=== PATIENT | female | born 1965 | race Caucasian/White ===

== ENCOUNTER 2016-07-07 07:52 | Inpatient (IN) | payer MEDICAID ==
[2016-07-07] MEDS ORDERED: Sodium Chloride 0.9% 1000 ML 1,000 ML IV SCH (08:00)
[2016-07-07 08:16] LABS: VBG BASE EXCESS 7.5 (-2.0-2.0); VBG HCO3- 35.6 meq/L (22-28); VBG HEMOGLOBIN 15.5; VBG O2 SATURATION 69.6 (95-100); VBG POTASSIUM 4.3 (3.5-5.1); VBG pH 7.36 (7.32-7.42)
[2016-07-07 08:22] LABS: BASOPHIL % 0.5 % (0.0-0.4); Eosinophil % 0.5 % (0.00-5.0); Granulocytes % 78.7 % (36.0-66.0); Lymphocytes % 13.8 % (24.0-44.0); Mean Cell Volume 105.5 fl (78-100); Mean Platelet Volume 9.9 fl (6-9.5); Monocytes % 6.5 % (0.0-12.0); Platelet Count 226 K/mm3 (150-450); Red Blood Count 4.51 M/mm3 (4.1-5.4); White Blood Count 10.2 K/mm3 (4.0-10.5)
[2016-07-07] MEDS ORDERED: PROVENTIL 2.5 MG/3 ML NEB IH ONE ×2 (08:22→08:23)
[2016-07-07] MEDS ORDERED: ROCEPHIN 1 Gm-D5w 50 ml Bag** 50 ML IV ONE ×2 (08:35→09:05)
[2016-07-07] MEDS ORDERED: Zithromax 500 MG/ 250 ML NaCl Premix 250 ML IV ONE ×2 (08:35→09:05)
[2016-07-07 08:42] LABS: ALBUMIN 3.2 g/dL (3.4-5.0); ALKALINE PHOSPHATASE 91 U/L (46-116); ANION GAP 10.9 MEQ/L (5-15); BILIRUBIN,TOTAL 0.4 mg/dL (0.2-1.0); BLOOD UREA NITROGEN 7 mg/dL (9-20); CHLORIDE 101 mEq/L (98-107); Carbon Dioxide 33.3 mEq/L (21-32); Glucose 141 MG/DL (70-110); MAGNESIUM 2.1 mg/dL (1.8-2.4); Potassium 4.3 mEq/L (3.5-5.1); SGOT/AST 20 U/L (15-37); SGPT/ALT 24 U/L (12-78); SODIUM 141 mEq/L (136-145); Total Protein 7.3 gm/dL (6.4-8.2)
--- NOTE | 2016-07-07 08:43 | XRAY ---
Exam: AP portable chest film from 0820 hours on 07/07/2016. Comparison: AP portable chest film from 07/24/2010. Indication: Cough/dyspnea. Findings: The film was obtained in a lordotic projection. The heart size appears mildly enlarged. There are new mild increased bilateral perihilar and lower lung field lung markings as compared to 07/24/2010 suggestive of early CHF. A diffuse interstitial inflammatory process is also possible, but probably less likely. No superimposed dense lung consolidation is seen. There is no evidence of pneumothorax. There is some mild haziness at the right costophrenic angle and adjacent to the left hemidiaphragmatic surface. Posterior pleural fluid is not excluded. No acute osseous abnormality is seen. Impression: 1. Radiographic findings most suggestive of early/mild CHF. A diffuse bilateral interstitial inflammatory process would be a secondary consideration. The radiographic findings are new from 07/24/2010.
--- NOTE | 2016-07-07 08:43 | ERPHSYRPT ---
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 Was better then worse. Maybe fever. No chest pain. Cough with phlegm. She is a smoker but has not been able to smoke for few days. This AM was weak and short of breath so had to call ambulance to bring her to the hospital. Denies hx of COPD or lung or heart disease. Symptoms moderately severe. EMS noted low O2 sat in 70% range which improved with O2. 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 Timing/Duration: day(s) (5) Allergies/Adverse Reactions: No Known Drug Allergies Allergy (Verified 07/07/16 08:07) Home Medications: Albuterol Sulfate [Albuterol Sulfate Hfa] 7 gm IH UD 07/07/16 [History] Alprazolam [Xanax 0.5 mg] 0.5 mg PO UD 07/07/16 [History] Cyclobenzaprine HCl [Flexeril] 5 mg PO UD 07/07/16 [History] Hydrocodone Bit/Acetaminophen [[place] 5/325Mg] 1 each PO UD 07/07/16 [History] Hx Tetanus, Diphtheria Vaccination/Date Given: Yes Hx Influenza Vaccination/Date Given: No Hx Pneumococcal Vaccination/Date Given: No Immunizations Up to Date: Yes - Review of Systems Constitutional: Fatigue, Malaise, Weakness Eyes: No Symptoms Ears, Nose, & Throat: No Symptoms Respiratory: Cough, Dyspnea, Wheezing Cardiac: No Chest Pain, No Edema, No Syncope Abdominal/Gastrointestinal: No Abdominal Pain, No Nausea, No Vomiting Musculoskeletal: No Back Pain Skin: No Rash Neurological: No Headache All Other Systems: Reviewed and Negative - Past Medical History Pertinent Past Medical History: Yes Neurological History: No Pertinent History ENT History: No Pertinent History Cardiac History: No Pertinent History Respiratory History: No Pertinent History Endocrine Medical History: No Pertinent History Musculoskeletal History: Other GI Medical History: No Pertinent History History: No Pertinent History Psycho-Social History: Depression Female Reproductive Disorders: No Pertinent History Other Medical History: chronic back pain - Past Surgical History Past Surgical History: Yes Musculoskeletal: Orthopedic Surgery Other Surgical History: tonsils, back - Social History Smoking Status: Current every day smoker How long have you smoked: 30 Exposure to second hand smoke: No Drug Use: none Patient Lives Alone: Yes (cares for elderly parents) - Female History Hx Now: No - Nursing Vital Signs Nursing Vital Signs: Initial Vital Signs Temperature 100.4 F Temperature Source Rectal Pulse Rate 93 Respiratory Rate 26 Blood Pressure [Right Arm] 153/59 Pain Intensity 1 - Physical Exam General Appearance: alert, obese, other (pleasant lady) Eye Exam: PERRL/EOMI Ears, Nose, Throat Exam: normal ENT inspection, moist mucous membranes Neck Exam: normal inspection, supple Respiratory Exam: respiratory distress (mild), wheezing Cardiovascular Exam: regular rate/rhythm, No murmur Gastrointestinal/Abdomen Exam: soft, No tenderness, No distention Extremity Exam: pedal edema (trace), No calf tenderness Neurologic Exam: alert, oriented x 3, cooperative, sensation nml, No motor deficits Skin Exam: warm, diaphoresis (and flushed) SpO2 Interpretation: hypoxic, O2 applied SpO2: 90 Oxygen Delivery: Nasal Cannula - Course Nursing assessment & vital signs reviewed: Yes EKG Interpreted by Me: RATE (94), Sinus Rhythm, Left [place] Deviation, LAFB, NORMAL INTERVALS (QTc 443), Non-specific ST Changes (lateral T wave changes, no current of injury) - Radiology Exams cxr X-ray Interpretation: Reviewed by me, Teleradiologist Report (CM, fluid overload. possible pneumonitis.) Ordered Tests: Active Orders 24 hr Category Date Time Status CO2 Monitoring STAT Care 07/07/16 07:59 Active Second Hand STAT Care 07/07/16 07:59 Active EKG-ER Only STAT Care 07/07/16 07:59 Active IV Insertion STAT Care 07/07/16 07:59 Active IV Insertion-2nd Peripheral STAT Care 07/07/16 08:38 Active Oxygen-ED Only NASAL CANNULA 4 lpm Care 07/07/16 07:59 Active Pulse Oximetry (ED) STAT Care 07/07/16 07:59 Active CHEST 1 VIEW (PORTABLE) Stat Exams 07/07/16 07:59 Completed BLOOD CULTURE Stat Lab 07/07/16 08:10 Received CBC W DIFF Stat Lab 07/07/16 08:05 Completed CMP Stat Lab 07/07/16 08:05 Completed CULTURE,SPUTUM Stat Lab 07/07/16 08:10 Received CULTURE,URINE Stat Lab 07/07/16 09:00 Received Lactic Acid Urgent Lab 07/07/16 08:15 Completed MAGNESIUM Stat Lab 07/07/16 08:05 Completed NT PRO BNP Routine Lab 07/07/16 08:45 Completed TROPONIN Q3H Lab 07/07/16 08:45 Completed TROPONIN Q3H Lab 07/07/16 11:45 Ordered TROPONIN Q3H Lab 07/07/16 14:45 Ordered TROPONIN Q3H Lab 07/07/16 17:45 Ordered TROPONIN Q3H Lab 07/07/16 20:45 Ordered UA W/ MICROSCOPIC Stat Lab 07/07/16 09:00 Completed VENOUS BLOOD GAS Urgent Lab 07/07/16 08:15 Completed Respiratory Nebulizer STAT RT 07/07/16 08:22 Completed Medication Summary Generic Name Dose Route Start Last Admin Trade Name Freq PRN Reason Stop Dose Admin Sodium Chloride 1,000 mls @ 100 mls/hr 07/07/16 08:00 07/07/16 08:26 Sodium Chloride 0.9% 1000 Ml IV 08/06/16 07:59 100 mls/hr .Q10H ALESSANDRA Administration Azithromycin 250 mls @ 125 mls/hr 07/07/16 08:35 07/07/16 09:14 Zithromax 500 Mg/ 250 Ml Nacl Premix IV 07/07/16 10:34 125 mls/hr STAT ONE Administration Discontinued Medications Generic Name Dose Route Start Last Admin Trade Name Freq PRN Reason Stop Dose Admin Albuterol Sulfate 2.5 mg 07/07/16 08:22 07/07/16 08:25 Proventil 2.5 Mg/3 Ml Neb IH 07/07/16 08:23 2.5 mg STAT ONE Administration Albuterol Sulfate Confirm 07/07/16 08:23 Proventil 2.5 Mg/3 Ml Neb Administered 07/07/16 08:24 Dose 2.5 mg IH .STK-MED ONE Ceftriaxone Sodium/Dextrose 50 mls @ 100 mls/hr 07/07/16 08:35 07/07/16 09:14 Rocephin 1 Gm-D5w 50 Ml Bag IV 07/07/16 09:04 100 mls/hr STAT ONE Administration Azithromycin Confirm 07/07/16 09:05 Zithromax 500 Mg/ 250 Ml Nacl Premix Administered 07/07/16 09:06 Dose 250 mls @ ud IV .STK-MED ONE Ceftriaxone Sodium/Dextrose Confirm 07/07/16 09:05 Rocephin 1 Gm-D5w 50 Ml Bag Administered 07/07/16 09:06 Dose 50 mls @ ud IV .STK-MED ONE Lab/Rad Data: Laboratory Result Diagrams 07/07/16 08:05 07/07/16 08:05 Laboratory Results 07/07/16 07/07/16 07/07/16 Range/Units 09:00 08:45 08:15 WBC (4.0-10.5) K/mm3 RBC (4.1-5.4) M/mm3 Hgb (12.0-16.0) gm/dl Hct (35-47) % MCV (78-100) fl MCH (26-32) pg MCHC (32-36) g/dl RDW (11.5-14.0) % Plt Count (150-450) K/mm3 MPV (6-9.5) fl Gran % (36.0-66.0) % Lymphocytes % (24.0-44.0) % Monocytes % (0.0-12.0) % Eosinophils % (0.00-5.0) % Basophils % (0.0-0.4) % Basophils # (0-0.4) VBG pH 7.36 (7.32-7.42) VBG pCO2 at Pat Temp 63 H* (42-55) mm/Hg VBG pO2 at Pat Temp 33 (25-40) mm/Hg VBG HCO3 35.6 H* (22-28) meq/L VBG O2 Sat (Eris) 69.6 L (95-100) VBG Base Excess 7.5 H (-2.0-2.0) VBG Hemoglobin 15.5 VBG Carboxyhemoglobin 6.0 (0.0-6.9) % T HGB POC Potassium 4.3 (3.5-5.1) Sodium (136-145) mEq/L Potassium (3.5-5.1) mEq/L Chloride (98-107) mEq/L Carbon Dioxide (21-32) mEq/L Anion Gap (5-15) MEQ/L BUN (9-20) mg/dL Creatinine (0.55-1.30) mg/dl Estimated GFR ML/MIN Glucose (70-110) MG/DL Lactic Acid 1.0 (0.4-2.0) Calcium (8.5-10.1) mg/dL Magnesium (1.8-2.4) mg/dL Total Bilirubin (0.2-1.0) mg/dL AST (15-37) U/L ALT (12-78) U/L Alkaline Phosphatase (46-116) U/L Troponin I < 0.017 (0.000-0.056) ng/ml NT-Pro-B Natriuret Pep 899 H (0-125) pg/ml Serum Total Protein (6.4-8.2) gm/dL Albumin (3.4-5.0) g/dL Ur Collection Type CATH Urine Color YELLOW (YELLOW) Urine Appearance CLEAR (CLEAR) Urine pH 6.5 (5-6) Ur Specific [place] 1.025 (1.005-1.025) Urine Protein 30 (Negative) Urine Glucose (UA) NEGATIVE (NEGATIVE) mg/dL Urine Ketones NEGATIVE (NEGATIVE) Urine Nitrite NEGATIVE (NEGATIVE) Urine Bilirubin SMALL (NEGATIVE) Urine Urobilinogen 1 (0-1) mg/dL Urine WBC (Auto) NEGATIVE (NEGATIVE) Urine RBC (Auto) TRACE-INTACT (0-5) Ross/ul Urine Microscopic RBC 0-2 (0-2) /HPF Urine Microscopic WBC 0-2 (0-5) /HPF Ur Epithelial Cells FEW (FEW) /HPF Urine Bacteria FEW (NEGATIVE) /HPF Urine Mucus SLIGHT (NEGATIVE) /HPF Specimen Received 07/07/16 0900 07/07/16 07/07/16 Range/Units 08:05 08:05 WBC 10.2 (4.0-10.5) K/mm3 RBC 4.51 (4.1-5.4) M/mm3 Hgb 14.9 (12.0-16.0) gm/dl Hct 47.6 H (35-47) % MCV 105.5 H (78-100) fl MCH 33.0 H (26-32) pg MCHC 31.3 L (32-36) g/dl RDW 14.0 (11.5-14.0) % Plt Count 226 (150-450) K/mm3 MPV 9.9 H (6-9.5) fl Gran % 78.7 H (36.0-66.0) % Lymphocytes % 13.8 L (24.0-44.0) % Monocytes % 6.5 (0.0-12.0) % Eosinophils % 0.5 (0.00-5.0) % Basophils % 0.5 (0.0-0.4) % Basophils # 0.05 (0-0.4) VBG pH (7.32-7.42) VBG pCO2 at Pat Temp (42-55) mm/Hg VBG pO2 at Pat Temp (25-40) mm/Hg VBG HCO3 (22-28) meq/L VBG O2 Sat (Eris) (95-100) VBG Base Excess (-2.0-2.0) VBG Hemoglobin VBG Carboxyhemoglobin (0.0-6.9) % T HGB POC Potassium (3.5-5.1) Sodium 141 (136-145) mEq/L Potassium 4.3 (3.5-5.1) mEq/L Chloride 101 (98-107) mEq/L Carbon Dioxide 33.3 H (21-32) mEq/L Anion Gap 10.9 (5-15) MEQ/L BUN 7 L (9-20) mg/dL Creatinine 0.76 (0.55-1.30) mg/dl Estimated GFR > 60 ML/MIN Glucose 141 H (70-110) MG/DL Lactic Acid (0.4-2.0) Calcium 8.6 (8.5-10.1) mg/dL Magnesium 2.1 (1.8-2.4) mg/dL Total Bilirubin 0.4 (0.2-1.0) mg/dL AST 20 (15-37) U/L ALT 24 (12-78) U/L Alkaline Phosphatase 91 (46-116) U/L Troponin I (0.000-0.056) ng/ml NT-Pro-B Natriuret Pep (0-125) pg/ml Serum Total Protein 7.3 (6.4-8.2) gm/dL Albumin 3.2 L (3.4-5.0) g/dL Ur Collection Type Urine Color (YELLOW) Urine Appearance (CLEAR) Urine pH (5-6) Ur Specific [place] (1.005-1.025) Urine Protein (Negative) Urine Glucose (UA) (NEGATIVE) mg/dL Urine Ketones (NEGATIVE) Urine Nitrite (NEGATIVE) Urine Bilirubin (NEGATIVE) Urine Urobilinogen (0-1) mg/dL Urine WBC (Auto) (NEGATIVE) Urine RBC (Auto) (0-5) Ross/ul Urine Microscopic RBC (0-2) /HPF Urine Microscopic WBC (0-5) /HPF Ur Epithelial Cells (FEW) /HPF Urine Bacteria (NEGATIVE) /HPF Urine Mucus (NEGATIVE) /HPF Specimen Received - Progress Progress Note: 07/07/16 09:46 Pt stable. Talkative. Saturations low 90s on oxygen. No chest pain. No hx of thromboembolic disease. Called Dr Dc. Will admit to ICU IP, get echo to assess LV function, and treat pneumonitis/COPD. Will see patient in: hospital (full admit) Counseled pt/family regarding: lab results, diagnosis, need for follow-up, rad results - Departure Time of Disposition: 09:47 Departure Disposition: In-patient Admission Clinical Impression: Pneumonitis, Compensated respiratory acidosis, Hypoxemia, COPD exacerbation, Smoker Condition: Fair Critical Care Time: No
[2016-07-07 09:16] LABS: Collection Type CATH
[2016-07-07 09:19] LABS: COMPLETE URINE MICROSCOPIC? YES; Ph 6.5 (5-6)
[2016-07-07 09:27] LABS: Bacteria FEW /HPF (NEGATIVE); Epithelial Cells FEW /HPF (FEW); Mucus SLIGHT /HPF (NEGATIVE); WBC 0-2 /HPF (0-5)
[2016-07-07 09:29] LABS: TROPONIN < 0.017 ng/ml (0.000-0.056)
[2016-07-07] MEDS ORDERED: TYLENOL 325 MG PO PRN (10:41)
[2016-07-07] MEDS: DUONEB 0.5-3 MG/3 ml Neb IH SCH ×4 (11:23→21:56)
[2016-07-07] MEDS: Pepcid 20 MG VIAL IV SCH ×2 (12:34→22:04)
[2016-07-07] MEDS: ENOXAPARIN SODIUM SQ SCH (12:34)
[2016-07-07] MEDS: solu-MEDROL 125 MG IV SCH ×2 (12:34→18:48)
--- NOTE | 2016-07-07 12:36 | PCM.HP ---
History of Present Illness - Chief Complaint Chief Complaint: Shortness of Breath History of Present Illness: is a 50 year old female who is an obese, group home heavy smoker. She reports cough, fever and feeling poorly for the last 5 days. She has been short of breath, felt much worse this morning so called ambulance. Has no prior cardiac or pulmonary history in the past. - Review of Systems Constitutional: Fever, Chills Ears, Nose, & Throat: No Symptoms Respiratory: Cough, Short Of Breath Cardiac: No Chest Pain, No Edema, No Syncope Abdominal/Gastrointestinal: No Abdominal Pain, No Nausea, No Vomiting, No Diarrhea Skin: No Rash All Other Systems: Reviewed and Negative Medications & Allergies Home Medications: Home Medication List Albuterol Sulfate [Albuterol Sulfate Hfa] 7 gm IH Q4H PRN PRN 07/07/16 [History Confirmed 07/07/16] Alprazolam [Xanax 0.5 mg] 0.5 mg PO DAILY PRN PRN 07/07/16 [History Confirmed ] Cyclobenzaprine HCl [Flexeril] 10 mg PO TID PRN PRN 07/07/16 [History Confirmed 07/07/16] Hydrocodone Bit/Acetaminophen [[place] 5/325Mg] 1 each PO Q6H PRN PRN 07/07/16 [ History Confirmed 07/07/16] Allergies/Adverse Reactions: Allergies Allergy/AdvReac Type Severity Reaction Status Date / Time No Known Drug Allergies Allergy Verified 07/07/16 08:07 - Past Medical History Past Medical History: Yes Neurological History: No Pertinent History ENT History: No Pertinent History Cardiac History: No Pertinent History Respiratory History: No Pertinent History Endocrine Medical History: No Pertinent History Musculoskelatal History: Arthritis, Other GI Medical History: No Pertinent History History: No Pertinent History Pyscho-Social History: Anxiety, Depression Reproductive Disorders: No Pertinent History Comment: chronic back pain - Past Surgical History Past Surgical History: Yes Neuro Surgical History: No Pertinent History Cardiac History: No Pertinent History Respiratory Surgery: No Pertinent History GI Surgical History: No Pertinent History Genitourinary Surgical Hx: No Pertinent History Musculskeletal Surgical Hx: Orthopedic Surgery Female Surgical History: No Pertinent History Other Surgical History: tonsils, back - Social History Smoking Status: Current every day smoker How long have you smoked: 30 Exposure to second hand smoke: No Alcohol: Daily Drug Use: marijuana - Physical Exam Vital Signs: Vital Signs - 24 hr Temp Pulse Resp BP Pulse Ox 07/07/16 11:00 83 22 93 L 07/07/16 09:48 90 L 07/07/16 09:03 93 H 26 H 153/59 91 L 07/07/16 08:53 100.4 F 07/07/16 08:38 95 H 20 91 L 07/07/16 08:12 90 L 07/07/16 08:02 26 H 90 L 07/07/16 07:52 98.1 F 101 H 26 H 155/83 90 L Oxygen-Last 24 hours O2 Percentage 4 Liters = 36% O2 Percentage 4 Liters = 36% O2 Percentage 4 Liters = 36% O2 Percentage 4 Liters = 36% General Appearance: no apparent distress, alert Eye Exam: PERRL/EOMI Respiratory Exam: prolonged expirations, wheezing Cardiovascular Exam: regular rate/rhythm, normal heart sounds, normal peripheral pulses Gastrointestinal/Abdomen Exam: soft, normal bowel sounds, No tenderness, No mass Extremity Exam: normal inspection, normal range of motion, pelvis stable Skin Exam: normal color, warm, dry, No rash Results - Other Procedures and Tests Respiratory Therapy 07/07/16 11:00 Respiratory Nebulizer Q4H Assessment/Plan (1) COPD exacerbation Current Visit: Yes Status: Acute Assessment & Plan: continue rocephin/zithromax, nebs and IV solu medrol. concern for chf on chest xray. no obvious lower extremity edema. exam c/w bronchospasm. echo is pending. Code(s): J44.1 - CHRONIC OBSTRUCTIVE PULMONARY DISEASE W (ACUTE) EXACERBATION (2) Compensated respiratory acidosis Current Visit: Yes Status: Acute Code(s): E87.2 - ACIDOSIS (3) Hypoxemia Current Visit: Yes Status: Acute Assessment & Plan: as above, supplemental oxygen Code(s): R09.02 - HYPOXEMIA (4) Smoker Current Visit: Yes Status: Acute Code(s): F17.200 - NICOTINE DEPENDENCE, UNSPECIFIED, UNCOMPLICATED
[2016-07-07] MEDS ORDERED: xanAX 0.5 MG PO PRN (13:20)
[2016-07-07] MEDS: NORCO 5/325 MG PO PRN ×2 (14:11→20:34)
[2016-07-07] MEDS: Zestril 5 MG PO SCH (22:03)
[2016-07-08] MEDS: solu-MEDROL 125 MG IV SCH ×4 (00:48→18:48)
[2016-07-08] MEDS: DUONEB 0.5-3 MG/3 ml Neb IH SCH ×6 (03:07→23:21)
[2016-07-08 05:40] LABS: Mean Cell Volume 107.4 fl (78-100); Mean Corpuscular Hemoglobin 32.9 pg (26-32); Mean Platelet Volume 9.8 fl (6-9.5); Platelet Count 245 K/mm3 (150-450); Red Blood Count 4.59 M/mm3 (4.1-5.4); Red Cell Distribution Width 14.1 % (11.5-14.0); White Blood Count 11.7 K/mm3 (4.0-10.5)
[2016-07-08 06:01] LABS: ALBUMIN 3.2 g/dL (3.4-5.0); ALKALINE PHOSPHATASE 89 U/L (46-116); ANION GAP 8.5 MEQ/L (5-15); BILIRUBIN,TOTAL 0.2 mg/dL (0.2-1.0); BLOOD UREA NITROGEN 10 mg/dL (9-20); CHLORIDE 104 mEq/L (98-107); Carbon Dioxide 36.1 mEq/L (21-32); Glucose 185 MG/DL (70-110); SGOT/AST 14 U/L (15-37); SGPT/ALT 20 U/L (12-78); SODIUM 144 mEq/L (136-145); Total Protein 7.8 gm/dL (6.4-8.2)
[2016-07-08 06:18] LABS: Poikilocytosis 1+; TROPONIN < 0.017 ng/ml (0.000-0.056); Total Cells Counted 100
[2016-07-08 06:19] LABS: ANISOCYTOSIS 1+; Platelet Estimate NORMAL (NORMAL); Polychromasia 1+
[2016-07-08] MEDS ORDERED: Lasix 20 MG/2 ML IV ONE (08:42)
--- NOTE | 2016-07-08 08:45 | PCM.NOTE ---
Date and Time: 07/08/16842 Subjective Assessment: patient reports mild improvement in how she feels, still requiring 5 L oxygen and has productive cough Objective Exam General Appearance: no apparent distress, alert Skin Exam: normal color, warm, dry Respiratory Exam: crackles/rales, wheezing Cardiovascular Exam: regular rate/rhythm, normal heart sounds Gastrointestinal/Abdomen Exam: soft, No tenderness, No mass Extremity Exam: pedal edema OBJECTIVE DATA Vital Signs: Vital Signs - 24 hr Temp Pulse Resp BP BP Pulse Ox 07/08/16 08:00 90 26 H 121/87 94 L 07/08/16 04:00 97.7 F 98 H 24 174/74 99 07/08/16 02:00 106 H 20 93 L 07/08/16 00:37 20 07/08/16 00:01 79 07/08/16 00:00 98.4 F 79 22 151/90 94 L 07/07/16 22:00 88 18 89 L 07/07/16 20:37 18 07/07/16 20:00 98.1 F 89 18 162/79 92 L 07/07/16 18:46 95 H 18 92 L 07/07/16 16:26 98.0 F 84 17 144/96 84 L 07/07/16 16:00 91 H 07/07/16 15:25 83 24 95 07/07/16 12:20 98.3 F 90 31 H 156/76 88 L 07/07/16 12:00 82 07/07/16 11:00 83 22 93 L 07/07/16 09:48 90 L 07/07/16 09:03 93 H 26 H 153/59 91 L 07/07/16 08:53 100.4 F Oxygen-Last 24 hours O2 Percentage 5 Liters = 40% O2 Percentage 6 Liters = 44% O2 Percentage 5 Liters = 40% O2 Percentage 4 Liters = 36% O2 Percentage 4 Liters = 36% O2 Percentage 4 Liters = 36% Pain Assessment - Last Documented Pain Intensity 4 Pain Scale Used 0-10 Pain Scale Intake and Output: Intake & Output 07/05/16 07/06/16 07/07/16 07/08/16 11:59 11:59 11:59 11:59 Intake Total 750 Output Total 1700 Balance -950 Weight 138.572 kg Lab Results: Lab Results-Last 24 Hours 07/07/16 07/07/16 07/07/16 Range/Units 11:50 14:50 17:55 WBC (4.0-10.5) K/mm3 RBC (4.1-5.4) M/mm3 Hgb (12.0-16.0) gm/dl Hct (35-47) % MCV (78-100) fl MCH (26-32) pg MCHC (32-36) g/dl RDW (11.5-14.0) % Plt Count (150-450) K/mm3 MPV (6-9.5) fl Segmented Neutrophils (36.0-66.0) % Lymphocytes (Manual) (24-44) % Monocytes (Manual) (0.0-12.0) % Platelet Estimate (NORMAL) Polychromasia Poikilocytosis Anisocytosis Sodium (136-145) mEq/L Potassium (3.5-5.1) mEq/L Chloride (98-107) mEq/L Carbon Dioxide (21-32) mEq/L Anion Gap (5-15) MEQ/L BUN (9-20) mg/dL Creatinine (0.55-1.30) mg/dl Estimated GFR ML/MIN Glucose (70-110) MG/DL Calcium (8.5-10.1) mg/dL Total Bilirubin (0.2-1.0) mg/dL AST (15-37) U/L ALT (12-78) U/L Alkaline Phosphatase (46-116) U/L Troponin I < 0.017 < 0.017 < 0.017 (0.000-0.056) ng/ml NT-Pro-B Natriuret Pep (0-125) pg/ml Serum Total Protein (6.4-8.2) gm/dL Albumin (3.4-5.0) g/dL 07/07/16 07/08/16 07/08/16 Range/Units 21:00 05:23 05:23 WBC 11.7 H (4.0-10.5) K/mm3 RBC 4.59 (4.1-5.4) M/mm3 Hgb 15.1 (12.0-16.0) gm/dl Hct 49.3 H (35-47) % MCV 107.4 H (78-100) fl MCH 32.9 H (26-32) pg MCHC 30.6 L (32-36) g/dl RDW 14.1 H (11.5-14.0) % Plt Count 245 (150-450) K/mm3 MPV 9.8 H (6-9.5) fl Segmented Neutrophils 89 H (36.0-66.0) % Lymphocytes (Manual) 9 L (24-44) % Monocytes (Manual) 2 (0.0-12.0) % Platelet Estimate NORMAL (NORMAL) Polychromasia 1+ Poikilocytosis 1+ Anisocytosis 1+ Sodium 144 (136-145) mEq/L Potassium 5.0 (3.5-5.1) mEq/L Chloride 104 (98-107) mEq/L Carbon Dioxide 36.1 H (21-32) mEq/L Anion Gap 8.5 (5-15) MEQ/L BUN 10 (9-20) mg/dL Creatinine 0.78 (0.55-1.30) mg/dl Estimated GFR > 60 ML/MIN Glucose 185 H (70-110) MG/DL Calcium 8.9 (8.5-10.1) mg/dL Total Bilirubin 0.2 (0.2-1.0) mg/dL AST 14 L (15-37) U/L ALT 20 (12-78) U/L Alkaline Phosphatase 89 (46-116) U/L Troponin I < 0.017 (0.000-0.056) ng/ml NT-Pro-B Natriuret Pep (0-125) pg/ml Serum Total Protein 7.8 (6.4-8.2) gm/dL Albumin 3.2 L (3.4-5.0) g/dL 07/08/ Range/Units 05:23 WBC (4.0-10.5) K/mm3 RBC (4.1-5.4) M/mm3 Hgb (12.0-16.0) gm/dl Hct (35-47) % MCV (78-100) fl MCH (26-32) pg MCHC (32-36) g/dl RDW (11.5-14.0) % Plt Count (150-450) K/mm3 MPV (6-9.5) fl Segmented Neutrophils (36.0-66.0) % Lymphocytes (Manual) (24-44) % Monocytes (Manual) (0.0-12.0) % Platelet Estimate (NORMAL) Polychromasia Poikilocytosis Anisocytosis Sodium (136-145) mEq/L Potassium (3.5-5.1) mEq/L Chloride (98-107) mEq/L Carbon Dioxide (21-32) mEq/L Anion Gap (5-15) MEQ/L BUN (9-20) mg/dL Creatinine (0.55-1.30) mg/dl Estimated GFR ML/MIN Glucose (70-110) MG/DL Calcium (8.5-10.1) mg/dL Total Bilirubin (0.2-1.0) mg/dL AST (15-37) U/L ALT (12-78) U/L Alkaline Phosphatase (46-116) U/L Troponin I < 0.017 (0.000-0.056) ng/ml NT-Pro-B Natriuret Pep 793 H (0-125) pg/ml Serum Total Protein (6.4-8.2) gm/dL Albumin (3.4-5.0) g/dL Assessment/Plan (1) COPD exacerbation Current Visit: Yes Status: Acute Assessment & Plan: continue rocephin/zithromax, solu medrol and aggressive nebulizer therapy. echo pending, concern for chf with xray. will give 20mg IV lasix x 1 dose and await further results Code(s): J44.1 - CHRONIC OBSTRUCTIVE PULMONARY DISEASE W (ACUTE) EXACERBATION (2) Compensated respiratory acidosis Current Visit: Yes Status: Acute Code(s): E87.2 - ACIDOSIS (3) Hypoxemia Current Visit: Yes Status: Acute Code(s): R09.02 - HYPOXEMIA (4) Smoker Current Visit: Yes Status: Acute Code(s): F17.200 - NICOTINE DEPENDENCE, UNSPECIFIED, UNCOMPLICATED
--- NOTE | 2016-07-08 09:19 | CONS ---
CONSULT DATE: 07/07/2016 BRIEF HISTORY: This is a 50 year-old female who was seen because of shortness of breath. The patient stated that she had been doing well until last Thursday when she had some flu-like symptoms associated with nonproductive cough and generalized weakness. Since then she has been short of breath on very limited exertion. She was admitted because of worsening shortness of breath. She denies any chest pains. She has never had cardiac related problems in the past. HOME MEDICATIONS: Albuterol inhaler, Xanax, Flexeril, hydrocodone, famotidine, Solu-Medrol. REVIEW OF SYSTEMS: CORE SHAPER SIDES: No history of stroke or seizures. RESPIRATORY: Intermittent coughing spells. She states she has never been diagnosed to have chronic obstructive pulmonary disease. GI: No heartburn. No nausea. No vomiting. : Negative for dysuria or hematuria. PERIPHERAL VASCULAR: No history of DVT or claudication. MUSCULOSKELETAL: She has some degenerative joint disorder. SKIN: No active dermatological problems. HEMATOLOGY: No blood dyscrasia or transfusion. ENDOCRINE: No thyroid disorder. PAST SURGICAL HISTORY: Back surgery, tonsillectomy. SOCIAL HISTORY: She still smokes about a pack of cigarettes a day. She also has some ETOH usage every two weeks when she is with her friends. PHYSICAL EXAMINATION: Her blood pressure is 141/89, heart rate 87, respirations about 18. GENERAL: The patient is a middle aged female who is alert who has shortness of breath with just plain conversation. She is obese. HEENT: Unremarkable. NECK: No obvious JVD. CHEST: The breath sounds are diminished bilaterally with some rhonchi. CARDIAC: Heart tones are normal. The rhythm is regular. There is no audible gallop. ABDOMEN: Soft with normal bowel sounds. EXTREMITIES: There is trace edema with decreased distal pulses. LAB DATA AND DIAGNOSTIC TESTS: EKG shows normal sinus rhythm with left anterior viridiana-block. Chest x-ray shows possible congestive heart failure. Troponin 0.017. CBC showed hemoglobin 14.9, PLT 226,000. BUN 7, creatinine 0.76. The glomerular filtration rate greater than 60. Serum electrolytes are normal. Liver enzymes are normal. The ProBNP 899. IMPRESSION: In essence the patient presented with shortness of breath with background of viral infection. The possibilities includes the patient may have some kind of viral-type of pneumonia with underlying chronic obstructive pulmonary disease from chronic tobacco usage. I am going to go ahead and get echocardiogram to assess left ventricular systolic function. The patient will be given some IV diuretics. Will carefully monitor serum electrolytes. Echocardiogram to assess left ventricular systolic function. Further recommendations will be made after the tests are completed. I will follow up with you.
[2016-07-08] MEDS: Zithromax 500 MG/ 250 ML NaCl Premix 250 ML IV SCH (09:58)
[2016-07-08] MEDS: NORCO 5/325 MG PO PRN (09:59)
[2016-07-08] MEDS: ROCEPHIN 1 Gm-D5w 50 ml Bag** 50 ML IV SCH (09:59)
[2016-07-08] MEDS: Zestril 5 MG PO SCH ×2 (10:00→21:34)
[2016-07-08] MEDS: Pepcid 20 MG VIAL IV SCH ×2 (10:03→21:34)
[2016-07-08] MEDS: ENOXAPARIN SODIUM SQ SCH (10:03)
[2016-07-08] MEDS ORDERED: Artificial Tears 15 ML OP PRN (20:11)
[2016-07-08] MEDS: xanAX 0.5 MG PO PRN (20:27)
[2016-07-09] MEDS: solu-MEDROL 125 MG IV SCH ×4 (02:11→17:35)
[2016-07-09] MEDS: DUONEB 0.5-3 MG/3 ml Neb IH SCH ×6 (03:27→23:02)
[2016-07-09 05:43] LABS: Mean Corpuscular Hemoglobin 33.3 pg (26-32); Mean Platelet Volume 10.2 fl (6-9.5); Platelet Count 273 K/mm3 (150-450); Red Blood Count 4.51 M/mm3 (4.1-5.4); Red Cell Distribution Width 14.2 % (11.5-14.0); White Blood Count 14.8 K/mm3 (4.0-10.5)
[2016-07-09 06:31] LABS: ANION GAP 5.8 MEQ/L (5-15); BLOOD UREA NITROGEN 17 mg/dL (9-20); CHLORIDE 102 mEq/L (98-107); Carbon Dioxide 37.8 mEq/L (21-32); Glucose 219 MG/DL (70-110); Potassium 4.9 mEq/L (3.5-5.1); SODIUM 141 mEq/L (136-145)
[2016-07-09] MEDS: NORCO 5/325 MG PO PRN ×3 (06:56→21:00)
[2016-07-09 06:57] LABS: ANISOCYTOSIS 1+; Platelet Estimate NORMAL (NORMAL); Poikilocytosis 1+; Polychromasia 1+; Total Cells Counted 100
--- NOTE | 2016-07-09 08:35 | PCM.NOTE ---
Date and Time: 07/09/16833 Subjective Assessment: patient has some improvement, she is speaking in full sentences and tolerating po well. still has significant cough Objective Exam General Appearance: no apparent distress, alert Respiratory Exam: crackles/rales, wheezing Cardiovascular Exam: regular rate/rhythm Gastrointestinal/Abdomen Exam: soft, No tenderness, No mass Extremity Exam: normal inspection, normal range of motion OBJECTIVE DATA Vital Signs: Vital Signs - 24 hr Temp Pulse Resp BP BP Pulse Ox 07/09/16 06:38 86 20 97 07/09/16 04:00 97.5 F 83 21 130/70 95 07/09/16 03:28 95 H 16 96 07/09/16 00:01 81 07/09/16 00:00 81 18 95 07/08/16 23:21 85 18 97 07/08/16 20:00 98.1 F 105 H 29 H 152/77 92 L 07/08/16 19:59 86 20 97 07/08/16 15:56 97.6 F 82 22 133/77 90 L 07/08/16 14:00 92 H 20 95 07/08/16 12:00 97.3 F 90 22 107/73 93 L 07/08/16 10:00 80 17 96 07/08/16 08:46 96.4 F Oxygen-Last 24 hours O2 Percentage 5 Liters = 40% O2 Percentage 5 Liters = 40% O2 Percentage 5 Liters = 40% O2 Percentage 5 Liters = 40% O2 Percentage 5 Liters = 40% Pain Assessment - Last Documented Pain Intensity 0 Pain Scale Used 0-10 Pain Scale Intake and Output: Intake & Output 07/06/16 07/07/16 07/08/16 07/09/16 11:59 11:59 11:59 11:59 Intake Total 750 2690 Output Total 2440 1450 Balance -1690 1240 Weight 138.572 kg 140.614 kg Lab Results: Lab Results-Last 24 Hours 07/09/16 07/09/16 Range/Units 05:08 05:08 WBC 14.8 H (4.0-10.5) K/mm3 RBC 4.51 (4.1-5.4) M/mm3 Hgb 15.0 (12.0-16.0) gm/dl Hct 49.6 H (35-47) % MCV 110.0 H (78-100) fl MCH 33.3 H (26-32) pg MCHC 30.2 L (32-36) g/dl RDW 14.2 H (11.5-14.0) % Plt Count 273 (150-450) K/mm3 MPV 10.2 H (6-9.5) fl Segmented Neutrophils 93 H (36.0-66.0) % Lymphocytes (Manual) 4 L (24-44) % Monocytes (Manual) 3 (0.0-12.0) % Platelet Estimate NORMAL (NORMAL) Polychromasia 1+ Poikilocytosis 1+ Anisocytosis 1+ Sodium 141 (136-145) mEq/L Potassium 4.9 (3.5-5.1) mEq/L Chloride 102 (98-107) mEq/L Carbon Dioxide 37.8 H (21-32) mEq/L Anion Gap 5.8 (5-15) MEQ/L BUN 17 (9-20) mg/dL Creatinine 0.76 (0.55-1.30) mg/dl Estimated GFR > 60 ML/MIN Glucose 219 H (70-110) MG/DL Calcium 9.0 (8.5-10.1) mg/dL NT-Pro-B Natriuret Pep 632 H (0-125) pg/ml Assessment/Plan (1) COPD exacerbation Current Visit: Yes Status: Acute Assessment & Plan: continue rocephin/zithromax, nebs and steroids. improvement with IV lasix noted , will likely give another dose today. echo report pending. patient is stable to transfer out to med/surg today Code(s): J44.1 - CHRONIC OBSTRUCTIVE PULMONARY DISEASE W (ACUTE) EXACERBATION (2) Compensated respiratory acidosis Current Visit: Yes Status: Acute Code(s): E87.2 - ACIDOSIS (3) Hypoxemia Current Visit: Yes Status: Acute Code(s): R09.02 - HYPOXEMIA (4) Smoker Current Visit: Yes Status: Acute Code(s): F17.200 - NICOTINE DEPENDENCE, UNSPECIFIED, UNCOMPLICATED
[2016-07-09] MEDS: Zestril 5 MG PO SCH ×2 (09:30→21:02)
[2016-07-09] MEDS: ROCEPHIN 1 Gm-D5w 50 ml Bag** 50 ML IV SCH (09:30)
[2016-07-09] MEDS: ENOXAPARIN SODIUM SQ SCH (09:30)
[2016-07-09] MEDS: Pepcid 20 MG VIAL IV SCH ×2 (09:34→20:59)
[2016-07-09] MEDS: Lasix 20 MG/2 ML IV SCH (09:34)
[2016-07-09] MEDS: Zithromax 500 MG/ 250 ML NaCl Premix 250 ML IV SCH (10:29)
[2016-07-09] MEDS: xanAX 0.5 MG PO PRN (11:09)
[2016-07-09] MEDS ORDERED: Sodium Chloride 0.9% 10 ML FLUSH Syringe IV PRN (13:07)
[2016-07-09] MEDS: Sodium Chloride 0.9% 10 ML FLUSH Syringe IV SCH ×2 (13:08→21:00)
[2016-07-09] MEDS: Artificial Tears 15 ML OP PRN (21:01)
[2016-07-10] MEDS: solu-MEDROL 125 MG IV SCH ×5 (00:47→23:48)
[2016-07-10] MEDS: DUONEB 0.5-3 MG/3 ml Neb IH SCH ×6 (03:06→23:14)
[2016-07-10] MEDS: NORCO 5/325 MG PO PRN ×3 (06:02→20:05)
[2016-07-10] MEDS: Sodium Chloride 0.9% 10 ML FLUSH Syringe IV SCH ×3 (06:07→21:44)
--- NOTE | 2016-07-10 07:47 | ECHO ---
Transthoracic echocardiographic examination and color Doppler was done on 07/07/2016. INDICATION: Shortness of breath. The study was somewhat limited with a limited acoustic window. The left ventricle was only partially visualized. Estimated global left ventricular ejection fraction is probably in the range of 50 to 60%. There is prominence of the basal septum. There is a gradient of about 22 mm of Mercury across the left ventricular outflow tract. The aortic valve opens to open adequately. The mitral valve opens adequately. There is trace mitral regurgitation. Left atrium is normal. The right side chambers are normal. There is trace tricuspid regurgitation. Right ventricular systolic pressure of 32 mm of Mercury.
--- NOTE | 2016-07-10 08:06 | PCM.NOTE ---
Date and Time: 07/10/16804 Subjective Assessment: patient still with cough, congestion and significant oxygen requirement. states she is slowly feeling better Objective Exam General Appearance: no apparent distress, alert Respiratory Exam: prolonged expirations, wheezing Cardiovascular Exam: regular rate/rhythm Gastrointestinal/Abdomen Exam: soft, No tenderness, No mass Extremity Exam: normal inspection, normal range of motion OBJECTIVE DATA Vital Signs: Vital Signs - 24 hr Temp Pulse Resp BP Pulse Ox 07/10/16 07:23 97.0 F 85 20 133/65 91 L 07/10/16 06:31 80 18 93 L 07/10/16 04:00 97.8 F 78 22 164/81 96 07/10/16 03:06 93 H 18 95 07/10/16 00:00 21 07/09/16 23:33 98.1 F 96 H 22 162/76 91 L 07/09/16 23:02 96 H 18 94 L 07/09/16 20:00 98.2 F 84 20 143/69 95 07/09/16 19:07 81 24 94 L 07/09/16 16:00 98.2 F 89 20 135/77 94 L 07/09/16 15:11 80 22 92 L 07/09/16 12:00 20 07/09/16 11:38 97.8 F 76 20 116/68 92 L 07/09/16 11:00 81 20 94 L Oxygen-Last 24 hours O2 Percentage 4 Liters = 36% O2 Percentage 4 Liters = 36% O2 Percentage 4 Liters = 36% O2 Percentage 4 Liters = 36% O2 Percentage 4 Liters = 36% O2 Percentage 4 Liters = 36% Pain Assessment - Last Documented Pain Intensity 6 Pain Scale Used 0-10 Pain Scale Intake and Output: Intake & Output 07/07/16 07/08/16 07/09/16 07/10/16 11:59 11:59 11:59 11:59 Intake Total 750 3870 609 Output Total 2440 2050 2300 Balance -1690 1820 -1691 Weight 138.572 kg 140.614 kg 144.469 kg Assessment/Plan (1) COPD exacerbation Current Visit: Yes Status: Acute Assessment & Plan: continue current management, slowly improving. may need home oxygen on discharge Code(s): J44.1 - CHRONIC OBSTRUCTIVE PULMONARY DISEASE W (ACUTE) EXACERBATION (2) Compensated respiratory acidosis Current Visit: Yes Status: Acute Code(s): E87.2 - ACIDOSIS (3) Hypoxemia Current Visit: Yes Status: Acute Code(s): R09.02 - HYPOXEMIA (4) Smoker Current Visit: Yes Status: Acute Code(s): F17.200 - NICOTINE DEPENDENCE, UNSPECIFIED, UNCOMPLICATED
[2016-07-10] MEDS: Zithromax 500 MG/ 250 ML NaCl Premix 250 ML IV SCH (09:16)
[2016-07-10] MEDS: Pepcid 20 MG VIAL IV SCH ×2 (09:20→21:44)
[2016-07-10] MEDS: Zestril 5 MG PO SCH ×2 (09:21→21:44)
[2016-07-10] MEDS: ENOXAPARIN SODIUM SQ SCH (09:21)
[2016-07-10] MEDS: Lasix 20 MG/2 ML IV SCH (09:21)
[2016-07-10] MEDS: xanAX 0.5 MG PO PRN ×2 (09:27→20:05)
[2016-07-10] MEDS: ROCEPHIN 1 Gm-D5w 50 ml Bag** 50 ML IV SCH (10:51)
[2016-07-10] MEDS: Artificial Tears 15 ML OP PRN (17:24)
[2016-07-11] MEDS: NORCO 5/325 MG PO PRN ×4 (02:40→23:11)
[2016-07-11] MEDS: DUONEB 0.5-3 MG/3 ml Neb IH SCH ×6 (03:10→23:05)
[2016-07-11] MEDS: solu-MEDROL 125 MG IV SCH ×4 (05:21→23:11)
[2016-07-11] MEDS: Sodium Chloride 0.9% 10 ML FLUSH Syringe IV SCH ×3 (05:23→21:09)
[2016-07-11 05:49] LABS: Mean Cell Volume 106.1 fl (78-100); Mean Corpuscular Hemoglobin 32.3 pg (26-32); Mean Platelet Volume 9.8 fl (6-9.5); Platelet Count 270 K/mm3 (150-450); Red Blood Count 4.58 M/mm3 (4.1-5.4); Red Cell Distribution Width 13.7 % (11.5-14.0); White Blood Count 11.5 K/mm3 (4.0-10.5)
[2016-07-11 06:25] LABS: ANION GAP 3.3 MEQ/L (5-15); BLOOD UREA NITROGEN 20 mg/dL (9-20); CHLORIDE 101 mEq/L (98-107); Carbon Dioxide 40.8 mEq/L (21-32); Glucose 100 MG/DL (70-110); Potassium 4.1 mEq/L (3.5-5.1); SODIUM 141 mEq/L (136-145)
--- NOTE | 2016-07-11 07:08 | PCM.NOTE ---
Date and Time: 07/11/16705 Subjective Assessment: patient continues to require 4L oxygen, cough is more productive today. Objective Exam General Appearance: no apparent distress, alert Skin Exam: normal color, warm, dry Respiratory Exam: prolonged expirations, wheezing Cardiovascular Exam: regular rate/rhythm, normal heart sounds Gastrointestinal/Abdomen Exam: soft, No tenderness, No mass Extremity Exam: normal inspection, normal range of motion OBJECTIVE DATA Vital Signs: Vital Signs - 24 hr Temp Pulse Resp BP Pulse Ox 07/11/16 06:50 79 20 93 L 07/11/16 04:00 98.4 F 75 20 137/85 93 L 07/11/16 03:00 82 18 94 L 07/10/16 23:51 20 07/10/16 23:44 98.6 F 80 20 140/83 97 07/10/16 23:00 80 18 97 07/10/16 20:00 98.5 F 84 20 143/85 92 L 07/10/16 19:00 93 H 18 91 L 07/10/16 16:00 97.9 F 86 20 155/75 91 L 07/10/16 15:16 92 L 07/10/16 14:57 88 18 95 07/10/16 12:00 97.3 F 90 20 132/73 93 L 07/10/16 11:07 90 22 93 L 07/10/16 07:23 97.0 F 85 20 133/65 91 L Oxygen-Last 24 hours O2 Percentage 3 Liters = 32% O2 Percentage 3 Liters = 32% O2 Percentage 3 Liters = 32% O2 Percentage 3 Liters = 32% O2 Percentage 4 Liters = 36% O2 Percentage 4 Liters = 36% Pain Assessment - Last Documented Pain Intensity 4 Pain Scale Used [facility] Intake and Output: Intake & Output 07/08/16 07/09/16 07/10/16 07/11/16 11:59 11:59 11:59 11:59 Intake Total 750 3870 1029 1240 Output Total 2440 2050 3300 1550 Balance -1690 1820 -2271 -310 Weight 138.572 kg 140.614 kg 144.469 kg Lab Results: Lab Results-Last 24 Hours 07/11/16 07/11/16 Range/Units 05:26 05:26 WBC 11.5 H (4.0-10.5) K/mm3 RBC 4.58 (4.1-5.4) M/mm3 Hgb 14.8 (12.0-16.0) gm/dl Hct 48.6 H (35-47) % MCV 106.1 H (78-100) fl MCH 32.3 H (26-32) pg MCHC 30.5 L (32-36) g/dl RDW 13.7 (11.5-14.0) % Plt Count 270 (150-450) K/mm3 MPV 9.8 H (6-9.5) fl Sodium 141 (136-145) mEq/L Potassium 4.1 (3.5-5.1) mEq/L Chloride 101 (98-107) mEq/L Carbon Dioxide 40.8 H (21-32) mEq/L Anion Gap 3.3 L (5-15) MEQ/L BUN 20 (9-20) mg/dL Creatinine 0.71 (0.55-1.30) mg/dl Estimated GFR > 60 ML/MIN Glucose 100 (70-110) MG/DL Calcium 8.6 (8.5-10.1) mg/dL NT-Pro-B Natriuret Pep 670 H (0-125) pg/ml Multi-Disciplinary Progress Notes: Multi-Disciplinary Progress Notes 07/10/16 09:50 (created 07/10/16 13:46) Case Management Note by Madison Simon REVIEWED DISCHARGE PLAN. CONTINUES TO PLAN TO RETURN HOME TO PRE EPISODIC LEVEL OF [facility]. INDEPENDENT WITH ALL ADL'S. DECLINED ADDNL NEEDS AT PRESENT. DID DISCUSS POSSIBILITY OF REQUIRING OXYGEN ON DISCHARGE. WILL CONTINUE TO FOLLOW AND ASSESS FOR ALL DC NEEDS. Initialized on 07/10/16 13:46 - END OF NOTE Assessment/Plan (1) COPD exacerbation Current Visit: Yes Status: Acute Assessment & Plan: continue solu medrol, rocephin and zithromax. nebs, will likely require oxygen therapy at the time of discharge Code(s): J44.1 - CHRONIC OBSTRUCTIVE PULMONARY DISEASE W (ACUTE) EXACERBATION (2) Compensated respiratory acidosis Current Visit: Yes Status: Acute Code(s): E87.2 - ACIDOSIS (3) Hypoxemia Current Visit: Yes Status: Acute Code(s): R09.02 - HYPOXEMIA (4) Smoker Current Visit: Yes Status: Acute Code(s): F17.200 - NICOTINE DEPENDENCE, UNSPECIFIED, UNCOMPLICATED
[2016-07-11 07:10] LABS: BAND 1 % (0.0-2.0); Metamyelocyte 1 %; Total Cells Counted 100
[2016-07-11 07:11] LABS: Platelet Estimate NORMAL (NORMAL)
[2016-07-11] MEDS: xanAX 0.5 MG PO PRN ×2 (07:26→19:37)
[2016-07-11] MEDS: ENOXAPARIN SODIUM SQ SCH (09:06)
[2016-07-11] MEDS: Zestril 5 MG PO SCH ×2 (09:07→21:07)
[2016-07-11] MEDS: Pepcid 20 MG VIAL IV SCH ×2 (09:07→21:07)
[2016-07-11] MEDS: Lasix 20 MG/2 ML IV SCH (09:07)
[2016-07-11] MEDS: ROCEPHIN 1 Gm-D5w 50 ml Bag** 50 ML IV SCH (09:07)
[2016-07-11] MEDS: Zithromax 500 MG/ 250 ML NaCl Premix 250 ML IV SCH (09:49)
[2016-07-11] MEDS: Artificial Tears 15 ML OP PRN (11:20)
[2016-07-12] MEDS: DUONEB 0.5-3 MG/3 ml Neb IH SCH ×3 (03:03→11:12)
[2016-07-12] MEDS: NORCO 5/325 MG PO PRN ×2 (06:01→12:36)
[2016-07-12] MEDS: solu-MEDROL 125 MG IV SCH (06:03)
[2016-07-12 06:18] LABS: Mean Cell Volume 102.4 fl (78-100); Mean Corpuscular Hemoglobin 32.4 pg (26-32); Mean Platelet Volume 9.5 fl (6-9.5); Platelet Count 294 K/mm3 (150-450); Red Blood Count 5.09 M/mm3 (4.1-5.4); Red Cell Distribution Width 13.5 % (11.5-14.0); White Blood Count 12.8 K/mm3 (4.0-10.5)
[2016-07-12 06:37] LABS: ANION GAP 12.8 MEQ/L (5-15); BLOOD UREA NITROGEN 20 mg/dL (9-20); CHLORIDE 96 mEq/L (98-107); Carbon Dioxide 36.1 mEq/L (21-32); Glucose 225 MG/DL (70-110); Potassium 5.1 mEq/L (3.5-5.1); SODIUM 140 mEq/L (136-145)
[2016-07-12] MEDS: ENOXAPARIN SODIUM SQ SCH (08:23)
[2016-07-12] MEDS: ROCEPHIN 1 Gm-D5w 50 ml Bag** 50 ML IV SCH (08:24)
[2016-07-12] MEDS: Pepcid 20 MG VIAL IV SCH (08:26)
[2016-07-12] MEDS: Lasix 20 MG/2 ML IV SCH (08:26)
[2016-07-12] MEDS: Zestril 5 MG PO SCH (08:38)
[2016-07-12] MEDS: xanAX 0.5 MG PO PRN (08:41)
[2016-07-12] MEDS: Zithromax 500 MG/ 250 ML NaCl Premix 250 ML IV SCH (09:25)
[2016-07-12] MEDS: Artificial Tears 15 ML OP PRN (09:27)
--- NOTE | 2016-07-12 10:06 | PCM.DCORD ---
- Discharge Discharge Date: 07/12/16 Disposition: Home, Self-Care Condition: Good Prescriptions: New Cefdinir 300 mg PO BID #8 capsule Albuterol/Ipratropium 3ml Neb* [DUONEB 0.5-3 MG/3 ml Neb] 3 ml IH QID #120 ampul.neb Prednisone 20 mg [Deltasone 20 mg] 40 mg PO DAILY #8 tablet Furosemide 20 mg [Lasix 20 mg] 20 mg PO DAILY #7 tablet Lisinopril 5 mg [Zestril 5 MG] 2.5 mg PO Q12HT #60 tablet Continue Alprazolam [Xanax 0.5 mg] 0.5 mg PO DAILY PRN PRN PRN Reason: Anxiety Hydrocodone Bit/Acetaminophen [[place] 5/325Mg] 1 each PO Q6H PRN PRN PRN Reason: Pain Cyclobenzaprine HCl [Flexeril] 10 mg PO TID PRN PRN PRN Reason: Muscle Spasms Albuterol Sulfate [Albuterol Sulfate Hfa] 7 gm IH Q4H PRN PRN #0 [email or web address] PRN Reason: SOB/Wheezing Instructions: Chronic Obstructive Pulmonary Disease, Pneumonia -- Adult, Quit Smoking Additional Instructions: Home oxygen 3 L nasal cannula. Stop smoking. Follow up with: EDGAR TRAN MD [ACTIVE STAFF] - 1 Week
[2016-07-12 11:37] VITALS: BP 130/71; PULSE 89; O2SAT 94
[2016-07-12 11:41] LABS: BAND 1 % (0.0-2.0); Platelet Estimate NORMAL (NORMAL); Total Cells Counted 100; Toxic Granulation 1+
--- NOTE | 2016-07-14 14:10 | DS ---
DISCHARGE DIAGNOSIS: 1. CHRONIC OBSTRUCTIVE PULMONARY DISEASE EXACERBATION. 2. HYPOXEMIA. 3. TOBACCO ABUSE. DISCHARGE PHYSICAL EXAM: VITALS: Temperature current 98.4, temperature maximum 98.4, heart rate 80-85, respiratory rate 20-21, O2 saturation 93-94% on 3 liters nasal cannula, BP 128-159/69-80, weight 143 Kg. GENERAL: The patient is lying in bed in no acute distress. She is talkative. She reports she has been able to go up and down the hallway walking with her O2. CVS: She has a regular rate and rhythm. No murmurs, gallops, or rubs. CHEST: She has a few scattered wheezes. Equal breath sounds. No crackles. ABDOMEN: Soft, nontender, nondistended with normal bowel sounds. EXTREMITIES: No clubbing, cyanosis, or edema. SKIN: Warm, dry, and intact. HOSPITAL COURSE: 1. Chronic obstructive pulmonary disease exacerbation. I saw the patient on the day of her discharge. She stated that she very much wanted to go home and that Dr. Dc thought she would be able to go home today. She has been on methylprednisolone during her hospitalization as well as azithromycin which she has completed at least 5 days of and ceftriaxone. I am planning on discharging her with cefdinir 300 mg PO bid for 4 more days. Prednisone 20 mg tablets 2 tables PO daily for 4 days. She will have a nebulizer machine at home. I have written for DuoNebs 3 ml qid. She also has a script for an albuterol inhaler to take 2 puffs q 4 h PRN. She is needing O2. Has been qualified for home O2, so will have her use 3 liters at home from [facility]. I signed this order on the front of her chart for Dr. Dc as I was covering for him today. She will need to follow-up with Dr. Dc this coming week and this was explained to the patient and she feels like she can get around her home and take care of herself. 2. Hypoxia as above. 3. Tobacco abuse. The patient was counseled that she needs to quit smoking. If she doesn't, she will have a repeat hospitalization. The patient voiced understanding. DISCHARGE MEDICATIONS: Please see the discharge order. DISPOSITION: The patient was discharged to home in fair condition. FOLLOW-UP: She is to follow-up with Dr. Harvey Dc.
== END 2016-07-12 12:40 | disposition home or self-care (01) | DRG 191 ==
LOC: ED 07:52 → ICU 10:30 → MED SURG 07-09 11:34
PROVIDERS: ADMIT Family Medicine; ATTEND Family Medicine
DX: J44.1 Chronic obstructive pulmonary disease with (acute) exacerbation (principal); E87.2 Acidosis; R09.02 Hypoxemia; F41.8 Other specified anxiety disorders; M19.90 Unspecified osteoarthritis, unspecified site; M54.9 Dorsalgia, unspecified; G89.29 Other chronic pain; F45.42 Pain disorder with related psychological factors; F17.200 Nicotine dependence, unspecified, uncomplicated
CPT/HCPCS: 36000; 36415; 71010; 80048; 80053; 81000; 82805; 83605; 83735; 83880; 84484; 85025; 87040; 87070; 87086; 87631; 93005; 93041; 93306; 94640; 94760; 94770; 96365; 96366; 96367; 99285; J0456; J0696; J1650; J1940; J2930; P9612; A9270-GY

== ENCOUNTER 2019-12-27 16:03 | Inpatient (IN) | payer OTHER ==
--- NOTE | 2019-12-27 16:22 | ERPHSYRPT ---
- History of Present Illness Time Seen by Provider: 12/27/19 16:20 Source: patient Exam Limitations: no limitations Physician History: Patient is a 54-year-old female who presents to our ED for evaluation of shortness of breath. Patient has checked her oxygen saturation at home. Patient states it has been below normal for the past 2 weeks. She is becoming progressively short of breath. Patient hypoxic in our ED. Patient is a smoker. She has a history of sleep apnea. Patient noncompliant with her CPAP. Patient observed to be diaphoretic on exam. Patient denies cold exposure. She also voices pain to her left calf. Patient symptoms are progressive. Symptoms are mild to moderate in intensity. Exertion worsens symptomology. Symptoms improved with rest. Patient denies chest pain. No nausea or vomiting. No diarrhea. No rash. Patient voices no other complaints concerns at this time. Timing/Duration: today Activities at Onset: none Severity of Dyspnea-Max: moderate Severity of Dyspnea-Current: moderate Possible Cause: unknown cause Modifying Factors: Improves With: activity Allergies/Adverse Reactions: No Known Drug Allergies Allergy (Verified 07/07/16 08:07) Home Medications: ALPRAZolam [Xanax 0.5 mg] 0.5 mg PO DAILY PRN PRN 07/07/16 [History] Cyclobenzaprine HCl [Flexeril] 10 mg PO TID PRN PRN 07/07/16 [History] Hydrocodone Bit/Acetaminophen [[place] 5/325Mg] 1 each PO Q6H PRN PRN 07/07/16 [History] Hx Tetanus, Diphtheria Vaccination/Date Given: Yes Hx Influenza Vaccination/Date Given: No Hx Pneumococcal Vaccination/Date Given: No - Review of Systems Constitutional: No Symptoms, No Fever, No Chills Eyes: No Symptoms Ears, Nose, & Throat: No Symptoms Respiratory: No Symptoms, No Cough, No Dyspnea Cardiac: No Symptoms, No Chest Pain, No Edema, No Syncope Abdominal/Gastrointestinal: No Symptoms, No Abdominal Pain, No Nausea, No Vomiting, No Diarrhea Genitourinary Symptoms: No Symptoms, No Dysuria Musculoskeletal: No Symptoms, No Back Pain, No Neck Pain Skin: No Symptoms, No Rash Neurological: No Symptoms, No Dizziness, No Focal Weakness, No Sensory Changes Psychological: No Symptoms Endocrine: No Symptoms Hematologic/Lymphatic: No Symptoms Immunological/Allergic: No Symptoms All Other Systems: Reviewed and Negative - Past Medical History Pertinent Past Medical History: Yes Neurological History: No Pertinent History ENT History: No Pertinent History Cardiac History: No Pertinent History Respiratory History: No Pertinent History Endocrine Medical History: No Pertinent History Musculoskeletal History: Arthritis, Other GI Medical History: No Pertinent History History: No Pertinent History Psycho-Social History: Anxiety, Depression Female Reproductive Disorders: No Pertinent History Other Medical History: chronic back pain - Past Surgical History Past Surgical History: Yes Neuro Surgical History: No Pertinent History Cardiac: No Pertinent History Respiratory: No Pertinent History Gastrointestinal: No Pertinent History Genitourinary: No Pertinent History Musculoskeletal: Orthopedic Surgery Female Surgical History: No Pertinent History Other Surgical History: tonsils, back - Social History Smoking Status: Current every day smoker How long have you smoked: 30 Exposure to second hand smoke: No Drug Use: marijuana Patient Lives Alone: Yes (cares for elderly parents) - Nursing Vital Signs Nursing Vital Signs: Initial Vital Signs Temperature 98.2 F 12/27/19 16:13 Pulse Rate 98 H 12/27/19 16:13 Respiratory Rate 28 H 12/27/19 16:13 Blood Pressure 177/60 12/27/19 16:13 O2 Sat by Pulse Oximetry 96 12/27/19 16:13 Pain Scale Pain Intensity 0 - Physical Exam General Appearance: no apparent distress, alert Eye Exam: PERRL/EOMI Neck Exam: normal inspection, supple Respiratory Exam: normal breath sounds, lungs clear, diminished breath sounds, other (hypoxia) Cardiovascular/Chest Exam: normal heart sounds, regular rate/rhythm Abdominal/Gastrointestinal Exam: soft, No tenderness, No distention, No mass Extremity Exam: non-tender, normal range of motion, normal inspection, No no calf tenderness (Homans sign left lower extremity.), No no pedal edema (1+ pitting edema bilaterally.) Neurologic Exam: alert, oriented x 3, cooperative, case finishing machine adjuster II-XII nml as tested, sensation nml, No motor deficits Skin Exam: normal color, warm, No dry SpO2 Interpretation: normal SpO2: 96 O2 Delivery: Nasal Cannula - Course Nursing assessment & vital signs reviewed: Yes EKG Interpreted by Me: RATE (90), Sinus Rhythm, NORMAL AXIS, NORMAL INTERVALS - Radiology Exams Chest X-ray Interpretation: Teleradiologist Report (No cardiomegaly, pulmonary edema, pleural effusion.) - CT Exams Chest CT Interpretation: Tele-radiologist Report (No comps however no pulmonary embolism identified. There is cardiomegaly, moderate bilateral effusions and bilateral compressive atelectasis favoring congestive heart failure.) Ordered Tests: Active Orders 24 hr Category Date Time Status Transport Pilot STAT Care 12/27/19 16:18 Active EKG-ER Only STAT Care 12/27/19 16:16 Active IV Insertion STAT Care 12/27/19 16:16 Active Oxygen-ED Only Nasal Cannula 2 lpm Care 12/27/19 16:24 Active Pulse Oximetry (ED) STAT Care 12/27/19 16:16 Active CHEST 1 VIEW (PORTABLE) Stat Exams 12/27/19 16:54 Completed CHEST WITH CONTRAST [CT] Stat Exams 12/27/19 17:10 Taken VENOUS UNILAT/LIMITED EXTREMIT [US] Stat Exams 12/27/19 16:45 Completed ARTERIAL BLOOD GASES Urgent Lab 12/27/19 17:09 Completed BLOOD CULTURE Stat Lab 12/27/19 16:20 Ordered CBC W DIFF Stat Lab 12/27/19 16:35 Completed CMP Stat Lab 12/27/19 16:35 Completed D-DIMER QUANTITATIVE Stat Lab 12/27/19 16:35 Completed MAGNESIUM Stat Lab 12/27/19 16:35 Completed NT PRO BNP Stat Lab 12/27/19 16:35 Completed TROPONIN Q3H Lab 12/27/19 16:35 Completed TROPONIN Q3H Lab 12/27/19 19:30 Ordered TROPONIN Q3H Lab 12/27/19 22:30 Ordered TROPONIN Q3H Lab 12/28/19 01:30 Ordered TROPONIN Q3H Lab 12/28/19 04:30 Ordered UA W/RFX UR CULTURE Stat Lab 12/27/19 17:45 Completed Transfer Order Routine Transfer 12/27/19 Ordered Medication Summary Discontinued Medications Generic Name Dose Route Start Last Admin Trade Name Freq PRN Reason Stop Dose Admin Furosemide 40 mg 12/27/19 17:56 12/27/19 18:05 Lasix 40 Mg/4 Ml IV 12/27/19 17:57 40 mg STAT ONE Administration Furosemide Confirm 12/27/19 18:03 Lasix 40 Mg/4 Ml Administered 12/27/19 18:04 Dose 40 mg .ROUTE .STK-MED ONE Nitroglycerin 1 gm 12/27/19 17:56 12/27/19 18:05 Nitro-Bid 2% Ud Packets TOP 12/27/19 17:57 1 gm STAT ONE Administration Nitroglycerin Confirm 12/27/19 18:03 Nitro-Bid 2% Ud Packets Administered 12/27/19 18:04 Dose 1 gm .ROUTE .STK-MED ONE Lab/Rad Data: Laboratory Result Diagrams 12/27/19 16:35 12/27/19 16:35 Laboratory Results 12/27/19 12/27/19 12/27/19 Range/Units 17:45 17:09 16:38 WBC (4.0-10.5) K/mm3 RBC (4.1-5.4) M/mm3 Hgb (12.0-16.0) gm/dl Hct (35-47) % MCV (78-100) fl MCH (26-32) pg MCHC (32-36) g/dl RDW (11.5-14.0) % Plt Count (150-450) K/mm3 MPV (7.5-11.0) fl Gran % (36.0-66.0) % Eos # (Auto) (0-0.5) Absolute Lymphs (auto) (1.0-4.6) Absolute Monos (auto) (0.0-1.3) Lymphocytes % (24.0-44.0) % Monocytes % (0.0-12.0) % Eosinophils % (0.00-5.0) % Basophils % (0.0-0.4) % Absolute Granulocytes (1.4-6.9) Basophils # (0-0.4) D-Dimer (215-500) ng/mL Puncture Site RIGHT RADIAL pCO2 54 H (35-45) mmHg pO2 74 L (75-100) mmHg Base Excess 10.5 H (-2.0-2.0) O2 Saturation 87.9 L (94-100) g/dF ABG pH 7.44 (7.35-7.45) ABG HCO3 36.7 H* (22-28) ABG O2 Sat (Measured) 96.1 (95-100) % Regino Test YES A-a Gradient 58 a/A Ratio 0.56 Hemoglobin 15.2 Carboxyhemoglobin 7.4 H* (0.0-6.9) % THgb Methemoglobin 1.1 L (1.4-1.5) % Temperature 37.0 C POC O2 Flow Rate 28 % Sodium (137-145) mmol/L Potassium 3.8 (3.5-5.1) mmol/L Chloride (98-107) mmol/L Carbon Dioxide (22-30) mmol/L Anion Gap (5-15) MEQ/L BUN (7-17) mg/dL Creatinine (0.52-1.04) mg/dL Estimated GFR ML/MIN Glucose (74-106) mg/dL Calcium (8.4-10.2) mg/dL Magnesium (1.6-2.3) mg/dL Total Bilirubin (0.2-1.3) mg/dL AST (14-36) U/L ALT (0-35) U/L Alkaline Phosphatase (38-126) U/L Troponin I (0.000-0.034) ng/mL NT-Pro-B Natriuret Pep (0-900) pg/mL Serum Total Protein (6.3-8.2) g/dL Albumin (3.5-5.0) g/dL Urine Color YELLOW (YELLOW) Urine Appearance SLIGHTLY CLOUDY (CLEAR) Urine pH 5.0 (5-6) Ur Specific [place] 1.016 (1.005-1.025) Urine Protein NEGATIVE (Negative) Urine Ketones NEGATIVE (NEGATIVE) Urine Blood NEGATIVE (0-5) Ross/ul Urine Nitrite NEGATIVE (NEGATIVE) Urine Bilirubin NEGATIVE (NEGATIVE) Urine Urobilinogen NEGATIVE (0-1) mg/dL Ur Leukocyte Esterase NEGATIVE (NEGATIVE) Urine WBC (Auto) 0-2 (0-5) /HPF Urine RBC (Auto) 0-2 (0-2) /HPF U Epithel Cells (Auto) RARE (FEW) /HPF Urine Bacteria (Auto) RARE (NEGATIVE) /HPF Urine Mucus (Auto) SLIGHT (NEGATIVE) /HPF Urine Culture Reflexed NO (NO) Urine Glucose NEGATIVE (NEGATIVE) mg/dL SARS-CoV-2 (PCR) NEGATIVE (NEGATIVE) 12/27/19 12/27/19 12/27/19 Range/Units 16:35 16:35 16:35 WBC (4.0-10.5) K/mm3 RBC (4.1-5.4) M/mm3 Hgb (12.0-16.0) gm/dl Hct (35-47) % MCV (78-100) fl MCH (26-32) pg MCHC (32-36) g/dl RDW (11.5-14.0) % Plt Count (150-450) K/mm3 MPV (7.5-11.0) fl Gran % (36.0-66.0) % Eos # (Auto) (0-0.5) Absolute Lymphs (auto) (1.0-4.6) Absolute Monos (auto) (0.0-1.3) Lymphocytes % (24.0-44.0) % Monocytes % (0.0-12.0) % Eosinophils % (0.00-5.0) % Basophils % (0.0-0.4) % Absolute Granulocytes (1.4-6.9) Basophils # (0-0.4) D-Dimer 677 H* (215-500) ng/mL Puncture Site pCO2 (35-45) mmHg pO2 (75-100) mmHg Base Excess (-2.0-2.0) O2 Saturation (94-100) g/dF ABG pH (7.35-7.45) ABG HCO3 (22-28) ABG O2 Sat (Measured) (95-100) % Regino Test A-a Gradient a/A Ratio Hemoglobin Carboxyhemoglobin (0.0-6.9) % THgb Methemoglobin (1.4-1.5) % Temperature C POC O2 Flow Rate % Sodium 140 (137-145) mmol/L Potassium 3.7 (3.5-5.1) mmol/L Chloride 102 (98-107) mmol/L Carbon Dioxide 33 H (22-30) mmol/L Anion Gap 8.6 (5-15) MEQ/L BUN 9 (7-17) mg/dL Creatinine 0.60 (0.52-1.04) mg/dL Estimated GFR > 60.0 ML/MIN Glucose 181 H (74-106) mg/dL Calcium 9.3 (8.4-10.2) mg/dL Magnesium 1.9 (1.6-2.3) mg/dL Total Bilirubin 0.40 (0.2-1.3) mg/dL AST 20 (14-36) U/L ALT 13 (0-35) U/L Alkaline Phosphatase 78 (38-126) U/L Troponin I 0.012 (0.000-0.034) ng/mL NT-Pro-B Natriuret Pep 908 H (0-900) pg/mL Serum Total Protein 7.1 (6.3-8.2) g/dL Albumin 4.1 (3.5-5.0) g/dL Urine Color (YELLOW) Urine Appearance (CLEAR) Urine pH (5-6) Ur Specific [place] (1.005-1.025) Urine Protein (Negative) Urine Ketones (NEGATIVE) Urine Blood (0-5) Ross/ul Urine Nitrite (NEGATIVE) Urine Bilirubin (NEGATIVE) Urine Urobilinogen (0-1) mg/dL Ur Leukocyte Esterase (NEGATIVE) Urine WBC (Auto) (0-5) /HPF Urine RBC (Auto) (0-2) /HPF U Epithel Cells (Auto) (FEW) /HPF Urine Bacteria (Auto) (NEGATIVE) /HPF Urine Mucus (Auto) (NEGATIVE) /HPF Urine Culture Reflexed (NO) Urine Glucose (NEGATIVE) mg/dL SARS-CoV-2 (PCR) (NEGATIVE) 12/27/19 Range/Units 16:35 WBC 8.1 (4.0-10.5) K/mm3 RBC 4.66 (4.1-5.4) M/mm3 Hgb 15.1 (12.0-16.0) gm/dl Hct 48.3 H (35-47) % MCV 103.6 H (78-100) fl MCH 32.4 H (26-32) pg MCHC 31.3 L (32-36) g/dl RDW 13.5 (11.5-14.0) % Plt Count 251 (150-450) K/mm3 MPV 10.1 (7.5-11.0) fl Gran % 68.5 H (36.0-66.0) % Eos # (Auto) 0.10 (0-0.5) Absolute Lymphs (auto) 1.93 (1.0-4.6) Absolute Monos (auto) 0.50 (0.0-1.3) Lymphocytes % 23.7 L (24.0-44.0) % Monocytes % 6.1 (0.0-12.0) % Eosinophils % 1.2 (0.00-5.0) % Basophils % 0.5 (0.0-0.4) % Absolute Granulocytes 5.57 (1.4-6.9) Basophils # 0.04 (0-0.4) D-Dimer (215-500) ng/mL Puncture Site pCO2 (35-45) mmHg pO2 (75-100) mmHg Base Excess (-2.0-2.0) O2 Saturation (94-100) g/dF ABG pH (7.35-7.45) ABG HCO3 (22-28) ABG O2 Sat (Measured) (95-100) % Regino Test A-a Gradient a/A Ratio Hemoglobin Carboxyhemoglobin (0.0-6.9) % THgb Methemoglobin (1.4-1.5) % Temperature C POC O2 Flow Rate % Sodium (137-145) mmol/L Potassium (3.5-5.1) mmol/L Chloride (98-107) mmol/L Carbon Dioxide (22-30) mmol/L Anion Gap (5-15) MEQ/L BUN (7-17) mg/dL Creatinine (0.52-1.04) mg/dL Estimated GFR ML/MIN Glucose (74-106) mg/dL Calcium (8.4-10.2) mg/dL Magnesium (1.6-2.3) mg/dL Total Bilirubin (0.2-1.3) mg/dL AST (14-36) U/L ALT (0-35) U/L Alkaline Phosphatase (38-126) U/L Troponin I (0.000-0.034) ng/mL NT-Pro-B Natriuret Pep (0-900) pg/mL Serum Total Protein (6.3-8.2) g/dL Albumin (3.5-5.0) g/dL Urine Color (YELLOW) Urine Appearance (CLEAR) Urine pH (5-6) Ur Specific [place] (1.005-1.025) Urine Protein (Negative) Urine Ketones (NEGATIVE) Urine Blood (0-5) Ross/ul Urine Nitrite (NEGATIVE) Urine Bilirubin (NEGATIVE) Urine Urobilinogen (0-1) mg/dL Ur Leukocyte Esterase (NEGATIVE) Urine WBC (Auto) (0-5) /HPF Urine RBC (Auto) (0-2) /HPF U Epithel Cells (Auto) (FEW) /HPF Urine Bacteria (Auto) (NEGATIVE) /HPF Urine Mucus (Auto) (NEGATIVE) /HPF Urine Culture Reflexed (NO) Urine Glucose (NEGATIVE) mg/dL SARS-CoV-2 (PCR) (NEGATIVE) - Progress Progress: improved Air Movement: fair Progress Note: 12/27/19 19:03 Patient reassessed. Shortness of breath improved her oxygen application. patient is a smoker. Smoking cessation discussed. Patient has a history of sleep apnea. She is noncompliant with her CPAP. Left calf pain on physical exam reveals negative DVT. D-dimer positive PE negative. BNP 908. Chest x-ray shows pulmonary congestion and cardiomegaly. Troponin negative. patient's admitting diagnosis is congestive heart failure new diagnosis. Lasix and nitroglycerin administered. Dr. Tay accepted patient in Dr. Pastor's behalf. Plan of care discussed with patient. She agrees to admission to [facility] for further evaluation and treatment. 12/27/19 19:08 12/27/19 19:08 Blood Culture(s) Obtained: No Antibiotics given: No Discussed with Dr.: Sharp (Case discussed with Dr. Tay who accepts patient on Dr. Pastor's behalf. He covering Dr. Dc. We were unable to contact Dr. Pastor.) Will see patient in: hospital (observation) Counseled pt/family regarding: lab results, diagnosis, need for follow-up, rad results - Departure Departure Disposition: Observation Clinical Impression: Hypoxemia, Congestive heart failure Condition: Stable Critical Care Time: No Referrals: EDGAR DC MD [Primary Care Provider] - Instructions: Heart Failure
[2019-12-27 16:38] LABS: Absolute Neutrophil Ct (ANC) 5.57 (1.4-6.9); BASOPHIL % 0.5 % (0.0-0.4); Basophil (Absolute #) 0.04 (0-0.4); Eosinophil % 1.2 % (0.00-5.0); Hematocrit 48.3 % (35-47); Hemoglobin 15.1 gm/dl (12.0-16.0); Lymphocyte (Absolute #) 1.93 (1.0-4.6); Lymphocytes % 23.7 % (24.0-44.0); Mean Cell Volume 103.6 fl (78-100); Mean Corpuscular Hemoglobin 32.4 pg (26-32); Mean Corpuscular Hgb Concent. 31.3 g/dl (32-36); Mean Platelet Volume 10.1 fl (7.5-11.0); Monocytes % 6.1 % (0.0-12.0); Neutrophil % 68.5 % (36.0-66.0); Platelet Count 251 K/mm3 (150-450); Red Blood Count 4.66 M/mm3 (4.1-5.4); Red Cell Distribution Width 13.5 % (11.5-14.0); White Blood Count 8.1 K/mm3 (4.0-10.5)
--- NOTE | 2019-12-27 16:53 | XRAY ---
Indication: Left leg pain. Two-dimensional sonogram and color Doppler imaging of the major venous vessels of the left leg was performed. Comparison: None No thrombus seen in the examined deep venous vessels of the left leg including greater saphenous vein. Veins demonstrate normal compressibility. Venous waveforms are normal with and without augmentation. Impression: Left leg negative for DVT.
[2019-12-27 17:05] LABS: ALBUMIN 4.1 g/dL (3.5-5.0); ALKALINE PHOSPHATASE 78 U/L (38-126); ANION GAP 8.6 MEQ/L (5-15); BLOOD UREA NITROGEN 9 mg/dL (7-17); CHLORIDE 102 mmol/L (98-107); Calcium 9.3 mg/dL (8.4-10.2); Carbon Dioxide 33 mmol/L (22-30); EST GLOMERULAR FILTRATION RATE > 60.0 ML/MIN; Glucose 181 mg/dL (74-106); MAGNESIUM 1.9 mg/dL (1.6-2.3); NT PRO BNP 908 pg/mL (0-900); Potassium 3.7 mmol/L (3.5-5.1); SGOT/AST 20 U/L (14-36); SGPT/ALT 13 U/L (0-35); SODIUM 140 mmol/L (137-145); Total Protein 7.1 g/dL (6.3-8.2)
--- NOTE | 2019-12-27 17:14 | XRAY ---
Indication: Short of breath. Low oxygenation. Comparison: January 06, 2019. Portable chest now demonstrates cardiomegaly, central vascular prominence, pulmonary edema, and small bibasilar effusions favoring cardiac decompensation. Superimposed pneumonia not completely excluded.
[2019-12-27 17:17] LABS: A-aADO2 58; ABG HEMOGLOBIN 15.2; ABG POTASSIUM 3.8 (3.5-5.1); ARTERIAL BLD GAS O2 SATURATION 96.1 % (95-100); ARTERIAL BLOOD GAS BASE EXCESS 10.5 (-2.0-2.0); ARTERIAL BLOOD GAS FIO2 28 %; ARTERIAL BLOOD GAS PCO2 54 mmHg (35-45); ARTERIAL BLOOD GAS PO2 74 mmHg (75-100); ARTERIAL BLOOD GAS pH 7.44 (7.35-7.45); CARBOXYHEMOGLOBIN 7.4 % THgb (0.0-6.9); HCO3- 36.7 (22-28); HGB O2 SAT 87.9 g/dF (94-100); Methhemoglobin 1.1 % (1.4-1.5); paO2 pAO1 0.56
[2019-12-27 17:18] LABS: ABG SITE RIGHT RADIAL; ALLEN TEST OK? YES
[2019-12-27 17:54] LABS: Appearance SLIGHTLY CLOUDY (CLEAR); Bacteria RARE /HPF (NEGATIVE); Bilirubin NEGATIVE (NEGATIVE); Blood NEGATIVE Ery/ul (0-5); Epithelial Cells RARE /HPF (FEW); Glucose NEGATIVE (NEGATIVE); Ketones NEGATIVE (NEGATIVE); Leukocyte Esterase NEGATIVE (NEGATIVE); Mucus SLIGHT /HPF (NEGATIVE); Nitrite NEGATIVE (NEGATIVE); Protein,Urine Dip NEGATIVE (Negative); RBC 0-2 /HPF (0-2); Specific Gravity 1.016 (1.005-1.025); Urobilinogen NEGATIVE mg/dL (0-1); WBC 0-2 /HPF (0-5)
[2019-12-27] MEDS ORDERED: Lasix 40 MG/4 ML IV ONE (17:56)
[2019-12-27] MEDS ORDERED: NITRO-BID 2% UD PACKETS TOP ONE (17:56)
[2019-12-27] MEDS ORDERED: NITRO-BID 2% UD PACKETS ONE (18:03)
[2019-12-27] MEDS ORDERED: Lasix 40 MG/4 ML ONE (18:03)
[2019-12-27] MEDS ORDERED: PROVENTIL 2.5 MG/3 ML NEB IH SCH (19:00)
[2019-12-27] MEDS ORDERED: VENTOLIN COMMON CANISTER IH PRN (20:56)
[2019-12-27] MEDS: DUONEB 0.5-3 MG/3 ml Neb IH SCH (21:02)
[2019-12-27] MEDS ORDERED: Cyclobenzaprine 10 MG PO PRN (22:15)
[2019-12-27] MEDS: ZOLOFT 50 MG TABLET PO SCH (22:35)
[2019-12-27] MEDS: ZOCOR 20MG PO SCH (22:35)
[2019-12-27] MEDS: Zestril 5 MG PO SCH (22:35)
[2019-12-27] MEDS: NORCO 5/325 MG PO PRN (22:36)
[2019-12-28 05:21] LABS: Hematocrit 44.8 % (35-47); Hemoglobin 14.7 gm/dl (12.0-16.0); Mean Cell Volume 102.3 fl (78-100); Mean Corpuscular Hemoglobin 33.6 pg (26-32); Mean Corpuscular Hgb Concent. 32.8 g/dl (32-36); Mean Platelet Volume 10.1 fl (7.5-11.0); Platelet Count 222 K/mm3 (150-450); Red Blood Count 4.38 M/mm3 (4.1-5.4); Red Cell Distribution Width 13.9 % (11.5-14.0); White Blood Count 7.1 K/mm3 (4.0-10.5)
[2019-12-28 05:49] LABS: ANION GAP 7.8 MEQ/L (5-15); BLOOD UREA NITROGEN 12 mg/dL (7-17); CHLORIDE 98 mmol/L (98-107); Calcium 9.2 mg/dL (8.4-10.2); Carbon Dioxide 36 mmol/L (22-30); Creatinine 1 0.62 mg/dL (0.52-1.04); EST GLOMERULAR FILTRATION RATE > 60.0 ML/MIN; Glucose 118 mg/dL (74-106); NT PRO BNP 535 pg/mL (0-900); Potassium 4.1 mmol/L (3.5-5.1); SODIUM 137 mmol/L (137-145)
[2019-12-28] MEDS: DUONEB 0.5-3 MG/3 ml Neb IH SCH ×4 (06:52→19:01)
[2019-12-28] MEDS: NORCO 5/325 MG PO PRN ×3 (07:47→20:13)
--- NOTE | 2019-12-28 08:46 | XRAY ---
Indication: Low oxygenation. Elevated d-dimer. Multiple contiguous axial images obtained through the chest using 100 cc Isovue 370 contrast and PE protocol. Comparison: None There is adequate opacification of the pulmonary arteries to include the lobar and segmental branches. No pulmonary embolus. Heart is enlarged. Aorta is normal in course and caliber. A few prominent mediastinal nodes, largest precarinal measuring 2.0 x 3.2 cm. Small subcarinal calcified node. Lungs demonstrates interstitial edema and mild/moderate effusions right greater than the left with mild bilateral lower lobe compressive atelectasis. Bony thorax intact with mild degenerative changes throughout the spine. Limited upper abdomen demonstrates fatty liver and 14 cm splenomegaly. Impression: 1. Negative pulmonary embolus. 2. Cardiomegaly, interstitial edema, and bilateral effusions favoring cardiac decompensation/CHF. 3. Incidental prominent mediastinal lymph nodes probably reactive, fatty liver, and splenomegaly.
--- NOTE | 2019-12-28 08:51 | PCM.HP ---
History of Present Illness - Chief Complaint Chief Complaint: CHF History of Present Illness: is a 54 year old female who reports increasing shortness of breath over the past several days, she has a history of copd and hypoxemic respiratory failure. She uses oxygen at home intermittently but has had low to borderline saturations even on her 2L of oxygen, she describes episodes of waking in the night in a panic and very short of breath, does have some trouble breathing lying flat. No chest pain, no syncope, no cough, fever or wheezing is present. - Review of Systems Constitutional: No Symptoms, No Fever, No Chills Respiratory: Orthopnea, Short Of Breath, No Cough, No Wheezing Cardiac: Edema, Orthopnea, PND, No Chest Pain, No Palpitations, No Syncope Abdominal/Gastrointestinal: No Abdominal Pain, No Nausea, No Vomiting, No Diarrhea Genitourinary Symptoms: No Dysuria Skin: No Rash All Other Systems: Reviewed and Negative Medications & Allergies Home Medications: Home Medication List Cyclobenzaprine HCl [Flexeril] 10 mg PO TID PRN PRN 07/07/16 [History Confirmed 12/27/19] Hydrocodone Bit/Acetaminophen [[place] 5/325Mg] 1 each PO Q6H PRN PRN 07/07/16 [History Confirmed 12/27/19] Albuterol Sulfate [Albuterol Sulfate Hfa] 7 gm IH Q4H PRN PRN #0 [email or web address] 07/12/16 [Rx Confirmed 12/27/19] Albuterol/Ipratropium 3ml Neb* [DUONEB 0.5-3 MG/3 ml Neb] 3 ml IH QID #120 ampul.neb 07/12/16 [Rx Confirmed 12/27/19] Lisinopril 5 mg [Zestril 5 MG] 2.5 mg PO Q12HT #60 tablet 07/12/16 [Rx Confirmed 12/27/19] Atorvastatin Calcium [Lipitor 20MG Tablet] 20 mg PO HS 12/27/19 [History Confirmed 12/27/19] Sertraline HCl 50 mg [Zoloft 50 mg Tablet] 50 mg PO DAILY 12/27/19 [History Confirmed 12/27/19] Allergies/Adverse Reactions: Allergies Allergy/AdvReac Type Severity Reaction Status Date / Time No Known Drug Allergies Allergy Verified 07/07/16 08:07 - Past Medical History Past Medical History: Yes Neurological History: No Pertinent History ENT History: No Pertinent History Cardiac History: No Pertinent History Respiratory History: No Pertinent History Endocrine Medical History: No Pertinent History Musculoskelatal History: Arthritis, Other GI Medical History: No Pertinent History History: No Pertinent History Pyscho-Social History: Anxiety, Depression Reproductive Disorders: No Pertinent History Comment: chronic back pain - Female History Are you now?: No - Past Surgical History Past Surgical History: Yes Neuro Surgical History: No Pertinent History Cardiac History: No Pertinent History Respiratory Surgery: No Pertinent History GI Surgical History: No Pertinent History Genitourinary Surgical Hx: No Pertinent History Musculskeletal Surgical Hx: Orthopedic Surgery Female Surgical History: No Pertinent History Other Surgical History: tonsils, back - Social History Smoking Status: Current every day smoker How long have you smoked: 30 Exposure to second hand smoke: No Alcohol: Weekly Drug Use: marijuana - Physical Exam Vital Signs: Vital Signs - 24 hr Temp Pulse Resp BP Pulse Ox 12/28/19 07:17 98.1 F 64 18 123/80 92 L 12/28/19 06:56 72 18 92 L 12/28/19 04:00 97.9 F 65 19 125/63 90 L 12/27/19 23:53 98.1 F 78 17 119/56 98 12/27/19 21:15 92 L 12/27/19 21:02 84 22 93 L 12/27/19 20:47 98.3 F 86 21 136/89 90 L 12/27/19 19:54 91 L 12/27/19 19:20 82 24 127/78 92 L 12/27/19 19:09 96 12/27/19 18:32 74 24 140/88 94 L 12/27/19 18:00 82 22 140/80 94 L 12/27/19 17:10 96 H 24 105/80 95 12/27/19 16:26 96 12/27/19 16:25 85 L 12/27/19 16:13 98.2 F 98 H 24 177/60 94 L Oxygen-Last 24 hours Oxygen Flowrate (L/min)-RT 3 General Appearance: no apparent distress, obese Neurologic Exam: alert, oriented x 3, cooperative Respiratory Exam: crackles/rales Cardiovascular Exam: regular rate/rhythm, normal heart sounds, normal peripheral pulses Gastrointestinal/Abdomen Exam: soft, normal bowel sounds, No tenderness, No mass Extremity Exam: pedal edema (L>R) Skin Exam: normal color, warm, dry, No rash Results - Labs Lab/Micro Results: Lab Results-Last 24 Hours 12/27/19 12/27/19 12/27/19 Range/Units 16:35 16:35 16:35 WBC 8.1 (4.0-10.5) K/mm3 RBC 4.66 (4.1-5.4) M/mm3 Hgb 15.1 (12.0-16.0) gm/dl Hct 48.3 H (35-47) % MCV 103.6 H (78-100) fl MCH 32.4 H (26-32) pg MCHC 31.3 L (32-36) g/dl RDW 13.5 (11.5-14.0) % Plt Count 251 (150-450) K/mm3 MPV 10.1 (7.5-11.0) fl Gran % 68.5 H (36.0-66.0) % Eos # (Auto) 0.10 (0-0.5) Absolute Lymphs (auto) 1.93 (1.0-4.6) Absolute Monos (auto) 0.50 (0.0-1.3) Lymphocytes % 23.7 L (24.0-44.0) % Monocytes % 6.1 (0.0-12.0) % Eosinophils % 1.2 (0.00-5.0) % Basophils % 0.5 (0.0-0.4) % Absolute Granulocytes 5.57 (1.4-6.9) Basophils # 0.04 (0-0.4) D-Dimer 677 H* (215-500) ng/mL Puncture Site pCO2 (35-45) mmHg pO2 (75-100) mmHg Base Excess (-2.0-2.0) O2 Saturation (94-100) g/dF ABG pH (7.35-7.45) ABG HCO3 (22-28) ABG O2 Sat (Measured) (95-100) % Regino Test A-a Gradient a/A Ratio Hemoglobin Carboxyhemoglobin (0.0-6.9) % THgb Methemoglobin (1.4-1.5) % Temperature C POC O2 Flow Rate % Sodium 140 (137-145) mmol/L Potassium 3.7 (3.5-5.1) mmol/L Chloride 102 (98-107) mmol/L Carbon Dioxide 33 H (22-30) mmol/L Anion Gap 8.6 (5-15) MEQ/L BUN 9 (7-17) mg/dL Creatinine 0.60 (0.52-1.04) mg/dL Estimated GFR > 60.0 ML/MIN Glucose 181 H (74-106) mg/dL Calcium 9.3 (8.4-10.2) mg/dL Magnesium 1.9 (1.6-2.3) mg/dL Total Bilirubin 0.40 (0.2-1.3) mg/dL AST 20 (14-36) U/L ALT 13 (0-35) U/L Alkaline Phosphatase 78 (38-126) U/L Troponin I (0.000-0.034) ng/mL NT-Pro-B Natriuret Pep 908 H (0-900) pg/mL Serum Total Protein 7.1 (6.3-8.2) g/dL Albumin 4.1 (3.5-5.0) g/dL Urine Color (YELLOW) Urine Appearance (CLEAR) Urine pH (5-6) Ur Specific Ideal (1.005-1.025) Urine Protein (Negative) Urine Ketones (NEGATIVE) Urine Blood (0-5) Ross/ul Urine Nitrite (NEGATIVE) Urine Bilirubin (NEGATIVE) Urine Urobilinogen (0-1) mg/dL Ur Leukocyte Esterase (NEGATIVE) Urine WBC (Auto) (0-5) /HPF Urine RBC (Auto) (0-2) /HPF U Epithel Cells (Auto) (FEW) /HPF Urine Bacteria (Auto) (NEGATIVE) /HPF Urine Mucus (Auto) (NEGATIVE) /HPF Urine Culture Reflexed (NO) Urine Glucose (NEGATIVE) mg/dL SARS-CoV-2 (PCR) (NEGATIVE) 12/27/19 12/27/19 12/27/19 Range/Units 16:35 16:38 17:09 WBC (4.0-10.5) K/mm3 RBC (4.1-5.4) M/mm3 Hgb (12.0-16.0) gm/dl Hct (35-47) % MCV (78-100) fl MCH (26-32) pg MCHC (32-36) g/dl RDW (11.5-14.0) % Plt Count (150-450) K/mm3 MPV (7.5-11.0) fl Gran % (36.0-66.0) % Eos # (Auto) (0-0.5) Absolute Lymphs (auto) (1.0-4.6) Absolute Monos (auto) (0.0-1.3) Lymphocytes % (24.0-44.0) % Monocytes % (0.0-12.0) % Eosinophils % (0.00-5.0) % Basophils % (0.0-0.4) % Absolute Granulocytes (1.4-6.9) Basophils # (0-0.4) D-Dimer (215-500) ng/mL Puncture Site RIGHT RADIAL pCO2 54 H (35-45) mmHg pO2 74 L (75-100) mmHg Base Excess 10.5 H (-2.0-2.0) O2 Saturation 87.9 L (94-100) g/dF ABG pH 7.44 (7.35-7.45) ABG HCO3 36.7 H* (22-28) ABG O2 Sat (Measured) 96.1 (95-100) % Regino Test YES A-a Gradient 58 a/A Ratio 0.56 Hemoglobin 15.2 Carboxyhemoglobin 7.4 H* (0.0-6.9) % THgb Methemoglobin 1.1 L (1.4-1.5) % Temperature 37.0 C POC O2 Flow Rate 28 % Sodium (137-145) mmol/L Potassium 3.8 (3.5-5.1) mmol/L Chloride (98-107) mmol/L Carbon Dioxide (22-30) mmol/L Anion Gap (5-15) MEQ/L BUN (7-17) mg/dL Creatinine (0.52-1.04) mg/dL Estimated GFR ML/MIN Glucose (74-106) mg/dL Calcium (8.4-10.2) mg/dL Magnesium (1.6-2.3) mg/dL Total Bilirubin (0.2-1.3) mg/dL AST (14-36) U/L ALT (0-35) U/L Alkaline Phosphatase (38-126) U/L Troponin I 0.012 (0.000-0.034) ng/mL NT-Pro-B Natriuret Pep (0-900) pg/mL Serum Total Protein (6.3-8.2) g/dL Albumin (3.5-5.0) g/dL Urine Color (YELLOW) Urine Appearance (CLEAR) Urine pH (5-6) Ur Specific Ideal (1.005-1.025) Urine Protein (Negative) Urine Ketones (NEGATIVE) Urine Blood (0-5) Ross/ul Urine Nitrite (NEGATIVE) Urine Bilirubin (NEGATIVE) Urine Urobilinogen (0-1) mg/dL Ur Leukocyte Esterase (NEGATIVE) Urine WBC (Auto) (0-5) /HPF Urine RBC (Auto) (0-2) /HPF U Epithel Cells (Auto) (FEW) /HPF Urine Bacteria (Auto) (NEGATIVE) /HPF Urine Mucus (Auto) (NEGATIVE) /HPF Urine Culture Reflexed (NO) Urine Glucose (NEGATIVE) mg/dL SARS-CoV-2 (PCR) NEGATIVE (NEGATIVE) 12/27/19 12/27/19 12/27/19 Range/Units 17:45 20:00 22:46 WBC (4.0-10.5) K/mm3 RBC (4.1-5.4) M/mm3 Hgb (12.0-16.0) gm/dl Hct (35-47) % MCV (78-100) fl MCH (26-32) pg MCHC (32-36) g/dl RDW (11.5-14.0) % Plt Count (150-450) K/mm3 MPV (7.5-11.0) fl Gran % (36.0-66.0) % Eos # (Auto) (0-0.5) Absolute Lymphs (auto) (1.0-4.6) Absolute Monos (auto) (0.0-1.3) Lymphocytes % (24.0-44.0) % Monocytes % (0.0-12.0) % Eosinophils % (0.00-5.0) % Basophils % (0.0-0.4) % Absolute Granulocytes (1.4-6.9) Basophils # (0-0.4) D-Dimer (215-500) ng/mL Puncture Site pCO2 (35-45) mmHg pO2 (75-100) mmHg Base Excess (-2.0-2.0) O2 Saturation (94-100) g/dF ABG pH (7.35-7.45) ABG HCO3 (22-28) ABG O2 Sat (Measured) (95-100) % Regino Test A-a Gradient a/A Ratio Hemoglobin Carboxyhemoglobin (0.0-6.9) % THgb Methemoglobin (1.4-1.5) % Temperature C POC O2 Flow Rate % Sodium (137-145) mmol/L Potassium (3.5-5.1) mmol/L Chloride (98-107) mmol/L Carbon Dioxide (22-30) mmol/L Anion Gap (5-15) MEQ/L BUN (7-17) mg/dL Creatinine (0.52-1.04) mg/dL Estimated GFR ML/MIN Glucose (74-106) mg/dL Calcium (8.4-10.2) mg/dL Magnesium (1.6-2.3) mg/dL Total Bilirubin (0.2-1.3) mg/dL AST (14-36) U/L ALT (0-35) U/L Alkaline Phosphatase (38-126) U/L Troponin I 0.014 < 0.012 (0.000-0.034) ng/mL NT-Pro-B Natriuret Pep (0-900) pg/mL Serum Total Protein (6.3-8.2) g/dL Albumin (3.5-5.0) g/dL Urine Color YELLOW (YELLOW) Urine Appearance SLIGHTLY CLOUDY (CLEAR) Urine pH 5.0 (5-6) Ur Specific Ideal 1.016 (1.005-1.025) Urine Protein NEGATIVE (Negative) Urine Ketones NEGATIVE (NEGATIVE) Urine Blood NEGATIVE (0-5) Ross/ul Urine Nitrite NEGATIVE (NEGATIVE) Urine Bilirubin NEGATIVE (NEGATIVE) Urine Urobilinogen NEGATIVE (0-1) mg/dL Ur Leukocyte Esterase NEGATIVE (NEGATIVE) Urine WBC (Auto) 0-2 (0-5) /HPF Urine RBC (Auto) 0-2 (0-2) /HPF U Epithel Cells (Auto) RARE (FEW) /HPF Urine Bacteria (Auto) RARE (NEGATIVE) /HPF Urine Mucus (Auto) SLIGHT (NEGATIVE) /HPF Urine Culture Reflexed NO (NO) Urine Glucose NEGATIVE (NEGATIVE) mg/dL SARS-CoV-2 (PCR) (NEGATIVE) 12/28/19 12/28/19 12/28/19 Range/Units 01:44 04:30 04:30 WBC 7.1 (4.0-10.5) K/mm3 RBC 4.38 (4.1-5.4) M/mm3 Hgb 14.7 (12.0-16.0) gm/dl Hct 44.8 (35-47) % MCV 102.3 H (78-100) fl MCH 33.6 H (26-32) pg MCHC 32.8 (32-36) g/dl RDW 13.9 (11.5-14.0) % Plt Count 222 (150-450) K/mm3 MPV 10.1 (7.5-11.0) fl Gran % (36.0-66.0) % Eos # (Auto) (0-0.5) Absolute Lymphs (auto) (1.0-4.6) Absolute Monos (auto) (0.0-1.3) Lymphocytes % (24.0-44.0) % Monocytes % (0.0-12.0) % Eosinophils % (0.00-5.0) % Basophils % (0.0-0.4) % Absolute Granulocytes (1.4-6.9) Basophils # (0-0.4) D-Dimer (215-500) ng/mL Puncture Site pCO2 (35-45) mmHg pO2 (75-100) mmHg Base Excess (-2.0-2.0) O2 Saturation (94-100) g/dF ABG pH (7.35-7.45) ABG HCO3 (22-28) ABG O2 Sat (Measured) (95-100) % Regino Test A-a Gradient a/A Ratio Hemoglobin Carboxyhemoglobin (0.0-6.9) % THgb Methemoglobin (1.4-1.5) % Temperature C POC O2 Flow Rate % Sodium (137-145) mmol/L Potassium (3.5-5.1) mmol/L Chloride (98-107) mmol/L Carbon Dioxide (22-30) mmol/L Anion Gap (5-15) MEQ/L BUN (7-17) mg/dL Creatinine (0.52-1.04) mg/dL Estimated GFR ML/MIN Glucose (74-106) mg/dL Calcium (8.4-10.2) mg/dL Magnesium (1.6-2.3) mg/dL Total Bilirubin (0.2-1.3) mg/dL AST (14-36) U/L ALT (0-35) U/L Alkaline Phosphatase (38-126) U/L Troponin I < 0.012 < 0.012 (0.000-0.034) ng/mL NT-Pro-B Natriuret Pep (0-900) pg/mL Serum Total Protein (6.3-8.2) g/dL Albumin (3.5-5.0) g/dL Urine Color (YELLOW) Urine Appearance (CLEAR) Urine pH (5-6) Ur Specific Ideal (1.005-1.025) Urine Protein (Negative) Urine Ketones (NEGATIVE) Urine Blood (0-5) Ross/ul Urine Nitrite (NEGATIVE) Urine Bilirubin (NEGATIVE) Urine Urobilinogen (0-1) mg/dL Ur Leukocyte Esterase (NEGATIVE) Urine WBC (Auto) (0-5) /HPF Urine RBC (Auto) (0-2) /HPF U Epithel Cells (Auto) (FEW) /HPF Urine Bacteria (Auto) (NEGATIVE) /HPF Urine Mucus (Auto) (NEGATIVE) /HPF Urine Culture Reflexed (NO) Urine Glucose (NEGATIVE) mg/dL SARS-CoV-2 (PCR) (NEGATIVE) 12/28/19 Range/Units 04:30 WBC (4.0-10.5) K/mm3 RBC (4.1-5.4) M/mm3 Hgb (12.0-16.0) gm/dl Hct (35-47) % MCV (78-100) fl MCH (26-32) pg MCHC (32-36) g/dl RDW (11.5-14.0) % Plt Count (150-450) K/mm3 MPV (7.5-11.0) fl Gran % (36.0-66.0) % Eos # (Auto) (0-0.5) Absolute Lymphs (auto) (1.0-4.6) Absolute Monos (auto) (0.0-1.3) Lymphocytes % (24.0-44.0) % Monocytes % (0.0-12.0) % Eosinophils % (0.00-5.0) % Basophils % (0.0-0.4) % Absolute Granulocytes (1.4-6.9) Basophils # (0-0.4) D-Dimer (215-500) ng/mL Puncture Site pCO2 (35-45) mmHg pO2 (75-100) mmHg Base Excess (-2.0-2.0) O2 Saturation (94-100) g/dF ABG pH (7.35-7.45) ABG HCO3 (22-28) ABG O2 Sat (Measured) (95-100) % Regino Test A-a Gradient a/A Ratio Hemoglobin Carboxyhemoglobin (0.0-6.9) % THgb Methemoglobin (1.4-1.5) % Temperature C POC O2 Flow Rate % Sodium 137 (137-145) mmol/L Potassium 4.1 (3.5-5.1) mmol/L Chloride 98 (98-107) mmol/L Carbon Dioxide 36 H (22-30) mmol/L Anion Gap 7.8 (5-15) MEQ/L BUN 12 (7-17) mg/dL Creatinine 0.62 (0.52-1.04) mg/dL Estimated GFR > 60.0 ML/MIN Glucose 118 H (74-106) mg/dL Calcium 9.2 (8.4-10.2) mg/dL Magnesium (1.6-2.3) mg/dL Total Bilirubin (0.2-1.3) mg/dL AST (14-36) U/L ALT (0-35) U/L Alkaline Phosphatase (38-126) U/L Troponin I (0.000-0.034) ng/mL NT-Pro-B Natriuret Pep 535 (0-900) pg/mL Serum Total Protein (6.3-8.2) g/dL Albumin (3.5-5.0) g/dL Urine Color (YELLOW) Urine Appearance (CLEAR) Urine pH (5-6) Ur Specific Ideal (1.005-1.025) Urine Protein (Negative) Urine Ketones (NEGATIVE) Urine Blood (0-5) Ross/ul Urine Nitrite (NEGATIVE) Urine Bilirubin (NEGATIVE) Urine Urobilinogen (0-1) mg/dL Ur Leukocyte Esterase (NEGATIVE) Urine WBC (Auto) (0-5) /HPF Urine RBC (Auto) (0-2) /HPF U Epithel Cells (Auto) (FEW) /HPF Urine Bacteria (Auto) (NEGATIVE) /HPF Urine Mucus (Auto) (NEGATIVE) /HPF Urine Culture Reflexed (NO) Urine Glucose (NEGATIVE) mg/dL SARS-CoV-2 (PCR) (NEGATIVE) - Radiology Impressions Radiology Exams & Impressions: Radiology Procedures Category Date Time Status CHEST 1 VIEW (PORTABLE) Stat Exams 12/27/19 16:54 Completed CHEST WITH CONTRAST [CT] Stat Exams 12/27/19 17:10 Taken ECHO W/2D AND DOPPLER [US] Routine Exams 12/28/19 Ordered VENOUS UNILAT/LIMITED EXTREMIT [US] Stat Exams 12/27/19 16:45 Completed - Other Procedures and Tests Respiratory Therapy 12/27/19 19:54 Oxygen NASAL CANNULA 2 lpm 12/27/19 20:21 Peak Expiratory Flow Rate ONCE Respiratory Therapy Assessment DAILY Assessment/Plan (1) Congestive heart failure Current Visit: Yes Status: Acute Assessment & Plan: lasix 40mg IV q12 hours ordered at this time, chest ct confirms pulmonary edema and appears to be in chf on exam and history of PND. no prior history of cad/[place], has seen Dr Jeffry Suarez in the past. will get echo and consult cardiology, patient is on senia inhibitor, will add low dose metoprolol at this time. add lovenox for dvt prophylaxis as well. Code(s): I50.9 - HEART FAILURE, UNSPECIFIED (2) COPD (chronic obstructive pulmonary disease) Current Visit: Yes Status: Acute Assessment & Plan: no wheezing present, does not appear to have current exacerbation, nebs ordered at this time. (3) Hypoxemia Current Visit: Yes Status: Acute Assessment & Plan: likely multifactorial with chf, copd and obesity hypoventilation etc. Code(s): R09.02 - HYPOXEMIA
[2019-12-28] MEDS: Lasix 40 MG/4 ML IV SCH ×2 (09:46→17:13)
[2019-12-28] MEDS: Toprol-Xl 25MG Tablets PO SCH (09:46)
[2019-12-28] MEDS: Zestril 5 MG PO SCH ×2 (09:46→21:18)
[2019-12-28] MEDS: Klor Con 10 MEQ PO SCH ×2 (09:46→21:18)
[2019-12-28] MEDS: ENOXAPARIN SODIUM SQ SCH (09:47)
[2019-12-28] MEDS: ZOCOR 20MG PO SCH (21:18)
[2019-12-28] MEDS: ZOLOFT 50 MG TABLET PO SCH (21:18)
[2019-12-29] MEDS: NORCO 5/325 MG PO PRN ×3 (04:08→18:42)
[2019-12-29] MEDS: DUONEB 0.5-3 MG/3 ml Neb IH SCH ×4 (04:31→19:27)
[2019-12-29 05:17] LABS: Absolute Neutrophil Ct (ANC) 5.36 (1.4-6.9); BASOPHIL % 0.5 % (0.0-0.4); Basophil (Absolute #) 0.04 (0-0.4); Eosinophil % 2.1 % (0.00-5.0); Eosinophil (Absolute #) 0.17 (0-0.5); Hematocrit 47.3 % (35-47); Hemoglobin 14.9 gm/dl (12.0-16.0); Lymphocyte (Absolute #) 2.06 (1.0-4.6); Lymphocytes % 24.9 % (24.0-44.0); Mean Cell Volume 104.2 fl (78-100); Mean Corpuscular Hemoglobin 32.8 pg (26-32); Mean Corpuscular Hgb Concent. 31.5 g/dl (32-36); Monocyte (Absolute #) 0.64 (0.0-1.3); Monocytes % 7.7 % (0.0-12.0); Neutrophil % 64.8 % (36.0-66.0); Platelet Count 247 K/mm3 (150-450); Red Blood Count 4.54 M/mm3 (4.1-5.4); Red Cell Distribution Width 13.9 % (11.5-14.0); White Blood Count 8.3 K/mm3 (4.0-10.5)
[2019-12-29 05:55] LABS: ANION GAP 6.5 MEQ/L (5-15); BLOOD UREA NITROGEN 18 mg/dL (7-17); CHLORIDE 95 mmol/L (98-107); Calcium 8.8 mg/dL (8.4-10.2); Carbon Dioxide 38 mmol/L (22-30); Creatinine 1 0.63 mg/dL (0.52-1.04); EST GLOMERULAR FILTRATION RATE > 60.0 ML/MIN; Glucose 116 mg/dL (74-106); NT PRO BNP 137 pg/mL (0-900); Potassium 4.3 mmol/L (3.5-5.1); SODIUM 135 mmol/L (137-145)
--- NOTE | 2019-12-29 07:29 | PCM.NOTE ---
Date and Time: 12/29/19727 Subjective Assessment: patient states she doesn't feel short of breath but oxygen requirements have increased, she has had good urine output with the IV lasix Objective Exam General Appearance: no apparent distress, obese Neurologic Exam: alert, oriented x 3 Respiratory Exam: crackles/rales Cardiovascular Exam: regular rate/rhythm, normal heart sounds Gastrointestinal/Abdomen Exam: soft, No tenderness, No mass Extremity Exam: pedal edema OBJECTIVE DATA Vital Signs: Vital Signs - 24 hr Temp Pulse Resp BP Pulse Ox 12/29/19 06:51 97.6 F 67 18 121/62 93 L 12/29/19 04:31 64 21 90 L 12/29/19 03:54 98.0 F 73 14 120/57 90 L 12/28/19 23:50 97.7 F 65 20 108/59 93 L 12/28/19 20:00 97.7 F 66 18 119/62 95 12/28/19 19:05 72 22 93 L 12/28/19 15:16 98.0 F 65 16 127/58 93 L 12/28/19 14:37 74 20 92 L 12/28/19 11:52 98.0 F 62 18 108/57 91 L 12/28/19 10:56 73 20 92 L Pain Assessment - Last Documented Pain Intensity 7 Pain Scale Used 0-10 Pain Scale Intake and Output: Intake & Output 12/26/19 12/27/19 12/28/19 12/29/19 11:59 11:59 11:59 11:59 Intake Total 480 2360 Output Total 1600 2550 Balance -1120 -190 Weight 128.6 kg 130 kg Lab Results: Lab Results-Last 24 Hours 12/29/19 12/29/19 12/29/19 Range/Units 04:45 04:45 04:45 WBC 8.3 (4.0-10.5) K/mm3 RBC 4.54 (4.1-5.4) M/mm3 Hgb 14.9 (12.0-16.0) gm/dl Hct 47.3 H (35-47) % MCV 104.2 H (78-100) fl MCH 32.8 H (26-32) pg MCHC 31.5 L (32-36) g/dl RDW 13.9 (11.5-14.0) % Plt Count 247 (150-450) K/mm3 MPV 10.0 (7.5-11.0) fl Gran % 64.8 (36.0-66.0) % Eos # (Auto) 0.17 (0-0.5) Absolute Lymphs (auto) 2.06 (1.0-4.6) Absolute Monos (auto) 0.64 (0.0-1.3) Lymphocytes % 24.9 (24.0-44.0) % Monocytes % 7.7 (0.0-12.0) % Eosinophils % 2.1 (0.00-5.0) % Basophils % 0.5 (0.0-0.4) % Absolute Granulocytes 5.36 (1.4-6.9) Basophils # 0.04 (0-0.4) Sodium 135 L (137-145) mmol/L Potassium 4.3 (3.5-5.1) mmol/L Chloride 95 L (98-107) mmol/L Carbon Dioxide 38 H (22-30) mmol/L Anion Gap 6.5 (5-15) MEQ/L BUN 18 H (7-17) mg/dL Creatinine 0.63 (0.52-1.04) mg/dL Estimated GFR > 60.0 ML/MIN Glucose 116 H (74-106) mg/dL Calcium 8.8 (8.4-10.2) mg/dL Troponin I < 0.012 (0.000-0.034) ng/mL NT-Pro-B Natriuret Pep 137 (0-900) pg/mL Radiology Exams: Radiology Procedures Category Date Time Status CHEST 1 VIEW (PORTABLE) Stat Exams 12/27/19 16:54 Completed CHEST WITH CONTRAST [CT] Stat Exams 12/27/19 17:10 Completed ECHO W/2D AND DOPPLER [US] Routine Exams 12/28/19 11:01 Taken VENOUS UNILAT/LIMITED EXTREMIT [US] Stat Exams 12/27/19 16:45 Completed Assessment/Plan (1) Congestive heart failure Current Visit: Yes Status: Acute Assessment & Plan: negative fluid balance, still has crackles and clinically appears volume overloaded, continue IV lasix and currently on senia and beta joyce, cardiology consult pending and echo was done yesterday. Code(s): I50.9 - HEART FAILURE, UNSPECIFIED (2) COPD (chronic obstructive pulmonary disease) Current Visit: Yes Status: Acute (3) Hypoxemia Current Visit: Yes Status: Acute Code(s): R09.02 - HYPOXEMIA
[2019-12-29] MEDS: Lasix 40 MG/4 ML IV SCH ×2 (09:09→17:09)
[2019-12-29] MEDS: Zestril 5 MG PO SCH ×2 (09:09→21:39)
[2019-12-29] MEDS: ENOXAPARIN SODIUM SQ SCH (09:09)
[2019-12-29] MEDS: Klor Con 10 MEQ PO SCH ×2 (09:09→21:39)
[2019-12-29] MEDS: Toprol-Xl 25MG Tablets PO SCH (09:09)
[2019-12-29] MEDS: ZOCOR 20MG PO SCH (21:39)
[2019-12-29] MEDS: ZOLOFT 50 MG TABLET PO SCH (21:39)
[2019-12-30] MEDS: NORCO 5/325 MG PO PRN ×4 (01:58→22:46)
[2019-12-30 04:58] LABS: Hematocrit 48.2 % (35-47); Hemoglobin 15.2 gm/dl (12.0-16.0); Mean Cell Volume 103.7 fl (78-100); Mean Corpuscular Hemoglobin 32.7 pg (26-32); Mean Corpuscular Hgb Concent. 31.5 g/dl (32-36); Platelet Count 255 K/mm3 (150-450); Red Blood Count 4.65 M/mm3 (4.1-5.4); Red Cell Distribution Width 13.8 % (11.5-14.0); White Blood Count 8.8 K/mm3 (4.0-10.5)
[2019-12-30 05:19] LABS: ALBUMIN 4.4 g/dL (3.5-5.0); ALKALINE PHOSPHATASE 79 U/L (38-126); ANION GAP 9.2 MEQ/L (5-15); BLOOD UREA NITROGEN 22 mg/dL (7-17); CHLORIDE 96 mmol/L (98-107); Calcium 9.5 mg/dL (8.4-10.2); Carbon Dioxide 35 mmol/L (22-30); EST GLOMERULAR FILTRATION RATE > 60.0 ML/MIN; Glucose 119 mg/dL (74-106); Potassium 4.5 mmol/L (3.5-5.1); SGOT/AST 19 U/L (14-36); SGPT/ALT 12 U/L (0-35); SODIUM 135 mmol/L (137-145); Total Protein 7.7 g/dL (6.3-8.2)
[2019-12-30] MEDS: DUONEB 0.5-3 MG/3 ml Neb IH SCH ×4 (06:54→18:57)
--- NOTE | 2019-12-30 08:06 | PCM.NOTE ---
Date and Time: 12/30/19 0804 Subjective Assessment: patient continues to diurese, was seen by cardiology yesterday with no new orders, advised to change to po lasix today. she is down to 2L oxygen and her breathing continues to improve Objective Exam General Appearance: obese Neurologic Exam: alert, oriented x 3 Respiratory Exam: crackles/rales (improving) Cardiovascular Exam: regular rate/rhythm, normal heart sounds Gastrointestinal/Abdomen Exam: soft, No tenderness, No mass Extremity Exam: pedal edema (improved) OBJECTIVE DATA Vital Signs: Vital Signs - 24 hr Temp Pulse Resp BP Pulse Ox 12/30/19 07:26 97.6 F 67 18 101/52 94 L 12/30/19 06:57 67 18 94 L 12/30/19 03:53 97.9 F 66 19 133/61 91 L 12/30/19 00:00 97.9 F 66 19 124/55 90 L 12/29/19 22:17 88 L 12/29/19 19:47 98.2 F 64 18 108/63 93 L 12/29/19 19:31 78 18 90 L 12/29/19 16:27 90 L 12/29/19 16:00 98.6 F 69 18 119/55 90 L 12/29/19 14:24 66 20 94 L 12/29/19 11:17 98.1 F 65 16 117/54 92 L 12/29/19 10:25 72 20 93 L Pain Assessment - Last Documented Pain Intensity 7 Pain Scale Used 0-10 Pain Scale Intake and Output: Intake & Output 12/27/19 12/28/19 12/29/19 12/30/19 11:59 11:59 11:59 11:59 Intake Total 480 2600 1040 Output Total 1600 4950 3100 Balance -7796 -2008 -1987 Weight 128.6 kg 130 kg Lab Results: Lab Results-Last 24 Hours 12/30/19 12/30/19 12/30/19 Range/Units 04:41 04:41 04:41 WBC 8.8 (4.0-10.5) K/mm3 RBC 4.65 (4.1-5.4) M/mm3 Hgb 15.2 (12.0-16.0) gm/dl Hct 48.2 H (35-47) % MCV 103.7 H (78-100) fl MCH 32.7 H (26-32) pg MCHC 31.5 L (32-36) g/dl RDW 13.8 (11.5-14.0) % Plt Count 255 (150-450) K/mm3 MPV 10.0 (7.5-11.0) fl Sodium 135 L (137-145) mmol/L Potassium 4.5 (3.5-5.1) mmol/L Chloride 96 L (98-107) mmol/L Carbon Dioxide 35 H (22-30) mmol/L Anion Gap 9.2 (5-15) MEQ/L BUN 22 H (7-17) mg/dL Creatinine 0.70 (0.52-1.04) mg/dL Estimated GFR > 60.0 ML/MIN Glucose 119 H (74-106) mg/dL Calcium 9.5 (8.4-10.2) mg/dL Total Bilirubin 0.60 (0.2-1.3) mg/dL AST 19 (14-36) U/L ALT 12 (0-35) U/L Alkaline Phosphatase 79 (38-126) U/L Troponin I < 0.012 (0.000-0.034) ng/mL Serum Total Protein 7.7 (6.3-8.2) g/dL Albumin 4.4 (3.5-5.0) g/dL Radiology Exams: Radiology Procedures Category Date Time Status ECHO W/2D AND DOPPLER [US] Routine Exams 12/28/19 11:01 Taken Multi-Disciplinary Progress Notes: Multi-Disciplinary Progress Notes 12/29/19 08:53 Case Management Note by Elizabeth Conway AWAITING CARDIOLOGY CONSULT THIS AM. PATIENT MAY NEED NEW ORDER FOR INCREASED OXYGEN SETTINGS AT HOME CURRENT HOME ORDER IS FOR 2L/NC AND PATIENT CURRENTLY ON 5L/NC. WILL CONTINUE TO MONITOR Initialized on 12/29/19 08:53 - END OF NOTE Assessment/Plan (1) Congestive heart failure Current Visit: Yes Status: Acute Assessment & Plan: change to po lasix, echo read is pending. Dr Jeffry Suarez hoping to have it read today, likely home tomorrow on po lasix, has oxygen at home. Code(s): I50.9 - HEART FAILURE, UNSPECIFIED (2) COPD (chronic obstructive pulmonary disease) Current Visit: Yes Status: Acute (3) Hypoxemia Current Visit: Yes Status: Acute Code(s): R09.02 - HYPOXEMIA
--- NOTE | 2019-12-30 08:08 | CONS ---
TELE-CARDIOLOGY CONSULT DATE: 12/29/2019 REASON FOR CONSULT: Congestive heart failure. HISTORY: Miss Dalton Molina is a 54 year-old woman with a history of hypertension, dyslipidemia, obstructive sleep apnea on CPAP and active smoking who was admitted to [facility] with progressive shortness of breath. She was found to have an elevated BNP and appeared to be volume overloaded. Cardiac enzymes were negative and her D-dimer was mildly elevated. CT-A of her chest was negative for pulmonary embolism. She also had a negative COVID test. She was started on IV diuretics and her symptoms have significantly improved. She reports that prior to admission she ate a large amount of salt. She would add salt to food before even trying and this has been going on for many years. She also drinks 6 to 8 Mountain Dews a day but she was trying to cut back recently. She does occasionally smoke marijuana approximately once a month but denies any other illicit drug use. She drinks moderately usually one time a week and based on her description it is approximately three to four beers. She denies any chest pain but has reported some increased abdominal distention as well as shortness of breath and mild orthopnea this has improved since she has been in the hospital. She has diuresed at least 2 liters since admission. REVIEW OF SYSTEMS: Fourteen system review performed. Pertinent positives noted in H&P otherwise negative. PAST MEDICAL HISTORY: As noted in the history of present illness. SOCIAL HISTORY: She is an active smoker. She smokes marijuana once a month. She drinks three to four beers one time a week. No other illicit drug use. FAMILY HISTORY: No premature coronary disease or sudden cardiac . CURRENT MEDICATIONS: Review in MAR. See MAR for full details. PHYSICAL EXAMINATION: Vital signs reviewed. She is stable. Based on tele-cardiology observation she is in no acute distress. She is conversing, able to speak in full sentences. HEENT: Nonicteric sclera. RESPIRATORY: She appears to be breathing comfortably. NEUROLOGICAL: She does not appear to have any neurologic deficits. SKIN: Her skin is not jaundiced. LAB DATA AND TESTS: Laboratory data reviewed. Notable for BNP on admission of approximately just above 900 which is mildly elevated per hospital lab reference. Repeat BNP yesterday was 535 which is within the normal range. Cardiac enzymes are negative. Renal function is also normal. Hemoglobin and white blood cell counts are unremarkable. Chest CT was negative for pulmonary embolism. There is appearance of cardiomegaly with some interstitial edema and bilateral effusion consistent with congestive heart failure. EKG personally reviewed demonstrates sinus rhythm with poor R-wave progress, left atrial enlargement, no acute ST-T wave changes. Stress Myoview from December 2016 was negative for ischemia and ejection fraction at that time was 60%. IMPRESSION: 1) Acute congestive heart failure: This is likely diastolic in nature as she did have previous stress test a few years ago which demonstrated preserved ejection fraction, likely exacerbated by high salt intake as well as high volume intake of soda. In addition, obstructive sleep apnea and history of hypertension may be contributing. She is improved with IV Lasix. 2) History of hypertension: Appears to be reasonably well controlled currently. 3) History of obstructive sleep apnea on CPAP. 4) Active smoker. RECOMMENDATIONS: At this time would continue with IV diuretics today, transition to Lasix 40 mg p.o. b.i.d. tomorrow to maintain negative volume status. I have advised her extensively regarding reducing salt intake to 2 gm sodium diet as well as limiting fluid intake to 2 liters a day. I have advised her to cut back drastically on soda intake and also minimize alcohol intake. I will follow up on echo to establish if she does have any reduction in ejection fraction. I was unable to access the echo images at this time as it has not been uploaded to the cloud service. I will await image uploading. For now continue to monitor electrolytes and renal function daily while on IV diuretics. Thank you, Dr. Dc, for allowing me to participate in the care of this patient.
[2019-12-30] MEDS: ENOXAPARIN SODIUM SQ SCH (09:35)
[2019-12-30] MEDS: Toprol-Xl 25MG Tablets PO SCH (09:36)
[2019-12-30] MEDS: Lasix 40 MG PO SCH ×2 (09:36→16:45)
[2019-12-30] MEDS: Zestril 5 MG PO SCH ×2 (09:36→22:04)
[2019-12-30] MEDS: Klor Con 10 MEQ PO SCH ×2 (09:36→22:04)
[2019-12-30] MEDS ORDERED: FLUZONE QUAD 2020-2021 SYRINGE IM ONE (10:00)
[2019-12-30] MEDS: ZOLOFT 50 MG TABLET PO SCH (22:05)
[2019-12-30] MEDS: ZOCOR 20MG PO SCH (22:05)
[2019-12-31] MEDS: NORCO 5/325 MG PO PRN ×2 (05:28→11:48)
[2019-12-31 06:45] LABS: Absolute Neutrophil Ct (ANC) 5.54 (1.4-6.9); BASOPHIL % 0.3 % (0.0-0.4); Basophil (Absolute #) 0.02 (0-0.4); Eosinophil % 2.1 % (0.00-5.0); Eosinophil (Absolute #) 0.16 (0-0.5); Hemoglobin 14.9 gm/dl (12.0-16.0); Lymphocyte (Absolute #) 1.23 (1.0-4.6); Mean Cell Volume 103.3 fl (78-100); Mean Corpuscular Hemoglobin 32.7 pg (26-32); Mean Corpuscular Hgb Concent. 31.7 g/dl (32-36); Mean Platelet Volume 10.1 fl (7.5-11.0); Monocyte (Absolute #) 0.72 (0.0-1.3); Monocytes % 9.4 % (0.0-12.0); Neutrophil % 72.2 % (36.0-66.0); Platelet Count 239 K/mm3 (150-450); Red Blood Count 4.55 M/mm3 (4.1-5.4); Red Cell Distribution Width 13.7 % (11.5-14.0); White Blood Count 7.7 K/mm3 (4.0-10.5)
[2019-12-31 06:55] LABS: ANION GAP 10.4 MEQ/L (5-15); BLOOD UREA NITROGEN 25 mg/dL (7-17); CHLORIDE 95 mmol/L (98-107); Calcium 9.1 mg/dL (8.4-10.2); Carbon Dioxide 33 mmol/L (22-30); Creatinine 1 0.52 mg/dL (0.52-1.04); EST GLOMERULAR FILTRATION RATE > 60.0 ML/MIN; Glucose 124 mg/dL (74-106); NT PRO BNP 141 pg/mL (0-900); Potassium 4.9 mmol/L (3.5-5.1); SODIUM 134 mmol/L (137-145)
[2019-12-31] MEDS: DUONEB 0.5-3 MG/3 ml Neb IH SCH (07:00)
[2019-12-31] MEDS: Toprol-Xl 25MG Tablets PO SCH (10:58)
[2019-12-31] MEDS: ENOXAPARIN SODIUM SQ SCH (10:59)
[2019-12-31] MEDS: Klor Con 10 MEQ PO SCH (10:59)
[2019-12-31] MEDS: Lasix 40 MG PO SCH (10:59)
[2019-12-31] MEDS: Zestril 5 MG PO SCH (10:59)
[2019-12-31 12:19] VITALS: BP 124/60; PULSE 73; O2SAT 92
--- NOTE | 2019-12-31 13:15 | PCM.DS ---
Discharge Summary Date of Admission: 12/28/19 08:51 Date of Discharge: 12/31/19 Admitting Physician: EDGAR TRAN Consults: Consults on Case 12/28/19 08:43 Consult Cardiology ROUTINE Primary Care Provider: EDGAR TRAN Allergies Allergies No Known Drug Allergies Allergy (Verified 07/07/16 08:07) Hospital Summary - Hospital Course Hospital Course: 54-year-old female who presents to our ED for evaluation of shortness of breath. Patient has checked her oxygen saturation at home. Patient states it has been below normal for the past 2 weeks even down to 77%. She has become progre ssively short of breath. Patient was hypoxic in our ED. Patient is a smoker. She has a history of sleep apnea. Patient noncompliant with her CPAP. Patient observed to be diaphoretic on exam. Patient denies cold exposure. She also voices pain to her left calf. Patient symptoms are progressive. Symptoms are mild to moderate in intensity. Exertion worsens symptomology. Symptoms improved with rest. Patient denied chest pain. No nausea or vomiting. No diarrhea. No rash. Patient voiced no other complaints concerns at this time. She has a history of copd and hypoxemic respiratory failure. She uses oxygen at home intermittently but has had low to borderline saturations even on her 2L of oxygen, she describes episodes of waking in the night in a panic and very short of breath, does have some trouble breathing lying flat. Patient was admitted to medical floor. Patient did have a component of CHF exacerbation and cardiology was consulted. She had an echo done and will follow up with Emily Toure as an outpatient. She was on medications for diuresis and had improvement of symptoms. Patient also had US to rule out lower extremity DVT which was neg. Patient continues to smoke and she is on home oxygen. She is now requiring 3 L at all times. Patient refuses to wear cpap at home because she can not tolerate it. Patient is feeling better and would like to go home. We discussed her new oxygen requirements and she is aware. She will continue to give herself duonebs at home. - Vitals & Intake/Output Vital Signs: Vital Signs Temperature 96.2 F 12/31/19 12:00 Pulse Rate 73 12/31/19 12:00 Respiratory Rate 21 12/31/19 12:00 Blood Pressure 124/60 12/31/19 12:00 O2 Sat by Pulse Oximetry 92 L 12/31/19 12:00 Intake & Output: Intake & Output 12/29/19 12/30/19 12/31/19 01/01/20 11:59 11:59 11:59 11:59 Intake Total 2600 2000 2100 Output Total 4950 3750 3800 Balance -2350 -1750 -1700 Weight 130 kg 131.3 kg 131.3 kg - Lab Result Diagrams: 12/31/19 06:05 12/31/19 06:05 Lab Results-Last 24 Hrs: Lab Results-Last 24 Hours 12/31/19 12/31/19 Range/Units 06:05 06:05 WBC 7.7 (4.0-10.5) K/mm3 RBC 4.55 (4.1-5.4) M/mm3 Hgb 14.9 (12.0-16.0) gm/dl Hct 47.0 (35-47) % MCV 103.3 H (78-100) fl MCH 32.7 H (26-32) pg MCHC 31.7 L (32-36) g/dl RDW 13.7 (11.5-14.0) % Plt Count 239 (150-450) K/mm3 MPV 10.1 (7.5-11.0) fl Gran % 72.2 H (36.0-66.0) % Eos # (Auto) 0.16 (0-0.5) Absolute Lymphs (auto) 1.23 (1.0-4.6) Absolute Monos (auto) 0.72 (0.0-1.3) Lymphocytes % 16.0 L (24.0-44.0) % Monocytes % 9.4 (0.0-12.0) % Eosinophils % 2.1 (0.00-5.0) % Basophils % 0.3 (0.0-0.4) % Absolute Granulocytes 5.54 (1.4-6.9) Basophils # 0.02 (0-0.4) Sodium 134 L (137-145) mmol/L Potassium 4.9 (3.5-5.1) mmol/L Chloride 95 L (98-107) mmol/L Carbon Dioxide 33 H (22-30) mmol/L Anion Gap 10.4 (5-15) MEQ/L BUN 25 H (7-17) mg/dL Creatinine 0.52 (0.52-1.04) mg/dL Estimated GFR > 60.0 ML/MIN Glucose 124 H (74-106) mg/dL Calcium 9.1 (8.4-10.2) mg/dL NT-Pro-B Natriuret Pep 141 (0-900) pg/mL Micro Results-Entire Visit: Microbiology 12/27/19 16:20 Blood Culture - Preliminary Blood NO GROWTH TO DATE 12/27/19 16:35 Blood Culture - Preliminary Blood NO GROWTH TO DATE - Procedures and Test Procedures and Tests throughout Hospitalization: Therapy Orders & Screens 12/27/19 19:54 Oxygen NASAL CANNULA 2 lpm Comment: Diagnosis: CHF 12/27/19 20:21 Peak Expiratory Flow Rate ONCE Comment: Reason For Exam: Diagnosis: CHF Respiratory Therapy Assessment DAILY Comment: Diagnosis: CHF 12/27/19 21:15 RT Screen per Nursing Assess ONCE Comment: Protocol Order Physician Instructions: Greater than 3 points order RT Admission Screen Reason For Exam: Triggered on Admission Diagnosis: CHF Diagnosis: CHF Pneumonia: No Home O2: Yes: Ll at HS Asthma: Yes CHF: Yes Home CPAP/BIPAP: No Home Nebs/MDI: Yes Total Points: 17 Smoking Cessation Education ONCE Comment: Diagnosis: CHF Smoking Status: Current every day smoker How long have you smoked: 30 Have you smoked in the past 12 months: Yes Approximately how many cigarettes per day: 2 pks Do you dip or chew tobacco: No 12/30/19 10:21 Oxygen Nasal Cannula 3 lpm Comment: PATIENT TO WEAR 3L/NC AT HS Diagnosis: CHF Discharge Exam General Appearance: no apparent distress, obese (Morbidly obese BMI of 45) Neurologic Exam: alert, oriented x 3, cooperative, normal mood/affect, No depressed mood/affect Eye Exam: No scleral icterus Ears, Nose, Throat Exam: moist mucous membranes Neck Exam: other (Patient has wide full neck) Respiratory Exam: diminished breath sounds, other (Patient is requiring 3L at all times.), No crackles/rales, No wheezing Cardiovascular Exam: regular rate/rhythm, murmur (systolic), No friction rub, No gallop, No edema Gastrointestinal/Abdomen Exam: soft, normal bowel sounds, No tenderness, No distention Extremity Exam: No pedal edema, No swelling, No tenderness Skin Exam: normal color, warm, dry Final Diagnosis/Problem List - Final Discharge Diagnosis/Problem (1) Congestive heart failure Current Visit: Yes Status: Acute Assessment & Plan: Elevated bnp on admission. Patient has had diuresis and tolerated well. Kidney function is stable. No pedal edema this am. She had an echo which has not been interpreted yet but has a follow up appt with Cardiology. I appreciate a systolic murmur on exam today which she denies having before. Will have patient continue on lasix following discharge and depending if patient tolerates this and symptoms continue to improve she may need to routinely be on lasix. Code(s): I50.9 - HEART FAILURE, UNSPECIFIED (2) SALVATORE (obstructive sleep apnea) Current Visit: Yes Status: Acute Assessment & Plan: This is untreated due to patient being unable to tolerate wearing the mask. Code(s): G47.33 - OBSTRUCTIVE SLEEP APNEA (ADULT) (PEDIATRIC) (3) Hypoxemia Current Visit: Yes Status: Acute Assessment & Plan: Multifactorial. Patient will go home on 3L of oxygen to be worn at all times. Concern for this as patient continues to smoke. Code(s): R09.02 - HYPOXEMIA (4) Smoker Current Visit: No Status: Acute Code(s): F17.200 - NICOTINE DEPENDENCE, UNSPECIFIED, UNCOMPLICATED (5) COPD (chronic obstructive pulmonary disease) Current Visit: Yes Status: Acute Assessment & Plan: Does not appear to be in acute exacerbation. She has required her routine breathing txs while in hospital. She reports she sees Dr Tam outpatient as her pulm. She is on a daily inhaler as well as rescue. - Discharge Disposition: Home, Self-Care Condition: Stable Prescriptions: New Potassium Chloride 10 Meq Tab* [Klor Con 10 MEQ] 5 meq PO DAILY 30 Days #30 tab Furosemide 40 mg [Lasix 40 MG] 20 mg PO DAILY 30 Days #30 tablet Metoprolol Succinate 25 mg Xl* [Toprol-Xl 25MG Tablets] 25 mg PO DAILY 30 Days #30 tab Continue Hydrocodone Bit/Acetaminophen [[place] 5/325Mg] 1 each PO Q6H PRN PRN PRN Reason: Pain Cyclobenzaprine HCl [Flexeril] 10 mg PO TID PRN PRN PRN Reason: Muscle Spasms Albuterol/Ipratropium 3ml Neb* [DUONEB 0.5-3 MG/3 ml Neb] 3 ml IH QID #120 ampul.neb Lisinopril 5 mg [Zestril 5 MG] 2.5 mg PO Q12HT #60 tablet Albuterol Sulfate [Albuterol Sulfate Hfa] 7 gm IH Q4H PRN PRN #0 [id number] PRN Reason: SOB/Wheezing Sertraline HCl 50 mg [Zoloft 50 mg Tablet] 50 mg PO DAILY Atorvastatin Calcium [Lipitor 20MG Tablet] 20 mg PO HS Hydrochlorothiazide 25 mg [hydroDIURIL 25 MG] 12.5 mg PO DAILY Additional Instructions: YOU NOW NEED TO WEAR 3L/NC WHEN SLEEPING Follow up with: EDGAR TRAN MD [Primary Care Provider] - 01/09/20 11:15 am ROMAN TOURE MD [CONSULTING PHYSICIAN] - 01/03/20 12:30 pm (follow up in [place] office)
== END 2019-12-31 15:00 | disposition home or self-care (01) | DRG 292 ==
LOC: ED 16:03 → MED SURG 19:51 → OBSVTOIN 12-28 08:51
PROVIDERS: ADMIT Family Medicine; ATTEND Family Medicine
DX: I50.9 Heart failure, unspecified (principal); J96.11 Chronic respiratory failure with hypoxia; Z99.81 Dependence on supplemental oxygen; G47.33 Obstructive sleep apnea (adult) (pediatric); F17.200 Nicotine dependence, unspecified, uncomplicated; J44.9 Chronic obstructive pulmonary disease, unspecified; Z79.899 Other long term (current) drug therapy
CPT/HCPCS: 36000; 36415; 36600; 71045; 71260; 80048; 80053; 81001; 82375; 82803; 83735; 83880; 84484; 85025; 85027; 85379; 87040; 90686; 93005; 93041; 93268; 93306; 93971; 94150; 94640; 94760; 94762; 99285; G0008; J1650; J1940; Q3014; U0003; A9270-GY; G0378

== ENCOUNTER 2020-08-06 12:38 | Observation (INO) | payer OTHER ==
--- NOTE | 2020-08-06 13:07 | ERPHSYRPT ---
- History of Present Illness Source: patient, EMS Patient Subjective Stated Complaint: Pt states "I have been having a hard time breathing since yesterday evening." Triage Nursing Assessment: Pt presented alert and orietned X 3, skin pwd Pt able to speak in clear full sentences pt slightly tachypneic. Pt has iv in left wrist. Physician History: 54 yo obese WF 3L O2 dep pt w COPD presents w dysnea upon exertion starting last night. Sats low when EMS arrived, but she was not on her O2. She responded to O2 and Duoneb in route. Pt denies cough/fever/chest pain/N/V/D/me dorothy/hematochezia/edema. Dyspnea worse upon exertion. Timing/Duration: other (Last night) Activities at Onset: rest Severity of Dyspnea-Max: moderate Severity of Dyspnea-Current: none Possible Cause: frequent episodes Modifying Factors: Improves With: exertion Associated Symptoms: wheezing, sweating, No chest pain/discomfort, No edema, No fever, No insomnia, No loss of appetite, No lightheadedness, No weakness, No ankle swelling, No chills, No hemoptysis, No calf pain, No dizziness, No heaviness, No heart racing, No lightheadedness, No leg swelling, No muscle spasms feet, No muscle spasms hands, No painful breathing, No productive cough, No tightness, No tingling face, No tingling hands Allergies/Adverse Reactions: No Known Drug Allergies Allergy (Verified 07/07/16 08:07) Home Medications: Cyclobenzaprine HCl [Flexeril] 10 mg PO TID PRN PRN 07/07/16 [History] Hydrocodone Bit/Acetaminophen [[place] 5/325Mg] 1 each PO Q6H PRN PRN 07/07/16 [History] Atorvastatin Calcium [Lipitor 20MG Tablet] 20 mg PO HS 12/27/19 [History] Sertraline HCl 50 mg [Zoloft 50 mg Tablet] 50 mg PO DAILY 12/27/19 [History] Hydrochlorothiazide 25 mg [hydroDIURIL 25 MG] 12.5 mg PO DAILY 12/28/19 [History] Furosemide 40 mg [Lasix 40 MG] 40 mg PO DAILY 08/06/20 [History] Hydroxyzine HCl 25 mg [Atarax 25 mg] 25 mg PO DAILY PRN 08/06/20 [History] Omeprazole 40 mg PO DAILY 08/06/20 [History] Potassium Chloride 10 Meq Tab* [Klor Con 10 MEQ] 10 meq PO DAILY 08/06/20 [History] lisinopriL [Zestril] 2.5 mg PO BID 08/06/20 [History] Hx Tetanus, Diphtheria Vaccination/Date Given: Yes Hx Influenza Vaccination/Date Given: No Hx Pneumococcal Vaccination/Date Given: No Immunizations Up to Date: Yes Travel Risk - International Travel Have you traveled outside of the country in past 3 weeks: No - Coronavirus Screening Are you exhibiting any of the following symptoms?: No Close contact with a COVID-19 positive Pt in past 14-21 Days: No - Vaccine Status Have you recieved a Covid-19 vaccination: Yes 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 - Vaccination Dates Dates if Unknown: 07/26/2020 - Review of Systems Constitutional: No Symptoms Eyes: No Symptoms Ears, Nose, & Throat: No Symptoms Respiratory: No Symptoms, Dyspnea, Dyspnea on Exertion (LUIS) Cardiac: No Symptoms Abdominal/Gastrointestinal: No Symptoms Genitourinary Symptoms: No Symptoms Musculoskeletal: No Symptoms Skin: No Symptoms Neurological: No Symptoms Psychological: No Symptoms Endocrine: No Symptoms Hematologic/Lymphatic: No Symptoms Immunological/Allergic: No Symptoms - Past Medical History Pertinent Past Medical History: Yes Neurological History: No Pertinent History ENT History: No Pertinent History Cardiac History: No Pertinent History Respiratory History: No Pertinent History Endocrine Medical History: No Pertinent History Musculoskeletal History: Arthritis, Other GI Medical History: No Pertinent History History: No Pertinent History Psycho-Social History: Anxiety, Depression Female Reproductive Disorders: No Pertinent History Other Medical History: chronic back pain - Past Surgical History Past Surgical History: Yes Neuro Surgical History: No Pertinent History Cardiac: No Pertinent History Respiratory: No Pertinent History Gastrointestinal: No Pertinent History Genitourinary: No Pertinent History Musculoskeletal: Orthopedic Surgery Female Surgical History: No Pertinent History Other Surgical History: tonsils, back - Social History Smoking Status: Current every day smoker How long have you smoked: 30 Exposure to second hand smoke: No Drug Use: marijuana Patient Lives Alone: Yes Significant Family History: no pertinent family hx - Nursing Vital Signs Nursing Vital Signs: Initial Vital Signs Temperature 99.2 F 08/06/20 12:39 Pulse Rate 98 H 08/06/20 12:39 Respiratory Rate 26 H 08/06/20 12:39 Blood Pressure 132/64 08/06/20 12:39 O2 Sat by Pulse Oximetry 90 L 08/06/20 12:39 Pain Scale Pain Intensity 4 - Physical Exam General Appearance: mild distress Eye Exam: PERRL/EOMI, eyes nml inspection Ears, Nose, Throat Exam: hearing grossly normal, normal ENT inspection, normal pharynx Neck Exam: normal inspection, non-tender, supple, full range of motion, No Brudzinski, No Kernig's, No meningismus Respiratory Exam: airway intact, crackles/rales (Rales at bases B w diffuse decreased BS) Cardiovascular/Chest Exam: regular rate/rhythm, murmur (2/6 MARIA L) Abdominal/Gastrointestinal Exam: soft, normal bowel sounds, No tenderness (Morbidly obese) Extremity Exam: non-tender, normal range of motion, normal inspection, normal capillary refill, no calf tenderness, no pedal edema Neurologic Exam: alert, oriented x 3, cooperative, 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, normal mood/affect, sensation nml, No motor deficits, No sensory deficit Skin Exam: normal color, warm, dry, No rash Lymphatic Exam: No adenopathy SpO2 Interpretation: normal SpO2: 90 O2 Delivery: Room Air - Course EKG Interpreted by Me: RATE (NSR/R92/Occ PVC/IVCD/Poor R wave progression) Ordered Tests: Active Orders 24 hr Category Date Time Status Code Status Order ROUTINE Care 08/06/20 17:19 Active Implement CHF Pathway ROUTINE Care 08/06/20 17:19 Active Intake and Output Q12H Care 08/06/20 17:[address] in Observation ROUTINE Care 08/06/20 17:19 Active Weight,Daily 0600 Care 08/06/20 17:19 Active Consistent Carbohydrate Diet 2000 Calorie Diet 08/06/20 Breakfast Completed CHEST 1 VIEW (PORTABLE) Stat Exams 08/06/20 12:41 Completed CHEST WITH CONTRAST [CT] Stat Exams 08/06/20 14:40 Completed CBC W DIFF Stat Lab 08/06/20 13:15 Completed CMP Stat Lab 08/06/20 13:15 Completed D-DIMER QUANTITATIVE Stat Lab 08/06/20 14:02 Completed Lactic Acid Stat Lab 08/06/20 13:18 Completed Manual Differential NC Stat Lab 08/06/20 13:15 Completed NT PRO BNP Stat Lab 08/06/20 13:15 Completed PROTIME WITH INR Stat Lab 08/06/20 13:15 Completed PTT Stat Lab 08/06/20 13:15 Completed TROPONIN Q3H Lab 08/06/20 13:15 Completed TROPONIN Q3H Lab 08/06/20 15:45 Completed TROPONIN Q3H Lab 08/06/20 19:00 Completed TROPONIN Q3H Lab 08/06/20 22:15 Completed EKG IN AM RT 08/06/20 17:37 Active Oxygen NASAL CANNULA 3 lpm RT 08/06/20 17:19 Completed Medication Summary Generic Name Dose Route Start Last Admin Trade Name Freq PRN Reason Stop Dose Admin Hydrocodone Bitart/Acetaminophen 1 tab 08/06/20 18:29 08/06/20 18:33 [place] 5/325 Mg PO 08/11/20 18:28 1 tab Q6H PRN Administration PAIN Albuterol Sulfate 2.5 mg 08/06/20 19:56 Proventil 2.5 Mg/3 Ml Neb IH 09/05/20 19:55 Q4H PRN PRN SHORTNESS OF BREATH/WHEEZING Albuterol/Ipratropium 3 ml 08/07/20 07:00 08/06/20 19:37 Duoneb 0.5-3 Mg/3 Ml Neb IH 09/06/20 06:59 3 ml QIDRT ALESSANDRA Administration Cyclobenzaprine HCl 10 mg 08/06/20 18:29 08/06/20 18:33 Cyclobenzaprine 10 Mg PO 09/05/20 18:28 10 mg TID PRN PRN Administration MUSCLE SPASMS Hydroxyzine HCl 25 mg 08/06/20 21:27 Atarax 25 Mg PO 09/06/20 09:59 DAILY PRN ANXIETY Discontinued Medications Generic Name Dose Route Start Last Admin Trade Name Freq PRN Reason Stop Dose Admin Furosemide 60 mg 08/06/20 13:40 08/06/20 13:47 Lasix 40 Mg/4 Ml IV 08/06/20 13:41 60 mg STAT ONE Administration Furosemide Confirm 08/06/20 13:47 Lasix 40 Mg/4 Ml Administered 08/06/20 13:48 Dose 80 mg .ROUTE .STK-MED ONE Furosemide 40 mg 08/07/20 10:00 Lasix 40 Mg/4 Ml IV 09/06/20 09:59 BID DIURETIC ALESSANDRA Insulin Human Lispro 0 unit 08/06/20 17:19 Humalog SQ 09/05/20 17:18 UD PRN HYPERGLYCEMIA Lab/Rad Data: Laboratory Result Diagrams 08/06/20 13:15 08/06/20 13:15 Laboratory Results 08/06/20 08/06/20 08/06/20 Range/Units 16:01 15:45 14:02 WBC (4.0-10.5) K/mm3 RBC (4.1-5.4) M/mm3 Hgb (12.0-16.0) gm/dl Hct (35-47) % MCV (78-100) fl MCH (26-32) pg MCHC (32-36) g/dl RDW (11.5-14.0) % Plt Count (150-450) K/mm3 MPV (7.5-11.0) fl Segmented Neutrophils (36.0-66.0) % Lymphocytes (Manual) (24-44) % Monocytes (Manual) (0.0-12.0) % Platelet Estimate (NORMAL) RBC Morphology Anisocytosis PT (9.95-12.35) SECONDS INR (0.8-3.0) APTT (25.3-37.0) SECONDS D-Dimer 1101 H* (215-500) ng/mL Sodium (137-145) mmol/L Potassium (3.5-5.1) mmol/L Chloride (98-107) mmol/L Carbon Dioxide (22-30) mmol/L Anion Gap (5-15) MEQ/L BUN (7-17) mg/dL Creatinine (0.52-1.04) mg/dL Estimated GFR ML/MIN Glucose (74-106) mg/dL Lactic Acid (0.4-2.0) Calcium (8.4-10.2) mg/dL Total Bilirubin (0.2-1.3) mg/dL AST (14-36) U/L ALT (0-35) U/L Alkaline Phosphatase (38-126) U/L Troponin I < 0.012 (0.000-0.034) ng/mL NT-Pro-B Natriuret Pep (0-900) pg/mL Serum Total Protein (6.3-8.2) g/dL Albumin (3.5-5.0) g/dL Influenza Type A Ag NEGATIVE (NEGATIVE) Influenza Type B Ag NEGATIVE (NEGATIVE) RSV (PCR) NEGATIVE (Negative) SARS-CoV-2 (PCR) NEGATIVE (NEGATIVE) 08/06/20 08/06/20 08/06/20 Range/Units 13:18 13:15 13:15 WBC (4.0-10.5) K/mm3 RBC (4.1-5.4) M/mm3 Hgb (12.0-16.0) gm/dl Hct (35-47) % MCV (78-100) fl MCH (26-32) pg MCHC (32-36) g/dl RDW (11.5-14.0) % Plt Count (150-450) K/mm3 MPV (7.5-11.0) fl Segmented Neutrophils (36.0-66.0) % Lymphocytes (Manual) (24-44) % Monocytes (Manual) (0.0-12.0) % Platelet Estimate (NORMAL) RBC Morphology Anisocytosis PT 15.3 H (9.95-12.35) SECONDS INR 1.35 (0.8-3.0) APTT 31.6 (25.3-37.0) SECONDS D-Dimer (215-500) ng/mL Sodium (137-145) mmol/L Potassium (3.5-5.1) mmol/L Chloride (98-107) mmol/L Carbon Dioxide (22-30) mmol/L Anion Gap (5-15) MEQ/L BUN (7-17) mg/dL Creatinine (0.52-1.04) mg/dL Estimated GFR ML/MIN Glucose (74-106) mg/dL Lactic Acid 1.6 (0.4-2.0) Calcium (8.4-10.2) mg/dL Total Bilirubin (0.2-1.3) mg/dL AST (14-36) U/L ALT (0-35) U/L Alkaline Phosphatase (38-126) U/L Troponin I < 0.012 (0.000-0.034) ng/mL NT-Pro-B Natriuret Pep (0-900) pg/mL Serum Total Protein (6.3-8.2) g/dL Albumin (3.5-5.0) g/dL Influenza Type A Ag (NEGATIVE) Influenza Type B Ag (NEGATIVE) RSV (PCR) (Negative) SARS-CoV-2 (PCR) (NEGATIVE) 08/06/20 08/06/20 Range/Units 13:15 13:15 WBC 8.5 (4.0-10.5) K/mm3 RBC 4.30 (4.1-5.4) M/mm3 Hgb 13.4 (12.0-16.0) gm/dl Hct 42.0 (35-47) % MCV 97.7 (78-100) fl MCH 31.2 (26-32) pg MCHC 31.9 L (32-36) g/dl RDW 13.4 (11.5-14.0) % Plt Count 222 (150-450) K/mm3 MPV 9.9 (7.5-11.0) fl Segmented Neutrophils 77 H (36.0-66.0) % Lymphocytes (Manual) 17 L (24-44) % Monocytes (Manual) 6 (0.0-12.0) % Platelet Estimate NORMAL (NORMAL) RBC Morphology ABNORMAL Anisocytosis 1+ PT (9.95-12.35) SECONDS INR (0.8-3.0) APTT (25.3-37.0) SECONDS D-Dimer (215-500) ng/mL Sodium 140 (137-145) mmol/L Potassium 3.2 L (3.5-5.1) mmol/L Chloride 98 (98-107) mmol/L Carbon Dioxide 34 H (22-30) mmol/L Anion Gap 10.8 (5-15) MEQ/L BUN 8 (7-17) mg/dL Creatinine 0.43 L (0.52-1.04) mg/dL Estimated GFR > 60.0 ML/MIN Glucose 160 H (74-106) mg/dL Lactic Acid (0.4-2.0) Calcium 9.0 (8.4-10.2) mg/dL Total Bilirubin 0.60 (0.2-1.3) mg/dL AST 18 (14-36) U/L ALT 14 (0-35) U/L Alkaline Phosphatase 67 (38-126) U/L Troponin I (0.000-0.034) ng/mL NT-Pro-B Natriuret Pep 3560 H (0-900) pg/mL Serum Total Protein 7.1 (6.3-8.2) g/dL Albumin 4.0 (3.5-5.0) g/dL Influenza Type A Ag (NEGATIVE) Influenza Type B Ag (NEGATIVE) RSV (PCR) (Negative) SARS-CoV-2 (PCR) (NEGATIVE) - Progress Progress: improved Progress Note: 08/06/20 15:43 60mg IV Lasix w improvement 08/06/20 16:[address] Henderson for Dr. Dc Discussed with : Guillaume Counseled pt/family regarding: lab results, diagnosis, rad results - Departure Departure Disposition: Observation Clinical Impression: Congestive heart failure Condition: Stable Critical Care Time: No
--- NOTE | 2020-08-06 13:22 | XRAY ---
Indication: Short of breath. Comparison: December 27, 2019. Portable chest again demonstrates cardiomegaly, central vascular prominence, interstitial edema, and small bibasilar effusions favoring cardiac decompensation. Superimposed pneumonia not completely excluded. Bony thorax intact again with mild degenerative changes.
[2020-08-06 13:23] LABS: Hemoglobin 13.4 gm/dl (12.0-16.0); Mean Cell Volume 97.7 fl (78-100); Mean Corpuscular Hemoglobin 31.2 pg (26-32); Mean Corpuscular Hgb Concent. 31.9 g/dl (32-36); Mean Platelet Volume 9.9 fl (7.5-11.0); Platelet Count 222 K/mm3 (150-450); Red Cell Distribution Width 13.4 % (11.5-14.0); White Blood Count 8.5 K/mm3 (4.0-10.5)
[2020-08-06] MEDS ORDERED: Lasix 40 MG/4 ML IV ONE (13:40)
[2020-08-06 13:47] LABS: ALKALINE PHOSPHATASE 67 U/L (38-126); ANION GAP 10.8 MEQ/L (5-15); BLOOD UREA NITROGEN 8 mg/dL (7-17); CHLORIDE 98 mmol/L (98-107); Carbon Dioxide 34 mmol/L (22-30); Creatinine 1 0.43 mg/dL (0.52-1.04); EST GLOMERULAR FILTRATION RATE > 60.0 ML/MIN; Glucose 160 mg/dL (74-106); NT PRO BNP 3560 pg/mL (0-900); Potassium 3.2 mmol/L (3.5-5.1); SGOT/AST 18 U/L (14-36); SGPT/ALT 14 U/L (0-35); SODIUM 140 mmol/L (137-145); Total Protein 7.1 g/dL (6.3-8.2)
[2020-08-06] MEDS ORDERED: Lasix 40 MG/4 ML ONE (13:47)
[2020-08-06 14:15] LABS: INR 1.35 (0.8-3.0); PROTIME 15.3 SECONDS (9.95-12.35)
[2020-08-06 14:18] LABS: PTT 31.6 SECONDS (25.3-37.0)
--- NOTE | 2020-08-06 15:35 | XRAY ---
Indication: Dyspnea. Elevated d-dimer. Multiple contiguous axial images obtained through the chest using 100 cc Isovue 370 contrast and PE protocol. Comparison: None There is adequate opacification of the pulmonary arteries. However mild respiration artifact limits evaluation of the more distal branches. No central pulmonary embolus. Heart is enlarged again with mitral valve calcifications. Aorta is normal in course and caliber without aneurysm/dissection. Small mediastinal calcified and noncalcified lymph nodes. No pathologic lymphadenopathy. Lungs demonstrates moderate effusions right greater left, interstitial edema, and mild bibasilar compressive atelectasis. Bony thorax intact again with mild degenerative changes throughout the spine. Limited upper abdomen again demonstrates fatty liver and 13.4 cm splenomegaly. Impression: 1. Pulmonary embolus evaluation limited by respiration artifact. No obvious central pulmonary embolus. 2. Again cardiomegaly, interstitial edema, and bilateral effusions. Rule out cardiac decompensation/CHF. 3. Again incidental fatty liver, splenomegaly, and old granulomatous disease.
[2020-08-06 17:03] LABS: INFLUENZA A NEGATIVE (NEGATIVE); INFLUENZA B NEGATIVE (NEGATIVE); RESPIRATORY SYNCTIAL VIRUS NEGATIVE (Negative)
[2020-08-06] MEDS ORDERED: HUMALOG SQ PRN (17:19)
[2020-08-06] MEDS: NORCO 5/325 MG PO PRN (18:33)
[2020-08-06] MEDS: Cyclobenzaprine 10 MG PO PRN (18:33)
[2020-08-06] MEDS: DUONEB 0.5-3 MG/3 ml Neb IH SCH (19:37)
[2020-08-06] MEDS ORDERED: PROVENTIL 2.5 MG/3 ML NEB IH PRN (19:56)
[2020-08-06 20:07] LABS: ANISOCYTOSIS 1+; Lymphocytes 17 % (24-44); Monocyte 6 % (0.0-12.0); Neutrophils 77 % (36.0-66.0); Platelet Estimate NORMAL (NORMAL); Total Cells Counted 100
[2020-08-07] MEDS: Cyclobenzaprine 10 MG PO PRN (04:05)
[2020-08-07] MEDS: NORCO 5/325 MG PO PRN ×3 (04:05→18:15)
[2020-08-07] MEDS: DUONEB 0.5-3 MG/3 ml Neb IH SCH ×4 (05:07→18:22)
--- NOTE | 2020-08-07 09:14 | PCM.HP ---
History of Present Illness - Chief Complaint Chief Complaint: CHF History of Present Illness: is a 54 year old female pt of Dr. Staples with CHF, and COPD who was admitted from home, through ER, with CHF exacerbation. She had complained of increasing LUIS for the past 1 d or so. Her O2 sat dropped to 73 in the night, even with O2 on (wears 3L at home). She was given lasix in the ER and is feeling better today - able to go to bathroom 10 feet away without dyspnea, which is an improvement. - Review of Systems Constitutional: No Fever Psychological: Depression (chronic; bipolar), No Suicidal Ideations, No Homici mike Ideations All Other Systems: Reviewed and Negative Medications & Allergies Home Medications: Home Medication List Cyclobenzaprine HCl [Flexeril] 10 mg PO TID PRN PRN 07/07/16 [History Confirmed 08/06/20] Hydrocodone Bit/Acetaminophen [[place] 5/325Mg] 1 each PO Q6H PRN PRN 07/07/16 [History Confirmed 08/06/20] Albuterol Sulfate [Albuterol Sulfate Hfa] 7 gm IH Q4H PRN PRN #0 [email or web address] 07/12/16 [Rx Confirmed 08/06/20] Albuterol/Ipratropium 3ml Neb* [DUONEB 0.5-3 MG/3 ml Neb] 3 ml IH QID #120 ampul.neb 07/12/16 [Rx Confirmed 08/06/20] Atorvastatin Calcium [Lipitor 20MG Tablet] 20 mg PO HS 12/27/19 [History Confirmed 08/06/20] Sertraline HCl 50 mg [Zoloft 50 mg Tablet] 50 mg PO DAILY 12/27/19 [History Confirmed 08/06/20] Hydrochlorothiazide 25 mg [hydroDIURIL 25 MG] 12.5 mg PO DAILY 12/28/19 [History Confirmed 08/06/20] Metoprolol Succinate 25 mg Xl* [Toprol-Xl 25MG Tablets] 25 mg PO DAILY 30 Days #30 tab 12/31/19 [Rx Confirmed 08/06/20] Furosemide 40 mg [Lasix 40 MG] 40 mg PO DAILY 08/06/20 [History Confirmed 08/06/20] Hydroxyzine HCl 25 mg [Atarax 25 mg] 25 mg PO DAILY PRN 08/06/20 [History Confirmed 08/06/20] Omeprazole 40 mg PO DAILY 08/06/20 [History Confirmed 08/06/20] Potassium Chloride 10 Meq Tab* [Klor Con 10 MEQ] 10 meq PO DAILY 08/06/20 [History Confirmed 08/06/20] lisinopriL [Zestril] 2.5 mg PO BID 08/06/20 [History Confirmed 08/06/20] Allergies/Adverse Reactions: Allergies Allergy/AdvReac Type Severity Reaction Status Date / Time No Known Drug Allergies Allergy Verified 07/07/16 08:07 - Past Medical History Past Medical History: Yes Neurological History: No Pertinent History ENT History: No Pertinent History Cardiac History: No Pertinent History Respiratory History: No Pertinent History Endocrine Medical History: No Pertinent History Musculoskelatal History: Arthritis, Other GI Medical History: No Pertinent History History: No Pertinent History Pyscho-Social History: Anxiety, Depression Reproductive Disorders: No Pertinent History Comment: chronic back pain - Past Surgical History Past Surgical History: Yes Neuro Surgical History: No Pertinent History Cardiac History: No Pertinent History Respiratory Surgery: No Pertinent History GI Surgical History: No Pertinent History Genitourinary Surgical Hx: No Pertinent History Musculskeletal Surgical Hx: Orthopedic Surgery Female Surgical History: No Pertinent History Other Surgical History: tonsils, back - Social History Smoking Status: Current every day smoker How long have you smoked: 30 Exposure to second hand smoke: No Alcohol: Weekly Drug Use: marijuana Significant Family History: no pertinent family hx - Physical Exam Vital Signs: Vital Signs - 24 hr Temp Pulse Resp BP Pulse Ox 08/07/20 07:34 98.4 F 76 16 130/60 94 L 08/07/20 05:09 78 20 92 L 08/07/20 04:00 97.3 F 81 18 126/63 92 L 08/07/20 01:07 90 L 08/07/20 00:00 97.9 F 77 20 114/59 93 L 08/06/20 20:00 97.1 F 93 H 28 H 122/56 93 L 08/06/20 19:39 93 H 22 94 L 08/06/20 17:37 97.9 F 82 23 138/72 94 L 08/06/20 17:07 98.2 F 88 23 110/62 98 08/06/20 16:00 88 20 105/60 90 L 08/06/20 15:30 86 20 97/66 91 L 08/06/20 14:30 84 22 109/79 91 L 08/06/20 13:52 89 23 94/61 92 L 08/06/20 12:40 26 H 90 L 08/06/20 12:39 99.2 F 98 H 26 H 132/64 90 L Oxygen-Last 24 hours Oxygen Flowrate (L/min)-RT 5 General Appearance: no apparent distress, obese Neurologic Exam: alert, oriented x 3, cooperative Eye Exam: eyes nml inspection Ears, Nose, Throat Exam: moist mucous membranes Neck Exam: normal inspection, non-tender Respiratory Exam: normal breath sounds, lungs clear, No crackles/rales, No rhonchi, No wheezing Cardiovascular Exam: regular rate/rhythm, normal heart sounds, No murmur Gastrointestinal/Abdomen Exam: soft, No normal bowel sounds (hypoactive but present), No tenderness, No mass, No guarding, No rebound Back Exam: normal inspection, No CVA tenderness, No rash Extremity Exam: normal inspection, swelling (trace pretibial edema bilat) Skin Exam: normal color, warm, dry, No rash Results - Labs Lab/Micro Results: Lab Results-Last 24 Hours 08/06/20 08/06/20 08/06/20 Range/Units 13:15 13:15 13:15 WBC 8.5 (4.0-10.5) K/mm3 RBC 4.30 (4.1-5.4) M/mm3 Hgb 13.4 (12.0-16.0) gm/dl Hct 42.0 (35-47) % MCV 97.7 (78-100) fl MCH 31.2 (26-32) pg MCHC 31.9 L (32-36) g/dl RDW 13.4 (11.5-14.0) % Plt Count 222 (150-450) K/mm3 MPV 9.9 (7.5-11.0) fl Segmented Neutrophils 77 H (36.0-66.0) % Lymphocytes (Manual) 17 L (24-44) % Monocytes (Manual) 6 (0.0-12.0) % Platelet Estimate NORMAL (NORMAL) RBC Morphology ABNORMAL Anisocytosis 1+ PT 15.3 H (9.95-12.35) SECONDS INR 1.35 (0.8-3.0) APTT 31.6 (25.3-37.0) SECONDS D-Dimer (215-500) ng/mL Sodium 140 (137-145) mmol/L Potassium 3.2 L (3.5-5.1) mmol/L Chloride 98 (98-107) mmol/L Carbon Dioxide 34 H (22-30) mmol/L Anion Gap 10.8 (5-15) MEQ/L BUN 8 (7-17) mg/dL Creatinine 0.43 L (0.52-1.04) mg/dL Estimated GFR > 60.0 ML/MIN Glucose 160 H (74-106) mg/dL Lactic Acid (0.4-2.0) Calcium 9.0 (8.4-10.2) mg/dL Total Bilirubin 0.60 (0.2-1.3) mg/dL AST 18 (14-36) U/L ALT 14 (0-35) U/L Alkaline Phosphatase 67 (38-126) U/L Troponin I (0.000-0.034) ng/mL NT-Pro-B Natriuret Pep 3560 H (0-900) pg/mL Serum Total Protein 7.1 (6.3-8.2) g/dL Albumin 4.0 (3.5-5.0) g/dL Influenza Type A Ag (NEGATIVE) Influenza Type B Ag (NEGATIVE) RSV (PCR) (Negative) SARS-CoV-2 (PCR) (NEGATIVE) 08/06/20 08/06/20 08/06/20 Range/Units 13:15 13:18 14:02 WBC (4.0-10.5) K/mm3 RBC (4.1-5.4) M/mm3 Hgb (12.0-16.0) gm/dl Hct (35-47) % MCV (78-100) fl MCH (26-32) pg MCHC (32-36) g/dl RDW (11.5-14.0) % Plt Count (150-450) K/mm3 MPV (7.5-11.0) fl Segmented Neutrophils (36.0-66.0) % Lymphocytes (Manual) (24-44) % Monocytes (Manual) (0.0-12.0) % Platelet Estimate (NORMAL) RBC Morphology Anisocytosis PT (9.95-12.35) SECONDS INR (0.8-3.0) APTT (25.3-37.0) SECONDS D-Dimer 1101 H* (215-500) ng/mL Sodium (137-145) mmol/L Potassium (3.5-5.1) mmol/L Chloride (98-107) mmol/L Carbon Dioxide (22-30) mmol/L Anion Gap (5-15) MEQ/L BUN (7-17) mg/dL Creatinine (0.52-1.04) mg/dL Estimated GFR ML/MIN Glucose (74-106) mg/dL Lactic Acid 1.6 (0.4-2.0) Calcium (8.4-10.2) mg/dL Total Bilirubin (0.2-1.3) mg/dL AST (14-36) U/L ALT (0-35) U/L Alkaline Phosphatase (38-126) U/L Troponin I < 0.012 (0.000-0.034) ng/mL NT-Pro-B Natriuret Pep (0-900) pg/mL Serum Total Protein (6.3-8.2) g/dL Albumin (3.5-5.0) g/dL Influenza Type A Ag (NEGATIVE) Influenza Type B Ag (NEGATIVE) RSV (PCR) (Negative) SARS-CoV-2 (PCR) (NEGATIVE) 08/06/20 08/06/20 08/06/20 Range/Units 15:45 16:01 19:00 WBC (4.0-10.5) K/mm3 RBC (4.1-5.4) M/mm3 Hgb (12.0-16.0) gm/dl Hct (35-47) % MCV (78-100) fl MCH (26-32) pg MCHC (32-36) g/dl RDW (11.5-14.0) % Plt Count (150-450) K/mm3 MPV (7.5-11.0) fl Segmented Neutrophils (36.0-66.0) % Lymphocytes (Manual) (24-44) % Monocytes (Manual) (0.0-12.0) % Platelet Estimate (NORMAL) RBC Morphology Anisocytosis PT (9.95-12.35) SECONDS INR (0.8-3.0) APTT (25.3-37.0) SECONDS D-Dimer (215-500) ng/mL Sodium (137-145) mmol/L Potassium (3.5-5.1) mmol/L Chloride (98-107) mmol/L Carbon Dioxide (22-30) mmol/L Anion Gap (5-15) MEQ/L BUN (7-17) mg/dL Creatinine (0.52-1.04) mg/dL Estimated GFR ML/MIN Glucose (74-106) mg/dL Lactic Acid (0.4-2.0) Calcium (8.4-10.2) mg/dL Total Bilirubin (0.2-1.3) mg/dL AST (14-36) U/L ALT (0-35) U/L Alkaline Phosphatase (38-126) U/L Troponin I < 0.012 < 0.012 (0.000-0.034) ng/mL NT-Pro-B Natriuret Pep (0-900) pg/mL Serum Total Protein (6.3-8.2) g/dL Albumin (3.5-5.0) g/dL Influenza Type A Ag NEGATIVE (NEGATIVE) Influenza Type B Ag NEGATIVE (NEGATIVE) RSV (PCR) NEGATIVE (Negative) SARS-CoV-2 (PCR) NEGATIVE (NEGATIVE) 08/06/20 Range/Units 22:15 WBC (4.0-10.5) K/mm3 RBC (4.1-5.4) M/mm3 Hgb (12.0-16.0) gm/dl Hct (35-47) % MCV (78-100) fl MCH (26-32) pg MCHC (32-36) g/dl RDW (11.5-14.0) % Plt Count (150-450) K/mm3 MPV (7.5-11.0) fl Segmented Neutrophils (36.0-66.0) % Lymphocytes (Manual) (24-44) % Monocytes (Manual) (0.0-12.0) % Platelet Estimate (NORMAL) RBC Morphology Anisocytosis PT (9.95-12.35) SECONDS INR (0.8-3.0) APTT (25.3-37.0) SECONDS D-Dimer (215-500) ng/mL Sodium (137-145) mmol/L Potassium (3.5-5.1) mmol/L Chloride (98-107) mmol/L Carbon Dioxide (22-30) mmol/L Anion Gap (5-15) MEQ/L BUN (7-17) mg/dL Creatinine (0.52-1.04) mg/dL Estimated GFR ML/MIN Glucose (74-106) mg/dL Lactic Acid (0.4-2.0) Calcium (8.4-10.2) mg/dL Total Bilirubin (0.2-1.3) mg/dL AST (14-36) U/L ALT (0-35) U/L Alkaline Phosphatase (38-126) U/L Troponin I < 0.012 (0.000-0.034) ng/mL NT-Pro-B Natriuret Pep (0-900) pg/mL Serum Total Protein (6.3-8.2) g/dL Albumin (3.5-5.0) g/dL Influenza Type A Ag (NEGATIVE) Influenza Type B Ag (NEGATIVE) RSV (PCR) (Negative) SARS-CoV-2 (PCR) (NEGATIVE) - Radiology Impressions Radiology Exams & Impressions: Radiology Procedures Category Date Time Status CHEST 1 VIEW (PORTABLE) Stat Exams 08/06/20 12:41 Completed CHEST WITH CONTRAST [CT] Stat Exams 08/06/20 14:40 Completed - Other Procedures and Tests Respiratory Therapy 08/06/20 19:28 Oxygen NASAL CANNULA 4 lpm 08/07/20 07:00 Respiratory Therapy Assessment DAILY Assessment/Plan (1) CHF exacerbation Current Visit: Yes Status: Acute Qualifiers: Heart failure type: unspecified Qualified Code(s): I50.9 - Heart failure, unspecified Assessment & Plan: Doing better on IV lasix. Code(s): I50.9 - HEART FAILURE, UNSPECIFIED (2) Hyperglycemia Current Visit: Yes Status: Acute Assessment & Plan: check a1c Code(s): R73.9 - HYPERGLYCEMIA, UNSPECIFIED (3) COPD (chronic obstructive pulmonary disease) Current Visit: No Status: Chronic Qualifiers: COPD type: unspecified COPD Qualified Code(s): J44.9 - Chronic obstructive pulmonary disease, unspecified
[2020-08-07] MEDS ORDERED: Klor Con 10 MEQ PO SCH (10:00)
[2020-08-07] MEDS: Furosemide 100mg/10 ml Vial IV SCH (10:00)
[2020-08-07] MEDS ORDERED: Lasix 40 MG/4 ML IV SCH ×2 (10:00)
[2020-08-07] MEDS: Klor Con 10 MEQ PO SCH ×2 (10:00→21:26)
[2020-08-07] MEDS: ENOXAPARIN SODIUM SQ SCH (10:12)
[2020-08-07] MEDS ORDERED: ATARAX 25 MG PO PRN (10:29)
[2020-08-07] MEDS: Toprol-Xl 25MG Tablets PO SCH (11:12)
[2020-08-07] MEDS: Zestril 5 MG PO SCH ×2 (11:12→21:26)
[2020-08-07] MEDS: ZOLOFT 50 MG TABLET PO SCH (11:12)
[2020-08-07] MEDS: Protonix 40MG Tablet PO SCH (11:12)
[2020-08-07] MEDS: hydroDIURIL 25 MG PO SCH (11:13)
[2020-08-07] MEDS: ZOCOR 20MG PO SCH (21:26)
[2020-08-07] MEDS ORDERED: NON-FORMULARY ITEM (Lisinopril [Zestril] 2.5 MG) PO SCH (22:00)
[2020-08-07] MEDS ORDERED: NON-FORMULARY ITEM (Atorvastatin Calcium 20 MG) PO SCH (22:00)
[2020-08-08] MEDS: DUONEB 0.5-3 MG/3 ml Neb IH SCH ×4 (05:40→18:54)
[2020-08-08] MEDS: NORCO 5/325 MG PO PRN ×3 (06:19→19:51)
--- NOTE | 2020-08-08 07:27 | PCM.NOTE ---
Date and Time: 08/08/20724 Subjective Assessment: good urine output, noted, nearly -2L fluid balance yesterday with a weight gain documented, in any event she feels like she is improved somewhat Objective Exam General Appearance: no apparent distress, alert, obese Neurologic Exam: alert, oriented x 3 Respiratory Exam: diminished breath sounds, prolonged expirations, crackles/rales Cardiovascular Exam: regular rate/rhythm, normal heart sounds Gastrointestinal/Abdomen Exam: soft, No tenderness, No mass Extremity Exam: normal inspection, normal range of motion OBJECTIVE DATA Vital Signs: Vital Signs - 24 hr Temp Pulse Resp BP Pulse Ox 08/08/20 06:34 97.9 F 67 18 107/54 93 L 08/08/20 05:45 80 22 97 08/08/20 04:00 97.9 F 70 18 123/74 95 08/08/20 00:00 97.8 F 66 19 98/55 96 08/07/20 20:00 97.9 F 67 17 113/68 94 L 08/07/20 18:37 71 18 94 L 08/07/20 16:00 98.3 F 69 18 120/57 93 L 08/07/20 14:45 68 16 92 L 08/07/20 12:00 97.9 F 80 16 129/64 94 L 08/07/20 10:28 89 20 92 L 08/07/20 07:34 98.4 F 76 16 130/60 94 L Pain Assessment - Last Documented Pain Intensity 6 Pain Scale Used 0-10 Pain Scale Intake and Output: Intake & Output 08/05/20 08/06/20 08/07/20 08/08/20 11:59 11:59 11:59 11:59 Intake Total 600 780 Output Total 2750 2400 Balance -2150 -1620 Weight 125.1 kg 126.7 kg Lab Results: Lab Results-Last 24 Hours 08/07/20 Range/Units 10:15 Hemoglobin A1c 5.71 (4.5-6.0) % Radiology Exams: Radiology Procedures Category Date Time Status CHEST 1 VIEW (PORTABLE) Stat Exams 08/06/20 12:41 Completed CHEST WITH CONTRAST [CT] Stat Exams 08/06/20 14:40 Completed Assessment/Plan (1) CHF exacerbation Current Visit: Yes Status: Acute Qualifiers: Heart failure type: unspecified Qualified Code(s): I50.9 - Heart failure, unspecified Assessment & Plan: diuresing well, repeat chest xray today Code(s): I50.9 - HEART FAILURE, UNSPECIFIED (2) COPD (chronic obstructive pulmonary disease) Current Visit: No Status: Chronic Qualifiers: COPD type: unspecified COPD Qualified Code(s): J44.9 - Chronic obstructive pulmonary disease, unspecified Assessment & Plan: no obvious wheezing on exam, will continue to monitor
[2020-08-08] MEDS: ATARAX 25 MG PO PRN (08:29)
--- NOTE | 2020-08-08 08:39 | XRAY ---
Indication: Follow-up CHF. Comparison: August 06, 2020. Portable chest demonstrates smaller heart, diminished vascular prominence, and interstitial edema. Bibasilar effusions also improved with small residual. No new cardiopulmonary abnormalities.
[2020-08-08 09:25] LABS: ANION GAP 9.7 MEQ/L (5-15); BLOOD UREA NITROGEN 17 mg/dL (7-17); CHLORIDE 93 mmol/L (98-107); Calcium 8.7 mg/dL (8.4-10.2); Carbon Dioxide 39 mmol/L (22-30); Creatinine 1 0.67 mg/dL (0.52-1.04); EST GLOMERULAR FILTRATION RATE > 60.0 ML/MIN; Glucose 176 mg/dL (74-106); Potassium 3.3 mmol/L (3.5-5.1); SODIUM 138 mmol/L (137-145)
[2020-08-08] MEDS: ENOXAPARIN SODIUM SQ SCH (09:35)
[2020-08-08] MEDS: Protonix 40MG Tablet PO SCH (09:35)
[2020-08-08] MEDS: ZOLOFT 50 MG TABLET PO SCH (09:35)
[2020-08-08] MEDS: Klor Con 10 MEQ PO SCH ×2 (09:35→21:16)
[2020-08-08] MEDS: Furosemide 100mg/10 ml Vial IV SCH (09:35)
[2020-08-08] MEDS: Toprol-Xl 25MG Tablets PO SCH (09:40)
[2020-08-08] MEDS: Zestril 5 MG PO SCH (09:40)
[2020-08-08] MEDS: hydroDIURIL 25 MG PO SCH (09:41)
[2020-08-08] MEDS ORDERED: NON-FORMULARY ITEM (Omeprazole [Omeprazole] 40 MG) PO SCH (10:00)
[2020-08-08] MEDS: Cyclobenzaprine 10 MG PO PRN (19:51)
[2020-08-08] MEDS: ZOCOR 20MG PO SCH (21:16)
[2020-08-09] MEDS: NORCO 5/325 MG PO PRN ×2 (04:00→11:48)
[2020-08-09 04:38] LABS: BASOPHIL % 0.9 % (0.0-0.4); Basophil (Absolute #) 0.07 (0-0.4); Eosinophil (Absolute #) 0.15 (0-0.5); Hemoglobin 14.3 gm/dl (12.0-16.0); Lymphocyte (Absolute #) 2.44 (1.0-4.6); Mean Cell Volume 99.1 fl (78-100); Mean Corpuscular Hemoglobin 30.8 pg (26-32); Mean Corpuscular Hgb Concent. 31.1 g/dl (32-36); Mean Platelet Volume 11.2 fl (7.5-11.0); Monocyte (Absolute #) 0.63 (0.0-1.3); Monocytes % 8.5 % (0.0-12.0); Neutrophil % 55.6 % (36.0-66.0); Platelet Count 208 K/mm3 (150-450); Red Blood Count 4.64 M/mm3 (4.1-5.4); Red Cell Distribution Width 13.4 % (11.5-14.0); White Blood Count 7.4 K/mm3 (4.0-10.5)
[2020-08-09 05:11] LABS: ANION GAP 9.3 MEQ/L (5-15); BLOOD UREA NITROGEN 22 mg/dL (7-17); CHLORIDE 93 mmol/L (98-107); Calcium 9.2 mg/dL (8.4-10.2); Carbon Dioxide 38 mmol/L (22-30); Creatinine 1 0.52 mg/dL (0.52-1.04); EST GLOMERULAR FILTRATION RATE > 60.0 ML/MIN; Glucose 123 mg/dL (74-106); NT PRO BNP 214 pg/mL (0-900); SODIUM 136 mmol/L (137-145)
[2020-08-09 05:22] LABS: Potassium 4.2 mmol/L (3.5-5.1)
[2020-08-09] MEDS: DUONEB 0.5-3 MG/3 ml Neb IH SCH ×4 (06:44→19:38)
[2020-08-09] MEDS ORDERED: Furosemide 100mg/10 ml Vial IV SCH (08:01)
--- NOTE | 2020-08-09 08:03 | PCM.NOTE ---
Date and Time: 08/09/20 08 Subjective Assessment: patient still feels like she needs to cough something up, tolerating po. breathing is some better, requiring 3L NC Objective Exam General Appearance: no apparent distress, alert Neurologic Exam: alert, oriented x 3 Respiratory Exam: diminished breath sounds, prolonged expirations, wheezing (minimal intermittently), No respiratory distress, No accessory muscle use, No crackles/rales, No rhonchi Cardiovascular Exam: regular rate/rhythm, normal heart sounds Gastrointestinal/Abdomen Exam: soft, No tenderness, No mass OBJECTIVE DATA Vital Signs: Vital Signs - 24 hr Temp Pulse Resp BP Pulse Ox 08/09/20 07:29 97.8 F 69 20 98/53 94 L 08/09/20 06:46 76 18 93 L 08/09/20 04:00 98.1 F 77 21 110/59 94 L 08/09/20 03:57 75 20 91 L 08/08/20 23:47 98.1 F 69 21 109/56 94 L 08/08/20 19:53 97.9 F 87 23 112/57 96 08/08/20 18:56 72 20 92 L 08/08/20 16:00 98.1 F 67 18 89/50 94 L 08/08/20 14:59 60 16 96 08/08/20 12:03 98.5 F 71 16 117/66 94 L 08/08/20 10:57 92 H 20 92 L 08/08/20 09:30 63 121/56 Pain Assessment - Last Documented Pain Intensity 3 Pain Scale Used 0-10 Pain Scale Intake and Output: Intake & Output 08/06/20 08/07/20 08/08/20 08/09/20 11:59 11:59 11:59 11:59 Intake Total 669 733 4431 Output Total 9828 2400 6780 Balance -2150 -1620 -5300 Weight 125.1 kg 126.7 kg 126.6 kg Lab Results: Lab Results-Last 24 Hours 08/08/20 08/09/20 08/09/20 Range/Units 07:58 04:27 04:27 WBC 7.4 (4.0-10.5) K/mm3 RBC 4.64 (4.1-5.4) M/mm3 Hgb 14.3 (12.0-16.0) gm/dl Hct 46.0 (35-47) % MCV 99.1 (78-100) fl MCH 30.8 (26-32) pg MCHC 31.1 L (32-36) g/dl RDW 13.4 (11.5-14.0) % Plt Count 208 (150-450) K/mm3 MPV 11.2 H (7.5-11.0) fl Gran % 55.6 (36.0-66.0) % Eos # (Auto) 0.15 (0-0.5) Absolute Lymphs (auto) 2.44 (1.0-4.6) Absolute Monos (auto) 0.63 (0.0-1.3) Lymphocytes % 33.0 (24.0-44.0) % Monocytes % 8.5 (0.0-12.0) % Eosinophils % 2.0 (0.00-5.0) % Basophils % 0.9 (0.0-0.4) % Absolute Granulocytes 4.10 (1.4-6.9) Basophils # 0.07 (0-0.4) Sodium 138 136 L (137-145) mmol/L Potassium 3.3 L 4.2 D (3.5-5.1) mmol/L Chloride 93 L 93 L (98-107) mmol/L Carbon Dioxide 39 H 38 H (22-30) mmol/L Anion Gap 9.7 9.3 (5-15) MEQ/L BUN 17 22 H (7-17) mg/dL Creatinine 0.67 0.52 (0.52-1.04) mg/dL Estimated GFR > 60.0 > 60.0 ML/MIN Glucose 176 H 123 H (74-106) mg/dL Calcium 8.7 9.2 (8.4-10.2) mg/dL NT-Pro-B Natriuret Pep 214 (0-900) pg/mL Radiology Exams: Radiology Procedures Category Date Time Status CHEST 1 VIEW (PORTABLE) Routine Exams 08/08/20 07:27 Completed Multi-Disciplinary Progress Notes: Multi-Disciplinary Progress Notes 08/08/20 11:12 Case Management Note by Elizabeth Conway CONTINUING TO MONITOR PATIENT AND CHART FOR ANY NEW NEEDS, NONE IDENTIFIED TODAY- WILL CONTINUE TO FOLLOW Initialized on 08/08/20 11:12 - END OF NOTE Assessment/Plan (1) CHF exacerbation Current Visit: Yes Status: Acute Qualifiers: Heart failure type: unspecified Qualified Code(s): I50.9 - Heart failure, unspecified Assessment & Plan: reduce lasix from 80mg to 40mg, improved Code(s): I50.9 - HEART FAILURE, UNSPECIFIED (2) COPD (chronic obstructive pulmonary disease) Current Visit: No Status: Chronic Qualifiers: COPD type: unspecified COPD Qualified Code(s): J44.9 - Chronic obstructive pulmonary disease, unspecified Assessment & Plan: add prednisone and doxy
[2020-08-09] MEDS: ATARAX 25 MG PO PRN (09:31)
[2020-08-09] MEDS: Cyclobenzaprine 10 MG PO PRN ×2 (09:31→16:16)
[2020-08-09] MEDS: Klor Con 10 MEQ PO SCH ×2 (09:31→21:26)
[2020-08-09] MEDS: Vibramycin 100 MG PO SCH ×2 (09:31→21:26)
[2020-08-09] MEDS: hydroDIURIL 25 MG PO SCH (09:31)
[2020-08-09] MEDS: Toprol-Xl 25MG Tablets PO SCH (09:31)
[2020-08-09] MEDS: Protonix 40MG Tablet PO SCH (09:31)
[2020-08-09] MEDS: ZOLOFT 50 MG TABLET PO SCH (09:32)
[2020-08-09] MEDS: ENOXAPARIN SODIUM SQ SCH (09:32)
[2020-08-09] MEDS ORDERED: DELTASONE 20 MG PO SCH (10:00)
[2020-08-09] MEDS: ZOCOR 20MG PO SCH (21:26)
[2020-08-10] MEDS: NORCO 5/325 MG PO PRN (04:13)
[2020-08-10 05:29] LABS: Absolute Neutrophil Ct (ANC) 6.76 (1.4-6.9); BASOPHIL % 0.2 % (0.0-0.4); Basophil (Absolute #) 0.02 (0-0.4); Eosinophil % 0.6 % (0.00-5.0); Eosinophil (Absolute #) 0.06 (0-0.5); Hematocrit 43.1 % (35-47); Hemoglobin 13.6 gm/dl (12.0-16.0); Lymphocyte (Absolute #) 1.65 (1.0-4.6); Lymphocytes % 17.8 % (24.0-44.0); Mean Cell Volume 98.4 fl (78-100); Mean Corpuscular Hemoglobin 31.1 pg (26-32); Mean Corpuscular Hgb Concent. 31.6 g/dl (32-36); Mean Platelet Volume 9.9 fl (7.5-11.0); Monocytes % 8.6 % (0.0-12.0); Neutrophil % 72.8 % (36.0-66.0); Platelet Count 345 K/mm3 (150-450); Red Blood Count 4.38 M/mm3 (4.1-5.4); White Blood Count 9.3 K/mm3 (4.0-10.5)
[2020-08-10 05:35] LABS: ANION GAP 9.4 MEQ/L (5-15); BLOOD UREA NITROGEN 19 mg/dL (7-17); CHLORIDE 93 mmol/L (98-107); Calcium 9.3 mg/dL (8.4-10.2); Carbon Dioxide 37 mmol/L (22-30); Creatinine 1 0.57 mg/dL (0.52-1.04); EST GLOMERULAR FILTRATION RATE > 60.0 ML/MIN; Glucose 163 mg/dL (74-106); Potassium 4.1 mmol/L (3.5-5.1); SODIUM 135 mmol/L (137-145)
[2020-08-10] MEDS: DUONEB 0.5-3 MG/3 ml Neb IH SCH (05:50)
[2020-08-10 08:05] VITALS: BP 115/63; PULSE 75; O2SAT 96
--- NOTE | 2020-08-10 08:30 | PCM.DS ---
Discharge Summary Date of Admission: 08/06/20 17:31 Admitting Physician: EDGAR TRAN Primary Care Provider: EDGAR TRAN Allergies Allergies No Known Drug Allergies Allergy (Verified 07/07/16 08:07) Hospital Summary - Hospital Course Hospital Course: patient was admitted with shortness of breath, treated for CHF exacerbation, diuresed very well and started on prednisone and doxy for copd exacerbation, she is tolerating activitiy, stable on 3L oxygen and has oxygen and supplies at home - Vitals & Intake/Output Vital Signs: Vital Signs Temperature 97.3 F 08/10/20 08:00 Pulse Rate 75 08/10/20 08:00 Respiratory Rate 17 08/10/20 08:00 Blood Pressure 115/63 08/10/20 08:00 O2 Sat by Pulse Oximetry 96 08/10/20 08:00 Intake & Output: Intake & Output 08/07/20 08/08/20 08/09/20 08/10/20 11:59 11:59 11:59 11:59 Intake Total 508 856 3355 2520 Output Total 2750 2400 7730 3000 Balance -2150 -1620 -5410 -480 Weight 125.1 kg 126.7 kg 126.6 kg - Lab Result Diagrams: 08/10/20 04:30 08/10/20 04:30 Lab Results-Last 24 Hrs: Lab Results-Last 24 Hours 08/10/20 08/10/20 Range/Units 04:30 04:30 WBC 9.3 (4.0-10.5) K/mm3 RBC 4.38 (4.1-5.4) M/mm3 Hgb 13.6 (12.0-16.0) gm/dl Hct 43.1 (35-47) % MCV 98.4 (78-100) fl MCH 31.1 (26-32) pg MCHC 31.6 L (32-36) g/dl RDW 13.0 (11.5-14.0) % Plt Count 345 D (150-450) K/mm3 MPV 9.9 (7.5-11.0) fl Gran % 72.8 H (36.0-66.0) % Eos # (Auto) 0.06 (0-0.5) Absolute Lymphs (auto) 1.65 (1.0-4.6) Absolute Monos (auto) 0.80 (0.0-1.3) Lymphocytes % 17.8 L (24.0-44.0) % Monocytes % 8.6 (0.0-12.0) % Eosinophils % 0.6 (0.00-5.0) % Basophils % 0.2 (0.0-0.4) % Absolute Granulocytes 6.76 (1.4-6.9) Basophils # 0.02 (0-0.4) Sodium 135 L (137-145) mmol/L Potassium 4.1 (3.5-5.1) mmol/L Chloride 93 L (98-107) mmol/L Carbon Dioxide 37 H (22-30) mmol/L Anion Gap 9.4 (5-15) MEQ/L BUN 19 H (7-17) mg/dL Creatinine 0.57 (0.52-1.04) mg/dL Estimated GFR > 60.0 ML/MIN Glucose 163 H (74-106) mg/dL Calcium 9.3 (8.4-10.2) mg/dL - Procedures and Test Procedures and Tests throughout Hospitalization: Therapy Orders & Screens 08/06/20 17:19 Oxygen NASAL CANNULA 3 lpm Comment: Diagnosis: CHF 08/06/20 17:37 EKG IN AM Comment: 08/06/20 19:28 Oxygen NASAL CANNULA 4 lpm Comment: Diagnosis: CHF 08/07/20 07:00 Respiratory Therapy Assessment DAILY Comment: Diagnosis: CHF Discharge Exam General Appearance: no apparent distress, obese Neurologic Exam: alert, oriented x 3, cooperative Respiratory Exam: diminished breath sounds, prolonged expirations, No respiratory distress, No accessory muscle use Cardiovascular Exam: regular rate/rhythm, normal heart sounds Gastrointestinal/Abdomen Exam: soft, No tenderness, No mass Extremity Exam: normal inspection, normal range of motion Skin Exam: normal color, warm, dry Final Diagnosis/Problem List - Final Discharge Diagnosis/Problem (1) CHF exacerbation Current Visit: Yes Status: Acute Code(s): I50.9 - HEART FAILURE, UNSPECIFIED (2) COPD (chronic obstructive pulmonary disease) Current Visit: No Status: Chronic - Discharge Disposition: Home, Self-Care Condition: Stable Prescriptions: New Prednisone 20 mg [Deltasone 20 mg] 60 mg PO UD #18 tablet Doxycycline Hyclate 100 mg [Vibramycin 100 MG] 100 mg PO BID #14 tab Continue Hydrocodone Bit/Acetaminophen [[place] 5/325Mg] 1 each PO Q6H PRN PRN PRN Reason: Pain Cyclobenzaprine HCl [Flexeril] 10 mg PO TID PRN PRN PRN Reason: Muscle Spasms Albuterol/Ipratropium 3ml Neb* [DUONEB 0.5-3 MG/3 ml Neb] 3 ml IH QID #120 ampul.neb Albuterol Sulfate [Albuterol Sulfate Hfa] 7 gm IH Q4H PRN PRN #0 [id number] PRN Reason: SOB/Wheezing Sertraline HCl 50 mg [Zoloft 50 mg Tablet] 50 mg PO DAILY Atorvastatin Calcium [Lipitor 20MG Tablet] 20 mg PO HS Hydrochlorothiazide 25 mg [hydroDIURIL 25 MG] 12.5 mg PO DAILY Metoprolol Succinate 25 mg Xl* [Toprol-Xl 25MG Tablets] 25 mg PO DAILY 30 Days #30 tab Hydroxyzine HCl 25 mg [Atarax 25 mg] 25 mg PO DAILY PRN PRN Reason: Anxiety lisinopriL [Zestril] 2.5 mg PO BID Potassium Chloride 10 Meq Tab* [Klor Con 10 MEQ] 10 meq PO DAILY Furosemide 40 mg [Lasix 40 MG] 40 mg PO DAILY Omeprazole 40 mg PO DAILY Instructions: Heart Failure, Adult (DC) Follow up with: EDGAR TRAN MD [Primary Care Provider] - 08/16/20 10:15 am
[2020-08-10] MEDS ORDERED: Lasix 40 MG/4 ML IV SCH (10:00)
== END 2020-08-10 09:20 | disposition home or self-care (01) ==
LOC: ED 12:38 → MED SURG 17:31
PROVIDERS: ADMIT Family Medicine; ATTEND Family Medicine
DX: I50.9 Heart failure, unspecified (principal); J44.9 Chronic obstructive pulmonary disease, unspecified; Z79.899 Other long term (current) drug therapy; R73.9 Hyperglycemia, unspecified; Z20.828 Contact with and (suspected) exposure to other viral communicable diseases
CPT/HCPCS: 0241U; 36415; 71045; 71260; 80048; 80053; 83036; 83605; 83880; 84484; 85025; 85379; 85610; 85730; 93005; 94640; 94760; 96374; 99285; 93268; J1650; J1940; J7609; A9270-GY; G0378

== ENCOUNTER 2020-08-24 01:18 | Emergency (ER) | payer OTHER ==
[2020-08-24 01:41] VITALS: O2SAT 95
[2020-08-24] MEDS ORDERED: NEOSYNEPHRINE 0.5% NASAL SPRAY/DROPS ONE (01:41)
[2020-08-24] MEDS ORDERED: NEOSYNEPHRINE 0.5% NASAL SPRAY/DROPS NS ONE (01:46)
--- NOTE | 2020-08-24 01:52 | ERPHSYRPT ---
- History of Present Illness Time Seen by Provider: 08/24/20 01:30 Source: patient Exam Limitations: no limitations Patient Subjective Stated Complaint: pt states "I have had a nosebleed for the past 2 hours and this is the third one today." Triage Nursing Assessment: pt ambulated into the er; pt is axo x4; c/o epistaxis; onset for the past 2 hours; active bleeding to left nare; pt has minimal bleeding to left nare; pt states that she has had 3 nosebleeds today; pt states "I have sinus issues."; pt states that she wears O2 at home; hypertensive Physician History: This is a 54-year-old obese white female smoker of cigarettes who has a history of COPD and is on home oxygen therapy and has hypertension. She presents with 3 nosebleeds out of her left nostril in the last 24 hours. The most recent was approximately 2 hours prior to arrival. However, upon arrival to the emergency room the nosebleed appears to slow down significantly. Patient took her antihypertensive medication approximately 630 yesterday morning. Patient has no history of bleeding or clotting disorders she has no history of liver disease. She is not on any anticoagulation therapy. She does not take aspirin or NSAIDs daily/chronically. She has not taken any in the last 24 hours. With the onset of each nosebleed, she stopped the left nostril with Kleenex. Timing/Duration: intermittent, hours (24) Severity: mild ENT Location: nose (Left nostril) Prearrival Treatment: nasal packing (With Kleenex) Modifying Factors: Improves With: other (Nothing per her report brought it on. However the Kleenex has helped slow it down) Associated Symptoms: epistaxis Allergies/Adverse Reactions: No Known Drug Allergies Allergy (Verified 08/24/20 01:27) Home Medications: Cyclobenzaprine HCl [Flexeril] 10 mg PO TID PRN PRN 07/07/16 [History] Hydrocodone Bit/Acetaminophen [[place] 5/325Mg] 1 each PO Q6H PRN PRN 07/07/16 [History] Atorvastatin Calcium [Lipitor 20MG Tablet] 20 mg PO HS 12/27/19 [History] Sertraline HCl 50 mg [Zoloft 50 mg Tablet] 50 mg PO DAILY 12/27/19 [History] Hydrochlorothiazide 25 mg [hydroDIURIL 25 MG] 12.5 mg PO DAILY 12/28/19 [History] Furosemide 40 mg [Lasix 40 MG] 40 mg PO DAILY 08/06/20 [History] Hydroxyzine HCl 25 mg [Atarax 25 mg] 25 mg PO DAILY PRN 08/06/20 [History] Omeprazole 40 mg PO DAILY 08/06/20 [History] Potassium Chloride 10 Meq Tab* [Klor Con 10 MEQ] 10 meq PO DAILY 08/06/20 [History] lisinopriL [Zestril] 2.5 mg PO BID 08/06/20 [History] Hx Tetanus, Diphtheria Vaccination/Date Given: Yes Hx Influenza Vaccination/Date Given: Yes Hx Pneumococcal Vaccination/Date Given: Yes Travel Risk - International Travel Have you traveled outside of the country in past 3 weeks: No - Coronavirus Screening Are you exhibiting any of the following symptoms?: No Close contact with a COVID-19 positive Pt in past 14-21 Days: No - Vaccine Status Have you recieved a Covid-19 vaccination: Yes 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 - Vaccination Dates Dates if Unknown: 07/26/2020 - Review of Systems Constitutional: No Symptoms Eyes: No Symptoms Ears, Nose, & Throat: Epistaxis Respiratory: No Symptoms Cardiac: No Symptoms Abdominal/Gastrointestinal: No Symptoms Genitourinary Symptoms: No Symptoms Musculoskeletal: No Symptoms Skin: No Symptoms Neurological: No Symptoms Psychological: No Symptoms Endocrine: No Symptoms Hematologic/Lymphatic: No Symptoms Immunological/Allergic: No Symptoms All Other Systems: Reviewed and Negative - Past Medical History Pertinent Past Medical History: Yes Neurological History: No Pertinent History ENT History: No Pertinent History Cardiac History: No Pertinent History Respiratory History: No Pertinent History Endocrine Medical History: No Pertinent History Musculoskeletal History: Arthritis, Other GI Medical History: No Pertinent History History: No Pertinent History Psycho-Social History: Anxiety, Depression Female Reproductive Disorders: No Pertinent History Other Medical History: chronic back pain - Past Surgical History Past Surgical History: Yes Neuro Surgical History: No Pertinent History Cardiac: No Pertinent History Respiratory: No Pertinent History Gastrointestinal: No Pertinent History Genitourinary: No Pertinent History Musculoskeletal: Orthopedic Surgery Female Surgical History: No Pertinent History Other Surgical History: tonsils, back - Social History Smoking Status: Current every day smoker How long have you smoked: 30 Exposure to second hand smoke: No Drug Use: none Patient Lives Alone: No Significant Family History: no pertinent family hx - Female History Hx Now: No - Nursing Vital Signs Nursing Vital Signs: Initial Vital Signs Temperature 98.5 F 08/24/20 01:27 Pulse Rate 104 H 08/24/20 01:27 Respiratory Rate 24 08/24/20 01:27 Blood Pressure 166/99 08/24/20 01:27 O2 Sat by Pulse Oximetry 95 08/24/20 01:27 Pain Scale Pain Intensity 0 - Physical Exam General Appearance: no apparent distress, alert, anxiety, obese Eye Exam: bilateral eye: normal inspection, PERRL, EOMI Ear Exam: bilateral ear: auricle normal Nasal Exam: dried blood (Left nostril) Throat Exam: normal Neck Exam: normal inspection, non-tender, supple, full range of motion, trachea midline Cardiovascular/Respiratory Exam: chest non-tender, no respiratory distress Abdominal Exam: non-tender Neurologic Exam: alert, oriented x 3, 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, 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, normal mood/affect, nml cerebellar function, nml station & gait, sensation nml Skin Exam: normal color, warm, dry SpO2 Interpretation: normal SpO2: 95 O2 Delivery: Room Air - Course Nursing assessment & vital signs reviewed: Yes Ordered Tests: Medication Summary Discontinued Medications Generic Name Dose Route Start Last Admin Trade Name Saúl PRN Reason Stop Dose Admin Phenylephrine HCl Confirm 08/24/20 01:41 Neosynephrine 0.5% Nasal [place]/Drops Administered 08/24/20 01:42 Dose 15 ml .ROUTE .STK-MED ONE Phenylephrine HCl 15 ml 08/24/20 01:46 08/24/20 01:47 Neosynephrine 0.5% Nasal [place]/Drops NS 08/24/20 01:47 15 ml STAT ONE Administration - Progress Progress: improved, re-examined Progress Note: 08/24/20 02:41 Medical decision making: After clamping her nostril for 10 to 15 minutes, we placed 3 to 4 sprays of Yogi-Synephrine into the left nostril and reclamped for approximately 25 minutes. We then removed the clamp for 25 minutes and the patient had no further bleeding. We are discharging her to home. Counseled pt/family regarding: diagnosis, need for follow-up - Departure Departure Disposition: Home Clinical Impression: Epistaxis Condition: Stable Critical Care Time: No Referrals: EDGAR TRAN MD [Primary Care Provider] - Instructions: Nosebleeds Additional Instructions: Use Yogi-Synephrine spray as instructed on product if needed. Place clamp on nose after using Yogi-Synephrine for approximately 20 to 30 minutes. Return to the emergency room if nosebleed recurs. Do not blow or pick your nose.
[2020-08-24 02:43] VITALS: BP 121/70; PULSE 96
== END 2020-08-24 02:53 | disposition home or self-care (01) ==
LOC: ED 01:18
DX: R04.0 Epistaxis (principal); I10 Essential (primary) hypertension; Z79.899 Other long term (current) drug therapy
CPT/HCPCS: 99283; A9270-GY

== ENCOUNTER 2020-12-24 17:41 | Observation (INO) | payer OTHER ==
[2020-12-24 17:51] LABS: A-aADO2 154; ABG HEMOGLOBIN 14.7; ABG POTASSIUM 4.6 (3.5-5.1); ARTERIAL BLOOD GAS BASE EXCESS 3.6 (-2.0-2.0); ARTERIAL BLOOD GAS FIO2 40 %; ARTERIAL BLOOD GAS PCO2 67 mmHg (35-45); ARTERIAL BLOOD GAS pH 7.29 (7.35-7.45); HCO3- 32.2 (22-28); HGB O2 SAT 72.8 g/dF (94-100); Methhemoglobin 0.6 % (1.4-1.5)
[2020-12-24 17:52] LABS: ABG SITE RIGHT RADIAL; ALLEN TEST OK? YES; ARTERIAL BLOOD GAS PO2 47 mmHg (75-100); CARBOXYHEMOGLOBIN 7.4 % THgb (0.0-6.9)
[2020-12-24] MEDS ORDERED: Lasix 40 MG/4 ML IV ONE (18:00)
[2020-12-24] MEDS ORDERED: Lasix 40 MG/4 ML ONE (18:01)
[2020-12-24 18:03] LABS: Absolute Neutrophil Ct (ANC) 7.43 (1.4-6.9); BASOPHIL % 0.6 % (0.0-0.4); Basophil (Absolute #) 0.06 (0-0.4); Eosinophil % 1.6 % (0.00-5.0); Eosinophil (Absolute #) 0.17 (0-0.5); Hemoglobin 14.4 gm/dl (12.0-16.0); Lymphocyte (Absolute #) 1.99 (1.0-4.6); Lymphocytes % 19.3 % (24.0-44.0); Mean Cell Volume 100.7 fl (78-100); Mean Corpuscular Hemoglobin 31.5 pg (26-32); Mean Corpuscular Hgb Concent. 31.3 g/dl (32-36); Monocyte (Absolute #) 0.67 (0.0-1.3); Monocytes % 6.5 % (0.0-12.0); Platelet Count 251 K/mm3 (150-450); Red Blood Count 4.57 M/mm3 (4.1-5.4); White Blood Count 10.3 K/mm3 (4.0-10.5)
[2020-12-24 18:09] LABS: INR 0.97 (0.8-3.0); PROTIME 11.5 SECONDS (9.4-12.5)
[2020-12-24 18:12] LABS: PTT 30.7 SECONDS (25.1-36.5)
[2020-12-24 18:22] LABS: ALBUMIN 4.3 g/dL (3.5-5.0); ALKALINE PHOSPHATASE 91 U/L (38-126); ANION GAP 10.7 MEQ/L (5-15); BLOOD UREA NITROGEN 18 mg/dL (7-17); CHLORIDE 105 mmol/L (98-107); Calcium 9.2 mg/dL (8.4-10.2); Carbon Dioxide 32 mmol/L (22-30); Creatinine 1 0.69 mg/dL (0.52-1.04); EST GLOMERULAR FILTRATION RATE > 60.0 ML/MIN; Glucose 135 mg/dL (74-106); MAGNESIUM 2.1 mg/dL (1.6-2.3); NT PRO BNP 1080 pg/mL (0-900); Potassium 4.4 mmol/L (3.5-5.1); SGOT/AST 24 U/L (14-36); SGPT/ALT 16 U/L (0-35); SODIUM 143 mmol/L (137-145); Total Protein 7.4 g/dL (6.3-8.2)
--- NOTE | 2020-12-24 18:32 | ERPHSYRPT ---
- History of Present Illness Source: patient, EMS Exam Limitations: clinical condition Patient Subjective Stated Complaint: pt here for increase sob today after a nap, pt has COPD and wears home o2, ems states sats were 78% at her home. Triage Nursing Assessment: pt alert, resp labored sats 75 on 6 lnc placed on cpap and sats now 95%. pt sweaty, cool to touch, tolerates c pap well, no edema noted Physician History: 55 yo wf w h/o CHF/COPD/tobacco abuse/HTN who is 3L O2 dep at night present per [facility] in severe distress on CPAP. Pt took a nap at 16:00 and woke at 17:00 in severe distress. Pt had Duoneb and albuterol neb in route, along w 125mg IV Solumedrol. Pt placed on Bipap upon arrival w rise in Sats from 75% on 4L which was placed on her from ambulance to bed to 99-100%. She denies cough/fever/chest pain. Timing/Duration: other (17:00) Activities at Onset: sleep Severity of Dyspnea-Max: severe Severity of Dyspnea-Current: severe Possible Cause: frequent episodes Modifying Factors: Improves With: albuterol nebulizer (Better after neb tx) Associated Symptoms: edema, ankle swelling, sweating, No anxiety, No cough, No chest pain/discomfort, No fever, No insomnia, No loss of appetite, No lightheadedness, No wheezing, No weakness, No chills, No hemoptysis, No calf pain, No dizziness, No heaviness, No lightheadedness, No leg swelling, No muscle spasms feet, No muscle spasms hands, No painful breathing, No productive cough, No tightness, No tingling face, No tingling hands Allergies/Adverse Reactions: bee pollen Allergy (Verified 12/24/20 22:28) Home Medications: Cyclobenzaprine HCl [Flexeril] 10 mg PO TID PRN PRN 07/07/16 [History] Hydrocodone Bit/Acetaminophen [Burke 5/325Mg] 1 each PO Q6H PRN PRN 07/07/16 [History] Atorvastatin Calcium [Lipitor 20MG Tablet] 20 mg PO DAILY 12/27/19 [History] Sertraline HCl 50 mg [Zoloft 50 mg Tablet] 100 mg PO DAILY 12/27/19 [Histo ry] Hydrochlorothiazide 25 mg [hydroDIURIL 25 MG] 12.5 mg PO DAILY 12/28/19 [History] Furosemide 40 mg [Lasix 40 MG] 40 mg PO DAILY 08/06/20 [History] Hydroxyzine HCl 25 mg [Atarax 25 mg] 25 mg PO DAILY PRN 08/06/20 [History] Omeprazole 40 mg PO DAILY 08/06/20 [History] Potassium Chloride 10 Meq Tab* [Klor Con 10 MEQ] 10 meq PO DAILY 08/06/20 [History] lisinopriL [Zestril] 2.5 mg PO BID 08/06/20 [History] Albuterol Sulfate [Albuterol Sulfate Hfa] 1 puff IH Q4H PRN PRN 12/24/20 [History] Hx Tetanus, Diphtheria Vaccination/Date Given: Yes Hx Influenza Vaccination/Date Given: Yes Hx Pneumococcal Vaccination/Date Given: Yes Immunizations Up to Date: Yes Travel Risk - International Travel Have you traveled outside of the country in past 3 weeks: No - Coronavirus Screening Are you exhibiting any of the following symptoms?: Yes Symptoms: Cough: New Onset, Shortness of Breath Close contact with a COVID-19 positive Pt in past 14-21 Days: No - Vaccine Status Have you recieved a Covid-19 vaccination: Yes Counter Hop: Unknown - Vaccination Dates Date of 2cond Vaccination (if applicable): ? Dates if Unknown: ? - Review of Systems Constitutional: No Symptoms, Fatigue, Lethargy Eyes: No Symptoms Ears, Nose, & Throat: No Symptoms Respiratory: No Symptoms, Dyspnea Cardiac: No Symptoms, PND, No Chest Pain Abdominal/Gastrointestinal: No Symptoms Genitourinary Symptoms: No Symptoms Musculoskeletal: No Symptoms Skin: No Symptoms Neurological: No Symptoms Psychological: No Symptoms Endocrine: No Symptoms Hematologic/Lymphatic: No Symptoms Immunological/Allergic: No Symptoms - Past Medical History Pertinent Past Medical History: Yes Neurological History: No Pertinent History ENT History: No Pertinent History Cardiac History: No Pertinent History Respiratory History: No Pertinent History Endocrine Medical History: No Pertinent History Musculoskeletal History: Arthritis, Other GI Medical History: No Pertinent History History: No Pertinent History Psycho-Social History: Anxiety, Depression Female Reproductive Disorders: No Pertinent History Other Medical History: chronic back pain - Past Surgical History Past Surgical History: Yes Neuro Surgical History: No Pertinent History Cardiac: No Pertinent History Respiratory: No Pertinent History Gastrointestinal: No Pertinent History Genitourinary: No Pertinent History Musculoskeletal: Orthopedic Surgery Female Surgical History: No Pertinent History Other Surgical History: tonsils, back - Social History Smoking Status: Current every day smoker How long have you smoked: 30 Exposure to second hand smoke: No Drug Use: none Patient Lives Alone: No Significant Family History: no pertinent family hx - Female History Hx Last Menstrual Period: post - Nursing Vital Signs Nursing Vital Signs: Initial Vital Signs Temperature 96.8 F 12/24/20 17:42 Pulse Rate 122 H 12/24/20 17:42 Respiratory Rate 38 H 12/24/20 17:42 Blood Pressure 168/89 12/24/20 17:42 O2 Sat by Pulse Oximetry 95 12/24/20 17:42 Pain Scale Pain Intensity 0 Tachy in severe distress upon arrival until placed on Bipap - Physical Exam General Appearance: severe distress Eye Exam: PERRL/EOMI, eyes nml inspection Ears, Nose, Throat Exam: hearing grossly normal, normal ENT inspection Neck Exam: normal inspection, non-tender, supple, No Brudzinski, No Kernig's, No meningismus Respiratory Exam: respiratory distress (Sevcere), airway intact, prolonged expirations, crackles/rales (Rales 1/4 up B) Cardiovascular/Chest Exam: tachycardia, No murmur Abdominal/Gastrointestinal Exam: soft, normal bowel sounds, No tenderness Extremity Exam: non-tender, normal range of motion, normal capillary refill Neurologic Exam: alert, oriented x 3, cooperative, endoscopy rn II-XII nml as tested, no rmal mood/affect Skin Exam: warm, diaphoresis Lymphatic Exam: No adenopathy SpO2 Interpretation: normal SpO2: 99 O2 Delivery: BiPap/CPAP - Course Nursing assessment & vital signs reviewed: Yes EKG Interpreted by Me: RATE (Sinus tach/Rate 107/Prolonged QTc/Poor Rwave progression) - Radiology Exams Chest X-ray Interpretation: Interpreted by me (Pulmonary vascular congestion) - CT Exams Chest CT Interpretation: Discussed w/radiologist (CT chest w contrast-Small PE LLL/CHF/R lung airspace dz) Ordered Tests: Active Orders 24 hr Category Date Time Status Sanitary Aide STAT Care 12/24/20 17:53 Completed EKG-ER Only STAT Care 12/24/20 17:43 Completed Collins [Catheter-Biddle Collins] STAT Care 12/24/20 18:42 Completed IV Insertion STAT Care 12/24/20 17:53 Completed IV Insertion-2nd Peripheral STAT Care 12/24/20 17:53 Completed Clear Liquid Diet 12/24/20 Breakfast Active CHEST 1 VIEW (PORTABLE) Stat Exams 12/24/20 17:44 Taken CHEST WITH CONTRAST [CT] Stat Exams 12/24/20 18:47 Taken ECHO W/2D AND DOPPLER [US] Routine Exams 12/24/20 21:01 Stop Req ABG [ARTERIAL BLOOD GASES] Stat Lab 12/24/20 17:48 Completed BLOOD CULTURE Stat Lab 12/24/20 20:37 Received BMP AM.LAB Lab 12/25/20 04:00 Ordered CBC AM.LAB Lab 12/25/20 04:00 Ordered CBC W DIFF Stat Lab 12/24/20 17:59 Completed CMP AM.LAB Lab 12/26/20 04:00 Ordered CMP Stat Lab 12/24/20 17:59 Completed CULTURE,URINE Stat Lab 12/24/20 18:43 Ordered D-DIMER QUANTITATIVE Stat Lab 12/24/20 18:00 Completed Lactic Acid Stat Lab 12/24/20 17:43 Completed MAGNESIUM Stat Lab 12/24/20 17:59 Completed NT PRO BNP AM.LAB Lab 12/25/20 04:00 Ordered NT PRO BNP Stat Lab 12/24/20 17:59 Completed PROTIME WITH INR Stat Lab 12/24/20 17:59 Completed PTT Stat Lab 12/24/20 17:59 Completed TROPONIN Q3H Lab 12/24/20 17:59 Completed TROPONIN Q3H Lab 12/24/20 19:45 Completed TROPONIN Q3H Lab 12/24/20 23:45 Ordered TROPONIN Q3H Lab 12/25/20 02:45 Ordered TROPONIN Q3H Lab 12/25/20 05:45 Ordered UA W/RFX UR CULTURE Stat Lab 12/24/20 18:43 Completed Transfer Order Routine Transfer 12/24/20 Completed Medication Summary Generic Name Dose Route Start Last Admin Trade Name Freq PRN Reason Stop Dose Admin Furosemide 40 mg 12/25/20 10:00 Lasix 40 Mg/4 Ml IV 01/24/21 09:59 BID DIURETIC ALESSANDRA Azithromycin 500 mg in 250 mls @ 250 mls/hr 12/25/20 10:00 12/24/20 21:13 Zithromax 500 Mg/ 250 Ml Nacl Premix IV 01/24/21 09:59 250 ml/hr DAILY ALESSANDRA 250 mls/hr Administration Lisinopril 10 mg 12/25/20 10:00 Zestril 10 Mg PO 01/24/21 09:59 DAILY ALESSANDRA Discontinued Medications Generic Name Dose Route Start Last Admin Trade Name Saúl PRN Reason Stop Dose Admin Apixaban 10 mg 12/24/20 20:13 12/24/20 20:23 Eliquis 2.5 Mg Tablet PO 12/24/20 20:14 10 mg STAT ONE Administration Furosemide 60 mg 12/24/20 18:00 12/24/20 18:03 Lasix 40 Mg/4 Ml IV 12/24/20 18:01 60 mg STAT ONE Administration Furosemide Confirm 12/24/20 18:01 Lasix 40 Mg/4 Ml Administered 12/24/20 18:02 Dose 80 mg .ROUTE .STK-MED ONE Ceftriaxone Sodium/Dextrose 1 g in 50 mls @ 100 mls/hr 12/24/20 20:14 12/24/20 21:00 Rocephin 1 Gm-D5w 50 Ml Bag IV 12/24/20 20:43 Infused STAT STA Infusion Ceftriaxone Sodium/Dextrose Confirm 12/24/20 20:16 Rocephin 1 Gm-D5w 50 Ml Bag Administered 12/24/20 20:17 Dose 1 g in 50 mls @ ud IV .STK-MED ONE Azithromycin Confirm 12/24/20 21:10 Zithromax 500 Mg/ 250 Ml Nacl Premix Administered 12/24/20 21:11 Dose 500 mg in 250 mls @ ud IV .STK-MED ONE Lab/Rad Data: Laboratory Result Diagrams 12/24/20 17:59 12/24/20 17:59 Laboratory Results 12/24/20 12/24/20 12/24/20 Range/Units 20:38 19:45 18:43 WBC (4.0-10.5) K/mm3 RBC (4.1-5.4) M/mm3 Hgb (12.0-16.0) gm/dl Hct (35-47) % MCV (78-100) fl MCH (26-32) pg MCHC (32-36) g/dl RDW (11.5-14.0) % Plt Count (150-450) K/mm3 MPV (7.5-11.0) fl Gran % (36.0-66.0) % Eos # (Auto) (0-0.5) Absolute Lymphs (auto) (1.0-4.6) Absolute Monos (auto) (0.0-1.3) Lymphocytes % (24.0-44.0) % Monocytes % (0.0-12.0) % Eosinophils % (0.00-5.0) % Basophils % (0.0-0.4) % Absolute Granulocytes (1.4-6.9) Basophils # (0-0.4) PT (9.4-12.5) SECONDS INR (0.8-3.0) APTT (25.1-36.5) SECONDS D-Dimer (215-500) ng/mL Puncture Site pCO2 (35-45) mmHg pO2 (75-100) mmHg Base Excess (-2.0-2.0) O2 Saturation (94-100) g/dF ABG pH (7.35-7.45) ABG HCO3 (22-28) ABG O2 Sat (Measured) (95-100) % Regino Test A-a Gradient a/A Ratio Hemoglobin Carboxyhemoglobin (0.0-6.9) % THgb Methemoglobin (1.4-1.5) % Potassium (3.5-5.1) Temperature C POC O2 Flow Rate % Sodium (137-145) mmol/L Chloride (98-107) mmol/L Carbon Dioxide (22-30) mmol/L Anion Gap (5-15) MEQ/L BUN (7-17) mg/dL Creatinine (0.52-1.04) mg/dL Estimated GFR ML/MIN Glucose (74-106) mg/dL Lactic Acid (0.4-2.0) Calcium (8.4-10.2) mg/dL Magnesium (1.6-2.3) mg/dL Total Bilirubin (0.2-1.3) mg/dL AST (14-36) U/L ALT (0-35) U/L Alkaline Phosphatase (38-126) U/L Troponin I < 0.012 (0.000-0.034) ng/mL NT-Pro-B Natriuret Pep (0-900) pg/mL Serum Total Protein (6.3-8.2) g/dL Albumin (3.5-5.0) g/dL Urine Color COLORLESS (YELLOW) Urine Appearance CLEAR (CLEAR) Urine pH 6.0 (5-6) Ur Specific [place] 1.005 (1.005-1.025) Urine Protein NEGATIVE (Negative) Urine Ketones NEGATIVE (NEGATIVE) Urine Blood NEGATIVE (0-5) Ross/ul Urine Nitrite NEGATIVE (NEGATIVE) Urine Bilirubin NEGATIVE (NEGATIVE) Urine Urobilinogen NEGATIVE (0-1) mg/dL Ur Leukocyte Esterase NEGATIVE (NEGATIVE) U Hyaline Cast (Auto) 3-5 (0-2) /LPF Urine Mucus (Auto) SLIGHT (NEGATIVE) /HPF Urine Culture Reflexed NO (NO) Urine Glucose NEGATIVE (NEGATIVE) mg/dL SARS-CoV-2 (PCR) NEGATIVE (NEGATIVE) 12/24/20 12/24/20 12/24/20 Range/Units 18:00 17:59 17:59 WBC (4.0-10.5) K/mm3 RBC (4.1-5.4) M/mm3 Hgb (12.0-16.0) gm/dl Hct (35-47) % MCV (78-100) fl MCH (26-32) pg MCHC (32-36) g/dl RDW (11.5-14.0) % Plt Count (150-450) K/mm3 MPV (7.5-11.0) fl Gran % (36.0-66.0) % Eos # (Auto) (0-0.5) Absolute Lymphs (auto) (1.0-4.6) Absolute Monos (auto) (0.0-1.3) Lymphocytes % (24.0-44.0) % Monocytes % (0.0-12.0) % Eosinophils % (0.00-5.0) % Basophils % (0.0-0.4) % Absolute Granulocytes (1.4-6.9) Basophils # (0-0.4) PT 11.5 (9.4-12.5) SECONDS INR 0.97 (0.8-3.0) APTT 30.7 (25.1-36.5) SECONDS D-Dimer 850 H* (215-500) ng/mL Puncture Site pCO2 (35-45) mmHg pO2 (75-100) mmHg Base Excess (-2.0-2.0) O2 Saturation (94-100) g/dF ABG pH (7.35-7.45) ABG HCO3 (22-28) ABG O2 Sat (Measured) (95-100) % Regino Test A-a Gradient a/A Ratio Hemoglobin Carboxyhemoglobin (0.0-6.9) % THgb Methemoglobin (1.4-1.5) % Potassium (3.5-5.1) Temperature C POC O2 Flow Rate % Sodium (137-145) mmol/L Chloride (98-107) mmol/L Carbon Dioxide (22-30) mmol/L Anion Gap (5-15) MEQ/L BUN (7-17) mg/dL Creatinine (0.52-1.04) mg/dL Estimated GFR ML/MIN Glucose (74-106) mg/dL Lactic Acid (0.4-2.0) Calcium (8.4-10.2) mg/dL Magnesium (1.6-2.3) mg/dL Total Bilirubin (0.2-1.3) mg/dL AST (14-36) U/L ALT (0-35) U/L Alkaline Phosphatase (38-126) U/L Troponin I < 0.012 (0.000-0.034) ng/mL NT-Pro-B Natriuret Pep (0-900) pg/mL Serum Total Protein (6.3-8.2) g/dL Albumin (3.5-5.0) g/dL Urine Color (YELLOW) Urine Appearance (CLEAR) Urine pH (5-6) Ur Specific [place] (1.005-1.025) Urine Protein (Negative) Urine Ketones (NEGATIVE) Urine Blood (0-5) Ross/ul Urine Nitrite (NEGATIVE) Urine Bilirubin (NEGATIVE) Urine Urobilinogen (0-1) mg/dL Ur Leukocyte Esterase (NEGATIVE) U Hyaline Cast (Auto) (0-2) /LPF Urine Mucus (Auto) (NEGATIVE) /HPF Urine Culture Reflexed (NO) Urine Glucose (NEGATIVE) mg/dL SARS-CoV-2 (PCR) (NEGATIVE) 12/24/20 12/24/20 12/24/20 Range/Units 17:59 17:59 17:48 WBC 10.3 (4.0-10.5) K/mm3 RBC 4.57 (4.1-5.4) M/mm3 Hgb 14.4 (12.0-16.0) gm/dl Hct 46.0 (35-47) % MCV 100.7 H (78-100) fl MCH 31.5 (26-32) pg MCHC 31.3 L (32-36) g/dl RDW 14.0 (11.5-14.0) % Plt Count 251 (150-450) K/mm3 MPV 10.0 (7.5-11.0) fl Gran % 72.0 H (36.0-66.0) % Eos # (Auto) 0.17 (0-0.5) Absolute Lymphs (auto) 1.99 (1.0-4.6) Absolute Monos (auto) 0.67 (0.0-1.3) Lymphocytes % 19.3 L (24.0-44.0) % Monocytes % 6.5 (0.0-12.0) % Eosinophils % 1.6 (0.00-5.0) % Basophils % 0.6 (0.0-0.4) % Absolute Granulocytes 7.43 H (1.4-6.9) Basophils # 0.06 (0-0.4) PT (9.4-12.5) SECONDS INR (0.8-3.0) APTT (25.1-36.5) SECONDS D-Dimer (215-500) ng/mL Puncture Site RIGHT RADIAL pCO2 67 H* (35-45) mmHg pO2 47 L* (75-100) mmHg Base Excess 3.6 H (-2.0-2.0) O2 Saturation 72.8 L (94-100) g/dF ABG pH 7.29 L (7.35-7.45) ABG HCO3 32.2 H* (22-28) ABG O2 Sat (Measured) 79.0 L (95-100) % Regino Test YES A-a Gradient 154 a/A Ratio 0.23 Hemoglobin 14.7 Carboxyhemoglobin 7.4 H* (0.0-6.9) % THgb Methemoglobin 0.6 L (1.4-1.5) % Potassium 4.4 4.6 (3.5-5.1) Temperature 37.0 C POC O2 Flow Rate 40 % Sodium 143 (137-145) mmol/L Chloride 105 (98-107) mmol/L Carbon Dioxide 32 H (22-30) mmol/L Anion Gap 10.7 (5-15) MEQ/L BUN 18 H (7-17) mg/dL Creatinine 0.69 (0.52-1.04) mg/dL Estimated GFR > 60.0 ML/MIN Glucose 135 H (74-106) mg/dL Lactic Acid (0.4-2.0) Calcium 9.2 (8.4-10.2) mg/dL Magnesium 2.1 (1.6-2.3) mg/dL Total Bilirubin 0.40 (0.2-1.3) mg/dL AST 24 (14-36) U/L ALT 16 (0-35) U/L Alkaline Phosphatase 91 (38-126) U/L Troponin I (0.000-0.034) ng/mL NT-Pro-B Natriuret Pep 1080 H (0-900) pg/mL Serum Total Protein 7.4 (6.3-8.2) g/dL Albumin 4.3 (3.5-5.0) g/dL Urine Color (YELLOW) Urine Appearance (CLEAR) Urine pH (5-6) Ur Specific [place] (1.005-1.025) Urine Protein (Negative) Urine Ketones (NEGATIVE) Urine Blood (0-5) Ross/ul Urine Nitrite (NEGATIVE) Urine Bilirubin (NEGATIVE) Urine Urobilinogen (0-1) mg/dL Ur Leukocyte Esterase (NEGATIVE) U Hyaline Cast (Auto) (0-2) /LPF Urine Mucus (Auto) (NEGATIVE) /HPF Urine Culture Reflexed (NO) Urine Glucose (NEGATIVE) mg/dL SARS-CoV-2 (PCR) (NEGATIVE) 12/24/20 Range/Units 17:43 WBC (4.0-10.5) K/mm3 RBC (4.1-5.4) M/mm3 Hgb (12.0-16.0) gm/dl Hct (35-47) % MCV (78-100) fl MCH (26-32) pg MCHC (32-36) g/dl RDW (11.5-14.0) % Plt Count (150-450) K/mm3 MPV (7.5-11.0) fl Gran % (36.0-66.0) % Eos # (Auto) (0-0.5) Absolute Lymphs (auto) (1.0-4.6) Absolute Monos (auto) (0.0-1.3) Lymphocytes % (24.0-44.0) % Monocytes % (0.0-12.0) % Eosinophils % (0.00-5.0) % Basophils % (0.0-0.4) % Absolute Granulocytes (1.4-6.9) Basophils # (0-0.4) PT (9.4-12.5) SECONDS INR (0.8-3.0) APTT (25.1-36.5) SECONDS D-Dimer (215-500) ng/mL Puncture Site pCO2 (35-45) mmHg pO2 (75-100) mmHg Base Excess (-2.0-2.0) O2 Saturation (94-100) g/dF ABG pH (7.35-7.45) ABG HCO3 (22-28) ABG O2 Sat (Measured) (95-100) % Regino Test A-a Gradient a/A Ratio Hemoglobin Carboxyhemoglobin (0.0-6.9) % THgb Methemoglobin (1.4-1.5) % Potassium (3.5-5.1) Temperature C POC O2 Flow Rate % Sodium (137-145) mmol/L Chloride (98-107) mmol/L Carbon Dioxide (22-30) mmol/L Anion Gap (5-15) MEQ/L BUN (7-17) mg/dL Creatinine (0.52-1.04) mg/dL Estimated GFR ML/MIN Glucose (74-106) mg/dL Lactic Acid 0.9 (0.4-2.0) Calcium (8.4-10.2) mg/dL Magnesium (1.6-2.3) mg/dL Total Bilirubin (0.2-1.3) mg/dL AST (14-36) U/L ALT (0-35) U/L Alkaline Phosphatase (38-126) U/L Troponin I (0.000-0.034) ng/mL NT-Pro-B Natriuret Pep (0-900) pg/mL Serum Total Protein (6.3-8.2) g/dL Albumin (3.5-5.0) g/dL Urine Color (YELLOW) Urine Appearance (CLEAR) Urine pH (5-6) Ur Specific [place] (1.005-1.025) Urine Protein (Negative) Urine Ketones (NEGATIVE) Urine Blood (0-5) Ross/ul Urine Nitrite (NEGATIVE) Urine Bilirubin (NEGATIVE) Urine Urobilinogen (0-1) mg/dL Ur Leukocyte Esterase (NEGATIVE) U Hyaline Cast (Auto) (0-2) /LPF Urine Mucus (Auto) (NEGATIVE) /HPF Urine Culture Reflexed (NO) Urine Glucose (NEGATIVE) mg/dL SARS-CoV-2 (PCR) (NEGATIVE) - Progress Progress: improved Progress Note: 12/24/20 20:14 60mg IV Lasix w 1500ml urine output and marked clinical improvement Admit per Dr. Dc Wants to start Eliquis 10mg po bid 12/24/20 22:41 Pt much improved and sitting in recliner w Bipap on when transferred to ICU. Pt diuresed 2000ml 12/24/20 22:44 1gm IV Rocephin Blood Culture(s) Obtained: Yes Antibiotics given: Yes Discussed with : Susanna Will see patient in: hospital (observation) Counseled pt/family regarding: lab results, diagnosis, rad results - Departure Departure Disposition: Observation Clinical Impression: Pulmonary embolus, Pulmonary edema, Pneumonia Condition: Stable Critical Care Time: Yes Critical Care Time(excluding separately billable procedures): Critical 75-104 mins
[2020-12-24 19:03] LABS: Appearance CLEAR (CLEAR); Bilirubin NEGATIVE (NEGATIVE); Blood NEGATIVE Ery/ul (0-5); Glucose NEGATIVE (NEGATIVE); Ketones NEGATIVE (NEGATIVE); Leukocyte Esterase NEGATIVE (NEGATIVE); Mucus SLIGHT /HPF (NEGATIVE); Nitrite NEGATIVE (NEGATIVE); Protein,Urine Dip NEGATIVE (Negative); Specific Gravity 1.005 (1.005-1.025); Urobilinogen NEGATIVE mg/dL (0-1)
[2020-12-24] MEDS ORDERED: ELIQUIS 2.5 MG TABLET PO ONE (20:13)
[2020-12-24] MEDS ORDERED: ROCEPHIN 1 Gm-D5w 50 ml Bag** 1 G/50 ML IVPB IV STA (20:14)
[2020-12-24] MEDS ORDERED: ROCEPHIN 1 Gm-D5w 50 ml Bag** 1 G/50 ML IVPB IV ONE (20:16)
[2020-12-24] MEDS ORDERED: Zithromax 500 MG/ 250 ML NaCl Premix 500 MG/250 ML IVPB IV ONE (21:10)
[2020-12-24] MEDS: NORCO 5/325 MG PO PRN (23:48)
[2020-12-24] MEDS: Cyclobenzaprine 10 MG PO PRN (23:48)
[2020-12-25 03:04] LABS: Hemoglobin 13.5 gm/dl (12.0-16.0); Mean Cell Volume 99.8 fl (78-100); Mean Corpuscular Hemoglobin 31.3 pg (26-32); Mean Corpuscular Hgb Concent. 31.4 g/dl (32-36); Mean Platelet Volume 9.9 fl (7.5-11.0); Platelet Count 243 K/mm3 (150-450); Red Blood Count 4.31 M/mm3 (4.1-5.4); Red Cell Distribution Width 13.7 % (11.5-14.0); White Blood Count 7.8 K/mm3 (4.0-10.5)
[2020-12-25 03:24] LABS: ANION GAP 14.3 MEQ/L (5-15); BLOOD UREA NITROGEN 17 mg/dL (7-17); CHLORIDE 98 mmol/L (98-107); Calcium 9.3 mg/dL (8.4-10.2); Carbon Dioxide 28 mmol/L (22-30); Creatinine 1 0.53 mg/dL (0.52-1.04); EST GLOMERULAR FILTRATION RATE > 60.0 ML/MIN; Glucose 141 mg/dL (74-106); NT PRO BNP 1350 pg/mL (0-900); Potassium 4.6 mmol/L (3.5-5.1); SODIUM 136 mmol/L (137-145)
[2020-12-25] MEDS: NORCO 5/325 MG PO PRN ×3 (06:07→18:43)
[2020-12-25] MEDS ORDERED: PROVENTIL 2.5 MG/3 ML NEB IH SCH (07:00)
[2020-12-25] MEDS ORDERED: VENTOLIN COMMON CANISTER IH PRN (07:00)
--- NOTE | 2020-12-25 08:50 | XRAY ---
Indication: Short of breath. Elevated d-dimer. Multiple contiguous axial images obtained through the chest using 100 cc Isovue 370 contrast and PE protocol. Comparison: August 06, 2020. There is adequate opacification of the pulmonary arteries to include the lobar and segmental branches. New tiny nonoccluding pulmonary emboli seen in the medial segmental branch of the left lower lobe. Heart remains enlarged again with mitral valve calcifications. Aorta is normal in course and caliber. Stable small mediastinal calcified and noncalcified lymph nodes. Lungs demonstrates new hazy right lung airspace disease greatest right upper lobe. There is again small bilateral pleural effusions less than before with mild bibasilar compressive atelectasis. Minimal pulmonary emphysema. Bony thorax intact again with mild degenerative changes throughout the spine. Limited upper abdomen again demonstrates fatty liver and 13.9 cm splenomegaly. Impression: 1. New tiny nonoccluding pulmonary embolus medial segment left lower lobe. 2. New right long hazy airspace disease. 3. Again cardiomegaly with small bibasilar effusions. Rule out cardiac decompensation/CHF versus fluid overload. 4. Again incidental fatty liver, splenomegaly, and old granulomatous disease.
--- NOTE | 2020-12-25 08:52 | XRAY ---
Indication: Short of breath. General ill feeling. Comparison: June 08, 2020. Portable chest demonstrates new diffuse right lung airspace disease. Again cardiomegaly with small bibasilar effusions favoring cardiac decompensation/CHF. Bony thorax intact again with mild degenerative changes.
--- NOTE | 2020-12-25 09:09 | PCM.HP ---
History of Present Illness - Chief Complaint Chief Complaint: PE, Pulmonary Edema Pneumonia History of Present Illness: is a 55 year old female pt of Dr. Staples with CHF, COPD, TOB abuse, morbid obesity, and HTN who was admitted through ER with CHF exacerbation and new pulmonary embolism. She says she was feeling poorly for several days and was trying to sleep more yesterday in order to feel better. Took a nap and woke up 1 hr later diaphoretic and SOB. Increased her O2 from her home level of 3L to 4L with some relief. Called EMS who noted her O2 sat to be in the mid 70s - improved upon admission to ER to 99-100% on bipap. Was given IV solumedrol in the ambulance then IV lasix with good results. Pt says she feels "100% better" today than on admission. Currently on 4L O2 per NC. CT chest with tiny non-occluding PE. Fluid overload. Troponins were neg x 5. Echocardiogram ordered for today. Pt did eat tomatoes with salt on them this week. Denies chest pain or LE edema. No increased cough. - Review of Systems Constitutional: Other (sweats) Respiratory: Short Of Breath Abdominal/Gastrointestinal: Hematochezia (once a while back when hemorrhoids were acting up) Musculoskeletal: Back Pain (chronic) Neurological: Dizziness (chronic, when she bends over) Psychological: No Anxiety, No Depression, No Suicidal Ideations, No Homicidal Ideations All Other Systems: Reviewed and Negative Medications & Allergies Home Medications: Home Medication List Cyclobenzaprine HCl [Flexeril] 10 mg PO TID PRN PRN 07/07/16 [History Confirmed 12/24/20] Hydrocodone Bit/Acetaminophen [[place] 5/325Mg] 1 each PO Q6H PRN PRN 07/07/16 [History Confirmed 12/24/20] Albuterol/Ipratropium 3ml Neb* [DUONEB 0.5-3 MG/3 ml Neb] 3 ml IH QID #120 ampul.neb 07/12/16 [Rx Confirmed 12/24/20] Atorvastatin Calcium [Lipitor 20MG Tablet] 20 mg PO DAILY 12/27/19 [History Confirmed 12/24/20] Sertraline HCl 50 mg [Zoloft 50 mg Tablet] 100 mg PO DAILY 12/27/19 [History Confirmed 12/24/20] Hydrochlorothiazide 25 mg [hydroDIURIL 25 MG] 12.5 mg PO DAILY 12/28/19 [History Confirmed 12/24/20] Metoprolol Succinate 25 mg Xl* [Toprol-Xl 25MG Tablets] 25 mg PO DAILY 30 Days #30 tab 12/31/19 [Rx Confirmed 12/24/20] Furosemide 40 mg [Lasix 40 MG] 40 mg PO DAILY 08/06/20 [History Confirmed 12/24/20] Hydroxyzine HCl 25 mg [Atarax 25 mg] 25 mg PO DAILY PRN 08/06/20 [History Confirmed 12/24/20] Omeprazole 40 mg PO DAILY 08/06/20 [History Confirmed 12/24/20] Potassium Chloride 10 Meq Tab* [Klor Con 10 MEQ] 10 meq PO DAILY 08/06/20 [History Confirmed 12/24/20] lisinopriL [Zestril] 2.5 mg PO BID 08/06/20 [History Confirmed 12/24/20] Albuterol Sulfate [Albuterol Sulfate Hfa] 1 puff IH Q4H PRN PRN 12/24/20 [History Confirmed 12/24/20] Allergies/Adverse Reactions: Allergies Allergy/AdvReac Type Severity Reaction Status Date / Time bee pollen Allergy Verified 12/24/20 22:28 - Past Medical History Past Medical History: Yes Neurological History: No Pertinent History ENT History: No Pertinent History Cardiac History: No Pertinent History Respiratory History: No Pertinent History Endocrine Medical History: No Pertinent History Musculoskelatal History: Arthritis, Other GI Medical History: No Pertinent History History: No Pertinent History Pyscho-Social History: Anxiety, Depression Reproductive Disorders: No Pertinent History Comment: chronic back pain - Female History Hx Last Menstrual Period: post - Past Surgical History Past Surgical History: Yes Neuro Surgical History: No Pertinent History Cardiac History: No Pertinent History Respiratory Surgery: No Pertinent History GI Surgical History: No Pertinent History Genitourinary Surgical Hx: No Pertinent History Musculskeletal Surgical Hx: Orthopedic Surgery Female Surgical History: No Pertinent History Other Surgical History: tonsils, back - Social History Smoking Status: Current every day smoker How long have you smoked: 30 Exposure to second hand smoke: No Alcohol: Occasionally Drug Use: none Significant Family History: no pertinent family hx - Physical Exam Vital Signs: Vital Signs - 24 hr Temp Pulse Resp BP Pulse Ox 12/25/20 08:00 96.9 F 69 18 127/77 96 12/25/20 04:00 98.0 F 69 19 133/86 96 12/25/20 00:01 74 12/25/20 00:00 24 12/24/20 23:47 97.7 F 82 21 118/69 93 L 12/24/20 22:45 99 12/24/20 22:35 98.2 F 85 20 120/62 96 12/24/20 21:30 96 12/24/20 21:01 94 L 12/24/20 21:00 98.4 F 76 20 102/68 99 12/24/20 20:00 98.4 F 80 22 115/61 98 12/24/20 19:00 98.4 F 90 18 135/70 99 12/24/20 18:10 123 H 24 122/74 99 12/24/20 17:49 38 H 98 12/24/20 17:42 96.8 F 122 H 38 H 168/89 95 Oxygen-Last 24 hours Oxygen Flowrate (L/min)-RT 4 General Appearance: no apparent distress, alert, obese Neurologic Exam: oriented x 3, cooperative Eye Exam: eyes nml inspection Ears, Nose, Throat Exam: moist mucous membranes Neck Exam: normal inspection, non-tender, No lymphadenopathy Respiratory Exam: lungs clear, diminished breath sounds (good air exchange), No accessory muscle use, No crackles/rales, No rhonchi Cardiovascular Exam: regular rate/rhythm, normal heart sounds, No murmur Results - Labs Lab/Micro Results: Lab Results-Last 24 Hours 12/24/20 12/24/20 12/24/20 Range/Units 17:43 17:48 17:59 WBC 10.3 (4.0-10.5) K/mm3 RBC 4.57 (4.1-5.4) M/mm3 Hgb 14.4 (12.0-16.0) gm/dl Hct 46.0 (35-47) % MCV 100.7 H (78-100) fl MCH 31.5 (26-32) pg MCHC 31.3 L (32-36) g/dl RDW 14.0 (11.5-14.0) % Plt Count 251 (150-450) K/mm3 MPV 10.0 (7.5-11.0) fl Gran % 72.0 H (36.0-66.0) % Eos # (Auto) 0.17 (0-0.5) Absolute Lymphs (auto) 1.99 (1.0-4.6) Absolute Monos (auto) 0.67 (0.0-1.3) Lymphocytes % 19.3 L (24.0-44.0) % Monocytes % 6.5 (0.0-12.0) % Eosinophils % 1.6 (0.00-5.0) % Basophils % 0.6 (0.0-0.4) % Absolute Granulocytes 7.43 H (1.4-6.9) Basophils # 0.06 (0-0.4) PT (9.4-12.5) SECONDS INR (0.8-3.0) APTT (25.1-36.5) SECONDS D-Dimer (215-500) ng/mL Puncture Site RIGHT RADIAL pCO2 67 H* (35-45) mmHg pO2 47 L* (75-100) mmHg Base Excess 3.6 H (-2.0-2.0) O2 Saturation 72.8 L (94-100) g/dF ABG pH 7.29 L (7.35-7.45) ABG HCO3 32.2 H* (22-28) ABG O2 Sat (Measured) 79.0 L (95-100) % Regino Test YES A-a Gradient 154 a/A Ratio 0.23 Hemoglobin 14.7 Carboxyhemoglobin 7.4 H* (0.0-6.9) % THgb Methemoglobin 0.6 L (1.4-1.5) % Potassium 4.6 (3.5-5.1) Temperature 37.0 C POC O2 Flow Rate 40 % Sodium (137-145) mmol/L Chloride (98-107) mmol/L Carbon Dioxide (22-30) mmol/L Anion Gap (5-15) MEQ/L BUN (7-17) mg/dL Creatinine (0.52-1.04) mg/dL Estimated GFR ML/MIN Glucose (74-106) mg/dL Lactic Acid 0.9 (0.4-2.0) Calcium (8.4-10.2) mg/dL Magnesium (1.6-2.3) mg/dL Total Bilirubin (0.2-1.3) mg/dL AST (14-36) U/L ALT (0-35) U/L Alkaline Phosphatase (38-126) U/L Troponin I (0.000-0.034) ng/mL NT-Pro-B Natriuret Pep (0-900) pg/mL Serum Total Protein (6.3-8.2) g/dL Albumin (3.5-5.0) g/dL Urine Color (YELLOW) Urine Appearance (CLEAR) Urine pH (5-6) Ur Specific [place] (1.005-1.025) Urine Protein (Negative) Urine Ketones (NEGATIVE) Urine Blood (0-5) Ross/ul Urine Nitrite (NEGATIVE) Urine Bilirubin (NEGATIVE) Urine Urobilinogen (0-1) mg/dL Ur Leukocyte Esterase (NEGATIVE) U Hyaline Cast (Auto) (0-2) /LPF Urine Mucus (Auto) (NEGATIVE) /HPF Urine Culture Reflexed (NO) Urine Glucose (NEGATIVE) mg/dL SARS-CoV-2 (PCR) (NEGATIVE) 12/24/20 12/24/20 12/24/20 Range/Units 17:59 17:59 17:59 WBC (4.0-10.5) K/mm3 RBC (4.1-5.4) M/mm3 Hgb (12.0-16.0) gm/dl Hct (35-47) % MCV (78-100) fl MCH (26-32) pg MCHC (32-36) g/dl RDW (11.5-14.0) % Plt Count (150-450) K/mm3 MPV (7.5-11.0) fl Gran % (36.0-66.0) % Eos # (Auto) (0-0.5) Absolute Lymphs (auto) (1.0-4.6) Absolute Monos (auto) (0.0-1.3) Lymphocytes % (24.0-44.0) % Monocytes % (0.0-12.0) % Eosinophils % (0.00-5.0) % Basophils % (0.0-0.4) % Absolute Granulocytes (1.4-6.9) Basophils # (0-0.4) PT 11.5 (9.4-12.5) SECONDS INR 0.97 (0.8-3.0) APTT 30.7 (25.1-36.5) SECONDS D-Dimer (215-500) ng/mL Puncture Site pCO2 (35-45) mmHg pO2 (75-100) mmHg Base Excess (-2.0-2.0) O2 Saturation (94-100) g/dF ABG pH (7.35-7.45) ABG HCO3 (22-28) ABG O2 Sat (Measured) (95-100) % Regino Test A-a Gradient a/A Ratio Hemoglobin Carboxyhemoglobin (0.0-6.9) % THgb Methemoglobin (1.4-1.5) % Potassium 4.4 (3.5-5.1) Temperature C POC O2 Flow Rate % Sodium 143 (137-145) mmol/L Chloride 105 (98-107) mmol/L Carbon Dioxide 32 H (22-30) mmol/L Anion Gap 10.7 (5-15) MEQ/L BUN 18 H (7-17) mg/dL Creatinine 0.69 (0.52-1.04) mg/dL Estimated GFR > 60.0 ML/MIN Glucose 135 H (74-106) mg/dL Lactic Acid (0.4-2.0) Calcium 9.2 (8.4-10.2) mg/dL Magnesium 2.1 (1.6-2.3) mg/dL Total Bilirubin 0.40 (0.2-1.3) mg/dL AST 24 (14-36) U/L ALT 16 (0-35) U/L Alkaline Phosphatase 91 (38-126) U/L Troponin I < 0.012 (0.000-0.034) ng/mL NT-Pro-B Natriuret Pep 1080 H (0-900) pg/mL Serum Total Protein 7.4 (6.3-8.2) g/dL Albumin 4.3 (3.5-5.0) g/dL Urine Color (YELLOW) Urine Appearance (CLEAR) Urine pH (5-6) Ur Specific [place] (1.005-1.025) Urine Protein (Negative) Urine Ketones (NEGATIVE) Urine Blood (0-5) Ross/ul Urine Nitrite (NEGATIVE) Urine Bilirubin (NEGATIVE) Urine Urobilinogen (0-1) mg/dL Ur Leukocyte Esterase (NEGATIVE) U Hyaline Cast (Auto) (0-2) /LPF Urine Mucus (Auto) (NEGATIVE) /HPF Urine Culture Reflexed (NO) Urine Glucose (NEGATIVE) mg/dL SARS-CoV-2 (PCR) (NEGATIVE) 12/24/20 12/24/20 12/24/20 Range/Units 18:00 18:43 19:45 WBC (4.0-10.5) K/mm3 RBC (4.1-5.4) M/mm3 Hgb (12.0-16.0) gm/dl Hct (35-47) % MCV (78-100) fl MCH (26-32) pg MCHC (32-36) g/dl RDW (11.5-14.0) % Plt Count (150-450) K/mm3 MPV (7.5-11.0) fl Gran % (36.0-66.0) % Eos # (Auto) (0-0.5) Absolute Lymphs (auto) (1.0-4.6) Absolute Monos (auto) (0.0-1.3) Lymphocytes % (24.0-44.0) % Monocytes % (0.0-12.0) % Eosinophils % (0.00-5.0) % Basophils % (0.0-0.4) % Absolute Granulocytes (1.4-6.9) Basophils # (0-0.4) PT (9.4-12.5) SECONDS INR (0.8-3.0) APTT (25.1-36.5) SECONDS D-Dimer 850 H* (215-500) ng/mL Puncture Site pCO2 (35-45) mmHg pO2 (75-100) mmHg Base Excess (-2.0-2.0) O2 Saturation (94-100) g/dF ABG pH (7.35-7.45) ABG HCO3 (22-28) ABG O2 Sat (Measured) (95-100) % Regino Test A-a Gradient a/A Ratio Hemoglobin Carboxyhemoglobin (0.0-6.9) % THgb Methemoglobin (1.4-1.5) % Potassium (3.5-5.1) Temperature C POC O2 Flow Rate % Sodium (137-145) mmol/L Chloride (98-107) mmol/L Carbon Dioxide (22-30) mmol/L Anion Gap (5-15) MEQ/L BUN (7-17) mg/dL Creatinine (0.52-1.04) mg/dL Estimated GFR ML/MIN Glucose (74-106) mg/dL Lactic Acid (0.4-2.0) Calcium (8.4-10.2) mg/dL Magnesium (1.6-2.3) mg/dL Total Bilirubin (0.2-1.3) mg/dL AST (14-36) U/L ALT (0-35) U/L Alkaline Phosphatase (38-126) U/L Troponin I < 0.012 (0.000-0.034) ng/mL NT-Pro-B Natriuret Pep (0-900) pg/mL Serum Total Protein (6.3-8.2) g/dL Albumin (3.5-5.0) g/dL Urine Color COLORLESS (YELLOW) Urine Appearance CLEAR (CLEAR) Urine pH 6.0 (5-6) Ur Specific [place] 1.005 (1.005-1.025) Urine Protein NEGATIVE (Negative) Urine Ketones NEGATIVE (NEGATIVE) Urine Blood NEGATIVE (0-5) Ross/ul Urine Nitrite NEGATIVE (NEGATIVE) Urine Bilirubin NEGATIVE (NEGATIVE) Urine Urobilinogen NEGATIVE (0-1) mg/dL Ur Leukocyte Esterase NEGATIVE (NEGATIVE) U Hyaline Cast (Auto) 3-5 (0-2) /LPF Urine Mucus (Auto) SLIGHT (NEGATIVE) /HPF Urine Culture Reflexed NO (NO) Urine Glucose NEGATIVE (NEGATIVE) mg/dL SARS-CoV-2 (PCR) (NEGATIVE) 12/24/20 12/24/20 12/25/20 Range/Units 20:38 23:45 02:55 WBC (4.0-10.5) K/mm3 RBC (4.1-5.4) M/mm3 Hgb (12.0-16.0) gm/dl Hct (35-47) % MCV (78-100) fl MCH (26-32) pg MCHC (32-36) g/dl RDW (11.5-14.0) % Plt Count (150-450) K/mm3 MPV (7.5-11.0) fl Gran % (36.0-66.0) % Eos # (Auto) (0-0.5) Absolute Lymphs (auto) (1.0-4.6) Absolute Monos (auto) (0.0-1.3) Lymphocytes % (24.0-44.0) % Monocytes % (0.0-12.0) % Eosinophils % (0.00-5.0) % Basophils % (0.0-0.4) % Absolute Granulocytes (1.4-6.9) Basophils # (0-0.4) PT (9.4-12.5) SECONDS INR (0.8-3.0) APTT (25.1-36.5) SECONDS D-Dimer (215-500) ng/mL Puncture Site pCO2 (35-45) mmHg pO2 (75-100) mmHg Base Excess (-2.0-2.0) O2 Saturation (94-100) g/dF ABG pH (7.35-7.45) ABG HCO3 (22-28) ABG O2 Sat (Measured) (95-100) % Regino Test A-a Gradient a/A Ratio Hemoglobin Carboxyhemoglobin (0.0-6.9) % THgb Methemoglobin (1.4-1.5) % Potassium (3.5-5.1) Temperature C POC O2 Flow Rate % Sodium (137-145) mmol/L Chloride (98-107) mmol/L Carbon Dioxide (22-30) mmol/L Anion Gap (5-15) MEQ/L BUN (7-17) mg/dL Creatinine (0.52-1.04) mg/dL Estimated GFR ML/MIN Glucose (74-106) mg/dL Lactic Acid (0.4-2.0) Calcium (8.4-10.2) mg/dL Magnesium (1.6-2.3) mg/dL Total Bilirubin (0.2-1.3) mg/dL AST (14-36) U/L ALT (0-35) U/L Alkaline Phosphatase (38-126) U/L Troponin I < 0.012 < 0.012 (0.000-0.034) ng/mL NT-Pro-B Natriuret Pep (0-900) pg/mL Serum Total Protein (6.3-8.2) g/dL Albumin (3.5-5.0) g/dL Urine Color (YELLOW) Urine Appearance (CLEAR) Urine pH (5-6) Ur Specific [place] (1.005-1.025) Urine Protein (Negative) Urine Ketones (NEGATIVE) Urine Blood (0-5) Ross/ul Urine Nitrite (NEGATIVE) Urine Bilirubin (NEGATIVE) Urine Urobilinogen (0-1) mg/dL Ur Leukocyte Esterase (NEGATIVE) U Hyaline Cast (Auto) (0-2) /LPF Urine Mucus (Auto) (NEGATIVE) /HPF Urine Culture Reflexed (NO) Urine Glucose (NEGATIVE) mg/dL SARS-CoV-2 (PCR) NEGATIVE (NEGATIVE) 12/25/20 12/25/20 12/25/20 Range/Units 02:55 02:55 05:50 WBC 7.8 (4.0-10.5) K/mm3 RBC 4.31 (4.1-5.4) M/mm3 Hgb 13.5 (12.0-16.0) gm/dl Hct 43.0 (35-47) % MCV 99.8 (78-100) fl MCH 31.3 (26-32) pg MCHC 31.4 L (32-36) g/dl RDW 13.7 (11.5-14.0) % Plt Count 243 (150-450) K/mm3 MPV 9.9 (7.5-11.0) fl Gran % (36.0-66.0) % Eos # (Auto) (0-0.5) Absolute Lymphs (auto) (1.0-4.6) Absolute Monos (auto) (0.0-1.3) Lymphocytes % (24.0-44.0) % Monocytes % (0.0-12.0) % Eosinophils % (0.00-5.0) % Basophils % (0.0-0.4) % Absolute Granulocytes (1.4-6.9) Basophils # (0-0.4) PT (9.4-12.5) SECONDS INR (0.8-3.0) APTT (25.1-36.5) SECONDS D-Dimer (215-500) ng/mL Puncture Site pCO2 (35-45) mmHg pO2 (75-100) mmHg Base Excess (-2.0-2.0) O2 Saturation (94-100) g/dF ABG pH (7.35-7.45) ABG HCO3 (22-28) ABG O2 Sat (Measured) (95-100) % Regino Test A-a Gradient a/A Ratio Hemoglobin Carboxyhemoglobin (0.0-6.9) % THgb Methemoglobin (1.4-1.5) % Potassium 4.6 (3.5-5.1) Temperature C POC O2 Flow Rate % Sodium 136 L (137-145) mmol/L Chloride 98 (98-107) mmol/L Carbon Dioxide 28 (22-30) mmol/L Anion Gap 14.3 (5-15) MEQ/L BUN 17 (7-17) mg/dL Creatinine 0.53 (0.52-1.04) mg/dL Estimated GFR > 60.0 ML/MIN Glucose 141 H (74-106) mg/dL Lactic Acid (0.4-2.0) Calcium 9.3 (8.4-10.2) mg/dL Magnesium (1.6-2.3) mg/dL Total Bilirubin (0.2-1.3) mg/dL AST (14-36) U/L ALT (0-35) U/L Alkaline Phosphatase (38-126) U/L Troponin I < 0.012 (0.000-0.034) ng/mL NT-Pro-B Natriuret Pep 1350 H (0-900) pg/mL Serum Total Protein (6.3-8.2) g/dL Albumin (3.5-5.0) g/dL Urine Color (YELLOW) Urine Appearance (CLEAR) Urine pH (5-6) Ur Specific [place] (1.005-1.025) Urine Protein (Negative) Urine Ketones (NEGATIVE) Urine Blood (0-5) Ross/ul Urine Nitrite (NEGATIVE) Urine Bilirubin (NEGATIVE) Urine Urobilinogen (0-1) mg/dL Ur Leukocyte Esterase (NEGATIVE) U Hyaline Cast (Auto) (0-2) /LPF Urine Mucus (Auto) (NEGATIVE) /HPF Urine Culture Reflexed (NO) Urine Glucose (NEGATIVE) mg/dL SARS-CoV-2 (PCR) (NEGATIVE) Microbiology 12/24/20 18:43 Urine Culture - Preliminary Catherized NO GROWTH TO DATE - Radiology Impressions Radiology Exams & Impressions: Radiology Procedures Category Date Time Status CHEST 1 VIEW (PORTABLE) Stat Exams 12/24/20 17:44 Completed CHEST WITH CONTRAST [CT] Stat Exams 12/24/20 18:47 Completed ECHO W/2D AND DOPPLER [US] Routine Exams 12/24/20 22:02 Ordered - Other Procedures and Tests Respiratory Therapy 12/24/20 18:30 BiPap/CPAP STAT 12/25/20 01:58 Oxygen Nasal Cannula 3 lpm 12/25/20 06:00 EKG IN AM Assessment/Plan (1) CHF exacerbation Current Visit: No Status: Acute Qualifiers: Heart failure type: unspecified Qualified Code(s): I50.9 - Heart failure, unspecified Assessment & Plan: much improved since admission. Unsure the cause, if it was simply eating too much salt this week. Echo to be done today. Troponins neg. Anticipate she will be here several days to stabilize her fluid balance and electrolytes. Code(s): I50.9 - HEART FAILURE, UNSPECIFIED (2) Pulmonary embolus Current Visit: Yes Status: Acute Qualifiers: Pulmonary embolism type: single subsegmental (without acute cor pulmonale) Qualified Code(s): I26.93 - Single subsegmental pulmonary embolism without acute cor pulmonale Assessment & Plan: "tiny" per report. On Eliquis 10mg po BID now. Code(s): I26.99 - OTHER PULMONARY EMBOLISM WITHOUT ACUTE COR PULMONALE (3) Hypertension Current Visit: Yes Status: Chronic Qualifiers: Hypertension type: primary hypertension Qualified Code(s): I10 - Essential (primary) hypertension Code(s): I10 - ESSENTIAL (PRIMARY) HYPERTENSION (4) Smoker Current Visit: No Status: Chronic Code(s): F17.200 - NICOTINE DEPENDENCE, UNSPECIFIED, UNCOMPLICATED (5) Chronic hypoxemic respiratory failure Current Visit: Yes Status: Chronic
[2020-12-25] MEDS ORDERED: Zestril 10 MG PO SCH (10:00)
[2020-12-25] MEDS ORDERED: NON-FORMULARY ITEM (Omeprazole [Omeprazole] 40 MG) PO SCH (10:00)
[2020-12-25] MEDS ORDERED: Zithromax 500 MG/ 250 ML NaCl Premix 500 MG/250 ML IVPB IV SCH (10:00)
[2020-12-25] MEDS ORDERED: Lasix 40 MG/4 ML IV SCH (10:00)
[2020-12-25] MEDS ORDERED: NON-FORMULARY ITEM (Lisinopril [Zestril] 2.5 MG) PO SCH (10:00)
[2020-12-25] MEDS ORDERED: NON-FORMULARY ITEM (Atorvastatin Calcium 20 MG) PO SCH (10:00)
[2020-12-25] MEDS: hydroDIURIL 25 MG PO SCH (11:18)
[2020-12-25] MEDS: Klor Con 10 MEQ PO SCH (11:19)
[2020-12-25] MEDS: Protonix 40MG Tablet PO SCH (11:20)
[2020-12-25] MEDS: Toprol-Xl 25MG Tablets PO SCH (11:20)
[2020-12-25] MEDS: Zestril 5 MG PO SCH ×2 (11:21→21:23)
[2020-12-25] MEDS: ZOLOFT 50 MG TABLET PO SCH (11:22)
[2020-12-25] MEDS: ZOCOR 20MG PO SCH (11:22)
[2020-12-25] MEDS: ATARAX 25 MG PO PRN (11:23)
[2020-12-25] MEDS: DUONEB 0.5-3 MG/3 ml Neb IH SCH ×3 (11:27→19:19)
[2020-12-25] MEDS: Zithromax 500 MG/ 250 ML NaCl Premix 500 MG/250 ML IVPB IV SCH (21:20)
[2020-12-25] MEDS: ELIQUIS 2.5 MG TABLET PO SCH (21:21)
[2020-12-26] MEDS: NORCO 5/325 MG PO PRN ×2 (03:16→16:18)
[2020-12-26 06:26] LABS: ALBUMIN 3.9 g/dL (3.5-5.0); ALKALINE PHOSPHATASE 71 U/L (38-126); ANION GAP 12.6 MEQ/L (5-15); BLOOD UREA NITROGEN 22 mg/dL (7-17); CHLORIDE 100 mmol/L (98-107); Calcium 8.8 mg/dL (8.4-10.2); Carbon Dioxide 31 mmol/L (22-30); Creatinine 1 0.66 mg/dL (0.52-1.04); EST GLOMERULAR FILTRATION RATE > 60.0 ML/MIN; Glucose 92 mg/dL (74-106); Potassium 4.8 mmol/L (3.5-5.1); SGOT/AST 18 U/L (14-36); SGPT/ALT 12 U/L (0-35); SODIUM 138 mmol/L (137-145); Total Protein 6.7 g/dL (6.3-8.2)
[2020-12-26] MEDS: DUONEB 0.5-3 MG/3 ml Neb IH SCH ×4 (07:28→20:06)
--- NOTE | 2020-12-26 09:04 | PCM.NOTE ---
Date and Time: 12/26/20901 Subjective Assessment: patient reports she is feeling ok today but not as good as yesterday, has some yellow sputum production with cough. Objective Exam General Appearance: no apparent distress, alert, obese Neurologic Exam: alert, oriented x 3 Respiratory Exam: crackles/rales Cardiovascular Exam: regular rate/rhythm, normal heart sounds Gastrointestinal/Abdomen Exam: soft, No tenderness, No mass Extremity Exam: pedal edema OBJECTIVE DATA Vital Signs: Vital Signs - 24 hr Temp Pulse Resp BP Pulse Ox 12/26/20 08:00 97.1 F 60 22 109/53 97 12/26/20 07:25 58 L 16 95 12/26/20 02:00 97.8 F 66 22 109/58 97 12/26/20 00:00 20 12/25/20 20:00 98.2 F 69 19 101/50 97 12/25/20 19:20 72 17 98 12/25/20 16:00 97.5 F 71 18 120/46 97 12/25/20 14:52 72 17 96 12/25/20 11:35 67 18 94 L Pain Assessment - Last Documented Pain Intensity 3 Pain Scale Used 0-10 Pain Scale Intake and Output: Intake & Output 12/23/20 12/24/20 12/25/20 12/26/20 11:59 11:59 11:59 11:59 Intake Total 600 1404 Output Total 3700 2050 Balance -3100 -646 Weight 128.9 kg 106.5 kg Lab Results: Lab Results-Last 24 Hours 12/26/20 Range/Units 04:35 Sodium 138 (137-145) mmol/L Potassium 4.8 (3.5-5.1) mmol/L Chloride 100 (98-107) mmol/L Carbon Dioxide 31 H (22-30) mmol/L Anion Gap 12.6 (5-15) MEQ/L BUN 22 H (7-17) mg/dL Creatinine 0.66 (0.52-1.04) mg/dL Estimated GFR > 60.0 ML/MIN Glucose 92 (74-106) mg/dL Calcium 8.8 (8.4-10.2) mg/dL Total Bilirubin 0.40 (0.2-1.3) mg/dL AST 18 (14-36) U/L ALT 12 (0-35) U/L Alkaline Phosphatase 71 (38-126) U/L Serum Total Protein 6.7 (6.3-8.2) g/dL Albumin 3.9 (3.5-5.0) g/dL Radiology Exams: Radiology Procedures Category Date Time Status CHEST 1 VIEW (PORTABLE) Stat Exams 12/24/20 17:44 Completed CHEST WITH CONTRAST [CT] Stat Exams 12/24/20 18:47 Completed ECHO W/2D AND DOPPLER [US] Routine Exams 12/25/20 22:02 Taken Multi-Disciplinary Progress Notes: Multi-Disciplinary Progress Notes 12/26/20 07:11 Pharmacy Note by Cristi Mishra Please review Eliquis dose. 10mg po BID should be given for one week only. Initialized on 12/26/20 07:11 - END OF NOTE Assessment/Plan (1) CHF exacerbation Current Visit: No Status: Acute Qualifiers: Heart failure type: unspecified Qualified Code(s): I50.9 - Heart failure, unspecified Assessment & Plan: continue diuresis, echo pending but in the past she has had preserved LV function Code(s): I50.9 - HEART FAILURE, UNSPECIFIED (2) Pneumonia Current Visit: Yes Status: Acute Assessment & Plan: collect sputum culture, continue rocephin/zithromax, no wheezing on exam Code(s): J18.9 - PNEUMONIA, UNSPECIFIED ORGANISM (3) Pulmonary embolus Current Visit: Yes Status: Acute Qualifiers: Pulmonary embolism type: single subsegmental (without acute cor pulmonale) Qualified Code(s): I26.93 - Single subsegmental pulmonary embolism without acute cor pulmonale Assessment & Plan: eliquis Code(s): I26.99 - OTHER PULMONARY EMBOLISM WITHOUT ACUTE COR PULMONALE (4) Chronic hypoxemic respiratory failure Current Visit: Yes Status: Chronic Assessment & Plan: has home oxygen.
[2020-12-26] MEDS ORDERED: ROCEPHIN 1 Gm-D5w 50 ml Bag** 1 G/50 ML IVPB IV SCH (10:00)
[2020-12-26] MEDS: hydroDIURIL 25 MG PO SCH (10:13)
[2020-12-26] MEDS: Protonix 40MG Tablet PO SCH (10:14)
[2020-12-26] MEDS: ZOLOFT 50 MG TABLET PO SCH (10:15)
[2020-12-26] MEDS: ZOCOR 20MG PO SCH (10:16)
[2020-12-26] MEDS: ATARAX 25 MG PO PRN (10:16)
[2020-12-26] MEDS: ELIQUIS 2.5 MG TABLET PO SCH ×2 (10:17→22:39)
[2020-12-26] MEDS: Klor Con 10 MEQ PO SCH (10:19)
[2020-12-26] MEDS: Lasix 40 MG/4 ML IV SCH (10:19)
[2020-12-26] MEDS: Toprol-Xl 25MG Tablets PO SCH (12:02)
[2020-12-26] MEDS: Zestril 5 MG PO SCH ×2 (12:02→22:40)
--- NOTE | 2020-12-26 15:05 | ECHO ---
Transthoracic echocardiographic examination and color Doppler was done on 12/25/2020. INDICATION: Shortness of breath, congestive heart failure. IMPRESSION: 1) NO REGIONAL WALL MOTION ABNORMALITY. ESTIMATED GLOBAL LEFT VENTRICULAR EJECTION FRACTION OF AROUND 60%. 2) LEFT VENTRICULAR HYPERTROPHY. 3) LEFT ATRIAL ENLARGEMENT. 4) CALCIFIED MITRAL VALVE WITH SOME EVIDENCE OF MITRAL STENOSIS. 5) MILD MITRAL REGURGITATION. 6) MILD TRICUSPID REGURGITATION. RIGHT VENTRICULAR SYSTOLIC PRESSURE OF 23 MM OF MERCURY. 7) AORTIC VALVE SCLEROSIS WITH TRANSAORTIC GRADIENT OF 52 MM OF MERCURY AND MEAN GRADIENT OF 24 MM OF MERCURY. 8) LEFT ATRIAL ENLARGEMENT. The left ventricle was not well visualized but demonstrated adequate contractility. The estimated global left ventricular ejection fraction of 60%. There is some left ventricular hypertrophy. The mitral valve is heavily calcified particularly in the posterior leaflet and there appears to be some limited opening. There is some evidence of mitral stenosis. There is also some mild mitral regurgitation. The left atrium is mildly enlarged. The aortic valve is calcified and this is not well visualized. Transaortic gradient was measured across the left ventricular outflow tract of around 52 mm of Mercury with a mean gradient of 24 mm of Mercury. The right side chambers appears to be normal. There is mild tricuspid regurgitation. The right ventricular systolic pressure of 23 mm of Mercury. There is also trace pulmonic insufficiency. Additional interrogation of both the mitral and aortic valve is necessary to determine the hemodynamic significance of mitral stenosis and aortic stenosis.
[2020-12-26] MEDS: Cyclobenzaprine 10 MG PO PRN (22:39)
[2020-12-26] MEDS: Zithromax 500 MG/ 250 ML NaCl Premix 500 MG/250 ML IVPB IV SCH (22:41)
[2020-12-27 04:34] VITALS: BP 118/54
[2020-12-27 05:03] LABS: Absolute Neutrophil Ct (ANC) 4.25 (1.4-6.9); BASOPHIL % 0.6 % (0.0-0.4); Basophil (Absolute #) 0.04 (0-0.4); Eosinophil % 2.3 % (0.00-5.0); Eosinophil (Absolute #) 0.17 (0-0.5); Hemoglobin 13.8 gm/dl (12.0-16.0); Lymphocyte (Absolute #) 2.09 (1.0-4.6); Lymphocytes % 28.7 % (24.0-44.0); Mean Cell Volume 100.2 fl (78-100); Mean Corpuscular Hemoglobin 31.4 pg (26-32); Mean Corpuscular Hgb Concent. 31.4 g/dl (32-36); Mean Platelet Volume 9.9 fl (7.5-11.0); Monocyte (Absolute #) 0.72 (0.0-1.3); Monocytes % 9.9 % (0.0-12.0); Neutrophil % 58.5 % (36.0-66.0); Platelet Count 239 K/mm3 (150-450); Red Blood Count 4.39 M/mm3 (4.1-5.4); Red Cell Distribution Width 13.8 % (11.5-14.0); White Blood Count 7.3 K/mm3 (4.0-10.5)
[2020-12-27] MEDS: NORCO 5/325 MG PO PRN (05:04)
[2020-12-27 05:33] LABS: ANION GAP 11.4 MEQ/L (5-15); BLOOD UREA NITROGEN 22 mg/dL (7-17); CHLORIDE 95 mmol/L (98-107); Calcium 9.3 mg/dL (8.4-10.2); Carbon Dioxide 36 mmol/L (22-30); Creatinine 1 0.58 mg/dL (0.52-1.04); EST GLOMERULAR FILTRATION RATE > 60.0 ML/MIN; Glucose 108 mg/dL (74-106); MAGNESIUM 2.2 mg/dL (1.6-2.3); NT PRO BNP 234 pg/mL (0-900); Potassium 4.5 mmol/L (3.5-5.1); SODIUM 138 mmol/L (137-145)
[2020-12-27] MEDS: DUONEB 0.5-3 MG/3 ml Neb IH SCH (07:22)
[2020-12-27 07:27] VITALS: O2SAT 93
[2020-12-27 07:30] VITALS: PULSE 73
--- NOTE | 2020-12-27 08:30 | PCM.DS ---
Discharge Summary Date of Admission: 12/24/20 21:51 Admitting Physician: EDGAR TRAN Primary Care Provider: EDGAR TRAN Allergies Allergies bee pollen Allergy (Verified 12/24/20 22:28) Hospital Summary - Hospital Course Hospital Course: patient was admitted with acute chf exacerbation, echo shows preserved LF function, she is on home oxygen for copd. she is doing well, appears euvolemic, maintaining sats on 3L oxygen which she is on at home. had good diuresis after admission, has a productive cough treated with abx, no wheezing so no steroids. - Vitals & Intake/Output Vital Signs: Vital Signs Temperature 97.7 F 12/27/20 07:29 Pulse Rate 73 12/27/20 07:29 Respiratory Rate 14 12/27/20 07:29 Blood Pressure 118/54 12/27/20 07:29 O2 Sat by Pulse Oximetry 93 L 12/27/20 07:29 Intake & Output: Intake & Output 12/24/20 12/25/20 12/26/20 12/27/20 11:59 11:59 11:59 11:59 Intake Total 600 1404 1675 Output Total 3700 2050 3200 Balance -4940 -019 -7120 Weight 128.9 kg 106.5 kg 107.5 kg - Lab Result Diagrams: 12/27/20 04:59 12/27/20 04:59 Lab Results-Last 24 Hrs: Lab Results-Last 24 Hours 12/27/20 12/27/20 Range/Units 04:59 04:59 WBC 7.3 (4.0-10.5) K/mm3 RBC 4.39 (4.1-5.4) M/mm3 Hgb 13.8 (12.0-16.0) gm/dl Hct 44.0 (35-47) % MCV 100.2 H (78-100) fl MCH 31.4 (26-32) pg MCHC 31.4 L (32-36) g/dl RDW 13.8 (11.5-14.0) % Plt Count 239 (150-450) K/mm3 MPV 9.9 (7.5-11.0) fl Gran % 58.5 (36.0-66.0) % Eos # (Auto) 0.17 (0-0.5) Absolute Lymphs (auto) 2.09 (1.0-4.6) Absolute Monos (auto) 0.72 (0.0-1.3) Lymphocytes % 28.7 (24.0-44.0) % Monocytes % 9.9 (0.0-12.0) % Eosinophils % 2.3 (0.00-5.0) % Basophils % 0.6 (0.0-0.4) % Absolute Granulocytes 4.25 (1.4-6.9) Basophils # 0.04 (0-0.4) Sodium 138 (137-145) mmol/L Potassium 4.5 (3.5-5.1) mmol/L Chloride 95 L (98-107) mmol/L Carbon Dioxide 36 H (22-30) mmol/L Anion Gap 11.4 (5-15) MEQ/L BUN 22 H (7-17) mg/dL Creatinine 0.58 (0.52-1.04) mg/dL Estimated GFR > 60.0 ML/MIN Glucose 108 H (74-106) mg/dL Calcium 9.3 (8.4-10.2) mg/dL Magnesium 2.2 (1.6-2.3) mg/dL NT-Pro-B Natriuret Pep 234 (0-900) pg/mL Micro Results-Entire Visit: Microbiology 12/24/20 18:43 Urine Culture - Final Catherized NO GROWTH 12/24/20 20:37 Blood Culture - Preliminary Blood NO GROWTH TO DATE 12/24/20 18:30 Blood Culture - Preliminary Blood NO GROWTH TO DATE - Radiology Exams Ordered Rad Exams-Entire Visit: Radiology Procedures Category Date Time Status ECHO W/2D AND DOPPLER [US] Routine Exams 12/25/20 22:02 Draft - Procedures and Test Procedures and Tests throughout Hospitalization: Therapy Orders & Screens 12/24/20 18:30 BiPap/CPAP STAT Comment: 12/25/20 01:58 Oxygen Nasal Cannula 3 lpm Comment: Diagnosis: PE, Pulmonary Edema Pneumonia 12/25/20 06:00 EKG IN AM Comment: 12/25/20 11:31 Respiratory Therapy Assessment DAILY Comment: Diagnosis: PE, Pulmonary Edema Pneumonia Discharge Exam General Appearance: no apparent distress, obese Neurologic Exam: alert, oriented x 3 Respiratory Exam: normal breath sounds, lungs clear, No respiratory distress Cardiovascular Exam: regular rate/rhythm, normal heart sounds Gastrointestinal/Abdomen Exam: soft, No tenderness, No mass Extremity Exam: normal inspection, normal range of motion Skin Exam: normal color, warm, dry Final Diagnosis/Problem List - Final Discharge Diagnosis/Problem (1) CHF exacerbation Current Visit: No Status: Acute Assessment & Plan: diuresed well, euvolemic. continue po lasix, LV function preserved on echo. sees Dr Jeffry Suarez Code(s): I50.9 - HEART FAILURE, UNSPECIFIED (2) Pneumonia Current Visit: Yes Status: Acute Assessment & Plan: doxy x 7 days Code(s): J18.9 - PNEUMONIA, UNSPECIFIED ORGANISM (3) Pulmonary embolus Current Visit: Yes Status: Acute Assessment & Plan: eliquis Code(s): I26.99 - OTHER PULMONARY EMBOLISM WITHOUT ACUTE COR PULMONALE (4) Chronic hypoxemic respiratory failure Current Visit: Yes Status: Chronic Assessment & Plan: has home oxygen - Discharge Disposition: Home, Self-Care Condition: Stable Prescriptions: New Apixaban [Eliquis] 5 mg PO BID #60 tablet Doxycycline Hyclate 100 mg [Vibramycin 100 MG] 100 mg PO BID #14 tab Continue Hydrocodone Bit/Acetaminophen [[place] 5/325Mg] 1 each PO Q6H PRN PRN PRN Reason: Pain Cyclobenzaprine HCl [Flexeril] 10 mg PO TID PRN PRN PRN Reason: Muscle Spasms Albuterol/Ipratropium 3ml Neb* [DUONEB 0.5-3 MG/3 ml Neb] 3 ml IH QID #120 ampul.neb Sertraline HCl 50 mg [Zoloft 50 mg Tablet] 100 mg PO DAILY Atorvastatin Calcium [Lipitor 20MG Tablet] 20 mg PO DAILY Hydrochlorothiazide 25 mg [hydroDIURIL 25 MG] 12.5 mg PO DAILY Metoprolol Succinate 25 mg Xl* [Toprol-Xl 25MG Tablets] 25 mg PO DAILY 30 Days #30 tab Hydroxyzine HCl 25 mg [Atarax 25 mg] 25 mg PO DAILY PRN PRN Reason: Anxiety lisinopriL [Zestril] 2.5 mg PO BID Potassium Chloride 10 Meq Tab* [Klor Con 10 MEQ] 10 meq PO DAILY Furosemide 40 mg [Lasix 40 MG] 40 mg PO DAILY Omeprazole 40 mg PO DAILY Albuterol Sulfate [Albuterol Sulfate Hfa] 1 puff IH Q4H PRN PRN PRN Reason: SOB/Wheezing Follow up with: EDGAR TRAN MD [Primary Care Provider] - 2 weeks
[2020-12-27] MEDS: hydroDIURIL 25 MG PO SCH (09:24)
[2020-12-27] MEDS: Toprol-Xl 25MG Tablets PO SCH (09:24)
[2020-12-27] MEDS: Klor Con 10 MEQ PO SCH (09:24)
[2020-12-27] MEDS: ZOCOR 20MG PO SCH (09:24)
[2020-12-27] MEDS: ZOLOFT 50 MG TABLET PO SCH (09:24)
[2020-12-27] MEDS: ELIQUIS 2.5 MG TABLET PO SCH (09:24)
[2020-12-27] MEDS: Protonix 40MG Tablet PO SCH (09:25)
[2020-12-27] MEDS: Zestril 5 MG PO SCH (09:25)
[2020-12-27] MEDS: Lasix 40 MG/4 ML IV SCH (09:26)
== END 2020-12-27 10:00 | disposition home or self-care (01) ==
LOC: ED 17:41 → ICU 21:51
PROVIDERS: ADMIT Family Medicine; ATTEND Family Medicine
DX: I50.9 Heart failure, unspecified (principal); J18.9 Pneumonia, unspecified organism; J96.11 Chronic respiratory failure with hypoxia; I26.99 Other pulmonary embolism without acute cor pulmonale; I10 Essential (primary) hypertension; R42 Dizziness and giddiness; Z99.81 Dependence on supplemental oxygen; J44.9 Chronic obstructive pulmonary disease, unspecified; Z79.899 Other long term (current) drug therapy; Z72.0 Tobacco use; Z20.822 Contact with and (suspected) exposure to COVID-19
CPT/HCPCS: 36000; 36415; 36600; 51702; 71045; 71260; 80048; 80053; 81001; 82375; 82803; 83605; 83735; 83880; 84484; 85025; 85027; 85379; 85610; 85730; 87040; 87070; 87086; 93005; 93041; 93268; 93306; 94002; 94640; 94762; 96374; 99285; 99291; 99292; G0378; U0003; J0456; J0696; J1940; J7609; A9270-GY

== ENCOUNTER 2021-02-07 02:10 | Inpatient (IN) | payer OTHER ==
[2021-02-07] MEDS ORDERED: PROVENTIL 2.5 MG/3 ML NEB IH ONE ×2 (02:13→02:33)
[2021-02-07] MEDS ORDERED: DUONEB 0.5-3 MG/3 ml Neb IH ONE (02:45)
[2021-02-07] MEDS ORDERED: solu-MEDROL 125 MG, Sterile H2O 10 ml 2 ML IV ONE ×2 (02:45)
[2021-02-07] MEDS ORDERED: ROCEPHIN 2 Gm-D5w 50ML BAG** 2 G/50 ML IVPB IV STA (02:48)
[2021-02-07] MEDS ORDERED: Zithromax 500 MG/ 250 ML NaCl Premix 500 MG/250 ML IVPB IV STA (02:48)
--- NOTE | 2021-02-07 03:00 | ERPHSYRPT ---
- History of Present Illness Time Seen by Provider: 02/07/21 02:15 Source: patient Exam Limitations: no limitations Patient Subjective Stated Complaint: I woke up with a nosebleed around 2230 and my O2 sats were up and down, became more sob when laying down. My nose is re ally stopped up. Triage Nursing Assessment: pt c/o sob with O2 sats up and down, has had a nosebleed several times today from left nostril, very dry. Pt wears O2 at home 3L continuously. Pt has had a cough and c/o nose being very dry. Lung schneider wheezy ant, upper and lower lobes. Ears feel clogged, pt is having difficulty hearing due to that. Heart tones reg. Physician History: Patient is a 55-year-old female with a history of COPD and CHF presents to our ED via EMS with complaints of shortness of breath. Patient believes she is experiencing a COPD exacerbation. Patient admits that she has a URI and a cough. Patient believes that URI is triggered her COPD. Patient feels short of breath. Patient requires 3 L nasal cannula at home. In spite of her oxygen she still feels short of breath. Shortness of breath is somewhat worse when she lays flat. Patient states she has been experiencing a nosebleed as well. Her ears feel "stuffed up". No fever. No nausea or vomiting. No diaphoresis. No rash. Symptoms are constant. Symptoms are moderate in intensity. No specific worsening or improving factors. Patient voices no other complaints or concerns at this time. Patient advised that she is still a smoker. She smokes waldemar roximately 10 cigarettes/day. Patient received a DuoNeb in route via EMS. Timing/Duration: today Activities at Onset: none Severity of Dyspnea-Max: moderate Severity of Dyspnea-Current: mild Possible Cause: unknown cause (URI) Modifying Factors: Improves With: albuterol nebulizer Associated Symptoms: cough, wheezing, No edema, No fever, No lightheadedness, No ankle swelling, No chills, No hemoptysis, No dizziness, No heart racing, No muscle spasms hands, No painful breathing, No sweating (Nosebleed) Allergies/Adverse Reactions: bee pollen Allergy (Verified 02/07/21 02:32) Home Medications: Cyclobenzaprine HCl [Flexeril] 10 mg PO TID PRN PRN 07/07/16 [History] Hydrocodone Bit/Acetaminophen [[place] 5/325Mg] 1 each PO Q6H PRN PRN 07/07/16 [History] Atorvastatin Calcium [Lipitor 20MG Tablet] 20 mg PO DAILY 12/27/19 [History] Sertraline HCl 50 mg [Zoloft 50 mg Tablet] 100 mg PO DAILY 12/27/19 [History] Hydrochlorothiazide 25 mg [hydroDIURIL 25 MG] 12.5 mg PO DAILY 12/28/19 [History] Furosemide 40 mg [Lasix 40 MG] 40 mg PO DAILY 08/06/20 [History] Hydroxyzine HCl 25 mg [Atarax 25 mg] 25 mg PO DAILY PRN 08/06/20 [History] Omeprazole 40 mg PO DAILY 08/06/20 [History] Potassium Chloride 10 Meq Tab* [Klor Con 10 MEQ] 10 meq PO DAILY 08/06/20 [History] lisinopriL [Zestril] 2.5 mg PO BID 08/06/20 [History] Albuterol Sulfate [Albuterol Sulfate Hfa] 1 puff IH Q4H PRN PRN 12/24/20 [History] Hx Tetanus, Diphtheria Vaccination/Date Given: Yes Hx Influenza Vaccination/Date Given: No Hx Pneumococcal Vaccination/Date Given: Yes Immunizations Up to Date: Yes Travel Risk - International Travel Have you traveled outside of the country in past 3 weeks: No - Coronavirus Screening Are you exhibiting any of the following symptoms?: Yes Symptoms: Cough: New Onset, Shortness of Breath Close contact with a COVID-19 positive Pt in past 14-21 Days: No - Vaccine Status Have you recieved a Covid-19 vaccination: Yes 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 Dates if Unknown: . - Review of Systems Constitutional: No Symptoms, No Fever, No Chills Eyes: No Symptoms Ears, Nose, & Throat: No Symptoms Respiratory: No Symptoms, No Cough, No Dyspnea Cardiac: No Symptoms, No Chest Pain, No Edema, No Syncope Abdominal/Gastrointestinal: No Symptoms, No Abdominal Pain, No Nausea, No Vomiting, No Diarrhea Genitourinary Symptoms: No Symptoms, No Dysuria Musculoskeletal: No Symptoms, No Back Pain, No Neck Pain Skin: No Symptoms, No Rash Neurological: No Symptoms, No Dizziness, No Focal Weakness, No Sensory Changes Psychological: No Symptoms Endocrine: No Symptoms Hematologic/Lymphatic: No Symptoms Immunological/Allergic: No Symptoms All Other Systems: Reviewed and Negative - Past Medical History Pertinent Past Medical History: Yes Neurological History: No Pertinent History ENT History: No Pertinent History Cardiac History: Congestive Heart Failure, High Cholesterol, Hypertension Respiratory History: Asthma, Bronchitis, CHF, COPD, Pneumonia Endocrine Medical History: No Pertinent History Musculoskeletal History: Arthritis, Other GI Medical History: GERD History: No Pertinent History Psycho-Social History: Anxiety, Depression Female Reproductive Disorders: No Pertinent History Other Medical History: chronic back pain - Past Surgical History Past Surgical History: Yes Neuro Surgical History: No Pertinent History Cardiac: No Pertinent History Respiratory: No Pertinent History Gastrointestinal: No Pertinent History Genitourinary: No Pertinent History Musculoskeletal: Orthopedic Surgery Female Surgical History: No Pertinent History Other Surgical History: tonsils, back - Social History Smoking Status: Current every day smoker How long have you smoked: 45 yrs Exposure to second hand smoke: Yes Drug Use: marijuana Patient Lives Alone: No Significant Family History: no pertinent family hx - Female History Hx Now: No - Nursing Vital Signs Nursing Vital Signs: Initial Vital Signs Temperature 98.7 F 02/07/21 02:11 Pulse Rate 104 H 02/07/21 02:11 Respiratory Rate 24 02/07/21 02:11 Blood Pressure 124/74 02/07/21 02:11 O2 Sat by Pulse Oximetry 95 02/07/21 02:11 Pain Scale Pain Intensity 0 - Physical Exam General Appearance: no apparent distress, alert Eye Exam: PERRL/EOMI Ears, Nose, Throat Exam: hearing grossly normal, normal ENT inspection, normal pharynx Neck Exam: normal inspection, supple, full range of motion, No non-tender Respiratory Exam: diminished breath sounds, crackles/rales, wheezing Cardiovascular/Chest Exam: normal heart sounds, regular rate/rhythm, normal peripheral pulses Abdominal/Gastrointestinal Exam: soft, No normal bowel sounds, No tenderness, No distention, No mass Extremity Exam: non-tender, normal range of motion, normal inspection, normal capillary refill, no calf tenderness, no pedal edema Peripheral Pulses Exam: dorsalis-pedis (R): 2+, dorsalis-pedis (L): 2+ Neurologic Exam: alert, oriented x 3, cooperative, melter helper II-XII nml as tested, sensation nml, No motor deficits Skin Exam: normal color, warm, No dry Lymphatic Exam: No adenopathy SpO2 Interpretation: hypoxic SpO2: 92 O2 Delivery: Nasal Cannula - Course Nursing assessment & vital signs reviewed: Yes EKG Interpreted by Me: RATE (104), Sinus Tach, NORMAL AXIS, NORMAL INTERVALS - Radiology Exams Chest X-ray Interpretation: Interpreted by me (Subtle right lung airspace disease and atelectasis. Early pulmonary congestion. Intact bony thorax.) Ordered Tests: Active Orders 24 hr Category Date Time Status Flight Operations Dispatch Clerk STAT Care 02/07/21 02:46 Active EKG-ER Only STAT Care 02/07/21 02:45 Active IV Insertion STAT Care 02/07/21 02:45 Active Pulse Oximetry (ED) STAT Care 02/07/21 02:45 Active CHEST 1 VIEW (PORTABLE) Stat Exams 02/07/21 02:46 Taken BLOOD CULTURE Stat Lab 02/07/21 03:12 Received CBC W DIFF Stat Lab 02/07/21 03:11 Completed CMP Stat Lab 02/07/21 03:11 Completed NT PRO BNP Routine Lab 02/07/21 03:14 Completed TROPONIN Q3H Lab 02/07/21 03:14 Completed TROPONIN Q3H Lab 02/07/21 06:00 Ordered TROPONIN Q3H Lab 02/07/21 09:00 Ordered TROPONIN Q3H Lab 02/07/21 12:00 Ordered TROPONIN Q3H Lab 02/07/21 15:00 Ordered UA W/RFX UR CULTURE Stat Lab 02/07/21 04:13 Completed Respiratory Therapy Assessment DAILY RT 02/07/21 03:36 Active Medication Summary Discontinued Medications Generic Name Dose Route Start Last Admin Trade Name Freq PRN Reason Stop Dose Admin Albuterol Sulfate Confirm 02/07/21 02:13 Albuterol Sulfate 2.5 Mg/3 Ml Neb Administered 02/07/21 02:14 Dose 2.5 mg IH .STK-MED ONE Albuterol Sulfate 2.5 mg 02/07/21 02:33 02/07/21 02:15 Albuterol Sulfate 2.5 Mg/3 Ml Neb IH 02/07/21 02:34 2.5 mg STAT ONE Administration Albuterol/Ipratropium 3 ml 02/07/21 02:45 02/07/21 03:34 Ipratropium/Albuterol Sulfate 3 Ml Ampul.Neb IH 02/07/21 02:46 Not Given STAT ONE Methylprednisolone Sodium 0 mg 02/07/21 02:45 02/07/21 03:03 Succinate 125 mg/ Sterile IV 02/07/21 02:46 125 mg Water 2 ml STAT ONE Administration Furosemide 40 mg 02/07/21 03:53 02/07/21 03:57 Furosemide 40 Mg/4 Ml Vial IV 02/07/21 03:54 40 mg STAT ONE Administration Furosemide Confirm 02/07/21 03:57 Furosemide 40 Mg/4 Ml Vial Administered 02/07/21 03:58 Dose 40 mg .ROUTE .STK-MED ONE Ceftriaxone Sodium/Dextrose 2 g in 50 mls @ 100 mls/hr 02/07/21 02:48 02/07/21 03:04 Rocephin 2 Gm-D5w 50ml Bag IV 02/07/21 03:17 100 mls/hr STAT STA 100 mls/hr Administration Azithromycin 500 mg in 250 mls @ 250 mls/hr 02/07/21 02:48 02/07/21 03:38 Zithromax 500 Mg/ 250 Ml Nacl Premix IV 02/07/21 03:47 250 mls/hr STAT STA 250 mls/hr Administration Ceftriaxone Sodium/Dextrose Confirm 02/07/21 03:01 Rocephin 2 Gm-D5w 50ml Bag Administered 02/07/21 03:02 Dose 2 g in 50 mls @ ud IV .STK-MED ONE Azithromycin Confirm 02/07/21 03:11 Zithromax 500 Mg/ 250 Ml Nacl Premix Administered 02/07/21 03:12 Dose 500 mg in 250 mls @ ud IV .STK-MED ONE Methylprednisolone Sodium Succinate Confirm 02/07/21 03:01 Methylprednis Sod Succ 125 Mg/2 Ml Vial Administered 02/07/21 03:02 Dose 125 mg .ROUTE .STK-MED ONE Sterile Water Confirm 02/07/21 03:01 Water For Injection,Sterile 10 Ml Vial Administered 02/07/21 03:02 Dose 10 ml IJ .STK-MED ONE Lab/Rad Data: Laboratory Result Diagrams 02/07/21 03:11 02/07/21 03:11 Laboratory Results 02/07/21 02/07/21 02/07/21 Range/Units 04:40 04:13 03:14 WBC (4.0-10.5) K/mm3 RBC (4.1-5.4) M/mm3 Hgb (12.0-16.0) gm/dl Hct (35-47) % MCV (78-100) fl MCH (26-32) pg MCHC (32-36) g/dl RDW (11.5-14.0) % Plt Count (150-450) K/mm3 MPV (7.5-11.0) fl Gran % (36.0-66.0) % Eos # (Auto) (0-0.5) Absolute Lymphs (auto) (1.0-4.6) Absolute Monos (auto) (0.0-1.3) Lymphocytes % (24.0-44.0) % Monocytes % (0.0-12.0) % Eosinophils % (0.00-5.0) % Basophils % (0.0-0.4) % Absolute Granulocytes (1.4-6.9) Basophils # (0-0.4) Sodium (137-145) mmol/L Potassium (3.5-5.1) mmol/L Chloride (98-107) mmol/L Carbon Dioxide (22-30) mmol/L Anion Gap (5-15) MEQ/L BUN (7-17) mg/dL Creatinine (0.52-1.04) mg/dL Estimated GFR ML/MIN Glucose (74-106) mg/dL Calcium (8.4-10.2) mg/dL Total Bilirubin (0.2-1.3) mg/dL AST (14-36) U/L ALT (0-35) U/L Alkaline Phosphatase (38-126) U/L Troponin I < 0.012 (0.000-0.034) ng/mL NT-Pro-B Natriuret Pep 1140 H (0-900) pg/mL Serum Total Protein (6.3-8.2) g/dL Albumin (3.5-5.0) g/dL Urine Color YELLOW (YELLOW) Urine Appearance SLIGHTLY CLOUDY (CLEAR) Urine pH 5.0 (5-6) Ur Specific [place] 1.027 (1.005-1.025) Urine Protein 30 (Negative) Urine Ketones NEGATIVE (NEGATIVE) Urine Blood NEGATIVE (0-5) Ross/ul Urine Nitrite NEGATIVE (NEGATIVE) Urine Bilirubin NEGATIVE (NEGATIVE) Urine Urobilinogen NEGATIVE (0-1) mg/dL Ur Leukocyte Esterase NEGATIVE (NEGATIVE) Urine WBC (Auto) 0-2 (0-5) /HPF Urine RBC (Auto) 0-2 (0-2) /HPF U Hyaline Cast (Auto) 3-5 (0-2) /LPF U Epithel Cells (Auto) RARE (FEW) /HPF Urine Bacteria (Auto) NONE SEEN (NEGATIVE) /HPF Urine Mucus (Auto) SLIGHT (NEGATIVE) /HPF Urine Culture Reflexed NO (NO) Urine Glucose NEGATIVE (NEGATIVE) mg/dL Influenza Type A Ag NEGATIVE (NEGATIVE) Influenza Type B Ag NEGATIVE (NEGATIVE) RSV (PCR) POSITIVE (Negative) SARS-CoV-2 (PCR) NEGATIVE (NEGATIVE) 02/07/21 02/07/21 Range/Units 03:11 03:11 WBC 8.1 (4.0-10.5) K/mm3 RBC 4.17 (4.1-5.4) M/mm3 Hgb 13.1 (12.0-16.0) gm/dl Hct 42.7 (35-47) % MCV 102.4 H (78-100) fl MCH 31.4 (26-32) pg MCHC 30.7 L (32-36) g/dl RDW 14.2 H (11.5-14.0) % Plt Count 198 (150-450) K/mm3 MPV 10.0 (7.5-11.0) fl Gran % 80.1 H (36.0-66.0) % Eos # (Auto) 0.03 (0-0.5) Absolute Lymphs (auto) 0.78 L (1.0-4.6) Absolute Monos (auto) 0.77 (0.0-1.3) Lymphocytes % 9.6 L (24.0-44.0) % Monocytes % 9.5 (0.0-12.0) % Eosinophils % 0.4 (0.00-5.0) % Basophils % 0.4 (0.0-0.4) % Absolute Granulocytes 6.49 (1.4-6.9) Basophils # 0.03 (0-0.4) Sodium 139 (137-145) mmol/L Potassium 4.0 (3.5-5.1) mmol/L Chloride 97 L (98-107) mmol/L Carbon Dioxide 33 H (22-30) mmol/L Anion Gap 13.7 (5-15) MEQ/L BUN 19 H (7-17) mg/dL Creatinine 0.66 (0.52-1.04) mg/dL Estimated GFR > 60.0 ML/MIN Glucose 147 H (74-106) mg/dL Calcium 9.3 (8.4-10.2) mg/dL Total Bilirubin 0.60 (0.2-1.3) mg/dL AST 27 (14-36) U/L ALT 18 (0-35) U/L Alkaline Phosphatase 80 (38-126) U/L Troponin I (0.000-0.034) ng/mL NT-Pro-B Natriuret Pep (0-900) pg/mL Serum Total Protein 7.3 (6.3-8.2) g/dL Albumin 4.3 (3.5-5.0) g/dL Urine Color (YELLOW) Urine Appearance (CLEAR) Urine pH (5-6) Ur Specific [place] (1.005-1.025) Urine Protein (Negative) Urine Ketones (NEGATIVE) Urine Blood (0-5) Ross/ul Urine Nitrite (NEGATIVE) Urine Bilirubin (NEGATIVE) Urine Urobilinogen (0-1) mg/dL Ur Leukocyte Esterase (NEGATIVE) Urine WBC (Auto) (0-5) /HPF Urine RBC (Auto) (0-2) /HPF U Hyaline Cast (Auto) (0-2) /LPF U Epithel Cells (Auto) (FEW) /HPF Urine Bacteria (Auto) (NEGATIVE) /HPF Urine Mucus (Auto) (NEGATIVE) /HPF Urine Culture Reflexed (NO) Urine Glucose (NEGATIVE) mg/dL Influenza Type A Ag (NEGATIVE) Influenza Type B Ag (NEGATIVE) RSV (PCR) (Negative) SARS-CoV-2 (PCR) (NEGATIVE) - Progress Progress: improved Air Movement: good Progress Note: Patient reassessed. She feels much better. Work-up reveals COPD exacerbation and RSV positive. BNP elevated likely early congestive heart failure. Patient received Lasix. Blood cultures obtained. Antibiotics infused. Steroid administered. Troponin negative. Case discussed with Dr. Dc who accepts admission to observation. Patient is Covid negative. Plan of care discussed with patient. She agrees to admission at [facility] for further evaluation and treatment. Patient voices no other complaints concerns at this time. Portions of this note were created with voice recognition technology. There may be grammatical, spelling, punctuation or sound alike errors 02/07/21 05:46 Blood Culture(s) Obtained: Yes Antibiotics given: Yes Discussed with Dr.: Susanna Will see patient in: hospital (observation) Counseled pt/family regarding: lab results, diagnosis, rad results - Departure Departure Disposition: Observation Clinical Impression: COPD exacerbation, Congestive heart failure, RSV infection Condition: Stable Critical Care Time: No
[2021-02-07] MEDS ORDERED: ROCEPHIN 2 Gm-D5w 50ML BAG** 2 G/50 ML IVPB IV ONE (03:01)
[2021-02-07] MEDS ORDERED: solu-MEDROL ONE (03:01)
[2021-02-07] MEDS ORDERED: Sterile H2O 10 ml IJ ONE (03:01)
[2021-02-07] MEDS ORDERED: Zithromax 500 MG/ 250 ML NaCl Premix 500 MG/250 ML IVPB IV ONE (03:11)
[2021-02-07 03:18] LABS: Absolute Neutrophil Ct (ANC) 6.49 (1.4-6.9); BASOPHIL % 0.4 % (0.0-0.4); Basophil (Absolute #) 0.03 (0-0.4); Eosinophil % 0.4 % (0.00-5.0); Eosinophil (Absolute #) 0.03 (0-0.5); Hematocrit 42.7 % (35-47); Hemoglobin 13.1 gm/dl (12.0-16.0); Lymphocyte (Absolute #) 0.78 (1.0-4.6); Lymphocytes % 9.6 % (24.0-44.0); Mean Cell Volume 102.4 fl (78-100); Mean Corpuscular Hemoglobin 31.4 pg (26-32); Mean Corpuscular Hgb Concent. 30.7 g/dl (32-36); Monocyte (Absolute #) 0.77 (0.0-1.3); Monocytes % 9.5 % (0.0-12.0); Neutrophil % 80.1 % (36.0-66.0); Platelet Count 198 K/mm3 (150-450); Red Blood Count 4.17 M/mm3 (4.1-5.4); Red Cell Distribution Width 14.2 % (11.5-14.0); White Blood Count 8.1 K/mm3 (4.0-10.5)
[2021-02-07 03:30] LABS: ALBUMIN 4.3 g/dL (3.5-5.0); ALKALINE PHOSPHATASE 80 U/L (38-126); ANION GAP 13.7 MEQ/L (5-15); BLOOD UREA NITROGEN 19 mg/dL (7-17); CHLORIDE 97 mmol/L (98-107); Calcium 9.3 mg/dL (8.4-10.2); Carbon Dioxide 33 mmol/L (22-30); Creatinine 1 0.66 mg/dL (0.52-1.04); EST GLOMERULAR FILTRATION RATE > 60.0 ML/MIN; Glucose 147 mg/dL (74-106); SGOT/AST 27 U/L (14-36); SGPT/ALT 18 U/L (0-35); SODIUM 139 mmol/L (137-145); Total Protein 7.3 g/dL (6.3-8.2)
[2021-02-07 03:41] LABS: NT PRO BNP 1140 pg/mL (0-900); TROPONIN < 0.012 ng/mL (0.000-0.034)
[2021-02-07] MEDS ORDERED: Lasix 40 MG/4 ML IV ONE (03:53)
[2021-02-07] MEDS ORDERED: Lasix 40 MG/4 ML ONE (03:57)
[2021-02-07 04:57] LABS: Appearance SLIGHTLY CLOUDY (CLEAR); Bacteria NONE SEEN /HPF (NEGATIVE); Bilirubin NEGATIVE (NEGATIVE); Blood NEGATIVE Ery/ul (0-5); Epithelial Cells RARE /HPF (FEW); Glucose NEGATIVE (NEGATIVE); Ketones NEGATIVE (NEGATIVE); Leukocyte Esterase NEGATIVE (NEGATIVE); Mucus SLIGHT /HPF (NEGATIVE); Nitrite NEGATIVE (NEGATIVE); Protein,Urine Dip 30 (Negative); RBC 0-2 /HPF (0-2); Specific Gravity 1.027 (1.005-1.025); Urobilinogen NEGATIVE mg/dL (0-1); WBC 0-2 /HPF (0-5)
[2021-02-07 05:25] LABS: INFLUENZA A NEGATIVE (NEGATIVE); INFLUENZA B NEGATIVE (NEGATIVE); SARS-CoV-2 Xpert Express NEGATIVE (NEGATIVE)
[2021-02-07 05:29] LABS: RESPIRATORY SYNCTIAL VIRUS POSITIVE (Negative)
[2021-02-07] MEDS: PROVENTIL 2.5 MG/3 ML NEB IH SCH ×5 (07:08→21:46)
--- NOTE | 2021-02-07 08:14 | PCM.HP ---
History of Present Illness - Chief Complaint Chief Complaint: COPD History of Present Illness: is a 55 year old female who is well known to me with advanced copd and chronic hypoxemic respiratory failure and morbid obesity, she is on chronic oxygen therapy and continues to smoke. She was admitted for chf exacerbation around 6 weeks ago, started on eliquis for nonobstructing PE in left lower lobe, she arrived to ER last night with PND and orthopnea. She is very short of breath and progressively more ill over the last several days. She complains of ear pain and difficulty hearing. She has some mild cough, slight increase in swelling. - Review of Systems Constitutional: No Fever, No Chills Ears, Nose, & Throat: Ear Pain, Sinus Drainage Respiratory: Orthopnea, Short Of Breath Cardiac: Edema, No Chest Pain Abdominal/Gastrointestinal: No Abdominal Pain, No Nausea, No Vomiting, No Diarrhea Musculoskeletal: Back Pain (chronic) Skin: No Rash Neurological: No Dizziness, No Focal Weakness, No Sensory Changes All Other Systems: Reviewed and Negative Medications & Allergies Home Medications: Home Medication List Cyclobenzaprine HCl [Flexeril] 10 mg PO TID PRN PRN 07/07/16 [History Confirmed 02/07/21] Hydrocodone Bit/Acetaminophen [[place] 5/325Mg] 1 each PO Q6H PRN PRN 07/07/16 [History Confirmed 02/07/21] Atorvastatin Calcium [Lipitor 20MG Tablet] 20 mg PO DAILY 12/27/19 [History Confirmed 02/07/21] Sertraline HCl 50 mg [Zoloft 50 mg Tablet] 100 mg PO DAILY 12/27/19 [History Confirmed 02/07/21] Hydrochlorothiazide 25 mg [hydroDIURIL 25 MG] 12.5 mg PO DAILY 12/28/19 [History Confirmed 02/07/21] Metoprolol Succinate 25 mg Xl* [Toprol-Xl 25MG Tablets] 25 mg PO DAILY 30 Days #30 tab 12/31/19 [Rx Confirmed 02/07/21] Furosemide 40 mg [Lasix 40 MG] 40 mg PO DAILY 08/06/20 [History Confirmed 02/07/21] Hydroxyzine HCl 25 mg [Atarax 25 mg] 25 mg PO BID PRN PRN 08/06/20 [History Confirmed 02/07/21] Omeprazole 40 mg PO DAILY 08/06/20 [History Confirmed 02/07/21] Potassium Chloride 10 Meq Tab* [Klor Con 10 MEQ] 10 meq PO DAILY 08/06/20 [History Confirmed 02/07/21] lisinopriL [Zestril] 2.5 mg PO BID 08/06/20 [History Confirmed 02/07/21] Albuterol Sulfate [Albuterol Sulfate Hfa] 1 puff IH Q4H PRN PRN 12/24/20 [History Confirmed 02/07/21] Apixaban [Eliquis] 5 mg PO BID #60 tablet 12/27/20 [Rx Confirmed 02/07/21] Albuterol/Ipratropium 3ml Neb* [DUONEB 0.5-3 MG/3 ml Neb] 3 ml IH QID PRN 02/07/21 [History Confirmed 02/07/21] Amoxicillin 875 mg PO BID 02/07/21 [History Confirmed 02/07/21] Ibuprofen 200 mg [Motrin 200 mg] 600 mg PO BID PRN PRN 02/07/21 [History Confirmed 02/07/21] Umeclidinium Brm/Vilanterol Tr [Anoro Ellipta 62.5-25 Mcg INH] 1 each IH DAILY 02/07/21 [History Confirmed 02/07/21] Allergies/Adverse Reactions: Allergies Allergy/AdvReac Type Severity Reaction Status Date / Time bee venom protein (honey bee) Allergy Severe Difficulty Verified 02/07/21 06:22 Breathing - Past Medical History Past Medical History: Yes Neurological History: No Pertinent History ENT History: No Pertinent History Cardiac History: Congestive Heart Failure, High Cholesterol, Hypertension Respiratory History: Asthma, Bronchitis, CHF, COPD, Pneumonia Endocrine Medical History: No Pertinent History Musculoskelatal History: Arthritis, Other GI Medical History: GERD History: No Pertinent History Pyscho-Social History: Anxiety, Depression Reproductive Disorders: No Pertinent History Comment: chronic back pain - Female History Are you now?: No - Past Surgical History Past Surgical History: Yes Neuro Surgical History: No Pertinent History Cardiac History: No Pertinent History Respiratory Surgery: No Pertinent History GI Surgical History: No Pertinent History Genitourinary Surgical Hx: No Pertinent History Musculskeletal Surgical Hx: Orthopedic Surgery Female Surgical History: No Pertinent History Other Surgical History: tonsils, back surgery, ingrown toenail repair - Social History Smoking Status: Current every day smoker How long have you smoked: 45 yrs Exposure to second hand smoke: Yes Alcohol: Occasionally Drug Use: marijuana Significant Family History: no pertinent family hx - Physical Exam Vital Signs: Vital Signs - 24 hr Temp Pulse Resp BP Pulse Ox 02/07/21 07:15 90 L 02/07/21 05:49 92 L 02/07/21 05:00 97 H 25 H 114/61 94 L 02/07/21 04:00 110 H 20 90/55 93 L 02/07/21 03:00 108 H 24 102/64 92 L 02/07/21 02:45 94 L 02/07/21 02:17 24 92 L 02/07/21 02:15 114 H 28 H 89 L 02/07/21 02:11 98.7 F 104 H 24 124/74 95 General Appearance: no apparent distress, obese Neurologic Exam: alert, oriented x 3, cooperative Eye Exam: PERRL/EOMI Ears, Nose, Throat Exam: TM abnormal (L) (red and bulging) Respiratory Exam: crackles/rales Cardiovascular Exam: regular rate/rhythm, normal heart sounds, normal peripheral pulses Gastrointestinal/Abdomen Exam: soft, normal bowel sounds, No tenderness, No mass Extremity Exam: swelling Skin Exam: normal color, warm, dry, No rash Results - Labs Lab/Micro Results: Lab Results-Last 24 Hours 02/07/21 02/07/21 02/07/21 Range/Units 03:11 03:11 03:14 WBC 8.1 (4.0-10.5) K/mm3 RBC 4.17 (4.1-5.4) M/mm3 Hgb 13.1 (12.0-16.0) gm/dl Hct 42.7 (35-47) % MCV 102.4 H (78-100) fl MCH 31.4 (26-32) pg MCHC 30.7 L (32-36) g/dl RDW 14.2 H (11.5-14.0) % Plt Count 198 (150-450) K/mm3 MPV 10.0 (7.5-11.0) fl Gran % 80.1 H (36.0-66.0) % Eos # (Auto) 0.03 (0-0.5) Absolute Lymphs (auto) 0.78 L (1.0-4.6) Absolute Monos (auto) 0.77 (0.0-1.3) Lymphocytes % 9.6 L (24.0-44.0) % Monocytes % 9.5 (0.0-12.0) % Eosinophils % 0.4 (0.00-5.0) % Basophils % 0.4 (0.0-0.4) % Absolute Granulocytes 6.49 (1.4-6.9) Basophils # 0.03 (0-0.4) Sodium 139 (137-145) mmol/L Potassium 4.0 (3.5-5.1) mmol/L Chloride 97 L (98-107) mmol/L Carbon Dioxide 33 H (22-30) mmol/L Anion Gap 13.7 (5-15) MEQ/L BUN 19 H (7-17) mg/dL Creatinine 0.66 (0.52-1.04) mg/dL Estimated GFR > 60.0 ML/MIN Glucose 147 H (74-106) mg/dL Calcium 9.3 (8.4-10.2) mg/dL Total Bilirubin 0.60 (0.2-1.3) mg/dL AST 27 (14-36) U/L ALT 18 (0-35) U/L Alkaline Phosphatase 80 (38-126) U/L Troponin I < 0.012 (0.000-0.034) ng/mL NT-Pro-B Natriuret Pep 1140 H (0-900) pg/mL Serum Total Protein 7.3 (6.3-8.2) g/dL Albumin 4.3 (3.5-5.0) g/dL Urine Color (YELLOW) Urine Appearance (CLEAR) Urine pH (5-6) Ur Specific [place] (1.005-1.025) Urine Protein (Negative) Urine Ketones (NEGATIVE) Urine Blood (0-5) Ross/ul Urine Nitrite (NEGATIVE) Urine Bilirubin (NEGATIVE) Urine Urobilinogen (0-1) mg/dL Ur Leukocyte Esterase (NEGATIVE) Urine WBC (Auto) (0-5) /HPF Urine RBC (Auto) (0-2) /HPF U Hyaline Cast (Auto) (0-2) /LPF U Epithel Cells (Auto) (FEW) /HPF Urine Bacteria (Auto) (NEGATIVE) /HPF Urine Mucus (Auto) (NEGATIVE) /HPF Urine Culture Reflexed (NO) Urine Glucose (NEGATIVE) mg/dL Influenza Type A Ag (NEGATIVE) Influenza Type B Ag (NEGATIVE) RSV (PCR) (Negative) SARS-CoV-2 (PCR) (NEGATIVE) 02/07/21 02/07/21 02/07/21 Range/Units 04:13 04:40 05:55 WBC (4.0-10.5) K/mm3 RBC (4.1-5.4) M/mm3 Hgb (12.0-16.0) gm/dl Hct (35-47) % MCV (78-100) fl MCH (26-32) pg MCHC (32-36) g/dl RDW (11.5-14.0) % Plt Count (150-450) K/mm3 MPV (7.5-11.0) fl Gran % (36.0-66.0) % Eos # (Auto) (0-0.5) Absolute Lymphs (auto) (1.0-4.6) Absolute Monos (auto) (0.0-1.3) Lymphocytes % (24.0-44.0) % Monocytes % (0.0-12.0) % Eosinophils % (0.00-5.0) % Basophils % (0.0-0.4) % Absolute Granulocytes (1.4-6.9) Basophils # (0-0.4) Sodium (137-145) mmol/L Potassium (3.5-5.1) mmol/L Chloride (98-107) mmol/L Carbon Dioxide (22-30) mmol/L Anion Gap (5-15) MEQ/L BUN (7-17) mg/dL Creatinine (0.52-1.04) mg/dL Estimated GFR ML/MIN Glucose (74-106) mg/dL Calcium (8.4-10.2) mg/dL Total Bilirubin (0.2-1.3) mg/dL AST (14-36) U/L ALT (0-35) U/L Alkaline Phosphatase (38-126) U/L Troponin I 0.014 (0.000-0.034) ng/mL NT-Pro-B Natriuret Pep (0-900) pg/mL Serum Total Protein (6.3-8.2) g/dL Albumin (3.5-5.0) g/dL Urine Color YELLOW (YELLOW) Urine Appearance SLIGHTLY CLOUDY (CLEAR) Urine pH 5.0 (5-6) Ur Specific [place] 1.027 (1.005-1.025) Urine Protein 30 (Negative) Urine Ketones NEGATIVE (NEGATIVE) Urine Blood NEGATIVE (0-5) Ross/ul Urine Nitrite NEGATIVE (NEGATIVE) Urine Bilirubin NEGATIVE (NEGATIVE) Urine Urobilinogen NEGATIVE (0-1) mg/dL Ur Leukocyte Esterase NEGATIVE (NEGATIVE) Urine WBC (Auto) 0-2 (0-5) /HPF Urine RBC (Auto) 0-2 (0-2) /HPF U Hyaline Cast (Auto) 3-5 (0-2) /LPF U Epithel Cells (Auto) RARE (FEW) /HPF Urine Bacteria (Auto) NONE SEEN (NEGATIVE) /HPF Urine Mucus (Auto) SLIGHT (NEGATIVE) /HPF Urine Culture Reflexed NO (NO) Urine Glucose NEGATIVE (NEGATIVE) mg/dL Influenza Type A Ag NEGATIVE (NEGATIVE) Influenza Type B Ag NEGATIVE (NEGATIVE) RSV (PCR) POSITIVE (Negative) SARS-CoV-2 (PCR) NEGATIVE (NEGATIVE) - Radiology Impressions Radiology Exams & Impressions: Radiology Procedures Category Date Time Status CHEST 1 VIEW (PORTABLE) Stat Exams 02/07/21 02:46 Taken - Other Procedures and Tests Respiratory Therapy 02/07/21 03:36 Respiratory Therapy Assessment DAILY 02/07/21 05:47 Oxygen NASAL CANNULA 2 lpm Assessment/Plan (1) Congestive heart failure Current Visit: Yes Status: Acute Assessment & Plan: bp low, will hold senia and continue low dose beta joyce, attempt to diurese with lasix 20mg bid IV if pressure can tolerate. last echo reviewed (was read by Dr Taylor) there is some concern for aortic and mitral valve, patient is established with Dr Jeffry Suarez, will consult due to recurrent chf exacerbation with preserved EF Code(s): I50.9 - HEART FAILURE, UNSPECIFIED (2) Acute bilateral otitis media Current Visit: Yes Status: Acute Assessment & Plan: continue rocephin Code(s): H66.93 - OTITIS MEDIA, UNSPECIFIED, BILATERAL (3) COPD (chronic obstructive pulmonary disease) Current Visit: No Status: Chronic Qualifiers: Assessment & Plan: I don't hear wheezing on exam, clinical picture seems consistent with volume overload. will d/c IV steroids started in ER (4) Chronic hypoxemic respiratory failure Current Visit: No Status: Chronic
--- NOTE | 2021-02-07 08:48 | XRAY ---
Indication: Short of breath. Comparison: December 24, 2020. Portable chest improved with diminished diffuse right lung airspace disease with minimal residual. Remaining heart and left lung unremarkable. Bony thorax intact again with mild degenerative changes.
[2021-02-07] MEDS ORDERED: solu-MEDROL 60 MG, Sterile H2O 10 ml 2 ML IV SCH ×2 (09:00)
[2021-02-07] MEDS: Lasix 20 MG/2 ML IV SCH ×2 (09:10→16:42)
[2021-02-07] MEDS ORDERED: CYCLOBENZAPRINE HCL 5 MG PO PRN (09:18)
[2021-02-07] MEDS ORDERED: Cyclobenzaprine 10 MG PO PRN (09:25)
[2021-02-07] MEDS ORDERED: MEDICATION INTERVENTION MC SCH (09:30)
[2021-02-07] MEDS ORDERED: DUONEB 0.5-3 MG/3 ml Neb IH PRN (09:30)
[2021-02-07] MEDS ORDERED: NON-FORMULARY ITEM (Atorvastatin Calcium 20 MG Tab) PO SCH (10:00)
[2021-02-07] MEDS ORDERED: NON-FORMULARY ITEM (Apixaban [Eliquis] 5 MG Tablet) PO SCH (10:00)
[2021-02-07] MEDS ORDERED: NON-FORMULARY ITEM (Omeprazole [Omeprazole] 40 MG Capsule.Dr) PO SCH (10:00)
[2021-02-07] MEDS: NORCO 5/325 MG PO PRN ×3 (10:21→23:26)
[2021-02-07] MEDS: PATIENT OWN MEDICATION IH SCH (10:21)
[2021-02-07] MEDS: Protonix 40MG Tablet PO SCH (10:22)
[2021-02-07] MEDS: ZOLOFT 50 MG TABLET PO SCH (10:22)
[2021-02-07] MEDS: Klor Con 10 MEQ PO SCH (10:22)
[2021-02-07] MEDS: ZOCOR 20MG PO SCH (10:22)
[2021-02-07] MEDS: ELIQUIS 2.5 MG TABLET PO SCH ×2 (10:22→21:21)
[2021-02-07] MEDS: Toprol-Xl 25MG Tablets PO SCH (10:22)
[2021-02-07] MEDS: NYSTOP POWDER 15 GM TP SCH ×2 (14:43→21:21)
[2021-02-07] MEDS ORDERED: Aldactone 25 MG ONE (19:09)
[2021-02-07] MEDS: ROCEPHIN 1 Gm-D5w 50 ml Bag** 1 G/50 ML IVPB IV SCH (21:21)
[2021-02-07] MEDS ORDERED: Zithromax 500 MG/ 250 ML NaCl Premix 500 MG/250 ML IVPB IV SCH (22:00)
[2021-02-08] MEDS: PROVENTIL 2.5 MG/3 ML NEB IH SCH ×6 (02:15→22:15)
[2021-02-08] MEDS ORDERED: solu-MEDROL ONE (03:08)
[2021-02-08] MEDS ORDERED: Sterile H2O 10 ml IJ ONE (03:09)
[2021-02-08] MEDS ORDERED: solu-MEDROL 125 MG, Sterile H2O 10 ml 2 ML IV ONE ×2 (03:12)
[2021-02-08] MEDS: Zofran 4 MG/2 ML VIAL IV PRN ×2 (03:16→16:08)
[2021-02-08 04:02] LABS: A-aADO2 393; ABG HEMOGLOBIN 14.1; ABG POTASSIUM 4.6 (3.5-5.1); ARTERIAL BLD GAS O2 SATURATION 93.8 % (95-100); ARTERIAL BLOOD GAS BASE EXCESS 8.1 (-2.0-2.0); ARTERIAL BLOOD GAS FIO2 82 %; ARTERIAL BLOOD GAS PO2 74 mmHg (75-100); CARBOXYHEMOGLOBIN 1.8 % THgb (0.0-6.9); HCO3- 39.4 (22-28); HGB O2 SAT 91.5 g/dF (94-100); Methhemoglobin 0.7 % (1.4-1.5)
[2021-02-08 04:03] LABS: ABG SITE LEFT RADIAL; ALLEN TEST OK? YES; ARTERIAL BLOOD GAS PCO2 94 mmHg (35-45); ARTERIAL BLOOD GAS pH 7.23 (7.35-7.45)
[2021-02-08] MEDS: Ativan 2 MG/1 ML VIAL IV PRN ×2 (04:13→21:37)
[2021-02-08 05:46] LABS: Hematocrit 39.9 % (35-47); Hemoglobin 12.5 gm/dl (12.0-16.0); Mean Cell Volume 103.4 fl (78-100); Mean Corpuscular Hemoglobin 32.4 pg (26-32); Mean Corpuscular Hgb Concent. 31.3 g/dl (32-36); Mean Platelet Volume 9.9 fl (7.5-11.0); Platelet Count 219 K/mm3 (150-450); Red Blood Count 3.86 M/mm3 (4.1-5.4); Red Cell Distribution Width 14.3 % (11.5-14.0); White Blood Count 9.3 K/mm3 (4.0-10.5)
[2021-02-08 06:15] LABS: ANION GAP 14.3 MEQ/L (5-15); BLOOD UREA NITROGEN 28 mg/dL (7-17); CHLORIDE 97 mmol/L (98-107); Calcium 8.9 mg/dL (8.4-10.2); Carbon Dioxide 34 mmol/L (22-30); Creatinine 1 0.67 mg/dL (0.52-1.04); EST GLOMERULAR FILTRATION RATE > 60.0 ML/MIN; Glucose 146 mg/dL (74-106); NT PRO BNP 1700 pg/mL (0-900); Potassium 5.2 mmol/L (3.5-5.1); SODIUM 140 mmol/L (137-145)
[2021-02-08 06:47] LABS: A-aADO2 296; ARTERIAL BLD GAS O2 SATURATION 98.1 % (95-100); ARTERIAL BLOOD GAS BASE EXCESS 8.4 (-2.0-2.0); ARTERIAL BLOOD GAS FIO2 75 %; ARTERIAL BLOOD GAS PO2 109 mmHg (75-100); ARTERIAL BLOOD GAS VENT MODE BiPAP; CARBOXYHEMOGLOBIN 1.6 % THgb (0.0-6.9); HCO3- 40.6 (22-28); HGB O2 SAT 95.4 g/dF (94-100); Methhemoglobin 1.1 % (1.4-1.5)
[2021-02-08 06:50] LABS: ARTERIAL BLOOD GAS PCO2 104 mmHg (35-45)
[2021-02-08 06:51] LABS: ABG SITE RIGHT RADIAL; ALLEN TEST OK? YES
--- NOTE | 2021-02-08 08:25 | PCM.NOTE ---
Date and Time: 02/08/21822 Subjective Assessment: patient's respiratory status deteriorated overnight, was started on bipap. elevated CO2 on blood gas noted. she is in no distress this morning, bipap was removed and she was placed on a mask to talk to me. states she had a rough night with her breathing Objective Exam General Appearance: no apparent distress, obese Neurologic Exam: alert, oriented x 3, cooperative Respiratory Exam: accessory muscle use, prolonged expirations, wheezing Cardiovascular Exam: regular rate/rhythm, normal heart sounds Gastrointestinal/Abdomen Exam: soft, No tenderness, No mass Extremity Exam: normal inspection, normal range of motion OBJECTIVE DATA Vital Signs: Vital Signs - 24 hr Temp Pulse Resp BP BP Pulse Ox 02/08/21 06:24 101 H 26 H 96 02/08/21 04:15 90 L 02/08/21 04:13 118 H 28 H 161/84 02/08/21 04:00 99.2 F 116 H 28 H 161/84 91 L 02/08/21 02:15 88 L 02/07/21 23:33 97.9 F 99 H 22 106/58 92 L 02/07/21 21:46 86 22 93 L 02/07/21 19:58 98.2 F 78 21 151/57 93 L 02/07/21 18:00 81 20 91 L 02/07/21 16:00 97.9 F 82 29 H 121/64 89 L 02/07/21 14:18 91 H 20 91 L 02/07/21 12:00 97.7 F 85 19 111/58 89 L 02/07/21 10:23 92 H 22 94 L Pain Assessment - Last Documented Pain Intensity 4 Pain Scale Used 0-10 Pain Scale Intake and Output: Intake & Output 02/05/21 02/06/21 02/07/21 02/08/21 11:59 11:59 11:59 11:59 Intake Total 480 1243 Output Total 500 1925 Balance -20 -682 Weight 127.2 kg Lab Results: Lab Results-Last 24 Hours 02/07/21 02/08/21 02/08/21 Range/Units 09:00 03:55 05:10 WBC 9.3 (4.0-10.5) K/mm3 RBC 3.86 L (4.1-5.4) M/mm3 Hgb 12.5 (12.0-16.0) gm/dl Hct 39.9 (35-47) % MCV 103.4 H (78-100) fl MCH 32.4 H (26-32) pg MCHC 31.3 L (32-36) g/dl RDW 14.3 H (11.5-14.0) % Plt Count 219 (150-450) K/mm3 MPV 9.9 (7.5-11.0) fl Puncture Site LEFT RADIAL pCO2 94 H* (35-45) mmHg pO2 74 L (75-100) mmHg Base Excess 8.1 H (-2.0-2.0) O2 Saturation 91.5 L (94-100) g/dF ABG pH 7.23 L* (7.35-7.45) ABG HCO3 39.4 H* (22-28) ABG O2 Sat (Measured) 93.8 L (95-100) % Regino Test YES A-a Gradient 393 a/A Ratio 0.16 Hemoglobin 14.1 Carboxyhemoglobin 1.8 (0.0-6.9) % THgb Methemoglobin 0.7 L (1.4-1.5) % Potassium 4.6 (3.5-5.1) Temperature 37.0 C POC O2 Flow Rate 82 % Vent Mode Inspiratory BiPAP Expiratory BiPAP Sodium (137-145) mmol/L Chloride (98-107) mmol/L Carbon Dioxide (22-30) mmol/L Anion Gap (5-15) MEQ/L BUN (7-17) mg/dL Creatinine (0.52-1.04) mg/dL Estimated GFR ML/MIN Glucose (74-106) mg/dL Calcium (8.4-10.2) mg/dL Troponin I < 0.012 (0.000-0.034) ng/mL NT-Pro-B Natriuret Pep (0-900) pg/mL 02/08/21 02/08/21 Range/Units 05:10 06:40 WBC (4.0-10.5) K/mm3 RBC (4.1-5.4) M/mm3 Hgb (12.0-16.0) gm/dl Hct (35-47) % MCV (78-100) fl MCH (26-32) pg MCHC (32-36) g/dl RDW (11.5-14.0) % Plt Count (150-450) K/mm3 MPV (7.5-11.0) fl Puncture Site RIGHT RADIAL pCO2 104 H* (35-45) mmHg pO2 109 H (75-100) mmHg Base Excess 8.4 H (-2.0-2.0) O2 Saturation 95.4 (94-100) g/dF ABG pH 7.20 L* (7.35-7.45) ABG HCO3 40.6 H* (22-28) ABG O2 Sat (Measured) 98.1 (95-100) % Regino Test YES A-a Gradient 296 a/A Ratio 0.27 Hemoglobin 14.0 Carboxyhemoglobin 1.6 (0.0-6.9) % THgb Methemoglobin 1.1 L (1.4-1.5) % Potassium 5.2 H D 6.0 H (3.5-5.1) Temperature 37.0 C POC O2 Flow Rate 75 % Vent Mode BiPAP Inspiratory BiPAP 16 Expiratory BiPAP 6 Sodium 140 (137-145) mmol/L Chloride 97 L (98-107) mmol/L Carbon Dioxide 34 H (22-30) mmol/L Anion Gap 14.3 (5-15) MEQ/L BUN 28 H (7-17) mg/dL Creatinine 0.67 (0.52-1.04) mg/dL Estimated GFR > 60.0 ML/MIN Glucose 146 H (74-106) mg/dL Calcium 8.9 (8.4-10.2) mg/dL Troponin I (0.000-0.034) ng/mL NT-Pro-B Natriuret Pep 1700 H (0-900) pg/mL Radiology Exams: Radiology Procedures Category Date Time Status CHEST 1 VIEW (PORTABLE) Stat Exams 02/07/21 02:46 Completed Multi-Disciplinary Progress Notes: Multi-Disciplinary Progress Notes 02/08/21 07:10 Respiratory Note by Martha Brunson CALLED ABG TO DR. TRAN...DECREASED OXYGEN. HE WILL SEE PT WHEN HE GETS HERE. Initialized on 02/08/21 07:10 - END OF NOTE Assessment/Plan (1) Congestive heart failure Current Visit: Yes Status: Acute Assessment & Plan: continue IV lasix Code(s): I50.9 - HEART FAILURE, UNSPECIFIED (2) COPD (chronic obstructive pulmonary disease) Current Visit: No Status: Chronic Qualifiers: Assessment & Plan: add IV steroids, nebs. will consult Dr Sharif (3) Acute bilateral otitis media Current Visit: Yes Status: Acute Assessment & Plan: on rocephin Code(s): H66.93 - OTITIS MEDIA, UNSPECIFIED, BILATERAL (4) Chronic hypoxemic respiratory failure Current Visit: No Status: Chronic
[2021-02-08] MEDS: PATIENT OWN MEDICATION IH SCH (09:00)
--- NOTE | 2021-02-08 09:06 | CONS ---
CONSULT DATE: 02/07/2021 REASON FOR CONSULT: Shortness of breath, congestive heart failure. HISTORY: This is a 55-year-old with chronic diastolic congestive heart failure, advanced chronic obstructive pulmonary disease with chronic hypoxemic respiratory failure on continuous oxygen therapy, morbid obesity and active smoking, who was admitted with progressive shortness of breath, paroxysmal nocturnal dyspnea and orthopnea. She was hospitalized approximately six weeks ago for acute exacerbation at that time and was found to have nonobstructing pulmonary emboli and was started on Eliquis therapy. She has been on Eliquis therapy since then. She also complained of some bilateral ear pain and is being treated for acute otitis media. She had some increasing weight and has lower extremity edema and was initially on IV diuretics with good response in urine output. BNP was somewhat elevated and cardiac enzymes are unremarkable. She denies any chest pain and does report some improvement in shortness of breath since receiving IV diuretic. Most recent echo demonstrated preserved ejection fraction. ALLERGIES: NKDA. MEDICATIONS: Current medications reviewed, see EMR for full details. PAST MEDICAL HISTORY: As noted in the history of present illness. SOCIAL HISTORY: She is an active smoker, denies any alcohol or illicit drug use. FAMILY HISTORY: Noncontributory. PHYSICAL EXAMINATION: The exam is limited as this is a tele-health visit. She is currently on supplemental O2. She is able to speak in full sentences. She is reported to still have some lower extremity edema per nursing. Does not have any audible wheezing. LAB DATA AND TESTS: Laboratory data reviewed. Renal function is normal. Cardiac enzymes are normal. BNP is mildly elevated. EKG demonstrated sinus rhythm with poor R-wave progression and left atrial enlargement. IMPRESSION: 1) Acute on chronic diastolic congestive heart failure. 2) Acute on chronic hypoxemic respiratory failure in the setting of possible chronic obstructive pulmonary disease exacerbation. 3) Reported bilateral ear pain possible otitis media. 4) Active current smoker. RECOMMENDATIONS: At this time would continue IV diuretics with Lasix 20 mg IV b.i.d. with goal to maintain her on MET negative 2 liters daily, will also add spironolactone 25 mg daily and monitor for any increased serum potassium level. She is currently on Eliquis for recent nonobstructive pulmonary emboli. I would continue Eliquis at this time. She has had two hospitalizations in the past six to eight weeks for congestive heart failure. I suspect that due to her morbid obesity, she is holding on to more fluid than expected and recommend close outpatient follow up and I will perform right heart catheterization as an outpatient to further assess her lung status and adjust diuretics as necessary. However, for the next few days I would recommend continuing IV diuretics as noted above with goal met negative 1 to 2 liters daily and monitor BUN and creatinine for any increase. Once BUN and creatinine start to rise would transition to oral diuretic as long as she is MET negative. If she is not MET negative will be more aggressive with IV diuretics until adequate diuresis obtained. Thank you, Dr. Dc, for allowing me to participate in the care of this patient.
[2021-02-08] MEDS ORDERED: Aldactone 25 MG PO SCH (10:00)
[2021-02-08] MEDS: Zithromax 500 MG/ 250 ML NaCl Premix 500 MG/250 ML IVPB IV SCH (10:52)
[2021-02-08] MEDS: Lasix 20 MG/2 ML IV SCH ×2 (10:53→16:08)
[2021-02-08] MEDS ORDERED: solu-MEDROL IV SCH (12:00)
[2021-02-08] MEDS: solu-MEDROL 80 MG, Sterile H2O 10 ml 2 ML IV SCH ×4 (12:16→17:41)
[2021-02-08] MEDS: ZOCOR 20MG PO SCH (12:17)
[2021-02-08] MEDS: NYSTOP POWDER 15 GM TP SCH ×2 (12:17→21:39)
[2021-02-08] MEDS: Aldactone 25 MG PO SCH (12:17)
[2021-02-08] MEDS: Klor Con 10 MEQ PO SCH (12:17)
[2021-02-08] MEDS: Toprol-Xl 25MG Tablets PO SCH (12:17)
[2021-02-08] MEDS: ELIQUIS 2.5 MG TABLET PO SCH ×2 (12:17→21:38)
[2021-02-08] MEDS: Protonix 40MG Tablet PO SCH (12:17)
[2021-02-08] MEDS: ZOLOFT 50 MG TABLET PO SCH (12:17)
[2021-02-08] MEDS: NORCO 5/325 MG PO PRN ×2 (12:31→19:43)
[2021-02-08] MEDS: ROCEPHIN 1 Gm-D5w 50 ml Bag** 1 G/50 ML IVPB IV SCH (21:38)
[2021-02-09] MEDS: solu-MEDROL 80 MG, Sterile H2O 10 ml 2 ML IV SCH ×10 (01:04→23:24)
[2021-02-09] MEDS: PROVENTIL 2.5 MG/3 ML NEB IH SCH ×6 (03:03→23:17)
[2021-02-09] MEDS: NORCO 5/325 MG PO PRN ×3 (04:23→17:33)
[2021-02-09 06:55] LABS: Absolute Neutrophil Ct (ANC) 4.67 (1.4-6.9); BASOPHIL % 0.2 % (0.0-0.4); Basophil (Absolute #) 0.01 (0-0.4); Eosinophil (Absolute #) 0 (0-0.5); Hematocrit 39.6 % (35-47); Lymphocyte (Absolute #) 0.37 (1.0-4.6); Lymphocytes % 7.1 % (24.0-44.0); Mean Cell Volume 105.3 fl (78-100); Mean Corpuscular Hemoglobin 31.9 pg (26-32); Mean Corpuscular Hgb Concent. 30.3 g/dl (32-36); Mean Platelet Volume 10.2 fl (7.5-11.0); Monocyte (Absolute #) 0.17 (0.0-1.3); Monocytes % 3.3 % (0.0-12.0); Neutrophil % 89.4 % (36.0-66.0); Platelet Count 221 K/mm3 (150-450); Red Blood Count 3.76 M/mm3 (4.1-5.4); Red Cell Distribution Width 14.2 % (11.5-14.0); White Blood Count 5.2 K/mm3 (4.0-10.5)
[2021-02-09] MEDS: PATIENT OWN MEDICATION IH SCH (07:10)
[2021-02-09 07:17] LABS: ANION GAP 13.7 MEQ/L (5-15); BLOOD UREA NITROGEN 31 mg/dL (7-17); CHLORIDE 95 mmol/L (98-107); Calcium 9.1 mg/dL (8.4-10.2); Carbon Dioxide 35 mmol/L (22-30); Creatinine 1 0.75 mg/dL (0.52-1.04); EST GLOMERULAR FILTRATION RATE > 60.0 ML/MIN; Glucose 264 mg/dL (74-106); MAGNESIUM 2.2 mg/dL (1.6-2.3); NT PRO BNP 1840 pg/mL (0-900); SODIUM 139 mmol/L (137-145)
[2021-02-09] MEDS: Zofran 4 MG/2 ML VIAL IV PRN ×3 (09:31→21:35)
[2021-02-09] MEDS: Zithromax 500 MG/ 250 ML NaCl Premix 500 MG/250 ML IVPB IV SCH (10:16)
[2021-02-09] MEDS: ZOCOR 20MG PO SCH (10:17)
[2021-02-09] MEDS: ZOLOFT 50 MG TABLET PO SCH (10:17)
[2021-02-09] MEDS: Protonix 40MG Tablet PO SCH (10:17)
[2021-02-09] MEDS: Toprol-Xl 25MG Tablets PO SCH (10:19)
[2021-02-09] MEDS: NYSTOP POWDER 15 GM TP SCH ×2 (10:19→21:36)
[2021-02-09] MEDS ORDERED: Sodium Chloride 0.9% 1000 ML 1,000 ML IV SCH (12:00)
[2021-02-09] MEDS: ELIQUIS 2.5 MG TABLET PO SCH ×2 (12:07→21:36)
[2021-02-09] MEDS: Lasix 20 MG/2 ML IV SCH ×2 (12:10→16:46)
--- NOTE | 2021-02-09 13:39 | PCM.NOTE ---
Date and Time: 02/09/21 1334 Subjective Assessment: Still having breathing issues, but doing better on BiPap while sleeping. Was about to put it back on to take a nap this afternoon, and wore it while sleeping the last 2 nights. Her K+ was 5.2 today, so her aldactone 25mg and K+ 10 mEq have been held. - Review of Systems Constitutional: No Fever Ears, Nose, & Throat: Other (ears feel "full") Objective Exam General Appearance: no apparent distress, obese Neurologic Exam: alert, cooperative, normal mood/affect Skin Exam: normal color, warm, dry, No rash Eye Exam: eyes nml inspection Ears, Nose, Throat Exam: moist mucous membranes Neck Exam: normal inspection Respiratory Exam: lungs clear, diminished breath sounds (good air exchange), wheezing (scattere expiratory throughout), No crackles/rales, No rhonchi Cardiovascular Exam: regular rate/rhythm, normal heart sounds, No murmur Gastrointestinal/Abdomen Exam: soft, normal bowel sounds, No tenderness, No distention, No mass, No guarding, No rebound Extremity Exam: pedal edema (trace bilat) Back Exam: normal inspection, No rash OBJECTIVE DATA Vital Signs: Vital Signs - 24 hr Temp Pulse Resp BP BP BP Pulse Ox 02/09/21 12:00 97.3 F 80 20 115/61 93 L 02/09/21 11:31 79 22 97 02/09/21 08:00 96.9 F 84 16 135/71 90 L 02/09/21 07:12 66 22 89 L 02/09/21 04:05 97.4 F 65 19 110/56 94 L 02/09/21 03:03 74 19 93 L 02/08/21 23:53 97.4 F 68 18 110/56 97 02/08/21 22:15 75 19 96 02/08/21 21:37 70 24 121/60 02/08/21 19:07 97.7 F 88 24 121/60 95 02/08/21 18:53 94 H 20 91 L 02/08/21 16:00 97.0 F 117 H 27 H 118/58 90 L 02/08/21 14:32 83 24 94 L Pain Assessment - Last Documented Pain Intensity 5 Pain Scale Used 0-10 Pain Scale Intake and Output: Intake & Output 02/07/21 02/08/21 02/09/2102/10/21 11:59 11:59 11:59 11:59 Intake Total 328 4672 6467 Output Total 916 4137 1374 Balance -562 -5 Weight 127.2 kg 128.8 kg 129.6 kg Lab Results: Lab Results-Last 24 Hours 02/09/21 02/09/21 02/09/21 Range/Units 05:45 05:45 12:21 WBC 5.2 (4.0-10.5) K/mm3 RBC 3.76 L (4.1-5.4) M/mm3 Hgb 12.0 (12.0-16.0) gm/dl Hct 39.6 (35-47) % MCV 105.3 H (78-100) fl MCH 31.9 (26-32) pg MCHC 30.3 L (32-36) g/dl RDW 14.2 H (11.5-14.0) % Plt Count 221 (150-450) K/mm3 MPV 10.2 (7.5-11.0) fl Gran % 89.4 H (36.0-66.0) % Eos # (Auto) 0 (0-0.5) Absolute Lymphs (auto) 0.37 L (1.0-4.6) Absolute Monos (auto) 0.17 (0.0-1.3) Lymphocytes % 7.1 L (24.0-44.0) % Monocytes % 3.3 (0.0-12.0) % Eosinophils % 0.0 (0.00-5.0) % Basophils % 0.2 (0.0-0.4) % Absolute Granulocytes 4.67 (1.4-6.9) Basophils # 0.01 (0-0.4) Sodium 139 (137-145) mmol/L Potassium 5.0 (3.5-5.1) mmol/L Chloride 95 L (98-107) mmol/L Carbon Dioxide 35 H (22-30) mmol/L Anion Gap 13.7 (5-15) MEQ/L BUN 31 H (7-17) mg/dL Creatinine 0.75 (0.52-1.04) mg/dL Estimated GFR > 60.0 ML/MIN Glucose 264 H (74-106) mg/dL POC Glucometer 129 H (74 to 106) mg/dL Calcium 9.1 (8.4-10.2) mg/dL Magnesium 2.2 (1.6-2.3) mg/dL NT-Pro-B Natriuret Pep 1840 H (0-900) pg/mL Multi-Disciplinary Progress Notes: Multi-Disciplinary Progress Notes 02/08/21 13:50 Case Management Note by Elizabeth Conway UNABLE TO COMPLETE CASE MANAGEMENT/DC ASSESSMENT FOR NEEDS. PATIENT ON BIPAP AND SATS DROP SIGNIFICANTLY WHEN OFF. NURSE ASKED I DEFER AT THIS TIME. REVIEWED CHART- PATIENT NORMALLY INDEPENDENT AT HOME AND LIVES ALONE. HER SISTER HAS HELPED HER IN THE PAST. PER CHARTING PATIENT USES 3L/NC 24/7 AT HOME. Initialized on 02/08/21 13:50 - END OF NOTE Assessment/Plan (1) COPD exacerbation Current Visit: No Status: Acute Assessment & Plan: I think this is the bulk of her breathing issue. On zithromax and rocephin day #3 (adding probiotic today), steroids (80mg IV q6h) and nebs. Code(s): J44.1 - CHRONIC OBSTRUCTIVE PULMONARY DISEASE W (ACUTE) EXACERBATION (2) CHF exacerbation Current Visit: No Status: Acute Qualifiers: Heart failure type: unspecified Qualified Code(s): I50.9 - Heart failure, unspecified Assessment & Plan: On lasix 20mg IV BID. LE edema is well controlled. Code(s): I50.9 - HEART FAILURE, UNSPECIFIED (3) RSV infection Current Visit: Yes Status: Acute Assessment & Plan: on precautions Code(s): B97.4 - RESPIRATORY SYNCYTIAL VIRUS CAUSING DISEASES [facility] (4) Hyperglycemia Current Visit: No Status: Acute Code(s): R73.9 - HYPERGLYCEMIA, UNSPECIFIED (5) Hypoxemia Current Visit: No Status: Chronic Code(s): R09.02 - HYPOXEMIA (6) SALVATORE (obstructive sleep apnea) Current Visit: No Status: Chronic Assessment & Plan: Needs home sleep study, as RT mentioned no machine at home. Code(s): G47.33 - OBSTRUCTIVE SLEEP APNEA (ADULT) (PEDIATRIC) (7) Pulmonary embolus Current Visit: No Status: Acute Qualifiers: Pulmonary embolism type: single subsegmental (without acute cor pulmonale) Qualified Code(s): I26.93 - Single subsegmental pulmonary embolism without acute cor pulmonale Code(s): I26.99 - OTHER PULMONARY EMBOLISM WITHOUT ACUTE COR PULMONALE (8) Chronic hypoxemic respiratory failure Current Visit: No Status: Chronic (9) Hypertension Current Visit: No Status: Chronic Qualifiers: Hypertension type: primary hypertension Qualified Code(s): I10 - Essential (primary) hypertension Code(s): I10 - ESSENTIAL (PRIMARY) HYPERTENSION (10) Smoker Current Visit: No Status: Chronic Code(s): F17.200 - NICOTINE DEPENDENCE, UNSPECIFIED, UNCOMPLICATED
[2021-02-09] MEDS: Acidophilus TABLET PO SCH ×2 (14:43→21:35)
[2021-02-09] MEDS: Aldactone 25 MG PO SCH (15:06)
[2021-02-09] MEDS: Klor Con 10 MEQ PO SCH (15:07)
[2021-02-09] MEDS: HUMALOG SQ PRN (17:31)
[2021-02-09] MEDS: Ativan 2 MG/1 ML VIAL IV PRN (21:32)
[2021-02-09] MEDS: ROCEPHIN 1 Gm-D5w 50 ml Bag** 1 G/50 ML IVPB IV SCH (21:36)
[2021-02-10] MEDS: PROVENTIL 2.5 MG/3 ML NEB IH SCH ×6 (02:54→23:16)
[2021-02-10] MEDS: solu-MEDROL 80 MG, Sterile H2O 10 ml 2 ML IV SCH ×4 (05:43→12:06)
[2021-02-10] MEDS: NORCO 5/325 MG PO PRN ×3 (06:10→22:01)
[2021-02-10] MEDS: PATIENT OWN MEDICATION IH SCH (07:12)
[2021-02-10] MEDS: Acidophilus TABLET PO SCH ×3 (08:41→22:02)
[2021-02-10] MEDS: ELIQUIS 2.5 MG TABLET PO SCH ×2 (08:41→21:59)
[2021-02-10] MEDS: ZOCOR 20MG PO SCH (08:41)
[2021-02-10] MEDS: Toprol-Xl 25MG Tablets PO SCH (08:41)
[2021-02-10] MEDS: ZOLOFT 50 MG TABLET PO SCH (08:41)
[2021-02-10] MEDS: Protonix 40MG Tablet PO SCH (08:41)
[2021-02-10] MEDS: Lasix 20 MG/2 ML IV SCH ×2 (08:42→16:51)
[2021-02-10] MEDS: NYSTOP POWDER 15 GM TP SCH ×2 (08:52→22:02)
--- NOTE | 2021-02-10 15:14 | PCM.NOTE ---
Date and Time: 02/10/21 1509 Subjective Assessment: Pt says her breathing is not great. She has been unable to have a BM recently. Azar po. Walks to the bedside commode. On bipap at night. - Review of Systems Constitutional: No Fever Respiratory: Cough, Short Of Breath Objective Exam General Appearance: no apparent distress, obese Neurologic Exam: alert, oriented x 3, cooperative, other (sitting up in chair) Skin Exam: normal color, warm, dry, No rash Respiratory Exam: diminished breath sounds (fair air exchange), prolonged expirations, wheezing (scattered faint wheeze), No crackles/rales, No rhonchi Cardiovascular Exam: regular rate/rhythm, normal heart sounds, No murmur Gastrointestinal/Abdomen Exam: soft, normal bowel sounds, No tenderness, No mass, No guarding, No rebound Extremity Exam: normal inspection, No pedal edema, No swelling OBJECTIVE DATA Vital Signs: Vital Signs - 24 hr Temp Pulse Resp BP BP Pulse Ox 02/10/21 11:38 97.1 F 64 20 115/76 94 L 02/10/21 11:23 64 22 94 L 02/10/21 08:00 98.0 F 76 20 129/59 91 L 02/10/21 07:17 74 22 91 L 02/10/21 03:45 98.2 F 85 20 122/60 97 02/10/21 02:54 67 18 93 L 02/09/21 23:29 97.3 F 100 H 22 117/54 96 02/09/21 23:17 70 22 93 L 02/09/21 21:32 76 22 114/57 02/09/21 20:01 97.4 F 76 22 114/57 98 02/09/21 19:13 76 19 94 L 02/09/21 16:00 97.1 F 88 20 129/62 92 L Pain Assessment - Last Documented Pain Intensity 3 Pain Scale Used 0-10 Pain Scale Intake and Output: Intake & Output 02/08/21 02/09/21 02/10/21 02/11/21 11:59 11:59 11:59 11:59 Intake Total 1363 1895 1695 430 Output Total 1925 1900 4950 400 [facility] -316 -5 -3198 30 Weight 128.8 kg 129.6 kg 128.4 kg Lab Results: Lab Results-Last 24 Hours 02/09/21 02/09/21 02/10/21 Range/Units 16:40 21:00 07:10 POC Glucometer 204 H 151 H 168 H (74 to 106) mg/dL 02/10/21 Range/Units 11:17 POC Glucometer 124 H (74 to 106) mg/dL Assessment/Plan (1) COPD exacerbation Current Visit: No Status: Acute Assessment & Plan: Continue rocephin (day #4); discontinue zithromax as she finished 3d. Decrease IV steroids from 80mg IV q6h to 60mg IV q8h. Add mucinex. Code(s): J44.1 - CHRONIC OBSTRUCTIVE PULMONARY DISEASE W (ACUTE) EXACERBATION (2) CHF exacerbation Current Visit: No Status: Acute Qualifiers: Heart failure type: unspecified Qualified Code(s): I50.9 - Heart failure, unspecified Code(s): I50.9 - HEART FAILURE, UNSPECIFIED (3) RSV infection Current Visit: Yes Status: Acute Code(s): B97.4 - RESPIRATORY SYNCYTIAL VIRUS CAUSING DISEASES CLASSD [facility] (4) Hyperglycemia Current Visit: No Status: Acute Code(s): R73.9 - HYPERGLYCEMIA, UNSPECIFIED (5) Hypoxemia Current Visit: No Status: Chronic Assessment & Plan: Has been wearing bipap to sleep; will need home sleep study upon discharge. Code(s): R09.02 - HYPOXEMIA (6) SALVATORE (obstructive sleep apnea) Current Visit: No Status: Chronic Code(s): G47.33 - OBSTRUCTIVE SLEEP APNEA (ADULT) (PEDIATRIC) (7) Pulmonary embolus Current Visit: No Status: Acute Qualifiers: Pulmonary embolism type: single subsegmental (without acute cor pulmonale) Qualified Code(s): I26.93 - Single subsegmental pulmonary embolism without acute cor pulmonale Code(s): I26.99 - OTHER PULMONARY EMBOLISM WITHOUT ACUTE COR PULMONALE (8) Chronic hypoxemic respiratory failure Current Visit: No Status: Chronic (9) Hypertension Current Visit: No Status: Chronic Qualifiers: Hypertension type: primary hypertension Qualified Code(s): I10 - Essential (primary) hypertension Code(s): I10 - ESSENTIAL (PRIMARY) HYPERTENSION (10) Smoker Current Visit: No Status: Chronic Code(s): F17.200 - NICOTINE DEPENDENCE, UNSPECIFIED, UNCOMPLICATED (11) Constipation Current Visit: Yes Status: Acute Qualifiers: Constipation type: slow transit constipation Qualified Code(s): K59.01 - Slow transit constipation Assessment & Plan: Pt wants to try pickle juice, which is what she would take at home of constipated. Code(s): K59.00 - CONSTIPATION, UNSPECIFIED
[2021-02-10] MEDS ORDERED: solu-MEDROL 60 MG, Sterile H2O 10 ml 2 ML IV SCH ×4 (15:30)
[2021-02-10] MEDS: ROCEPHIN 1 Gm-D5w 50 ml Bag** 1 G/50 ML IVPB IV SCH (21:59)
[2021-02-10] MEDS: Mucinex 600MG ER Tabs PO SCH (21:59)
[2021-02-10] MEDS: HUMALOG SQ PRN (22:00)
[2021-02-10] MEDS: Ativan 2 MG/1 ML VIAL IV PRN (22:00)
[2021-02-10] MEDS: solu-MEDROL 60 MG, Sterile H2O 10 ml 2 ML IV SCH ×2 (22:02)
[2021-02-11] MEDS: PROVENTIL 2.5 MG/3 ML NEB IH SCH ×6 (05:11→22:10)
[2021-02-11] MEDS: PATIENT OWN MEDICATION IH SCH (05:30)
[2021-02-11 05:55] LABS: Hematocrit 39.7 % (35-47); Hemoglobin 11.9 gm/dl (12.0-16.0); Mean Cell Volume 105.3 fl (78-100); Mean Corpuscular Hemoglobin 31.6 pg (26-32); Mean Platelet Volume 10.2 fl (7.5-11.0); Platelet Count 264 K/mm3 (150-450); Red Blood Count 3.77 M/mm3 (4.1-5.4); Red Cell Distribution Width 13.5 % (11.5-14.0); White Blood Count 6.4 K/mm3 (4.0-10.5)
[2021-02-11 06:05] LABS: BLOOD UREA NITROGEN 31 mg/dL (7-17); CHLORIDE 90 mmol/L (98-107); Calcium 8.9 mg/dL (8.4-10.2); EST GLOMERULAR FILTRATION RATE > 60.0 ML/MIN; Glucose 156 mg/dL (74-106); Potassium 4.7 mmol/L (3.5-5.1); SODIUM 139 mmol/L (137-145)
[2021-02-11] MEDS ORDERED: solu-MEDROL ONE (06:07)
[2021-02-11] MEDS ORDERED: Sterile H2O 10 ml IJ ONE (06:08)
[2021-02-11] MEDS: solu-MEDROL 60 MG, Sterile H2O 10 ml 2 ML IV SCH ×6 (06:10→21:52)
[2021-02-11 06:13] LABS: ANION GAP 9.7 MEQ/L (5-15); Carbon Dioxide 44 mmol/L (22-30)
[2021-02-11] MEDS: NORCO 5/325 MG PO PRN ×3 (06:22→21:53)
--- NOTE | 2021-02-11 08:52 | PCM.NOTE ---
Date and Time: 02/11/21 0850 Subjective Assessment: patient still feeling poorly, breathing is still labored with minimal activity. on oxymizer Objective Exam General Appearance: no apparent distress, alert Respiratory Exam: prolonged expirations, wheezing Cardiovascular Exam: regular rate/rhythm, normal heart sounds Gastrointestinal/Abdomen Exam: soft, No tenderness, No mass Extremity Exam: normal inspection, normal range of motion OBJECTIVE DATA Vital Signs: Vital Signs - 24 hr Temp Pulse Resp BP Pulse Ox 02/11/21 08:00 96.7 F 62 18 133/69 95 02/11/21 05:30 74 18 95 02/11/21 04:00 98.0 F 66 18 124/65 95 02/10/21 23:29 98 F 63 20 126/57 98 02/10/21 23:10 60 20 95 02/10/21 20:00 98.7 F 67 22 117/59 96 02/10/21 19:30 70 18 94 L 02/10/21 16:00 97.6 F 65 24 117/63 91 L 02/10/21 11:38 97.1 F 64 20 115/76 94 L 02/10/21 11:23 64 22 94 L Pain Assessment - Last Documented Pain Intensity 0 Pain Scale Used 0-10 Pain Scale Intake and Output: Intake & Output 02/08/21 02/09/21 02/10/21 02/11/21 11:59 11:59 11:59 11:59 Intake Total 1363 1895 1695 2140 Output Total 1925 1900 4950 3600 Balance -562 -5 -1874 -5027 Weight 128.8 kg 129.6 kg 128.4 kg 128.1 kg Lab Results: Lab Results-Last 24 Hours 02/10/21 02/10/21 02/10/21 Range/Units 11:17 16:20 20:55 WBC (4.0-10.5) K/mm3 RBC (4.1-5.4) M/mm3 Hgb (12.0-16.0) gm/dl Hct (35-47) % MCV (78-100) fl MCH (26-32) pg MCHC (32-36) g/dl RDW (11.5-14.0) % Plt Count (150-450) K/mm3 MPV (7.5-11.0) fl Sodium (137-145) mmol/L Potassium (3.5-5.1) mmol/L Chloride (98-107) mmol/L Carbon Dioxide (22-30) mmol/L Anion Gap (5-15) MEQ/L BUN (7-17) mg/dL Creatinine (0.52-1.04) mg/dL Estimated GFR ML/MIN Glucose (74-106) mg/dL POC Glucometer 124 H 132 H 229 H (74 to 106) mg/dL Calcium (8.4-10.2) mg/dL 02/11/21 02/11/21 02/11/21 Range/Units 05:00 05:00 06:49 WBC 6.4 (4.0-10.5) K/mm3 RBC 3.77 L (4.1-5.4) M/mm3 Hgb 11.9 L (12.0-16.0) gm/dl Hct 39.7 (35-47) % MCV 105.3 H (78-100) fl MCH 31.6 (26-32) pg MCHC 30.0 L (32-36) g/dl RDW 13.5 (11.5-14.0) % Plt Count 264 (150-450) K/mm3 MPV 10.2 (7.5-11.0) fl Sodium 139 (137-145) mmol/L Potassium 4.7 (3.5-5.1) mmol/L Chloride 90 L (98-107) mmol/L Carbon Dioxide 44 H (22-30) mmol/L Anion Gap 9.7 (5-15) MEQ/L BUN 31 H (7-17) mg/dL Creatinine 0.80 (0.52-1.04) mg/dL Estimated GFR > 60.0 ML/MIN Glucose 156 H (74-106) mg/dL POC Glucometer 125 H (74 to 106) mg/dL Calcium 8.9 (8.4-10.2) mg/dL Assessment/Plan (1) COPD (chronic obstructive pulmonary disease) Current Visit: No Status: Chronic Qualifiers: Assessment & Plan: continue abx, steroids and nebs. (2) Congestive heart failure Current Visit: Yes Status: Acute Assessment & Plan: on lasix 20mg iv bid, continue Code(s): I50.9 - HEART FAILURE, UNSPECIFIED (3) Acute bilateral otitis media Current Visit: Yes Status: Acute Code(s): H66.93 - OTITIS MEDIA, UNSPECIFIED, BILATERAL (4) Chronic hypoxemic respiratory failure Current Visit: No Status: Chronic
[2021-02-11] MEDS: ZOLOFT 50 MG TABLET PO SCH (09:18)
[2021-02-11] MEDS: Mucinex 600MG ER Tabs PO SCH ×2 (09:18→21:54)
[2021-02-11] MEDS: ELIQUIS 2.5 MG TABLET PO SCH ×2 (09:18→21:52)
[2021-02-11] MEDS: Acidophilus TABLET PO SCH ×3 (09:18→21:53)
[2021-02-11] MEDS: ZOCOR 20MG PO SCH (09:18)
[2021-02-11] MEDS: Protonix 40MG Tablet PO SCH (09:19)
[2021-02-11] MEDS: Lasix 20 MG/2 ML IV SCH ×2 (09:19→17:16)
[2021-02-11] MEDS: NYSTOP POWDER 15 GM TP SCH ×2 (09:34→21:54)
[2021-02-11] MEDS: HUMALOG SQ PRN ×2 (17:15→20:50)
[2021-02-11] MEDS: ROCEPHIN 1 Gm-D5w 50 ml Bag** 1 G/50 ML IVPB IV SCH (21:51)
[2021-02-11] MEDS: Ativan 2 MG/1 ML VIAL IV PRN (21:51)
[2021-02-12] MEDS: PROVENTIL 2.5 MG/3 ML NEB IH SCH ×6 (02:13→23:20)
[2021-02-12] MEDS: PATIENT OWN MEDICATION IH SCH (05:10)
[2021-02-12] MEDS: solu-MEDROL 60 MG, Sterile H2O 10 ml 2 ML IV SCH ×6 (05:41→22:12)
[2021-02-12 05:48] LABS: Mean Cell Volume 102.6 fl (78-100); Mean Corpuscular Hgb Concent. 30.2 g/dl (32-36); Mean Platelet Volume 10.2 fl (7.5-11.0); Platelet Count 307 K/mm3 (150-450); Red Blood Count 4.19 M/mm3 (4.1-5.4); Red Cell Distribution Width 13.3 % (11.5-14.0); White Blood Count 8.4 K/mm3 (4.0-10.5)
[2021-02-12 06:35] LABS: BLOOD UREA NITROGEN 27 mg/dL (7-17); CHLORIDE 88 mmol/L (98-107); Creatinine 1 0.55 mg/dL (0.52-1.04); EST GLOMERULAR FILTRATION RATE > 60.0 ML/MIN; Glucose 130 mg/dL (74-106); NT PRO BNP 691 pg/mL (0-900); Potassium 4.7 mmol/L (3.5-5.1); SODIUM 140 mmol/L (137-145)
[2021-02-12 06:36] LABS: Carbon Dioxide 40 mmol/L (22-30)
[2021-02-12 06:37] LABS: ANION GAP 16.7 MEQ/L (5-15)
[2021-02-12] MEDS: NORCO 5/325 MG PO PRN ×3 (06:42→22:13)
[2021-02-12 06:43] LABS: Lymphocytes 7 % (24-44); Monocyte 3 % (0.0-12.0); Neutrophils 90 % (36.0-66.0); Total Cells Counted 100
[2021-02-12 06:44] LABS: Platelet Estimate NORMAL (NORMAL)
--- NOTE | 2021-02-12 08:47 | PCM.NOTE ---
Date and Time: 02/12/21 0843 Subjective Assessment: She feels better than at admission, but still on 5L oximizer and very dyspneic on any exertion (walking across the room). Azar po. - Review of Systems Constitutional: No Fever Respiratory: Short Of Breath Objective Exam General Appearance: no apparent distress, obese Neurologic Exam: alert, oriented x 3, cooperative Skin Exam: normal color, warm, dry, No rash Eye Exam: eyes nml inspection Ears, Nose, Throat Exam: moist mucous membranes Neck Exam: normal inspection Respiratory Exam: diminished breath sounds (poor air exchange on R, fair air exchange on L), prolonged expirations, wheezing (LLL), No crackles/rales, No rhonchi Cardiovascular Exam: regular rate/rhythm, normal heart sounds, No murmur Gastrointestinal/Abdomen Exam: soft, normal bowel sounds, No tenderness, No distention, No mass, No guarding, No rebound Extremity Exam: normal inspection, No pedal edema, No swelling Back Exam: normal inspection, No rash OBJECTIVE DATA Vital Signs: Vital Signs - 24 hr Temp Pulse Resp BP BP Pulse Ox 02/12/21 06:43 98.6 F 86 21 126/67 94 L 02/12/21 05:10 61 20 91 L 02/12/21 04:00 96.8 F 69 21 136/75 90 L 02/12/21 02:15 59 L 18 93 L 02/12/21 00:00 71 18 137/71 95 02/11/21 22:10 70 20 93 L 02/11/21 21:51 78 17 138/68 02/11/21 20:00 97.7 F 75 18 138/68 95 02/11/21 18:55 75 18 95 02/11/21 16:00 97.1 F 76 20 129/70 94 L 02/11/21 15:14 88 20 94 L 02/11/21 12:00 97.2 F 65 20 129/77 91 L 02/11/21 11:13 89 20 94 L Pain Assessment - Last Documented Pain Intensity 0 Pain Scale Used 0-10 Pain Scale Intake and Output: Intake & Output 02/09/21 02/10/21 02/11/21 02/12/21 11:59 11:59 11:59 11:59 Intake Total 1895 1695 2140 420 Output Total 1900 4950 3600 2300 Balance -5 -7576 -0287 -9503 Weight 129.6 kg 128.4 kg 128.1 kg 127.4 kg Lab Results: Lab Results-Last 24 Hours 02/11/21 02/11/21 02/11/21 Range/Units 12:31 16:48 20:42 WBC (4.0-10.5) K/mm3 RBC (4.1-5.4) M/mm3 Hgb (12.0-16.0) gm/dl Hct (35-47) % MCV (78-100) fl MCH (26-32) pg MCHC (32-36) g/dl RDW (11.5-14.0) % Plt Count (150-450) K/mm3 MPV (7.5-11.0) fl Segmented Neutrophils (36.0-66.0) % Lymphocytes (Manual) (24-44) % Monocytes (Manual) (0.0-12.0) % Platelet Estimate (NORMAL) RBC Morphology Sodium (137-145) mmol/L Potassium (3.5-5.1) mmol/L Chloride (98-107) mmol/L Carbon Dioxide (22-30) mmol/L Anion Gap (5-15) MEQ/L BUN (7-17) mg/dL Creatinine (0.52-1.04) mg/dL Estimated GFR ML/MIN Glucose (74-106) mg/dL POC Glucometer 106 209 H 256 H (74 to 106) mg/dL Calcium (8.4-10.2) mg/dL NT-Pro-B Natriuret Pep (0-900) pg/mL 02/12/21 02/12/21 02/12/21 Range/Units 04:25 04:25 07:26 WBC 8.4 (4.0-10.5) K/mm3 RBC 4.19 (4.1-5.4) M/mm3 Hgb 13.0 (12.0-16.0) gm/dl Hct 43.0 (35-47) % MCV 102.6 H (78-100) fl MCH 31.0 (26-32) pg MCHC 30.2 L (32-36) g/dl RDW 13.3 (11.5-14.0) % Plt Count 307 (150-450) K/mm3 MPV 10.2 (7.5-11.0) fl Segmented Neutrophils 90 H (36.0-66.0) % Lymphocytes (Manual) 7 L (24-44) % Monocytes (Manual) 3 (0.0-12.0) % Platelet Estimate NORMAL (NORMAL) RBC Morphology NORMAL Sodium 140 (137-145) mmol/L Potassium 4.7 (3.5-5.1) mmol/L Chloride 88 L (98-107) mmol/L Carbon Dioxide 40 H (22-30) mmol/L Anion Gap 16.7 H (5-15) MEQ/L BUN 27 H (7-17) mg/dL Creatinine 0.55 (0.52-1.04) mg/dL Estimated GFR > 60.0 ML/MIN Glucose 130 H (74-106) mg/dL POC Glucometer 196 H (74 to 106) mg/dL Calcium 9.0 (8.4-10.2) mg/dL NT-Pro-B Natriuret Pep 691 (0-900) pg/mL Assessment/Plan (1) COPD exacerbation Current Visit: No Status: Acute Assessment & Plan: She is slowly improving. On rocephin and IV steroid 60mg q8h. Very SOB; should be up and moving as tolerated. Code(s): J44.1 - CHRONIC OBSTRUCTIVE PULMONARY DISEASE W (ACUTE) EXACERBATION (2) CHF exacerbation Current Visit: No Status: Resolved Qualifiers: Heart failure type: unspecified Qualified Code(s): I50.9 - Heart failure, unspecified Assessment & Plan: BNP is back to normal, so I changed her lasix 20mg IV BID back to home dose of lasix 40mg po daily. Code(s): I50.9 - HEART FAILURE, UNSPECIFIED (3) RSV infection Current Visit: Yes Status: Acute Code(s): B97.4 - RESPIRATORY SYNCYTIAL VIRUS CAUSING DISEASES CLASSD [facility] (4) Hyperglycemia Current Visit: No Status: Acute Assessment & Plan: on SS insulin. Due to steroids. Code(s): R73.9 - HYPERGLYCEMIA, UNSPECIFIED (5) Hypoxemia Current Visit: No Status: Chronic Code(s): R09.02 - HYPOXEMIA (6) SALVATORE (obstructive sleep apnea) Current Visit: No Status: Chronic Code(s): G47.33 - OBSTRUCTIVE SLEEP APNEA (ADULT) (PEDIATRIC) (7) Pulmonary embolus Current Visit: No Status: Acute Qualifiers: Pulmonary embolism type: single subsegmental (without acute cor pulmonale) Qualified Code(s): I26.93 - Single subsegmental pulmonary embolism without acute cor pulmonale Code(s): I26.99 - OTHER PULMONARY EMBOLISM WITHOUT ACUTE COR PULMONALE (8) Acute bilateral otitis media Current Visit: Yes Status: Acute Code(s): H66.93 - OTITIS MEDIA, UNSPECIFIED, BILATERAL (9) Chronic hypoxemic respiratory failure Current Visit: No Status: Chronic (10) Hypertension Current Visit: No Status: Chronic Qualifiers: Hypertension type: primary hypertension Qualified Code(s): I10 - Essential (primary) hypertension Code(s): I10 - ESSENTIAL (PRIMARY) HYPERTENSION (11) Smoker Current Visit: No Status: Chronic Code(s): F17.200 - NICOTINE DEPENDENCE, UNSPECIFIED, UNCOMPLICATED
[2021-02-12] MEDS: Acidophilus TABLET PO SCH ×3 (09:56→22:13)
[2021-02-12] MEDS: ZOCOR 20MG PO SCH (09:56)
[2021-02-12] MEDS: Protonix 40MG Tablet PO SCH (09:56)
[2021-02-12] MEDS: ZOLOFT 50 MG TABLET PO SCH (09:56)
[2021-02-12] MEDS: Toprol-Xl 25MG Tablets PO SCH (09:56)
[2021-02-12] MEDS: Lasix 40 MG PO SCH (09:56)
[2021-02-12] MEDS: Mucinex 600MG ER Tabs PO SCH ×2 (09:56→22:11)
[2021-02-12] MEDS: ELIQUIS 2.5 MG TABLET PO SCH ×2 (09:56→22:12)
[2021-02-12] MEDS: NYSTOP POWDER 15 GM TP SCH ×2 (10:01→22:13)
[2021-02-12] MEDS: ROCEPHIN 1 Gm-D5w 50 ml Bag** 1 G/50 ML IVPB IV SCH (22:11)
[2021-02-12] MEDS: Ativan 2 MG/1 ML VIAL IV PRN (22:12)
[2021-02-13] MEDS: PROVENTIL 2.5 MG/3 ML NEB IH SCH ×3 (03:00→10:52)
[2021-02-13] MEDS ORDERED: solu-MEDROL ONE (05:05)
[2021-02-13] MEDS: solu-MEDROL 60 MG, Sterile H2O 10 ml 2 ML IV SCH ×2 (05:41)
[2021-02-13 06:22] LABS: ANION GAP 14.4 MEQ/L (5-15); BLOOD UREA NITROGEN 31 mg/dL (7-17); CHLORIDE 91 mmol/L (98-107); Calcium 9.1 mg/dL (8.4-10.2); Carbon Dioxide 37 mmol/L (22-30); Creatinine 1 0.55 mg/dL (0.52-1.04); EST GLOMERULAR FILTRATION RATE > 60.0 ML/MIN; Glucose 175 mg/dL (74-106); SODIUM 138 mmol/L (137-145)
[2021-02-13] MEDS: NORCO 5/325 MG PO PRN ×2 (06:39→12:39)
[2021-02-13] MEDS: PATIENT OWN MEDICATION IH SCH (07:19)
[2021-02-13 08:13] VITALS: BP 147/67; PULSE 70
--- NOTE | 2021-02-13 09:06 | PCM.DS ---
Discharge Summary Date of Admission: 02/08/21 08:23 Admitting Physician: EDGAR TRAN Consults: Consults on Case 02/07/21 08:08 Consult Cardiology ROUTINE 02/08/21 08:27 Consult Pulmonology ROUTINE Primary Care Provider: EDGAR TRAN Allergies Allergies bee venom protein (honey bee) Allergy (Severe, Verified 02/07/21 06:22) Difficulty Breathing Hospital Summary - Hospital Course Hospital Course: patient was admitted with copd exacerbation and chf exacerbation, was seen by Dr Jeffry Toure cardiology who agreed with medical management at this time. - Vitals & Intake/Output Vital Signs: Vital Signs Temperature 98.0 F 02/13/21 08:00 Pulse Rate 70 02/13/21 08:00 Respiratory Rate 18 02/13/21 08:00 Blood Pressure 147/67 02/13/21 08:00 O2 Sat by Pulse Oximetry 95 02/13/21 08:00 Intake & Output: Intake & Output 02/10/21 02/11/21 02/12/21 02/13/21 11:59 11:59 11:59 11:59 Intake Total 1695 2140 780 510 Output Total 4950 3600 2300 1600 Balance -3255 -1460 -1520 -1090 Weight 128.4 kg 128.1 kg 127.4 kg 127.4 kg - Lab Result Diagrams: 02/12/21 04:25 02/13/21 04:57 Lab Results-Last 24 Hrs: Lab Results-Last 24 Hours 02/12/21 02/12/21 02/12/21 Range/Units 11:59 16:38 23:23 Sodium (137-145) mmol/L Potassium (3.5-5.1) mmol/L Chloride (98-107) mmol/L Carbon Dioxide (22-30) mmol/L Anion Gap (5-15) MEQ/L BUN (7-17) mg/dL Creatinine (0.52-1.04) mg/dL Estimated GFR ML/MIN Glucose (74-106) mg/dL POC Glucometer 136 H TNP 178 H (74 to 106) mg/dL Calcium (8.4-10.2) mg/dL 02/13/21 02/13/21 Range/Units 04:57 07:11 Sodium 138 (137-145) mmol/L Potassium 5.0 (3.5-5.1) mmol/L Chloride 91 L (98-107) mmol/L Carbon Dioxide 37 H (22-30) mmol/L Anion Gap 14.4 (5-15) MEQ/L BUN 31 H (7-17) mg/dL Creatinine 0.55 (0.52-1.04) mg/dL Estimated GFR > 60.0 ML/MIN Glucose 175 H (74-106) mg/dL POC Glucometer 108 H (74 to 106) mg/dL Calcium 9.1 (8.4-10.2) mg/dL Micro Results-Entire Visit: Microbiology 02/07/21 03:12 Blood Culture Gram Stain - Final Blood Not Reportable Blood Culture - Final NO GROWTH 02/07/21 03:11 Blood Culture Gram Stain - Final Blood Not Reportable Blood Culture - Final NO GROWTH Accuchecks Date 02/12/21 Date 02/12/21 Time 16:30 Time 12:50 - Procedures and Test Procedures and Tests throughout Hospitalization: Therapy Orders & Screens 02/07/21 03:36 Respiratory Therapy Assessment DAILY Comment: 02/07/21 05:47 Oxygen NASAL CANNULA 2 lpm Comment: Diagnosis: CHF 02/07/21 07:00 Respiratory MDI DAILY Comment: ANORO DAILY-HOME MED Diagnosis: COPD 02/07/21 08:10 RT Screen per Nursing Assess ONCE Comment: Protocol Order Physician Instructions: Greater than 3 points order RT Admission Screen Reason For Exam: Triggered on Admission Diagnosis: exac copd Diagnosis: exac copd Pneumonia: No Home O2: Yes Asthma: No CHF: Yes Home CPAP/BIPAP: No Home Nebs/MDI: Yes Total Points: 13 Smoking Cessation Education ONCE Comment: Diagnosis: exac copd Smoking Status: Current every day smoker How long have you smoked: 45 yrs Have you smoked in the past 12 months: Yes Approximately how many cigarettes per day: 10 Do you dip or chew tobacco: No 02/08/21 04:15 BiPap/CPAP ROUTINE Comment: Diagnosis: COPD 02/09/21 06:24 Flutter Therapy UD Comment: Diagnosis: CHF, CHRONIC HYPOXEMIC RESP FAILURE Discharge Exam General Appearance: no apparent distress, obese Neurologic Exam: alert, oriented x 3, cooperative Respiratory Exam: normal breath sounds, lungs clear, No respiratory distress Cardiovascular Exam: regular rate/rhythm, normal heart sounds Gastrointestinal/Abdomen Exam: soft, No tenderness, No mass Extremity Exam: normal inspection, normal range of motion Skin Exam: normal color, warm, dry Final Diagnosis/Problem List - Final Discharge Diagnosis/Problem (1) COPD exacerbation Current Visit: Yes Status: Acute Assessment & Plan: doing better at this time, home on po prednisone and 5L oxymizer current required to maintain sats, she has home oxygen. has been on bipap at night in the hospital, will need a sleep study to evaluate for presumed SALVATORE and need for therapy. Code(s): J44.1 - CHRONIC OBSTRUCTIVE PULMONARY DISEASE W (ACUTE) EXACERBATION (2) COPD (chronic obstructive pulmonary disease) Current Visit: No Status: Chronic (3) Congestive heart failure Current Visit: Yes Status: Acute Code(s): I50.9 - HEART FAILURE, UNSPECIFIED (4) Acute bilateral otitis media Current Visit: Yes Status: Acute Code(s): H66.93 - OTITIS MEDIA, UNSPECIFIED, BILATERAL (5) Chronic hypoxemic respiratory failure Current Visit: No Status: Chronic Assessment & Plan: has home oxygen supplies, 5L oxymizer currently. (6) Nocturnal hypoxemia Current Visit: Yes Status: Acute Assessment & Plan: outpatient sleep study Code(s): G47.34 - IDIO SLEEP RELATED NONOBSTRUCTIVE ALVEOLAR HYPOVENTILATION - Discharge Disposition: Home, Self-Care Condition: Stable Prescriptions: New Prednisone 20 mg [Deltasone 20 mg] 20 mg PO UD #18 tablet Levofloxacin [Levofloxacin 500 MG Tablet] 500 mg PO DAILY #7 tablet Continue Hydrocodone Bit/Acetaminophen [[place] 5/325Mg] 1 each PO Q6H PRN PRN PRN Reason: Pain Cyclobenzaprine HCl [Flexeril] 10 mg PO TID PRN PRN PRN Reason: Muscle Spasms Sertraline HCl 50 mg [Zoloft 50 mg Tablet] 100 mg PO DAILY Atorvastatin Calcium [Lipitor 20MG Tablet] 20 mg PO DAILY Hydrochlorothiazide 25 mg [hydroDIURIL 25 MG] 12.5 mg PO DAILY Metoprolol Succinate 25 mg Xl* [Toprol-Xl 25MG Tablets] 25 mg PO DAILY 30 Days #30 tab Hydroxyzine HCl 25 mg [Atarax 25 mg] 25 mg PO BID PRN PRN PRN Reason: Anxiety lisinopriL [Zestril] 2.5 mg PO BID Potassium Chloride 10 Meq Tab* [Klor Con 10 MEQ] 10 meq PO DAILY Furosemide 40 mg [Lasix 40 MG] 40 mg PO DAILY Omeprazole 40 mg PO DAILY Albuterol Sulfate [Albuterol Sulfate Hfa] 1 puff IH Q4H PRN PRN PRN Reason: SOB/Wheezing Apixaban [Eliquis] 5 mg PO BID #60 tablet Umeclidinium Brm/Vilanterol Tr [Anoro Ellipta 62.5-25 Mcg INH] 1 each IH DAILY Albuterol/Ipratropium 3ml Neb* [DUONEB 0.5-3 MG/3 ml Neb] 3 ml IH QID PRN Ibuprofen 200 mg [Motrin 200 mg] 600 mg PO BID PRN PRN PRN Reason: Headache Discontinued Amoxicillin 875 mg PO BID Follow up with: EDGAR TRAN MD [Primary Care Provider] - JEFFRY TOURE MD [CONSULTING PHYSICIAN] -
[2021-02-13] MEDS: Toprol-Xl 25MG Tablets PO SCH (10:36)
[2021-02-13] MEDS: ZOCOR 20MG PO SCH (10:36)
[2021-02-13] MEDS: Acidophilus TABLET PO SCH (10:36)
[2021-02-13] MEDS: ELIQUIS 2.5 MG TABLET PO SCH (10:36)
[2021-02-13] MEDS: Lasix 40 MG PO SCH (10:37)
[2021-02-13] MEDS: ZOLOFT 50 MG TABLET PO SCH (10:37)
[2021-02-13] MEDS: Mucinex 600MG ER Tabs PO SCH (10:37)
[2021-02-13] MEDS: NYSTOP POWDER 15 GM TP SCH (10:37)
[2021-02-13] MEDS: Protonix 40MG Tablet PO SCH (10:37)
[2021-02-13 11:13] VITALS: O2SAT 94
== END 2021-02-13 13:39 | disposition home or self-care (01) | DRG 190 ==
LOC: ED 02:10 → MED SURG 05:35 → OBSVTOIN 02-08 08:23 → MED SURG 02-08 13:43
PROVIDERS: ADMIT Family Medicine; ATTEND Family Medicine
DX: J44.1 Chronic obstructive pulmonary disease with (acute) exacerbation (principal); J96.21 Acute and chronic respiratory failure with hypoxia; I26.99 Other pulmonary embolism without acute cor pulmonale; I11.0 Hypertensive heart disease with heart failure; B97.4 Respiratory syncytial virus as the cause of diseases classified elsewhere; H66.93 Otitis media, unspecified, bilateral; R04.0 Epistaxis; R05.9 Cough, unspecified; R73.9 Hyperglycemia, unspecified; E78.00 Pure hypercholesterolemia, unspecified; G47.34 Idiopathic sleep related nonobstructive alveolar hypoventilation; F17.200 Nicotine dependence, unspecified, uncomplicated; R60.9 Edema, unspecified; K59.00 Constipation, unspecified; E66.9 Obesity, unspecified; Z79.899 Other long term (current) drug therapy; Z99.81 Dependence on supplemental oxygen; Z79.01 Long term (current) use of anticoagulants; Z20.828 Contact with and (suspected) exposure to other viral communicable diseases
CPT/HCPCS: 0241U; 36000; 36415; 36600; 71045; 80048; 80053; 81001; 82375; 82803; 82947; 83735; 83880; 84484; 85025; 85027; 87040; 93005; 93041; 93268; 94002; 94003; 94640; 94667; 94668; 94760; 94762; 96374; 96375; 99285; J0456; J0696; J1817; J1940; J2060; J2405; J2930; J7609; Q3014; U0003; A9270-GY; G0378

== ENCOUNTER 2021-09-21 10:17 | Observation (INO) | payer OTHER ==
[2021-09-21 11:25] LABS: Epithelial Cells RARE /HPF (FEW); Mucus SLIGHT /HPF (NEGATIVE)
[2021-09-21 11:26] LABS: Absolute Neutrophil Ct (ANC) 4.09 x10^3/uL (1.4-6.9); Basophil (Absolute #) 0.03 x10^3/uL (0-0.4); Eosinophil % 0.4 % (0.00-5.0); Eosinophil (Absolute #) 0.02 x10^3/uL (0-0.5); Hematocrit 42.5 % (35-47); Hemoglobin 13.9 g/dL (12.0-16.0); Lymphocyte (Absolute #) 0.76 x10^3/uL (1.0-4.6); Lymphocytes % 14.1 % (24.0-44.0); Mean Cell Volume 96.8 fL (78-100); Mean Corpuscular Hemoglobin 31.7 pg (26-32); Mean Corpuscular Hgb Concent. 32.7 g/dL (32-36); Mean Platelet Volume 9.7 fL (7.5-11.0); Monocyte (Absolute #) 0.48 x10^3/uL (0.0-1.3); Monocytes % 8.9 % (0.0-12.0); Neutrophil % 75.6 % (36.0-66.0); Platelet Count 250 x10^3/uL (150-450); Red Blood Count 4.39 x10^6/uL (4.1-5.4); Red Cell Distribution Width 14.1 % (11.5-14.0); White Blood Count 5.4 x10^3/uL (4.0-10.5)
[2021-09-21 11:26] LABS: Appearance CLEAR (CLEAR); Bilirubin NEGATIVE (NEGATIVE); Glucose NEGATIVE (NEGATIVE); Ketones NEGATIVE (NEGATIVE); RBC TRACE-INTACT Ery/ul (0-5)
[2021-09-21 11:27] LABS: Dipstick done @ ? MAIN LAB; Nitrite NEGATIVE (NEGATIVE); Protein,Urine Dip NEGATIVE (Negative); RBC NONE SEEN /HPF (0-2); Urine Cultured Indicated? NO; Urobilinogen 0.2 mg/dL (0-1)
--- NOTE | 2021-09-21 11:27 | ERPHSYRPT ---
- History of Present Illness Time Seen by Provider: 09/21/21 10:28 Source: patient, EMS Exam Limitations: no limitations Patient Subjective Stated Complaint: SOB Triage Nursing Assessment: Patient brought into ED per EMS and transferred to bed per self. Patient A+O x3. Patient's skin pink, warm and dry. EMS reports being called for SOB. Upon arrival patient's O2 was 79% on room air. Patient was given 125mg of solu medrol and a duoneb. Lungs noted to have wheezing throughout. O2 95% on 3 liters per N/C. Patient complains of productive cough w ith thick yellow sputum. Physician History: 55-year-old female with history of chronic respiratory failure secondary to COPD on 2 L oxygen, tobacco abuse presented in the ER with chief complaint of increasing shortness of breath via EMS. Patient report having increasing s hortness of breath with wheezing and cough productive of clear to yellow sputum moderate in amount for the last couple of days and today she was working in the yard and got more short of breath. When EMS arrived her oxygen saturation was around 79% without O2 on. Patient reports that other to occasion her sats dropped to the 60s and upper 70s as well with oxygen on earlier today. She was given DuoNeb/Solu-Medrol, placed on 3 L oxygen and is satting around 93%. Denies any chest pain but tightness and wheezing. No fever or chills reported. Reports having symptoms similar to last time when she had a COPD exacerbation. Timing/Duration: day(s) (2), gradual onset, worse Activities at Onset: activity Severity of Dyspnea-Max: moderate Severity of Dyspnea-Current: mild Possible Cause: unknown cause Modifying Factors: Improves With: oxygen, rest. Worsens With: coughing, exertion Associated Symptoms: cough, wheezing, productive cough, tightness, No heaviness Allergies/Adverse Reactions: bee venom protein (honey bee) Allergy (Severe, Verified 09/21/21 10:26) Difficulty Breathing Home Medications: Cyclobenzaprine HCl [Flexeril] 10 mg PO TID PRN PRN 07/07/16 [History] Hydrocodone Bit/Acetaminophen [[place] 5/325Mg] 1 each PO Q6H PRN PRN 07/07/16 [History] Atorvastatin Calcium [Lipitor 20MG Tablet] 20 mg PO DAILY 10/06/20 [History] Sertraline HCl 50 mg [Zoloft 50 mg Tablet] 100 mg PO DAILY 12/27/19 [History] Hydrochlorothiazide 25 mg [hydroDIURIL 25 MG] 12.5 mg PO DAILY 12/28/19 [History] Furosemide 40 mg [Lasix 40 MG] 40 mg PO DAILY 08/06/20 [History] Hydroxyzine HCl 25 mg [Atarax 25 mg] 25 mg PO BID PRN PRN 08/06/20 [History] Omeprazole 40 mg PO DAILY 08/06/20 [History] Potassium Chloride Tab* [Klor Con] 10 meq PO DAILY 08/06/20 [History] lisinopriL [Zestril] 2.5 mg PO BID 08/06/20 [History] Albuterol Sulfate [Albuterol Sulfate Hfa] 1 puff IH Q4H PRN PRN 12/24/20 [History] Albuterol/Ipratropium 3ml Neb* [DUONEB 0.5-3 MG/3 ml Neb] 3 ml IH QID PRN 02/07/21 [History] Ibuprofen 200 mg [Motrin 200 mg] 600 mg PO BID PRN PRN 02/07/21 [History] Umeclidinium Brm/Vilanterol Tr [Anoro Ellipta 62.5-25 Mcg INH] 1 each IH DAILY 02/07/21 [History] Hx Tetanus, Diphtheria Vaccination/Date Given: Yes Hx Influenza Vaccination/Date Given: No Hx Pneumococcal Vaccination/Date Given: Yes Immunizations Up to Date: Yes Travel Risk - International Travel Have you traveled outside of the country in past 3 weeks: No - Coronavirus Screening Are you exhibiting any of the following symptoms?: No Close contact with a COVID-19 positive Pt in past 14-21 Days: No - Vaccine Status Have you recieved a Covid-19 vaccination: Yes 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 - Review of Systems Constitutional: Fatigue, Weakness Eyes: No Symptoms Ears, Nose, & Throat: No Symptoms Respiratory: Cough, Dyspnea, Dyspnea on Exertion (LUIS), Wheezing Cardiac: No Symptoms Abdominal/Gastrointestinal: No Symptoms Genitourinary Symptoms: No Symptoms Musculoskeletal: No Symptoms Skin: No Symptoms Neurological: No Symptoms Psychological: No Symptoms Endocrine: No Symptoms Hematologic/Lymphatic: No Symptoms Immunological/Allergic: No Symptoms - Past Medical History Pertinent Past Medical History: Yes Neurological History: No Pertinent History ENT History: No Pertinent History Cardiac History: Congestive Heart Failure, High Cholesterol, Hypertension Respiratory History: Asthma, Bronchitis, CHF, COPD, Pneumonia Endocrine Medical History: No Pertinent History Musculoskeletal History: Arthritis, Other GI Medical History: GERD History: No Pertinent History Psycho-Social History: Anxiety, Depression Female Reproductive Disorders: No Pertinent History Other Medical History: chronic back pain - Past Surgical History Past Surgical History: Yes Neuro Surgical History: No Pertinent History Cardiac: No Pertinent History Respiratory: No Pertinent History Gastrointestinal: No Pertinent History Genitourinary: No Pertinent History Musculoskeletal: Orthopedic Surgery Female Surgical History: No Pertinent History Other Surgical History: tonsils, back surgery, ingrown toenail repair - Social History Smoking Status: Current every day smoker How long have you smoked: 45 yrs Exposure to second hand smoke: Yes Drug Use: marijuana Patient Lives Alone: No Significant Family History: no pertinent family hx - Nursing Vital Signs Nursing Vital Signs: Initial Vital Signs Temperature 99.0 F 09/21/21 10:26 Pulse Rate 82 09/21/21 10:26 Respiratory Rate 20 09/21/21 10:26 Blood Pressure 101/75 09/21/21 10:26 O2 Sat by Pulse Oximetry 99 09/21/21 10:26 Pain Scale Pain Intensity 0 - Physical Exam General Appearance: no apparent distress, alert Eye Exam: PERRL/EOMI Ears, Nose, Throat Exam: hearing grossly normal, pharyngeal erythema Neck Exam: normal inspection, non-tender, supple, full range of motion Respiratory Exam: diminished breath sounds, rhonchi, wheezing, No accessory muscle use, No crackles/rales Cardiovascular/Chest Exam: normal heart sounds, regular rate/rhythm Extremity Exam: non-tender, normal range of motion Neurologic Exam: alert, oriented x 3, cooperative Skin Exam: normal color SpO2 Interpretation: O2 applied SpO2: 94 O2 Delivery: Nasal Cannula (3 L) - Course EKG Interpreted by Me: RATE ([id number]), Sinus Rhythm, NORMAL AXIS, NORMAL INTERVALS, Non-specific ST Changes Ordered Tests: Active Orders 24 hr Category Date Time Status EKG-ER Only STAT Care 09/21/21 10:44 Active IV Insertion STAT Care 09/21/21 10:44 Active CHEST 1 VIEW (PORTABLE) Stat Exams 09/21/21 10:44 Taken BLOOD CULTURE Stat Lab 09/21/21 11:10 Received BNP [NT PRO BNP] Stat Lab 09/21/21 11:05 Completed CBC W DIFF Stat Lab 09/21/21 11:05 Completed CMP Stat Lab 09/21/21 11:05 Completed MAG [MAGNESIUM] Stat Lab 09/21/21 11:05 Completed TROPONIN Q3H Lab 09/21/21 11:05 Completed TROPONIN Q3H Lab 09/21/21 13:45 Ordered TROPONIN Q3H Lab 09/21/21 16:45 Ordered TROPONIN Q3H Lab 09/21/21 19:45 Ordered TROPONIN Q3H Lab 09/21/21 22:45 Ordered UA W/RFX CULTURE Stat Lab 09/21/21 10:50 Completed Medication Summary Discontinued Medications Generic Name Dose Route Start Last Admin Trade Name Freq PRN Reason Stop Dose Admin Doxycycline Hyclate 100 mg 09/21/21 12:35 Doxycycline Hyclate 100 Mg Tablet PO 09/21/21 12:36 STAT ONE Lab/Rad Data: Laboratory Result Diagrams 09/21/21 11:05 09/21/21 11:05 Laboratory Results 09/21/21 09/21/21 09/21/21 Range/Units 11:05 11:05 11:05 WBC 5.4 (4.0-10.5) x10^3/uL RBC 4.39 (4.1-5.4) x10^6/uL Hgb 13.9 (12.0-16.0) g/dL Hct 42.5 (35-47) % MCV 96.8 (78-100) fL MCH 31.7 (26-32) pg MCHC 32.7 (32-36) g/dL RDW 14.1 H (11.5-14.0) % Plt Count 250 (150-450) x10^3/uL MPV 9.7 (7.5-11.0) fL Gran % 75.6 H (36.0-66.0) % Immature Gran % (Auto) 0.4 (0.00-0.4) % Nucleat RBC Rel Count 0.0 (0.00-0.1) % Eos # (Auto) 0.02 (0-0.5) x10^3/uL Immature Gran # (Auto) 0.02 (0.00-0.03) x10^3u/L Absolute Lymphs (auto) 0.76 L (1.0-4.6) x10^3/uL Absolute Monos (auto) 0.48 (0.0-1.3) x10^3/uL Absolute Nucleated RBC 0.00 (0.00-0.01) x10^3u/L Lymphocytes % 14.1 L (24.0-44.0) % Monocytes % 8.9 (0.0-12.0) % Eosinophils % 0.4 (0.00-5.0) % Basophils % 0.6 (0.0-0.4) % Absolute Granulocytes 4.09 (1.4-6.9) x10^3/uL Basophils # 0.03 (0-0.4) x10^3/uL Sodium 137 (137-145) mmol/L Potassium 4.4 (3.5-5.1) mmol/L Chloride 96 L (98-107) mmol/L Carbon Dioxide 33 H (22-30) mmol/L Anion Gap 12.6 (5-15) MEQ/L BUN 19 H (7-17) mg/dL Creatinine 0.80 (0.52-1.04) mg/dL Estimated GFR > 60.0 ML/MIN Glucose 117 H (74-106) mg/dL Calcium 9.0 (8.4-10.2) mg/dL Magnesium 1.8 (1.6-2.3) mg/dL Total Bilirubin 0.80 (0.2-1.3) mg/dL AST 24 (14-36) U/L ALT 14 (0-35) U/L Alkaline Phosphatase 103 (38-126) U/L Troponin I < 0.012 (0.000-0.034) ng/mL NT-Pro-B Natriuret Pep 862 (0-900) pg/mL Serum Total Protein 6.9 (6.3-8.2) g/dL Albumin 3.9 (3.5-5.0) g/dL Urinalys Dipstick Clnc Urine Color (YELLOW) Urine Appearance (CLEAR) Urine pH (5-6) Ur Specific [place] (1.005-1.025) POC Urine Protein Conf (Negative) Urine Ketones (NEGATIVE) Urine Nitrite (NEGATIVE) Urine Bilirubin (NEGATIVE) Urine Urobilinogen (0-1) mg/dL Urine Leukocytes (NEGATIVE) Urine WBC (Auto) (0-5) /HPF Urine RBC (Auto) (0-2) /HPF U Hyaline Cast (Auto) (0-2) /LPF U Epithel Cells (Auto) (FEW) /HPF Urine Bacteria (Auto) (NEGATIVE) /HPF Urine RBC (0-5) Ross/ul Urine Mucus (Auto) (NEGATIVE) /HPF Ur Culture Indicated? Urine Glucose (NEGATIVE) mg/dL 09/21/21 Range/Units 10:50 WBC (4.0-10.5) x10^3/uL RBC (4.1-5.4) x10^6/uL Hgb (12.0-16.0) g/dL Hct (35-47) % MCV (78-100) fL MCH (26-32) pg MCHC (32-36) g/dL RDW (11.5-14.0) % Plt Count (150-450) x10^3/uL MPV (7.5-11.0) fL Gran % (36.0-66.0) % Immature Gran % (Auto) (0.00-0.4) % Nucleat RBC Rel Count (0.00-0.1) % Eos # (Auto) (0-0.5) x10^3/uL Immature Gran # (Auto) (0.00-0.03) x10^3u/L Absolute Lymphs (auto) (1.0-4.6) x10^3/uL Absolute Monos (auto) (0.0-1.3) x10^3/uL Absolute Nucleated RBC (0.00-0.01) x10^3u/L Lymphocytes % (24.0-44.0) % Monocytes % (0.0-12.0) % Eosinophils % (0.00-5.0) % Basophils % (0.0-0.4) % Absolute Granulocytes (1.4-6.9) x10^3/uL Basophils # (0-0.4) x10^3/uL Sodium (137-145) mmol/L Potassium (3.5-5.1) mmol/L Chloride (98-107) mmol/L Carbon Dioxide (22-30) mmol/L Anion Gap (5-15) MEQ/L BUN (7-17) mg/dL Creatinine (0.52-1.04) mg/dL Estimated GFR ML/MIN Glucose (74-106) mg/dL Calcium (8.4-10.2) mg/dL Magnesium (1.6-2.3) mg/dL Total Bilirubin (0.2-1.3) mg/dL AST (14-36) U/L ALT (0-35) U/L Alkaline Phosphatase (38-126) U/L Troponin I (0.000-0.034) ng/mL NT-Pro-B Natriuret Pep (0-900) pg/mL Serum Total Protein (6.3-8.2) g/dL Albumin (3.5-5.0) g/dL Urinalys Dipstick Clnc MAIN LAB Urine Color YELLOW (YELLOW) Urine Appearance CLEAR (CLEAR) Urine pH 5.0 (5-6) Ur Specific [place] 1.010 (1.005-1.025) POC Urine Protein Conf NEGATIVE (Negative) Urine Ketones NEGATIVE (NEGATIVE) Urine Nitrite NEGATIVE (NEGATIVE) Urine Bilirubin NEGATIVE (NEGATIVE) Urine Urobilinogen 0.2 (0-1) mg/dL Urine Leukocytes NEGATIVE (NEGATIVE) Urine WBC (Auto) NONE (0-5) /HPF Urine RBC (Auto) NONE SEEN (0-2) /HPF U Hyaline Cast (Auto) 11-25 (0-2) /LPF U Epithel Cells (Auto) RARE (FEW) /HPF Urine Bacteria (Auto) NONE (NEGATIVE) /HPF Urine RBC TRACE-INTACT (0-5) Ross/ul Urine Mucus (Auto) SLIGHT (NEGATIVE) /HPF Ur Culture Indicated? NO Urine Glucose NEGATIVE (NEGATIVE) mg/dL - Progress Progress: re-examined Air Movement: fair Progress Note: 09/21/21 12:50 55-year-old is evaluated for difficulty breathing with pretty advanced COPD respiratory failure chronically. She is feeling better after DuoNeb and steroids. Chest x-ray showed some congestion and questionable airspace disease. Given a dose of antibiotics. Has normal white count, grossly unremarkable chemistries including troponin. Patient is currently on 4 L with sats around 95%. I believe patient has COPD exacerbation and would benefit with IV antibiotics, frequent neb treatments and steroids. Discussed with Dr. Pastor and patient is being admitted. Blood Culture(s) Obtained: Yes Antibiotics given: Yes Discussed with : Leona Will see patient in: hospital (observation) Counseled pt/family regarding: lab results, diagnosis, rad results, smoking cessation - Departure Departure Disposition: Observation Clinical Impression: Chronic hypoxemic respiratory failure Condition: Stable Critical Care Time: No Referrals: EDGAR TRAN MD [Primary Care Provider] - Follow up/PCP as directed
[2021-09-21 11:53] LABS: ALBUMIN 3.9 g/dL (3.5-5.0); ALKALINE PHOSPHATASE 103 U/L (38-126); ANION GAP 12.6 MEQ/L (5-15); BLOOD UREA NITROGEN 19 mg/dL (7-17); CHLORIDE 96 mmol/L (98-107); Carbon Dioxide 33 mmol/L (22-30); EST GLOMERULAR FILTRATION RATE > 60.0 ML/MIN; Glucose 117 mg/dL (74-106); MAGNESIUM 1.8 mg/dL (1.6-2.3); NT PRO BNP 862 pg/mL (0-900); Potassium 4.4 mmol/L (3.5-5.1); SGOT/AST 24 U/L (14-36); SGPT/ALT 14 U/L (0-35); SODIUM 137 mmol/L (137-145); Total Protein 6.9 g/dL (6.3-8.2)
[2021-09-21] MEDS ORDERED: Vibramycin 100 MG PO ONE (12:35)
[2021-09-21] MEDS ORDERED: Zithromax 500 MG/ 250 ML NaCl Premix 500 MG/250 ML IVPB IV STA (12:51)
[2021-09-21] MEDS ORDERED: ROCEPHIN 2 Gm-D5w 50ML BAG** 2 G/50 ML IVPB IV STA (12:51)
[2021-09-21] MEDS ORDERED: DUONEB 0.5-3 MG/3 ml Neb IH ONE ×2 (12:52→12:58)
[2021-09-21] MEDS ORDERED: ROCEPHIN 2 Gm-D5w 50ML BAG** 2 G/50 ML IVPB IV ONE (13:11)
[2021-09-21] MEDS ORDERED: Zithromax 500 MG/ 250 ML NaCl Premix 500 MG/250 ML IVPB IV ONE (13:47)
[2021-09-21 14:26] LABS: INFLUENZA A NEGATIVE (NEGATIVE); INFLUENZA B NEGATIVE (NEGATIVE); RESPIRATORY SYNCTIAL VIRUS NEGATIVE (Negative); SARS-CoV-2 Xpert Express NEGATIVE (NEGATIVE)
--- NOTE | 2021-09-21 15:43 | XRAY ---
Indication: Short of breath. Comparison: February 07, 2021. Portable apical lordotic chest demonstrates diffuse bilateral airspace disease, new on the left with small left effusion. Heart not enlarged. Bony thorax intact again with mild degenerative changes.
[2021-09-21] MEDS ORDERED: DUONEB 0.5-3 MG/3 ml Neb IH SCH (19:00)
[2021-09-21] MEDS ORDERED: Cyclobenzaprine 10 MG PO PRN (19:06)
[2021-09-21] MEDS ORDERED: ATARAX 25 MG PO PRN (19:07)
[2021-09-21] MEDS: solu-MEDROL 60 MG, Sterile H2O 10 ml 2 ML IV SCH ×2 (19:14)
[2021-09-21] MEDS: NORCO 5/325 MG PO PRN (19:28)
[2021-09-21] MEDS: DUONEB 0.5-3 MG/3 ml Neb IH SCH (19:41)
[2021-09-21] MEDS: Advair Hfa 230/21 Mcg COMMON CANISTER IH SCH (19:53)
[2021-09-21] MEDS: Zestril 5 MG PO SCH (20:59)
[2021-09-21] MEDS: ELIQUIS 2.5 MG TABLET PO SCH (21:00)
[2021-09-22] MEDS: solu-MEDROL 60 MG, Sterile H2O 10 ml 2 ML IV SCH ×8 (00:14→17:49)
[2021-09-22] MEDS: NORCO 5/325 MG PO PRN ×3 (03:49→17:49)
[2021-09-22 05:59] LABS: Absolute Neutrophil Ct (ANC) 3.61 x10^3/uL (1.4-6.9); Basophil (Absolute #) 0.01 x10^3/uL (0-0.4); Eosinophil (Absolute #) 0 x10^3/uL (0-0.5); Hematocrit 40.7 % (35-47); Hemoglobin 13.3 g/dL (12.0-16.0); Lymphocyte (Absolute #) 0.43 x10^3/uL (1.0-4.6); Lymphocytes % 10.3 % (24.0-44.0); Mean Cell Volume 96.2 fL (78-100); Mean Corpuscular Hemoglobin 31.4 pg (26-32); Mean Corpuscular Hgb Concent. 32.7 g/dL (32-36); Mean Platelet Volume 9.9 fL (7.5-11.0); Monocyte (Absolute #) 0.12 x10^3/uL (0.0-1.3); Monocytes % 2.9 % (0.0-12.0); Neutrophil % 86.1 % (36.0-66.0); Platelet Count 248 x10^3/uL (150-450); Red Blood Count 4.23 x10^6/uL (4.1-5.4); Red Cell Distribution Width 14.1 % (11.5-14.0); White Blood Count 4.2 x10^3/uL (4.0-10.5)
[2021-09-22 06:12] LABS: ALKALINE PHOSPHATASE 93 U/L (38-126); ANION GAP 12.8 MEQ/L (5-15); BLOOD UREA NITROGEN 23 mg/dL (7-17); CHLORIDE 96 mmol/L (98-107); Calcium 9.2 mg/dL (8.4-10.2); Carbon Dioxide 34 mmol/L (22-30); Creatinine 1 0.63 mg/dL (0.52-1.04); EST GLOMERULAR FILTRATION RATE > 60.0 ML/MIN; Glucose 189 mg/dL (74-106); Potassium 4.5 mmol/L (3.5-5.1); SGOT/AST 23 U/L (14-36); SGPT/ALT 16 U/L (0-35); SODIUM 138 mmol/L (137-145); Total Protein 7.5 g/dL (6.3-8.2)
[2021-09-22 07:04] LABS: Slide Review 1 YES
[2021-09-22] MEDS: DUONEB 0.5-3 MG/3 ml Neb IH SCH ×4 (07:18→19:13)
[2021-09-22] MEDS: Advair Hfa 230/21 Mcg COMMON CANISTER IH SCH ×2 (07:22→19:18)
[2021-09-22] MEDS: Zithromax 500 MG/ 250 ML NaCl Premix 500 MG/250 ML IVPB IV SCH (08:20)
[2021-09-22] MEDS: ELIQUIS 2.5 MG TABLET PO SCH ×2 (08:20→21:24)
[2021-09-22] MEDS: Zestril 5 MG PO SCH ×2 (08:20→21:24)
[2021-09-22] MEDS: ROCEPHIN 1 Gm-D5w 50 ml Bag** 1 G/50 ML IVPB IV SCH (08:20)
[2021-09-22] MEDS ORDERED: PROTONIX 40 MG IV IV SCH (10:00)
[2021-09-22] MEDS: hydroDIURIL 25 MG PO SCH (13:29)
[2021-09-22] MEDS: ZOLOFT 50 MG TABLET PO SCH (13:29)
[2021-09-22] MEDS: Lasix 40 MG PO SCH (13:29)
[2021-09-22] MEDS: Toprol-Xl 25MG Tablets PO SCH (13:29)
[2021-09-22] MEDS: Klor Con PO SCH (13:30)
[2021-09-22] MEDS: ZOCOR 20MG PO SCH (13:30)
[2021-09-23] MEDS: NORCO 5/325 MG PO PRN ×4 (00:01→21:11)
[2021-09-23] MEDS: solu-MEDROL 60 MG, Sterile H2O 10 ml 2 ML IV SCH ×4 (00:01→05:37)
[2021-09-23 06:15] LABS: Hematocrit 39.6 % (35-47); Hemoglobin 12.9 g/dL (12.0-16.0); Mean Cell Volume 97.3 fL (78-100); Mean Corpuscular Hemoglobin 31.7 pg (26-32); Mean Corpuscular Hgb Concent. 32.6 g/dL (32-36); Mean Platelet Volume 10.1 fL (7.5-11.0); Platelet Count 277 x10^3/uL (150-450); Red Blood Count 4.07 x10^6/uL (4.1-5.4); Red Cell Distribution Width 13.9 % (11.5-14.0); White Blood Count 9.2 x10^3/uL (4.0-10.5)
[2021-09-23 06:24] LABS: ANION GAP 10.8 MEQ/L (5-15); BLOOD UREA NITROGEN 29 mg/dL (7-17); CHLORIDE 98 mmol/L (98-107); Calcium 9.6 mg/dL (8.4-10.2); Carbon Dioxide 34 mmol/L (22-30); Creatinine 1 0.65 mg/dL (0.52-1.04); EST GLOMERULAR FILTRATION RATE > 60.0 ML/MIN; Glucose 138 mg/dL (74-106); Potassium 4.7 mmol/L (3.5-5.1); SODIUM 138 mmol/L (137-145)
[2021-09-23] MEDS: DUONEB 0.5-3 MG/3 ml Neb IH SCH ×4 (07:15→19:07)
[2021-09-23] MEDS: Advair Hfa 230/21 Mcg COMMON CANISTER IH SCH ×2 (07:17→19:07)
--- NOTE | 2021-09-23 07:38 | XRAY ---
Indication: Short of breath. Comparison: September 21, 2021. Portable apical lordotic chest demonstrates minimal clearing of previous diffuse bilateral airspace disease with stable tiny effusions. Remaining heart and lungs unremarkable.
[2021-09-23] MEDS: ELIQUIS 2.5 MG TABLET PO SCH ×2 (08:09→21:11)
[2021-09-23] MEDS: Toprol-Xl 25MG Tablets PO SCH (08:09)
[2021-09-23] MEDS: hydroDIURIL 25 MG PO SCH (08:10)
[2021-09-23] MEDS: Lasix 40 MG PO SCH (08:12)
[2021-09-23] MEDS: Zestril 5 MG PO SCH ×2 (08:12→21:11)
[2021-09-23] MEDS: ZOLOFT 50 MG TABLET PO SCH (08:12)
[2021-09-23] MEDS: Klor Con PO SCH (08:12)
[2021-09-23] MEDS: ZOCOR 20MG PO SCH (08:13)
[2021-09-23] MEDS: Protonix 40MG Tablet PO SCH (08:14)
[2021-09-23] MEDS: ROCEPHIN 1 Gm-D5w 50 ml Bag** 1 G/50 ML IVPB IV SCH (09:09)
[2021-09-23] MEDS: Zithromax 500 MG/ 250 ML NaCl Premix 500 MG/250 ML IVPB IV SCH (09:42)
[2021-09-23] MEDS ORDERED: NON-FORMULARY ITEM (Atorvastatin Calcium 20 MG Tab) PO SCH (10:00)
[2021-09-23] MEDS ORDERED: NON-FORMULARY ITEM (Omeprazole [Omeprazole] 40 MG Capsule.Dr) PO SCH (10:00)
--- NOTE | 2021-09-23 10:26 | PCM.NOTE ---
Date and Time: 09/23/21 1021 Subjective Assessment: Pt was admitted Thursday; today is feeling much better than when she came in. Is on 2-3L NC at home. Alberto po. - Review of Systems Constitutional: No Fever Respiratory: Cough, Short Of Breath Objective Exam General Appearance: no apparent distress, alert, obese Neurologic Exam: oriented x 3, cooperative Skin Exam: normal color, warm, dry, No rash Eye Exam: eyes nml inspection Ears, Nose, Throat Exam: moist mucous membranes Neck Exam: normal inspection Respiratory Exam: diminished breath sounds (poor to fair AE), No crackles/rales, No rhonchi, No wheezing Cardiovascular Exam: regular rate/rhythm, normal heart sounds, No murmur Gastrointestinal/Abdomen Exam: soft, normal bowel sounds, No tenderness, No mass, No guarding, No rebound Extremity Exam: normal inspection, No pedal edema, No swelling OBJECTIVE DATA Vital Signs: Vital Signs - 24 hr Temp Pulse Resp BP Pulse Ox 09/23/21 07:44 98.3 F 79 21 130/69 95 09/23/21 07:24 79 18 90 L 09/23/21 04:00 98.5 F 64 20 132/70 95 09/22/21 23:45 97.0 F 84 20 108/70 99 09/22/21 19:18 97.6 F 82 19 124/58 99 09/22/21 19:14 85 20 91 L 09/22/21 16:00 96.9 F 86 18 118/56 90 L 09/22/21 15:49 92 H 20 92 L 09/22/21 12:00 97.1 F 75 22 133/60 90 L 09/22/21 10:49 85 20 99 Pain Assessment - Last Documented Pain Intensity 7 Pain Scale Used [facility] Intake and Output: Intake & Output 09/20/21 09/21/21 09/22/21 09/23/21 11:59 11:59 11:59 11:59 Intake Total 1540 2880 Output Total 2100 2800 Balance -560 80 Weight 128.367 kg 130 kg 130.5 kg Lab Results: Lab Results-Last 24 Hours 09/23/21 09/23/21 Range/Units 05:35 05:35 WBC 9.2 (4.0-10.5) x10^3/uL RBC 4.07 L (4.1-5.4) x10^6/uL Hgb 12.9 (12.0-16.0) g/dL Hct 39.6 (35-47) % MCV 97.3 (78-100) fL MCH 31.7 (26-32) pg MCHC 32.6 (32-36) g/dL RDW 13.9 (11.5-14.0) % Plt Count 277 (150-450) x10^3/uL MPV 10.1 (7.5-11.0) fL Sodium 138 (137-145) mmol/L Potassium 4.7 (3.5-5.1) mmol/L Chloride 98 (98-107) mmol/L Carbon Dioxide 34 H (22-30) mmol/L Anion Gap 10.8 (5-15) MEQ/L BUN 29 H (7-17) mg/dL Creatinine 0.65 (0.52-1.04) mg/dL Estimated GFR > 60.0 ML/MIN Glucose 138 H (74-106) mg/dL Calcium 9.6 (8.4-10.2) mg/dL Radiology Exams: Radiology Procedures Category Date Time Status CHEST 1 VIEW (PORTABLE) Routine Exams 09/23/21 06:48 Completed CHEST 1 VIEW (PORTABLE) Stat Exams 09/21/21 10:44 Completed Assessment/Plan (1) COPD exacerbation Current Visit: No Status: Acute Assessment & Plan: On IV rocephin and zithromax day #3. On steroids IV, 60mg q6h. Decreasing to 40mg IV q8h. Her lung sounds are still poor-fair, but her oxygen requirement is currently at baseline. May be able to d/c home tomorrow. Code(s): J44.1 - CHRONIC OBSTRUCTIVE PULMONARY DISEASE W (ACUTE) EXACERBATION (2) Pneumonia Current Visit: No Status: Acute Qualifiers: Laterality: bilateral Lung location: unspecified part of lung Code(s): J18.9 - PNEUMONIA, UNSPECIFIED ORGANISM (3) Chronic hypoxemic respiratory failure Current Visit: Yes Status: Chronic
[2021-09-23] MEDS ORDERED: Tums EX 750 MG PO PRN (14:29)
[2021-09-23] MEDS ORDERED: Tums EX 750 MG PO SCH (14:30)
[2021-09-23] MEDS: solu-MEDROL 40 MG, Sterile H2O 10 ml 1 ML IV SCH ×4 (14:52→21:11)
[2021-09-24 04:58] LABS: Hematocrit 40.2 % (35-47); Hemoglobin 13.1 g/dL (12.0-16.0); Mean Cell Volume 98.5 fL (78-100); Mean Corpuscular Hemoglobin 32.1 pg (26-32); Mean Corpuscular Hgb Concent. 32.6 g/dL (32-36); Mean Platelet Volume 10.5 fL (7.5-11.0); Platelet Count 257 x10^3/uL (150-450); Red Blood Count 4.08 x10^6/uL (4.1-5.4); Red Cell Distribution Width 13.9 % (11.5-14.0); White Blood Count 10.3 x10^3/uL (4.0-10.5)
[2021-09-24 05:26] LABS: Lymphocytes 11 % (24-44); Microcytosis 1+; Monocyte 2 % (0.0-12.0); Platelet Estimate NORMAL (NORMAL); Total Cells Counted 100
[2021-09-24] MEDS: solu-MEDROL 40 MG, Sterile H2O 10 ml 1 ML IV SCH ×2 (05:49)
[2021-09-24] MEDS: NORCO 5/325 MG PO PRN ×2 (06:09→13:50)
[2021-09-24] MEDS: DUONEB 0.5-3 MG/3 ml Neb IH SCH ×2 (06:50→10:50)
[2021-09-24] MEDS: Advair Hfa 230/21 Mcg COMMON CANISTER IH SCH (06:53)
[2021-09-24 07:10] LABS: BLOOD UREA NITROGEN 28 mg/dL (7-17); CHLORIDE 95 mmol/L (98-107); Calcium 9.3 mg/dL (8.4-10.2); EST GLOMERULAR FILTRATION RATE > 60.0 ML/MIN; Glucose 173 mg/dL (74-106); Potassium 4.5 mmol/L (3.5-5.1); SODIUM 140 mmol/L (137-145)
[2021-09-24 07:28] LABS: Carbon Dioxide 36 mmol/L (22-30)
[2021-09-24 07:49] LABS: ANION GAP 13.5 MEQ/L (5-15)
[2021-09-24] MEDS: Klor Con PO SCH (10:11)
[2021-09-24] MEDS: Lasix 40 MG PO SCH (10:11)
[2021-09-24] MEDS: ZOCOR 20MG PO SCH (10:11)
[2021-09-24] MEDS: Protonix 40MG Tablet PO SCH (10:11)
[2021-09-24] MEDS: hydroDIURIL 25 MG PO SCH (10:11)
[2021-09-24] MEDS: ELIQUIS 2.5 MG TABLET PO SCH (10:11)
[2021-09-24] MEDS: Zithromax 500 MG/ 250 ML NaCl Premix 500 MG/250 ML IVPB IV SCH (10:12)
[2021-09-24] MEDS: ZOLOFT 50 MG TABLET PO SCH (10:12)
[2021-09-24] MEDS: ROCEPHIN 1 Gm-D5w 50 ml Bag** 1 G/50 ML IVPB IV SCH (10:12)
[2021-09-24] MEDS: Zestril 5 MG PO SCH (10:12)
[2021-09-24] MEDS: Toprol-Xl 25MG Tablets PO SCH (10:12)
[2021-09-24 11:25] VITALS: BP 136/79; PULSE 93; O2SAT 94
--- NOTE | 2021-09-24 13:17 | PCM.DS ---
Discharge Summary Date of Admission: 09/21/21 16:02 Admitting Physician: MATA HOFFMAN Primary Care Provider: EDGAR TRAN ARA Allergies Allergies bee venom protein (honey bee) Allergy (Severe, Verified 09/21/21 10:26) Difficulty Breathing Hospital Summary - Hospital Course Hospital Course: Pt is a 55 yo female pt of Dr. Tran admitted for COPD exacerbation and pneumonia. CXR showed diffused bilat airspace disease (f/u xray 2 days later with minimal clearing). Labs were non-acute. She completed four days of rocephin and zithromax. Has been on IV steroids. Feeling much better than at admission and would like to go home. Will be discharged on 4L NC O2 (pt has O2 at home) and po antibiotics to finish 7d and po steroid. F/u in [address] Tran. - Vitals & Intake/Output Vital Signs: Vital Signs Temperature 97.9 F 09/24/21 11:24 Pulse Rate 93 H 09/24/21 11:24 Respiratory Rate 10 L 09/24/21 11:24 Blood Pressure 136/79 09/24/21 11:24 O2 Sat by Pulse Oximetry 94 L 09/24/21 11:24 Intake & Output: Intake & Output 09/22/21 09/23/21 09/24/21 09/25/21 11:59 11:59 11:59 11:59 Intake Total 1540 3360 1900 Output Total 2100 3550 3700 Balance -560 -190 -1800 Weight 130 kg 130.5 kg 130.3 kg - Lab Result Diagrams: 09/24/21 04:25 09/24/21 04:25 Lab Results-Last 24 Hrs: Lab Results-Last 24 Hours 09/24/21 09/24/21 Range/Units 04:25 04:25 WBC 10.3 (4.0-10.5) x10^3/uL RBC 4.08 L (4.1-5.4) x10^6/uL Hgb 13.1 (12.0-16.0) g/dL Hct 40.2 (35-47) % MCV 98.5 (78-100) fL MCH 32.1 H (26-32) pg MCHC 32.6 (32-36) g/dL RDW 13.9 (11.5-14.0) % Plt Count 257 (150-450) x10^3/uL MPV 10.5 (7.5-11.0) fL Segmented Neutrophils 87 H (36.0-66.0) % Lymphocytes (Manual) 11 L (24-44) % Monocytes (Manual) 2 (0.0-12.0) % Platelet Estimate NORMAL (NORMAL) RBC Morphology ABNORMAL Microcytosis 1+ Sodium 140 (137-145) mmol/L Potassium 4.5 (3.5-5.1) mmol/L Chloride 95 L (98-107) mmol/L Carbon Dioxide 36 H (22-30) mmol/L Anion Gap 13.5 (5-15) MEQ/L BUN 28 H (7-17) mg/dL Creatinine 0.70 (0.52-1.04) mg/dL Estimated GFR > 60.0 ML/MIN Glucose 173 H (74-106) mg/dL Calcium 9.3 (8.4-10.2) mg/dL Micro Results-Entire Visit: Microbiology 09/21/21 11:10 Blood Culture - Preliminary Blood NO GROWTH TO DATE 09/21/21 11:05 Blood Culture - Preliminary Blood NO GROWTH TO DATE - Radiology Exams Ordered Rad Exams-Entire Visit: Radiology Procedures Category Date Time Status CHEST 1 VIEW (PORTABLE) Routine Exams 09/23/21 06:48 Completed - Procedures and Test Procedures and Tests throughout Hospitalization: Therapy Orders & Screens 09/21/21 13:03 Respiratory Therapy Assessment DAILY Comment: 09/21/21 16:05 Oxygen Nasal Cannula 4 lpm Comment: 09/21/21 16:59 RT Screen per Nursing Assess ONCE Comment: Protocol Order Physician Instructions: Greater than 3 points order RT Admission Screen Reason For Exam: Triggered on Admission Diagnosis: COPD exacerbation Diagnosis: COPD exacerbation Pneumonia: No Home O2: Yes Asthma: Yes CHF: Yes Home CPAP/BIPAP: Yes Home Nebs/MDI: Yes Total Points: 22 Discharge Exam General Appearance: no apparent distress, alert Neurologic Exam: oriented x 3, cooperative Eye Exam: eyes nml inspection Ears, Nose, Throat Exam: moist mucous membranes Neck Exam: normal inspection Respiratory Exam: diminished breath sounds (good air exchange), prolonged expirations, wheezing (faint), No crackles/rales, No rhonchi Cardiovascular Exam: regular rate/rhythm, normal heart sounds, No murmur Gastrointestinal/Abdomen Exam: soft, normal bowel sounds, No tenderness, No distention, No mass, No guarding, No rebound Back Exam: normal inspection, No rash Extremity Exam: normal inspection, No pedal edema, No swelling Skin Exam: normal color, warm, dry, No rash Final Diagnosis/Problem List - Final Discharge Diagnosis/Problem (1) COPD exacerbation Current Visit: No Status: Acute Assessment & Plan: Doing much better. Home to finish abx and steroids. nebs prn Code(s): J44.1 - CHRONIC OBSTRUCTIVE PULMONARY DISEASE W (ACUTE) EXACERBATION (2) Pneumonia Current Visit: No Status: Acute Code(s): J18.9 - PNEUMONIA, UNSPECIFIED ORGANISM (3) Chronic hypoxemic respiratory failure Current Visit: Yes Status: Chronic - Discharge Disposition: Home, Self-Care Condition: Good Prescriptions: New Lactobacillus Acidophilus [Acidophilus TABLET] 1 tab PO TID #21 tablet Amox Tr/Potass Clav. 875 mg [Augmentin 875-125 Tablet] 875 mg PO BID #6 tablet Prednisone 20 mg [Deltasone 20 mg] 20 mg PO DAILY #17 tablet Continue Hydrocodone Bit/Acetaminophen [[place] 5/325Mg] 1 each PO Q6H PRN PRN PRN Reason: Pain Cyclobenzaprine HCl [Flexeril] 10 mg PO TID PRN PRN PRN Reason: Muscle Spasms Sertraline HCl 50 mg [Zoloft 50 mg Tablet] 100 mg PO DAILY Atorvastatin Calcium [Lipitor 20MG Tablet] 20 mg PO DAILY Hydrochlorothiazide 25 mg [hydroDIURIL 25 MG] 12.5 mg PO DAILY Metoprolol Succinate 25 mg Xl* [Toprol-Xl 25MG Tablets] 25 mg PO DAILY 30 Days #30 tab Hydroxyzine HCl 25 mg [Atarax 25 mg] 25 mg PO BID PRN PRN PRN Reason: Anxiety lisinopriL [Zestril] 2.5 mg PO BID Potassium Chloride Tab* [Klor Con] 10 meq PO DAILY Furosemide 40 mg [Lasix 40 MG] 40 mg PO DAILY Omeprazole 40 mg PO DAILY Albuterol Sulfate [Albuterol Sulfate Hfa] 1 puff IH Q4H PRN PRN PRN Reason: SOB/Wheezing Apixaban [Eliquis] 5 mg PO BID #60 tablet Albuterol/Ipratropium 3ml Neb* [DUONEB 0.5-3 MG/3 ml Neb] 3 ml IH QID PRN Budesonide/Formoterol Fumarate [Budesonide-Formoterol 160-4.5] 2 puffs IH BID Instructions: Exacerbation of COPD (DC) Follow up with: EDGAR TRAN MD [Primary Care Provider] - 09/30/21 10:00 am Forms: Discharge Instructions
== END 2021-09-24 14:25 | disposition home or self-care (01) ==
LOC: ED 10:17 → MED SURG 16:02
PROVIDERS: ADMIT Family Medicine; ATTEND Family Medicine
DX: J44.1 Chronic obstructive pulmonary disease with (acute) exacerbation (principal); J18.9 Pneumonia, unspecified organism; J96.11 Chronic respiratory failure with hypoxia; I11.0 Hypertensive heart disease with heart failure; I50.9 Heart failure, unspecified; Z72.0 Tobacco use; Z79.899 Other long term (current) drug therapy; Z20.828 Contact with and (suspected) exposure to other viral communicable diseases; Z99.81 Dependence on supplemental oxygen
CPT/HCPCS: 0241U; 36415; 71045; 80048; 80053; 81015; 83735; 83880; 84484; 85025; 85027; 87040; 93005; 93268; 94640; 94760; 94762; 96365; 96367; 99285; G0378; J0456; J0696; J2920; J2930; A9270-GY

== ENCOUNTER 2021-09-30 10:46 | Observation (INO) | payer OTHER ==
[2021-09-30] MEDS ORDERED: solu-MEDROL IV ONE (11:34)
[2021-09-30] MEDS ORDERED: TYLENOL 325 MG PO PRN (11:37)
[2021-09-30] MEDS ORDERED: Zofran 4 MG/2 ML VIAL IV PRN (11:37)
[2021-09-30] MEDS ORDERED: solu-MEDROL IV SCH (12:00)
[2021-09-30] MEDS ORDERED: solu-MEDROL 125 MG, Sterile H2O 10 ml 2 ML IV ONE ×2 (12:00)
--- NOTE | 2021-09-30 12:07 | XRAY ---
Indication: Cough and congestion. Comparison: September 23, 2021. Portable apical lordotic chest again demonstrates diffuse bilateral hazy airspace disease, worsened in right lung without consolidation/large effusion. Heart not enlarged. No new cardiopulmonary abnormalities.
[2021-09-30 12:17] LABS: Absolute Neutrophil Ct (ANC) 9.13 x10^3/uL (1.4-6.9); Basophil (Absolute #) 0.03 x10^3/uL (0-0.4); Eosinophil % 0.7 % (0.00-5.0); Hematocrit 38.3 % (35-47); Hemoglobin 12.3 g/dL (12.0-16.0); Lymphocyte (Absolute #) 3.03 x10^3/uL (1.0-4.6); Lymphocytes % 22.4 % (24.0-44.0); Mean Cell Volume 97.2 fL (78-100); Mean Corpuscular Hemoglobin 31.2 pg (26-32); Mean Corpuscular Hgb Concent. 32.1 g/dL (32-36); Mean Platelet Volume 9.6 fL (7.5-11.0); Monocyte (Absolute #) 1.05 x10^3/uL (0.0-1.3); Monocytes % 7.8 % (0.0-12.0); Neutrophil % 67.5 % (36.0-66.0); Platelet Count 280 x10^3/uL (150-450); Red Blood Count 3.94 x10^6/uL (4.1-5.4); Red Cell Distribution Width 13.9 % (11.5-14.0); White Blood Count 13.5 x10^3/uL (4.0-10.5)
[2021-09-30 12:23] LABS: ALBUMIN 3.7 g/dL (3.5-5.0); ALKALINE PHOSPHATASE 73 U/L (38-126); ANION GAP 8.8 MEQ/L (5-15); BLOOD UREA NITROGEN 21 mg/dL (7-17); CHLORIDE 95 mmol/L (98-107); Calcium 9.3 mg/dL (8.4-10.2); Carbon Dioxide 39 mmol/L (22-30); Creatinine 1 0.67 mg/dL (0.52-1.04); EST GLOMERULAR FILTRATION RATE > 60.0 ML/MIN; Glucose 92 mg/dL (74-106); Potassium 4.2 mmol/L (3.5-5.1); SGOT/AST 22 U/L (14-36); SGPT/ALT 22 U/L (0-35); SODIUM 138 mmol/L (137-145)
[2021-09-30 12:27] LABS: INFLUENZA A NEGATIVE (NEGATIVE); INFLUENZA B NEGATIVE (NEGATIVE); RESPIRATORY SYNCTIAL VIRUS NEGATIVE (Negative); SARS-CoV-2 Xpert Express NEGATIVE (NEGATIVE)
[2021-09-30] MEDS: Levofloxacin 500 MG Tablet PO SCH (13:09)
[2021-09-30] MEDS: DUONEB 0.5-3 MG/3 ml Neb IH SCH ×2 (13:09→20:27)
[2021-09-30] MEDS: NORCO 5/325 MG PO PRN ×2 (14:23→21:35)
[2021-09-30] MEDS: solu-MEDROL 80 MG, Sterile H2O 10 ml 2 ML IV SCH ×4 (19:15→23:22)
[2021-09-30] MEDS: Advair Hfa 230/21 Mcg COMMON CANISTER IH SCH (20:29)
[2021-09-30] MEDS: Zestril 5 MG PO SCH (21:35)
[2021-09-30] MEDS: ELIQUIS 2.5 MG TABLET PO SCH (21:35)
[2021-09-30] MEDS ORDERED: NON-FORMULARY ITEM (Apixaban [Eliquis] 5 MG Tablet) PO SCH (22:00)
[2021-09-30] MEDS ORDERED: NON-FORMULARY ITEM (Lisinopril [Zestril] 2.5 MG Tablet) PO SCH (22:00)
[2021-10-01] MEDS: DUONEB 0.5-3 MG/3 ml Neb IH SCH ×4 (01:39→19:27)
[2021-10-01] MEDS: NORCO 5/325 MG PO PRN ×3 (04:31→21:34)
[2021-10-01] MEDS: solu-MEDROL 80 MG, Sterile H2O 10 ml 2 ML IV SCH ×6 (05:05→17:09)
[2021-10-01] MEDS: Advair Hfa 230/21 Mcg COMMON CANISTER IH SCH ×2 (06:53→19:28)
--- NOTE | 2021-10-01 08:20 | PCM.NOTE ---
Date and Time: 10/01/21817 Subjective Assessment: some improvement in symptoms, still very short of breath with minimal exertion Objective Exam General Appearance: no apparent distress, obese Neurologic Exam: alert, oriented x 3 Respiratory Exam: diminished breath sounds, prolonged expirations, wheezing, other (poor exchange resultant in minimal wheezing) Cardiovascular Exam: regular rate/rhythm, normal heart sounds Gastrointestinal/Abdomen Exam: soft, No tenderness, No mass Extremity Exam: normal inspection, normal range of motion OBJECTIVE DATA Vital Signs: Vital Signs - 24 hr Temp Pulse Resp BP Pulse Ox 10/01/21 07: 98.2 F 70 16 130/82 96 10/01/21 06:46 87 20 97 10/01/21 04:00 96.9 F 77 17 116/62 93 L 10/01/21 01:39 81 21 95 09/30/21 23:12 96.9 F 88 16 143/67 95 09/30/21 20:27 74 23 93 L 09/30/21 19:25 96.0 F 75 18 124/64 95 09/30/21 16:00 98.3 F 75 22 123/54 91 L 09/30/21 13:19 98.8 F 70 21 129/56 95 09/30/21 13:14 78 18 94 L Pain Assessment - Last Documented Pain Intensity 6 Pain Scale Used 0-10 Pain Scale Intake and Output: Intake & Output 09/28/21 09/29/21 09/30/21 10/01/21 11:59 11:59 11:59 11:59 Intake Total 1200 Balance 1200 Weight 134.4 kg 134.4 kg Lab Results: Lab Results-Last 24 Hours 09/30/21 09/30/21 09/30/21 Range/Units 11:26 11:33 11:33 WBC 13.5 H (4.0-10.5) x10^3/uL RBC 3.94 L (4.1-5.4) x10^6/uL Hgb 12.3 (12.0-16.0) g/dL Hct 38.3 (35-47) % MCV 97.2 (78-100) fL MCH 31.2 (26-32) pg MCHC 32.1 (32-36) g/dL RDW 13.9 (11.5-14.0) % Plt Count 280 (150-450) x10^3/uL MPV 9.6 (7.5-11.0) fL Gran % 67.5 H (36.0-66.0) % Immature Gran % (Auto) 1.4 H (0.00-0.4) % Nucleat RBC Rel Count 0.0 (0.00-0.1) % Eos # (Auto) 0.10 (0-0.5) x10^3/uL Immature Gran # (Auto) 0.19 H (0.00-0.03) x10^3u/L Absolute Lymphs (auto) 3.03 (1.0-4.6) x10^3/uL Absolute Monos (auto) 1.05 (0.0-1.3) x10^3/uL Absolute Nucleated RBC 0.00 (0.00-0.01) x10^3u/L Lymphocytes % 22.4 L (24.0-44.0) % Monocytes % 7.8 (0.0-12.0) % Eosinophils % 0.7 (0.00-5.0) % Basophils % 0.2 (0.0-0.4) % Absolute Granulocytes 9.13 H (1.4-6.9) x10^3/uL Basophils # 0.03 (0-0.4) x10^3/uL Sodium 138 (137-145) mmol/L Potassium 4.2 (3.5-5.1) mmol/L Chloride 95 L (98-107) mmol/L Carbon Dioxide 39 H (22-30) mmol/L Anion Gap 8.8 (5-15) MEQ/L BUN 21 H (7-17) mg/dL Creatinine 0.67 (0.52-1.04) mg/dL Estimated GFR > 60.0 ML/MIN Glucose 92 (74-106) mg/dL Calcium 9.3 (8.4-10.2) mg/dL Total Bilirubin 0.40 (0.2-1.3) mg/dL AST 22 (14-36) U/L ALT 22 (0-35) U/L Alkaline Phosphatase 73 (38-126) U/L Serum Total Protein 7.0 (6.3-8.2) g/dL Albumin 3.7 (3.5-5.0) g/dL Influenza Type A Ag NEGATIVE (NEGATIVE) Influenza Type B Ag NEGATIVE (NEGATIVE) RSV (PCR) NEGATIVE (Negative) SARS-CoV-2 (PCR) NEGATIVE (NEGATIVE) Radiology Exams: Radiology Procedures Category Date Time Status CHEST 1 VIEW (PORTABLE) Routine Exams 09/30/21 11:52 Completed Assessment/Plan (1) COPD exacerbation Current Visit: No Status: Acute Assessment & Plan: continue current management with levaquin, IV solu medrol and nebs Code(s): J44.1 - CHRONIC OBSTRUCTIVE PULMONARY DISEASE W (ACUTE) EXACERBATION (2) Congestive heart failure Current Visit: No Status: Acute Assessment & Plan: euvolemic currently Code(s): I50.9 - HEART FAILURE, UNSPECIFIED (3) Chronic hypoxemic respiratory failure Current Visit: No Status: Chronic (4) SALVATORE (obstructive sleep apnea) Current Visit: No Status: Chronic Code(s): G47.33 - OBSTRUCTIVE SLEEP APNEA (ADULT) (PEDIATRIC)
[2021-10-01] MEDS: Klor Con PO SCH (09:23)
[2021-10-01] MEDS: Toprol-Xl 25MG Tablets PO SCH (09:23)
[2021-10-01] MEDS: ELIQUIS 2.5 MG TABLET PO SCH ×2 (09:23→21:34)
[2021-10-01] MEDS: Zestril 5 MG PO SCH ×2 (09:23→21:34)
[2021-10-01] MEDS: hydroDIURIL 25 MG PO SCH (09:23)
[2021-10-01] MEDS: Lasix 40 MG PO SCH (09:23)
[2021-10-01] MEDS: Protonix 40MG Tablet PO SCH (09:24)
[2021-10-01] MEDS: Levofloxacin 500 MG Tablet PO SCH (09:24)
[2021-10-01] MEDS: ZOLOFT 50 MG TABLET PO SCH (09:24)
[2021-10-01] MEDS ORDERED: NON-FORMULARY ITEM (Omeprazole [Omeprazole] 40 MG Capsule.Dr) PO SCH (10:00)
[2021-10-02] MEDS ORDERED: solu-MEDROL ONE ×2 (00:13→11:37)
[2021-10-02] MEDS: solu-MEDROL 80 MG, Sterile H2O 10 ml 2 ML IV SCH ×8 (00:16→16:49)
[2021-10-02] MEDS: DUONEB 0.5-3 MG/3 ml Neb IH SCH ×4 (01:23→19:23)
[2021-10-02] MEDS: NORCO 5/325 MG PO PRN ×3 (03:59→16:49)
[2021-10-02] MEDS: Advair Hfa 230/21 Mcg COMMON CANISTER IH SCH ×2 (05:22→19:24)
[2021-10-02 05:55] LABS: Absolute Neutrophil Ct (ANC) 14.25 x10^3/uL (1.4-6.9); Basophil (Absolute #) 0.02 x10^3/uL (0-0.4); Eosinophil (Absolute #) 0 x10^3/uL (0-0.5); Hematocrit 39.6 % (35-47); Hemoglobin 12.4 g/dL (12.0-16.0); Lymphocyte (Absolute #) 0.63 x10^3/uL (1.0-4.6); Mean Cell Volume 100.5 fL (78-100); Mean Corpuscular Hemoglobin 31.5 pg (26-32); Mean Corpuscular Hgb Concent. 31.3 g/dL (32-36); Monocytes % 3.2 % (0.0-12.0); Neutrophil % 90.8 % (36.0-66.0); Platelet Count 288 x10^3/uL (150-450); Red Blood Count 3.94 x10^6/uL (4.1-5.4); White Blood Count 15.7 x10^3/uL (4.0-10.5)
[2021-10-02 06:23] LABS: ANION GAP 10.2 MEQ/L (5-15); BLOOD UREA NITROGEN 26 mg/dL (7-17); CHLORIDE 96 mmol/L (98-107); Calcium 9.7 mg/dL (8.4-10.2); Carbon Dioxide 35 mmol/L (22-30); Creatinine 1 0.65 mg/dL (0.52-1.04); EST GLOMERULAR FILTRATION RATE > 60.0 ML/MIN; Glucose 182 mg/dL (74-106); Potassium 4.5 mmol/L (3.5-5.1); SODIUM 137 mmol/L (137-145)
--- NOTE | 2021-10-02 08:28 | PCM.NOTE ---
Date and Time: 10/02/21826 Subjective Assessment: patient still has some shortness of breath with exertion but improving, overall doing better Objective Exam General Appearance: no apparent distress, obese Neurologic Exam: alert, oriented x 3 Respiratory Exam: wheezing Cardiovascular Exam: regular rate/rhythm, normal heart sounds Extremity Exam: normal inspection, normal range of motion OBJECTIVE DATA Vital Signs: Vital Signs - 24 hr Temp Pulse Resp BP Pulse Ox 10/02/21 07:47 96.6 F 74 17 140/64 94 L 10/02/21 05:23 61 20 93 L 10/02/21 03:48 96.9 F 68 20 138/67 94 L 10/02/21 01:25 73 18 94 L 10/01/21 23:35 96.6 F 68 18 116/59 95 10/01/21 20:00 97.1 F 82 18 131/70 94 L 10/01/21 19:28 81 18 92 L 10/01/21 16:00 98.1 F 100 H 16 127/71 97 10/01/21 12:18 87 20 93 L 10/01/21 11:57 98.4 F 89 16 121/60 93 L Pain Assessment - Last Documented Pain Intensity 4 Pain Scale Used 0-10 Pain Scale Intake and Output: Intake & Output 09/29/21 09/30/21 10/01/21 10/02/21 11:59 11:59 11:59 11:59 Intake Total 1779 1939 Balance 1779 1939 Weight 134.4 kg 134.4 kg Lab Results: Lab Results-Last 24 Hours 10/02/21 10/02/21 Range/Units 05:33 05:33 WBC 15.7 H (4.0-10.5) x10^3/uL RBC 3.94 L (4.1-5.4) x10^6/uL Hgb 12.4 (12.0-16.0) g/dL Hct 39.6 (35-47) % MCV 100.5 H (78-100) fL MCH 31.5 (26-32) pg MCHC 31.3 L (32-36) g/dL RDW 14.0 (11.5-14.0) % Plt Count 288 (150-450) x10^3/uL MPV 10.0 (7.5-11.0) fL Gran % 90.8 H (36.0-66.0) % Immature Gran % (Auto) 1.9 H (0.00-0.4) % Nucleat RBC Rel Count 0.0 (0.00-0.1) % Eos # (Auto) 0 (0-0.5) x10^3/uL Immature Gran # (Auto) 0.30 H (0.00-0.03) x10^3u/L Absolute Lymphs (auto) 0.63 L (1.0-4.6) x10^3/uL Absolute Monos (auto) 0.50 (0.0-1.3) x10^3/uL Absolute Nucleated RBC 0.00 (0.00-0.01) x10^3u/L Lymphocytes % 4.0 L (24.0-44.0) % Monocytes % 3.2 (0.0-12.0) % Eosinophils % 0.0 (0.00-5.0) % Basophils % 0.1 (0.0-0.4) % Absolute Granulocytes 14.25 H (1.4-6.9) x10^3/uL Basophils # 0.02 (0-0.4) x10^3/uL Sodium 137 (137-145) mmol/L Potassium 4.5 (3.5-5.1) mmol/L Chloride 96 L (98-107) mmol/L Carbon Dioxide 35 H (22-30) mmol/L Anion Gap 10.2 (5-15) MEQ/L BUN 26 H (7-17) mg/dL Creatinine 0.65 (0.52-1.04) mg/dL Estimated GFR > 60.0 ML/MIN Glucose 182 H (74-106) mg/dL Calcium 9.7 (8.4-10.2) mg/dL Radiology Exams: Radiology Procedures Category Date Time Status CHEST 1 VIEW (PORTABLE) Routine Exams 09/30/21 11:52 Completed Assessment/Plan (1) COPD exacerbation Current Visit: No Status: Acute Assessment & Plan: improving, continue current management. likely home tomorrow Code(s): J44.1 - CHRONIC OBSTRUCTIVE PULMONARY DISEASE W (ACUTE) EXACERBATION (2) Congestive heart failure Current Visit: No Status: Acute Code(s): I50.9 - HEART FAILURE, UNSPECIFIED (3) Chronic hypoxemic respiratory failure Current Visit: No Status: Chronic (4) SALVATORE (obstructive sleep apnea) Current Visit: No Status: Chronic Code(s): G47.33 - OBSTRUCTIVE SLEEP APNEA (ADULT) (PEDIATRIC)
[2021-10-02] MEDS: Klor Con PO SCH (09:59)
[2021-10-02] MEDS: Levofloxacin 500 MG Tablet PO SCH (09:59)
[2021-10-02] MEDS: Toprol-Xl 25MG Tablets PO SCH (10:00)
[2021-10-02] MEDS: Zestril 5 MG PO SCH ×2 (10:00→23:39)
[2021-10-02] MEDS: ZOLOFT 50 MG TABLET PO SCH (10:02)
[2021-10-02] MEDS: Lasix 40 MG PO SCH (10:03)
[2021-10-02] MEDS: hydroDIURIL 25 MG PO SCH (10:03)
[2021-10-02] MEDS: ELIQUIS 2.5 MG TABLET PO SCH ×2 (10:03→23:39)
[2021-10-02] MEDS: Protonix 40MG Tablet PO SCH (10:04)
[2021-10-03] MEDS: solu-MEDROL 80 MG, Sterile H2O 10 ml 2 ML IV SCH ×4 (00:02→06:01)
[2021-10-03] MEDS: DUONEB 0.5-3 MG/3 ml Neb IH SCH ×2 (01:13→07:32)
[2021-10-03 05:04] LABS: Basophil (Absolute #) 0.03 x10^3/uL (0-0.4); Eosinophil (Absolute #) 0 x10^3/uL (0-0.5); Hematocrit 40.4 % (35-47); Hemoglobin 12.7 g/dL (12.0-16.0); Lymphocyte (Absolute #) 0.86 x10^3/uL (1.0-4.6); Lymphocytes % 5.3 % (24.0-44.0); Mean Cell Volume 99.5 fL (78-100); Mean Corpuscular Hemoglobin 31.3 pg (26-32); Mean Corpuscular Hgb Concent. 31.4 g/dL (32-36); Mean Platelet Volume 10.1 fL (7.5-11.0); Monocyte (Absolute #) 0.96 x10^3/uL (0.0-1.3); Monocytes % 5.9 % (0.0-12.0); Neutrophil % 86.6 % (36.0-66.0); Platelet Count 285 x10^3/uL (150-450); Red Blood Count 4.06 x10^6/uL (4.1-5.4); Red Cell Distribution Width 14.2 % (11.5-14.0); White Blood Count 16.4 x10^3/uL (4.0-10.5)
[2021-10-03] MEDS: NORCO 5/325 MG PO PRN (05:12)
[2021-10-03 05:28] LABS: ANION GAP 9.3 MEQ/L (5-15); BLOOD UREA NITROGEN 27 mg/dL (7-17); CHLORIDE 95 mmol/L (98-107); Calcium 9.3 mg/dL (8.4-10.2); Carbon Dioxide 37 mmol/L (22-30); Creatinine 1 0.66 mg/dL (0.52-1.04); EST GLOMERULAR FILTRATION RATE > 60.0 ML/MIN; Glucose 180 mg/dL (74-106); Potassium 4.3 mmol/L (3.5-5.1); SODIUM 136 mmol/L (137-145)
[2021-10-03 07:01] VITALS: BP 146/71; O2SAT 93
[2021-10-03] MEDS: Advair Hfa 230/21 Mcg COMMON CANISTER IH SCH (07:32)
[2021-10-03 07:43] VITALS: PULSE 64
--- NOTE | 2021-10-03 07:47 | PCM.DS ---
Discharge Summary Date of Admission: 09/30/21 10:52 Admitting Physician: EDGAR TRAN Primary Care Provider: EDGAR TRAN Allergies Allergies bee venom protein (honey bee) Allergy (Severe, Verified 09/30/21 13:16) Difficulty Breathing Hospital Summary - Hospital Course Hospital Course: patient was direct admitted with cough, wheezing and shortness of breath, copd exacerbation. treated with steroids ,nebs and abx and now back to baseline and doing much better. - Vitals & Intake/Output Vital Signs: Vital Signs Temperature 97.9 F 10/03/21 06:59 Pulse Rate 64 10/03/21 07:32 Respiratory Rate 18 10/03/21 07:32 Blood Pressure 146/71 10/03/21 06:59 O2 Sat by Pulse Oximetry 93 L 10/03/21 07:32 Intake & Output: Intake & Output 09/30/21 10/01/21 10/02/21 10/03/21 11:59 11:59 11:59 11:59 Intake Total 1780 2300 1640 Balance 1780 2300 1640 Weight 134.4 kg 134.4 kg - Lab Result Diagrams: 10/03/21 04:55 10/03/21 04:55 Lab Results-Last 24 Hrs: Lab Results-Last 24 Hours 10/03/21 10/03/21 Range/Units 04:55 04:55 WBC 16.4 H (4.0-10.5) x10^3/uL RBC 4.06 L (4.1-5.4) x10^6/uL Hgb 12.7 (12.0-16.0) g/dL Hct 40.4 (35-47) % MCV 99.5 (78-100) fL MCH 31.3 (26-32) pg MCHC 31.4 L (32-36) g/dL RDW 14.2 H (11.5-14.0) % Plt Count 285 (150-450) x10^3/uL MPV 10.1 (7.5-11.0) fL Gran % 86.6 H (36.0-66.0) % Immature Gran % (Auto) 2.0 H (0.00-0.4) % Nucleat RBC Rel Count 0.0 (0.00-0.1) % Eos # (Auto) 0 (0-0.5) x10^3/uL Immature Gran # (Auto) 0.32 H (0.00-0.03) x10^3u/L Absolute Lymphs (auto) 0.86 L (1.0-4.6) x10^3/uL Absolute Monos (auto) 0.96 (0.0-1.3) x10^3/uL Absolute Nucleated RBC 0.00 (0.00-0.01) x10^3u/L Lymphocytes % 5.3 L (24.0-44.0) % Monocytes % 5.9 (0.0-12.0) % Eosinophils % 0.0 (0.00-5.0) % Basophils % 0.2 (0.0-0.4) % Absolute Granulocytes 14.20 H (1.4-6.9) x10^3/uL Basophils # 0.03 (0-0.4) x10^3/uL Sodium 136 L (137-145) mmol/L Potassium 4.3 (3.5-5.1) mmol/L Chloride 95 L (98-107) mmol/L Carbon Dioxide 37 H (22-30) mmol/L Anion Gap 9.3 (5-15) MEQ/L BUN 27 H (7-17) mg/dL Creatinine 0.66 (0.52-1.04) mg/dL Estimated GFR > 60.0 ML/MIN Glucose 180 H (74-106) mg/dL Calcium 9.3 (8.4-10.2) mg/dL - Procedures and Test Procedures and Tests throughout Hospitalization: Therapy Orders & Screens 09/30/21 11:38 Oxygen Nasal Cannula 4 lpm Comment: Diagnosis: Acute exacerbation of copd 09/30/21 11:41 Respiratory Therapy Assessment DAILY Comment: Diagnosis: Acute exacerbation of copd 09/30/21 13:31 RT Screen per Nursing Assess ONCE Comment: Protocol Order Physician Instructions: Greater than 3 points order RT Admission Screen Reason For Exam: Triggered on Admission Diagnosis: EXAC COPD Diagnosis: EXAC COPD Pneumonia: No Home O2: Yes Asthma: Yes CHF: Yes Home CPAP/BIPAP: Yes Home Nebs/MDI: Yes Total Points: 22 Discharge Exam General Appearance: no apparent distress, obese Respiratory Exam: lungs clear, prolonged expirations, No accessory muscle use, No wheezing Cardiovascular Exam: regular rate/rhythm, normal heart sounds Gastrointestinal/Abdomen Exam: soft, No tenderness, No mass Extremity Exam: normal inspection, normal range of motion Skin Exam: normal color, warm, dry Final Diagnosis/Problem List - Final Discharge Diagnosis/Problem (1) COPD exacerbation Current Visit: No Status: Acute Assessment & Plan: home on po prednisone taper and levaquin po Code(s): J44.1 - CHRONIC OBSTRUCTIVE PULMONARY DISEASE W (ACUTE) EXACERBATION (2) Congestive heart failure Current Visit: No Status: Acute Code(s): I50.9 - HEART FAILURE, UNSPECIFIED (3) Chronic hypoxemic respiratory failure Current Visit: No Status: Chronic (4) SALVATORE (obstructive sleep apnea) Current Visit: No Status: Chronic Code(s): G47.33 - OBSTRUCTIVE SLEEP APNEA (ADULT) (PEDIATRIC) - Discharge Disposition: Home, Self-Care Condition: Stable Prescriptions: New Levofloxacin [Levofloxacin 500 MG Tablet] 500 mg PO DAILY #5 tablet Continue Hydrocodone Bit/Acetaminophen [[place] 5/325Mg] 1 each PO Q6H PRN PRN PRN Reason: Pain Cyclobenzaprine HCl [Flexeril] 10 mg PO TID PRN PRN PRN Reason: Muscle Spasms Sertraline HCl 50 mg [Zoloft 50 mg Tablet] 100 mg PO DAILY Atorvastatin Calcium [Lipitor 20MG Tablet] 20 mg PO DAILY Hydrochlorothiazide 25 mg [hydroDIURIL 25 MG] 12.5 mg PO DAILY Metoprolol Succinate 25 mg Xl* [Toprol-Xl 25MG Tablets] 25 mg PO DAILY 30 Days #30 tab Hydroxyzine HCl 25 mg [Atarax 25 mg] 25 mg PO BID PRN PRN PRN Reason: Anxiety lisinopriL [Zestril] 2.5 mg PO BID Potassium Chloride Tab* [Klor Con] 10 meq PO DAILY Furosemide 40 mg [Lasix 40 MG] 40 mg PO DAILY Omeprazole 40 mg PO DAILY Albuterol Sulfate [Albuterol Sulfate Hfa] 1 puff IH Q4H PRN PRN PRN Reason: SOB/Wheezing Apixaban [Eliquis] 5 mg PO BID #60 tablet Albuterol/Ipratropium 3ml Neb* [DUONEB 0.5-3 MG/3 ml Neb] 3 ml IH QID PRN Budesonide/Formoterol Fumarate [Budesonide-Formoterol 160-4.5] 2 puffs IH BID Lactobacillus Acidophilus [Acidophilus TABLET] 1 tab PO TID #21 tablet Changed Prednisone 20 mg [Deltasone 20 mg] 20 mg PO UD #18 tablet Discontinued Amox Tr/Potass Clav. 875 mg [Augmentin 875-125 Tablet] 875 mg PO BID #6 tablet Follow up with: EDGAR TRAN MD [Primary Care Provider] -
== END 2021-10-03 10:15 | disposition home or self-care (01) ==
LOC: MED SURG 10:52
PROVIDERS: ADMIT Family Medicine; ATTEND Family Medicine
DX: J44.1 Chronic obstructive pulmonary disease with (acute) exacerbation (principal); I50.9 Heart failure, unspecified; J96.11 Chronic respiratory failure with hypoxia; G47.33 Obstructive sleep apnea (adult) (pediatric); Z79.899 Other long term (current) drug therapy; Z20.828 Contact with and (suspected) exposure to other viral communicable diseases; Z79.01 Long term (current) use of anticoagulants
CPT/HCPCS: 0241U; 36415; 71045; 80048; 80053; 85025; 94640; 94760; G0378; J2930; A9270-GY

== ENCOUNTER 2022-05-16 10:45 | Inpatient (IN) | payer OTHER ==
[2022-05-16] MEDS ORDERED: solu-MEDROL 125 MG, Sterile H2O 10 ml 2 ML IV ONE ×4 (11:13→14:00)
--- NOTE | 2022-05-16 11:52 | XRAY ---
Indication: Cough. COPD. Comparison: September 30, 2021 Portable chest again demonstrates diffuse bilateral hazy airspace disease, worsened in both lung bases. New small bibasilar effusions. Heart not enlarged. Bony thorax intact.
[2022-05-16 11:53] LABS: Absolute Neutrophil Ct (ANC) 8.35 x10^3/uL (1.4-6.9); BASOPHIL % 0.5 % (0.0-0.4); Basophil (Absolute #) 0.05 x10^3/uL (0-0.4); Eosinophil % 1.4 % (0.00-5.0); Eosinophil (Absolute #) 0.15 x10^3/uL (0-0.5); Hematocrit 39.4 % (35-47); Hemoglobin 12.3 g/dL (12.0-16.0); IMMATURE GRAN # 0.05 x10^3u/L (0.00-0.03); IMMATURE GRAN % 0.5 % (0.00-0.4); Lymphocyte (Absolute #) 1.13 x10^3/uL (1.0-4.6); Lymphocytes % 10.9 % (24.0-44.0); Mean Cell Volume 99.7 fL (78-100); Mean Corpuscular Hemoglobin 31.1 pg (26-32); Mean Corpuscular Hgb Concent. 31.2 g/dL (32-36); Mean Platelet Volume 9.7 fL (7.5-11.0); Monocyte (Absolute #) 0.66 x10^3/uL (0.0-1.3); Monocytes % 6.4 % (0.0-12.0); Neutrophil % 80.3 % (36.0-66.0); Platelet Count 275 x10^3/uL (150-450); Red Blood Count 3.95 x10^6/uL (4.1-5.4); Red Cell Distribution Width 14.5 % (11.5-14.0); White Blood Count 10.4 x10^3/uL (4.0-10.5)
[2022-05-16] MEDS: DUONEB 0.5-3 MG/3 ml Neb IH SCH ×2 (12:22→18:17)
[2022-05-16 12:45] LABS: ALBUMIN 4.1 g/dL (3.5-5.0); ALKALINE PHOSPHATASE 119 U/L (38-126); BLOOD UREA NITROGEN 9 mg/dL (7-17); CHLORIDE 100 mmol/L (98-107); Calcium 9.1 mg/dL (8.4-10.2); Carbon Dioxide 36 mmol/L (22-30); Creatinine 1 0.55 mg/dL (0.52-1.04); EST GLOMERULAR FILTRATION RATE > 60.0 ML/MIN; Glucose 117 mg/dL (74-106); Potassium 3.9 mmol/L (3.5-5.1); SGOT/AST 22 U/L (14-36); SGPT/ALT 17 U/L (0-35); SODIUM 142 mmol/L (137-145); Total Protein 7.4 g/dL (6.3-8.2)
[2022-05-16] MEDS: ROCEPHIN 1 Gm-D5w 50 ml Bag** 1 G/50 ML IVPB IV SCH (13:47)
[2022-05-16 14:00] LABS: INFLUENZA A NEGATIVE (NEGATIVE); INFLUENZA B NEGATIVE (NEGATIVE); RESPIRATORY SYNCTIAL VIRUS NEGATIVE (Negative); SARS-CoV-2 Xpert Express NEGATIVE (NEGATIVE)
[2022-05-16] MEDS: Zithromax 500 MG/ 250 ML NaCl Premix 500 MG/250 ML IVPB IV SCH (14:25)
[2022-05-16] MEDS ORDERED: ATARAX 25 MG PO PRN (14:46)
[2022-05-16] MEDS ORDERED: CYCLOBENZAPRINE HCL 5 MG PO PRN (14:46)
[2022-05-16] MEDS: NORCO 5/325 MG PO PRN ×2 (15:37→21:20)
[2022-05-16] MEDS ORDERED: solu-MEDROL ONE (17:55)
[2022-05-16] MEDS: solu-MEDROL 80 MG, Sterile H2O 10 ml 2 ML IV SCH ×4 (18:05→23:00)
[2022-05-16] MEDS: Advair Hfa 230/21 Mcg COMMON CANISTER IH SCH (18:20)
[2022-05-16] MEDS: Wellbutrin SR 150 MG PO SCH (21:09)
[2022-05-16] MEDS: ELIQUIS 2.5 MG TABLET PO SCH (21:09)
[2022-05-16] MEDS: Cyclobenzaprine 10 MG PO PRN (21:20)
[2022-05-16] MEDS ORDERED: NON-FORMULARY ITEM (Apixaban [Eliquis] 5 MG Tablet) PO SCH (22:00)
[2022-05-17] MEDS: DUONEB 0.5-3 MG/3 ml Neb IH SCH ×5 (00:30→17:00)
[2022-05-17] MEDS: solu-MEDROL 80 MG, Sterile H2O 10 ml 2 ML IV SCH ×8 (05:52→23:00)
[2022-05-17] MEDS: NORCO 5/325 MG PO PRN ×3 (06:00→22:46)
[2022-05-17] MEDS ORDERED: DUONEB 0.5-3 MG/3 ml Neb IH ONE (07:27)
[2022-05-17 07:59] LABS: Hematocrit 38.1 % (35-47); Hemoglobin 11.8 g/dL (12.0-16.0); Mean Platelet Volume 9.5 fL (7.5-11.0); Platelet Count 258 x10^3/uL (150-450); Red Blood Count 3.81 x10^6/uL (4.1-5.4); Red Cell Distribution Width 14.4 % (11.5-14.0); White Blood Count 8.8 x10^3/uL (4.0-10.5)
[2022-05-17] MEDS: Advair Hfa 230/21 Mcg COMMON CANISTER IH SCH ×2 (08:10→17:10)
[2022-05-17] MEDS: hydroDIURIL 25 MG PO SCH (09:28)
[2022-05-17] MEDS: Klor Con PO SCH (09:29)
[2022-05-17] MEDS: ELIQUIS 2.5 MG TABLET PO SCH ×2 (09:29→21:11)
[2022-05-17] MEDS: ZOCOR 20MG PO SCH (09:29)
[2022-05-17] MEDS: Wellbutrin SR 150 MG PO SCH ×2 (09:29→21:11)
[2022-05-17] MEDS: Zestril 5 MG PO SCH (09:29)
[2022-05-17] MEDS: Protonix 40MG Tablet PO SCH (09:30)
[2022-05-17] MEDS: ZOLOFT 50 MG TABLET PO SCH (09:30)
[2022-05-17] MEDS: Lasix 40 MG PO SCH (09:31)
[2022-05-17] MEDS: Toprol-Xl 25MG Tablets PO SCH (09:31)
[2022-05-17] MEDS: Zithromax 500 MG/ 250 ML NaCl Premix 500 MG/250 ML IVPB IV SCH (09:31)
[2022-05-17] MEDS ORDERED: NON-FORMULARY ITEM (Atorvastatin Calcium 20 MG Tab) PO SCH (10:00)
[2022-05-17] MEDS ORDERED: NON-FORMULARY ITEM (Lisinopril [Zestril] 2.5 MG Tablet) PO SCH (10:00)
[2022-05-17] MEDS ORDERED: NON-FORMULARY ITEM (Omeprazole [Omeprazole] 40 MG Capsule.Dr) PO SCH (10:00)
[2022-05-17] MEDS: Cyclobenzaprine 10 MG PO PRN ×2 (10:27→21:11)
[2022-05-17] MEDS: ROCEPHIN 1 Gm-D5w 50 ml Bag** 1 G/50 ML IVPB IV SCH (11:01)
[2022-05-18] MEDS: DUONEB 0.5-3 MG/3 ml Neb IH SCH ×4 (00:30→18:41)
[2022-05-18] MEDS: solu-MEDROL 80 MG, Sterile H2O 10 ml 2 ML IV SCH ×8 (05:55→23:16)
[2022-05-18] MEDS: NORCO 5/325 MG PO PRN ×3 (05:56→21:22)
[2022-05-18] MEDS: Advair Hfa 230/21 Mcg COMMON CANISTER IH SCH ×2 (07:30→18:43)
[2022-05-18] MEDS: ELIQUIS 2.5 MG TABLET PO SCH ×2 (10:16→21:22)
[2022-05-18] MEDS: Lasix 40 MG PO SCH (10:16)
[2022-05-18] MEDS: Wellbutrin SR 150 MG PO SCH ×2 (10:16→21:22)
[2022-05-18] MEDS: Toprol-Xl 25MG Tablets PO SCH (10:16)
[2022-05-18] MEDS: Zestril 5 MG PO SCH (10:17)
[2022-05-18] MEDS: ZOCOR 20MG PO SCH (10:17)
[2022-05-18] MEDS: hydroDIURIL 25 MG PO SCH (10:17)
[2022-05-18] MEDS: Klor Con PO SCH (10:17)
[2022-05-18] MEDS: Protonix 40MG Tablet PO SCH (10:17)
[2022-05-18] MEDS: ZOLOFT 50 MG TABLET PO SCH (10:18)
[2022-05-18] MEDS: ROCEPHIN 1 Gm-D5w 50 ml Bag** 1 G/50 ML IVPB IV SCH (10:18)
[2022-05-18] MEDS: Cyclobenzaprine 10 MG PO PRN ×2 (10:18→21:22)
[2022-05-18] MEDS: Zithromax 500 MG/ 250 ML NaCl Premix 500 MG/250 ML IVPB IV SCH (10:19)
[2022-05-19] MEDS: DUONEB 0.5-3 MG/3 ml Neb IH SCH ×4 (00:52→18:46)
[2022-05-19] MEDS: solu-MEDROL 80 MG, Sterile H2O 10 ml 2 ML IV SCH ×8 (05:25→23:29)
[2022-05-19] MEDS: NORCO 5/325 MG PO PRN ×3 (05:26→19:00)
[2022-05-19] MEDS: Advair Hfa 230/21 Mcg COMMON CANISTER IH SCH ×2 (07:07→18:46)
--- NOTE | 2022-05-19 08:34 | PCM.NOTE ---
Date and Time: 05/19/22831 Subjective Assessment: breathing is improving slowly, requiring 3L oxygen at home, typically on 2L at home. still short of breath but less so with minimal exertion Objective Exam General Appearance: no apparent distress, obese Neurologic Exam: alert, oriented x 3 Respiratory Exam: prolonged expirations, wheezing Cardiovascular Exam: regular rate/rhythm, normal heart sounds Gastrointestinal/Abdomen Exam: soft, No tenderness, No mass Extremity Exam: normal inspection, normal range of motion OBJECTIVE DATA Vital Signs: Vital Signs - 24 hr Temp Pulse Resp BP Pulse Ox 05/19/22 07:30 71 20 94 L 05/19/22 07:16 96.8 F 81 20 138/82 94 L 05/19/22 03:51 97.3 F 79 22 159/69 91 L 05/19/22 00:52 79 18 96 05/18/22 23:45 97.5 F 75 20 138/80 94 L 05/18/22 19:50 97.1 F 95 H 19 131/73 93 L 05/18/22 18:41 95 H 19 93 L 05/18/22 17:00 97.5 F 88 19 124/77 94 L 05/18/22 13:27 87 18 94 L 05/18/22 13:00 97.7 F 80 19 125/58 96 05/18/22 09:00 97.7 F 80 18 125/58 96 Pain Assessment - Last Documented Pain Intensity 6 Pain Scale Used 0-10 Pain Scale Intake and Output: Intake & Output 05/16/22 05/17/22 05/18/22 05/19/22 11:59 11:59 11:59 11:59 Intake Total 2860 3200 2980 Output Total 1000 Balance 2860 3200 1980 Weight 135.1 kg Assessment/Plan (1) COPD exacerbation Current Visit: No Status: Acute Assessment & Plan: continue IV abx, steroids and nebs. clinically improving slowly. some interstitial opacities and small effusions on chest xray Code(s): J44.1 - CHRONIC OBSTRUCTIVE PULMONARY DISEASE W (ACUTE) EXACERBATION (2) Chronic hypoxemic respiratory failure Current Visit: No Status: Chronic
[2022-05-19] MEDS: Protonix 40MG Tablet PO SCH (09:43)
[2022-05-19] MEDS: Zithromax 500 MG/ 250 ML NaCl Premix 500 MG/250 ML IVPB IV SCH (09:43)
[2022-05-19] MEDS: Toprol-Xl 25MG Tablets PO SCH (09:43)
[2022-05-19] MEDS: ELIQUIS 2.5 MG TABLET PO SCH ×2 (09:44→21:25)
[2022-05-19] MEDS: Wellbutrin SR 150 MG PO SCH ×2 (09:44→21:25)
[2022-05-19] MEDS: Klor Con PO SCH (09:44)
[2022-05-19] MEDS: ZOLOFT 50 MG TABLET PO SCH (09:44)
[2022-05-19] MEDS: Lasix 40 MG PO SCH (09:44)
[2022-05-19] MEDS: hydroDIURIL 25 MG PO SCH (09:45)
[2022-05-19] MEDS: ROCEPHIN 1 Gm-D5w 50 ml Bag** 1 G/50 ML IVPB IV SCH (09:45)
[2022-05-19] MEDS: Zestril 5 MG PO SCH (09:45)
[2022-05-19] MEDS: ZOCOR 20MG PO SCH (09:45)
[2022-05-19] MEDS: Cyclobenzaprine 10 MG PO PRN ×2 (13:25→21:25)
[2022-05-20] MEDS: DUONEB 0.5-3 MG/3 ml Neb IH SCH ×4 (00:35→18:36)
[2022-05-20] MEDS: NORCO 5/325 MG PO PRN ×3 (05:00→21:28)
[2022-05-20] MEDS: solu-MEDROL 80 MG, Sterile H2O 10 ml 2 ML IV SCH ×6 (05:01→17:35)
[2022-05-20 05:19] LABS: Absolute Neutrophil Ct (ANC) 10.16 x10^3/uL (1.4-6.9); BASOPHIL % 0.1 % (0.0-0.4); Basophil (Absolute #) 0.01 x10^3/uL (0-0.4); Eosinophil (Absolute #) 0 x10^3/uL (0-0.5); Hematocrit 38.6 % (35-47); Hemoglobin 11.7 g/dL (12.0-16.0); IMMATURE GRAN # 0.27 x10^3u/L (0.00-0.03); IMMATURE GRAN % 2.4 % (0.00-0.4); Lymphocyte (Absolute #) 0.59 x10^3/uL (1.0-4.6); Lymphocytes % 5.2 % (24.0-44.0); Mean Corpuscular Hemoglobin 30.6 pg (26-32); Mean Corpuscular Hgb Concent. 30.3 g/dL (32-36); Mean Platelet Volume 9.9 fL (7.5-11.0); Monocyte (Absolute #) 0.36 x10^3/uL (0.0-1.3); Monocytes % 3.2 % (0.0-12.0); Neutrophil % 89.1 % (36.0-66.0); Platelet Count 263 x10^3/uL (150-450); Red Blood Count 3.82 x10^6/uL (4.1-5.4); Red Cell Distribution Width 14.6 % (11.5-14.0); White Blood Count 11.4 x10^3/uL (4.0-10.5)
[2022-05-20 06:10] LABS: ALBUMIN 3.8 g/dL (3.5-5.0); ALKALINE PHOSPHATASE 73 U/L (38-126); ANION GAP 10.9 MEQ/L (5-15); BLOOD UREA NITROGEN 26 mg/dL (7-17); CHLORIDE 94 mmol/L (98-107); Calcium 8.8 mg/dL (8.4-10.2); Carbon Dioxide 37 mmol/L (22-30); Creatinine 1 0.62 mg/dL (0.52-1.04); EST GLOMERULAR FILTRATION RATE > 60.0 ML/MIN; Glucose 151 mg/dL (74-106); Potassium 4.4 mmol/L (3.5-5.1); SGOT/AST 19 U/L (14-36); SGPT/ALT 18 U/L (0-35); SODIUM 137 mmol/L (137-145); Total Protein 6.7 g/dL (6.3-8.2)
[2022-05-20] MEDS: Advair Hfa 230/21 Mcg COMMON CANISTER IH SCH ×2 (06:45→18:36)
[2022-05-20 07:07] LABS: Slide Review 1 YES
--- NOTE | 2022-05-20 08:25 | PCM.NOTE ---
Date and Time: 05/20/22823 Subjective Assessment: patient is improving, hasn't been up ambulating much but feels a little less short of breath with exertion/walking Objective Exam General Appearance: no apparent distress, obese Neurologic Exam: alert, oriented x 3 Respiratory Exam: rhonchi, wheezing Cardiovascular Exam: regular rate/rhythm, normal heart sounds Gastrointestinal/Abdomen Exam: soft, No tenderness, No mass OBJECTIVE DATA Vital Signs: Vital Signs - 24 hr Temp Pulse Resp BP Pulse Ox 05/20/22 07:24 98.1 F 69 16 145/76 94 L 05/20/22 06:51 68 20 95 05/20/22 05:00 96.6 F 71 18 173/90 95 05/20/22 00:35 67 20 93 L 05/20/22 00:30 97.1 F 69 19 139/81 91 L 05/19/22 19:37 96.9 F 90 18 128/80 96 05/19/22 18:45 85 18 93 L 05/19/22 17:00 97.5 F 83 18 137/74 95 05/19/22 13:10 85 18 96 05/19/22 11:01 97.5 F 86 18 126/75 94 L Pain Assessment - Last Documented Pain Intensity 1 Pain Scale Used 0-10 Pain Scale Intake and Output: Intake & Output 05/17/22 05/18/22 05/19/22 05/20/22 11:59 11:59 11:59 11:59 Intake Total 2860 3200 3460 1680 Output Total 1000 Balance 2860 3200 2460 1680 Lab Results: Lab Results-Last 24 Hours 05/20/22 05/20/22 Range/Units 04:00 05:24 WBC 11.4 H (4.0-10.5) x10^3/uL RBC 3.82 L (4.1-5.4) x10^6/uL Hgb 11.7 L (12.0-16.0) g/dL Hct 38.6 (35-47) % MCV 101.0 H (78-100) fL MCH 30.6 (26-32) pg MCHC 30.3 L (32-36) g/dL RDW 14.6 H (11.5-14.0) % Plt Count 263 (150-450) x10^3/uL MPV 9.9 (7.5-11.0) fL Gran % 89.1 H (36.0-66.0) % Immature Gran % (Auto) 2.4 H (0.00-0.4) % Nucleat RBC Rel Count 0.0 (0.00-0.1) % Eos # (Auto) 0 (0-0.5) x10^3/uL Immature Gran # (Auto) 0.27 H (0.00-0.03) x10^3u/L Absolute Lymphs (auto) 0.59 L (1.0-4.6) x10^3/uL Absolute Monos (auto) 0.36 (0.0-1.3) x10^3/uL Absolute Nucleated RBC 0.00 (0.00-0.01) x10^3u/L Lymphocytes % 5.2 L (24.0-44.0) % Monocytes % 3.2 (0.0-12.0) % Eosinophils % 0.0 (0.00-5.0) % Basophils % 0.1 (0.0-0.4) % Absolute Granulocytes 10.16 H (1.4-6.9) x10^3/uL Basophils # 0.01 (0-0.4) x10^3/uL Sodium 137 (137-145) mmol/L Potassium 4.4 (3.5-5.1) mmol/L Chloride 94 L (98-107) mmol/L Carbon Dioxide 37 H (22-30) mmol/L Anion Gap 10.9 (5-15) MEQ/L BUN 26 H (7-17) mg/dL Creatinine 0.62 (0.52-1.04) mg/dL Estimated GFR > 60.0 ML/MIN Glucose 151 H (74-106) mg/dL Calcium 8.8 (8.4-10.2) mg/dL Total Bilirubin 0.30 (0.2-1.3) mg/dL AST 19 (14-36) U/L ALT 18 (0-35) U/L Alkaline Phosphatase 73 (38-126) U/L Serum Total Protein 6.7 (6.3-8.2) g/dL Albumin 3.8 (3.5-5.0) g/dL Slides for Path Review YES Multi-Disciplinary Progress Notes: Multi-Disciplinary Progress Notes 05/20/22 00:32 Respiratory Note by Asha Cortez Pt found on room air at this time. Pt asleep. SpO2 was 82% on room air. Pt was placed back on 4L oxymizer. SpO2 increased to 93% prior to neb tx being given. Initialized on 05/20/22 00:32 - END OF NOTE 05/19/22 10:31 Case Management Note by Elizabeth Conway S/W PATIENT- SHE CONTINUES TO DENY ANY NEW NEEDS AT TIME OF DC. SHE PLANS TO RETURN HOME TO HER PLF AT TIME OF DC. SHE REPORTS HER SISTER IS ABLE TO ASSIST HER NEEDED Initialized on 05/19/22 10:31 - END OF NOTE Assessment/Plan (1) COPD exacerbation Current Visit: No Status: Acute Assessment & Plan: continue current management, anticipate possible discharge tomorrow Code(s): J44.1 - CHRONIC OBSTRUCTIVE PULMONARY DISEASE W (ACUTE) EXACERBATION (2) Chronic hypoxemic respiratory failure Current Visit: No Status: Chronic
[2022-05-20] MEDS: Protonix 40MG Tablet PO SCH (09:07)
[2022-05-20] MEDS: ELIQUIS 2.5 MG TABLET PO SCH ×2 (09:07→21:28)
[2022-05-20] MEDS: Wellbutrin SR 150 MG PO SCH ×2 (09:07→21:28)
[2022-05-20] MEDS: ZOLOFT 50 MG TABLET PO SCH (09:07)
[2022-05-20] MEDS: Zestril 5 MG PO SCH (09:08)
[2022-05-20] MEDS: Lasix 40 MG PO SCH (09:08)
[2022-05-20] MEDS: hydroDIURIL 25 MG PO SCH (09:08)
[2022-05-20] MEDS: ZOCOR 20MG PO SCH (09:08)
[2022-05-20] MEDS: Klor Con PO SCH (09:09)
[2022-05-20] MEDS: Toprol-Xl 25MG Tablets PO SCH (09:09)
[2022-05-20] MEDS: ROCEPHIN 1 Gm-D5w 50 ml Bag** 1 G/50 ML IVPB IV SCH (09:11)
[2022-05-20] MEDS: Zithromax 500 MG/ 250 ML NaCl Premix 500 MG/250 ML IVPB IV SCH (09:11)
[2022-05-20] MEDS: Cyclobenzaprine 10 MG PO PRN ×2 (10:29→21:28)
[2022-05-21] MEDS: solu-MEDROL 80 MG, Sterile H2O 10 ml 2 ML IV SCH ×4 (00:03→05:36)
[2022-05-21] MEDS: DUONEB 0.5-3 MG/3 ml Neb IH SCH ×2 (01:00→06:55)
[2022-05-21 04:50] LABS: Absolute Neutrophil Ct (ANC) 10.62 x10^3/uL (1.4-6.9); BASOPHIL % 0.3 % (0.0-0.4); Basophil (Absolute #) 0.04 x10^3/uL (0-0.4); Eosinophil (Absolute #) 0 x10^3/uL (0-0.5); Hematocrit 39.5 % (35-47); Hemoglobin 12.6 g/dL (12.0-16.0); IMMATURE GRAN # 0.46 x10^3u/L (0.00-0.03); IMMATURE GRAN % 3.8 % (0.00-0.4); Lymphocyte (Absolute #) 0.67 x10^3/uL (1.0-4.6); Lymphocytes % 5.5 % (24.0-44.0); Mean Cell Volume 99.7 fL (78-100); Mean Corpuscular Hemoglobin 31.8 pg (26-32); Mean Corpuscular Hgb Concent. 31.9 g/dL (32-36); Monocyte (Absolute #) 0.44 x10^3/uL (0.0-1.3); Monocytes % 3.6 % (0.0-12.0); Neutrophil % 86.8 % (36.0-66.0); Platelet Count 268 x10^3/uL (150-450); Red Blood Count 3.96 x10^6/uL (4.1-5.4); Red Cell Distribution Width 14.5 % (11.5-14.0); White Blood Count 12.2 x10^3/uL (4.0-10.5)
[2022-05-21 05:21] LABS: ANION GAP 9.8 MEQ/L (5-15); BLOOD UREA NITROGEN 28 mg/dL (7-17); CHLORIDE 92 mmol/L (98-107); Calcium 8.5 mg/dL (8.4-10.2); Carbon Dioxide 39 mmol/L (22-30); Creatinine 1 0.66 mg/dL (0.52-1.04); EST GLOMERULAR FILTRATION RATE > 60.0 ML/MIN; Glucose 131 mg/dL (74-106); Potassium 4.5 mmol/L (3.5-5.1); SODIUM 137 mmol/L (137-145)
[2022-05-21] MEDS: Cyclobenzaprine 10 MG PO PRN (05:37)
[2022-05-21] MEDS: NORCO 5/325 MG PO PRN (05:37)
[2022-05-21 06:51] VITALS: BP 170/83; O2SAT 97
[2022-05-21] MEDS: Advair Hfa 230/21 Mcg COMMON CANISTER IH SCH (06:55)
[2022-05-21 08:44] VITALS: PULSE 72
--- NOTE | 2022-05-21 09:08 | PCM.DS ---
Discharge Summary Date of Admission: 05/16/22 10:57 Admitting Physician: EDGAR TRAN Primary Care Provider: EDGAR TRAN Allergies Allergies bee venom protein (honey bee) Allergy (Severe, Verified 09/30/21 13:16) Difficulty Breathing Hospital Summary - Hospital Course Hospital Course: patient direct admitted from office with cough, wheezing and dyspnea with copd exacerbation. has progressed very well and back to baseline now. stable on 3L oxygen, wears oxygen at home. - Vitals & Intake/Output Vital Signs: Vital Signs Temperature 96.9 F 05/21/22 06:51 Pulse Rate 72 05/21/22 08:40 Respiratory Rate 18 05/21/22 08:40 Blood Pressure 170/83 05/21/22 06:51 O2 Sat by Pulse Oximetry 97 05/21/22 08:40 Intake & Output: Intake & Output 05/18/22 05/19/22 05/20/22 05/21/22 11:59 11:59 11:59 11:59 Intake Total 3200 3460 2460 3120 Output Total 1000 Balance 3200 2460 2460 3120 Weight 135.1 kg - Lab Result Diagrams: 05/21/22 04:51 05/21/22 04:51 Lab Results-Last 24 Hrs: Lab Results-Last 24 Hours 05/21/22 05/21/22 Range/Units 04:51 04:51 WBC 12.2 H (4.0-10.5) x10^3/uL RBC 3.96 L (4.1-5.4) x10^6/uL Hgb 12.6 (12.0-16.0) g/dL Hct 39.5 (35-47) % MCV 99.7 (78-100) fL MCH 31.8 (26-32) pg MCHC 31.9 L (32-36) g/dL RDW 14.5 H (11.5-14.0) % Plt Count 268 (150-450) x10^3/uL MPV 10.0 (7.5-11.0) fL Gran % 86.8 H (36.0-66.0) % Immature Gran % (Auto) 3.8 H (0.00-0.4) % Nucleat RBC Rel Count 0.0 (0.00-0.1) % Eos # (Auto) 0 (0-0.5) x10^3/uL Immature Gran # (Auto) 0.46 H (0.00-0.03) x10^3u/L Absolute Lymphs (auto) 0.67 L (1.0-4.6) x10^3/uL Absolute Monos (auto) 0.44 (0.0-1.3) x10^3/uL Absolute Nucleated RBC 0.00 (0.00-0.01) x10^3u/L Lymphocytes % 5.5 L (24.0-44.0) % Monocytes % 3.6 (0.0-12.0) % Eosinophils % 0.0 (0.00-5.0) % Basophils % 0.3 (0.0-0.4) % Absolute Granulocytes 10.62 H (1.4-6.9) x10^3/uL Basophils # 0.04 (0-0.4) x10^3/uL Sodium 137 (137-145) mmol/L Potassium 4.5 (3.5-5.1) mmol/L Chloride 92 L (98-107) mmol/L Carbon Dioxide 39 H (22-30) mmol/L Anion Gap 9.8 (5-15) MEQ/L BUN 28 H (7-17) mg/dL Creatinine 0.66 (0.52-1.04) mg/dL Estimated GFR > 60.0 ML/MIN Glucose 131 H (74-106) mg/dL Calcium 8.5 (8.4-10.2) mg/dL - Procedures and Test Procedures and Tests throughout Hospitalization: Therapy Orders & Screens 05/16/22 12:18 Respiratory Therapy Assessment DAILY Comment: Diagnosis: acute exacerbation of copd 05/16/22 12:19 Oxygen Nasal Cannula 3 lpm Comment: Diagnosis: acute exacerbation of copd 05/16/22 12:34 RT Screen per Nursing Assess ONCE Comment: Protocol Order Physician Instructions: Greater than 3 points order RT Admission Screen Reason For Exam: Triggered on Admission Diagnosis: acute exacerbation of copd Diagnosis: acute exacerbation of copd Pneumonia: No Home O2: Yes Asthma: Yes CHF: Yes Home CPAP/BIPAP: Yes: not using Home Nebs/MDI: Yes Total Points: 22 Smoking Cessation Education ONCE Comment: Diagnosis: acute exacerbation of copd Smoking Status: Current every day smoker How long have you smoked: 45 yrs Have you smoked in the past 12 months: Yes Approximately how many cigarettes per day: 2 cigs Do you dip or chew tobacco: No 05/19/22 07:46 Flutter Therapy UD Comment: Diagnosis: acute exacerbation of copd Discharge Exam General Appearance: no apparent distress, obese Neurologic Exam: alert, oriented x 3 Respiratory Exam: lungs clear, prolonged expirations, No respiratory distress, No rhonchi, No wheezing Cardiovascular Exam: regular rate/rhythm, normal heart sounds Gastrointestinal/Abdomen Exam: soft, No tenderness, No mass Extremity Exam: normal inspection, normal range of motion Skin Exam: normal color, warm, dry Final Diagnosis/Problem List - Final Discharge Diagnosis/Problem (1) COPD exacerbation Current Visit: No Status: Acute Assessment & Plan: home today, po doxy and prednisone taper. has nebulizer and solution/supplies at home. Code(s): J44.1 - CHRONIC OBSTRUCTIVE PULMONARY DISEASE W (ACUTE) EXACERBATION (2) Chronic hypoxemic respiratory failure Current Visit: No Status: Chronic Assessment & Plan: continue home oxygen - Discharge Disposition: Home, Self-Care Condition: Stable Prescriptions: New Prednisone 20 mg [Deltasone 20 mg] 20 mg PO UD #18 tablet Doxycycline Hyclate 100 mg [Vibramycin 100 MG] 100 mg PO BID #10 tab Continue Hydrocodone Bit/Acetaminophen [[place] 5/325Mg] 1 each PO Q6H PRN PRN PRN Reason: Pain Cyclobenzaprine HCl [Flexeril] 10 mg PO TID PRN PRN PRN Reason: Muscle Spasms Sertraline HCl 50 mg [Zoloft 50 mg Tablet] 100 mg PO DAILY Atorvastatin Calcium [Lipitor 20MG Tablet] 20 mg PO DAILY Hydrochlorothiazide 25 mg [hydroDIURIL 25 MG] 12.5 mg PO DAILY Metoprolol Succinate 25 mg Xl* [Toprol-Xl 25MG Tablets] 25 mg PO DAILY 30 Days #30 tab Hydroxyzine HCl 25 mg [Atarax 25 mg] 25 mg PO DAILY PRN PRN PRN Reason: Anxiety lisinopriL [Zestril] 5 mg PO DAILY Potassium Chloride Tab* [Klor Con] 10 meq PO DAILY Furosemide 40 mg [Lasix 40 MG] 40 mg PO DAILY Omeprazole 40 mg PO DAILY Albuterol Sulfate [Albuterol Sulfate Hfa] 1 puff IH Q4H PRN PRN PRN Reason: SOB/Wheezing Apixaban [Eliquis] 5 mg PO BID #60 tablet Albuterol/Ipratropium 3ml Neb* [DUONEB 0.5-3 MG/3 ml Neb] 3 ml IH QID PRN Budesonide/Formoterol Fumarate [Budesonide-Formoterol 160-4.5] 2 puffs IH BID Umeclidinium Brm/Vilanterol Tr [Anoro Ellipta 62.5-25 Mcg INH] 1 puff IH DAILY buPROPion HCL [Bupropion HCl Sr] 150 mg PO BID Follow up with: EDGAR TRAN MD [Primary Care Provider] - 1 Week
[2022-05-21] MEDS: Lasix 40 MG PO SCH (09:38)
[2022-05-21] MEDS: Wellbutrin SR 150 MG PO SCH (09:38)
[2022-05-21] MEDS: ZOCOR 20MG PO SCH (09:39)
[2022-05-21] MEDS: Protonix 40MG Tablet PO SCH (09:39)
[2022-05-21] MEDS: ZOLOFT 50 MG TABLET PO SCH (09:39)
[2022-05-21] MEDS: Zestril 5 MG PO SCH (09:39)
[2022-05-21] MEDS: hydroDIURIL 25 MG PO SCH (09:39)
[2022-05-21] MEDS: Klor Con PO SCH (09:39)
[2022-05-21] MEDS: Toprol-Xl 25MG Tablets PO SCH (09:39)
[2022-05-21] MEDS: ELIQUIS 2.5 MG TABLET PO SCH (09:39)
[2022-05-21] MEDS: Zithromax 500 MG/ 250 ML NaCl Premix 500 MG/250 ML IVPB IV SCH (09:48)
[2022-05-21] MEDS: ROCEPHIN 1 Gm-D5w 50 ml Bag** 1 G/50 ML IVPB IV SCH (09:48)
== END 2022-05-21 11:46 | disposition home or self-care (01) | DRG 190 ==
LOC: OBSVTOIN 10:57 → MED SURG 10:57 → INTOOBSV 10:57 → UNDOADMOB 10:57 → OBSVTOIN 05-20 18:40 → MED SURG 05-20 18:40 → UNDODISIN 05-21 11:46
PROVIDERS: ADMIT Family Medicine; ATTEND Family Medicine
DX: J44.1 Chronic obstructive pulmonary disease with (acute) exacerbation (principal); J18.9 Pneumonia, unspecified organism; J96.11 Chronic respiratory failure with hypoxia; Z79.899 Other long term (current) drug therapy; Z20.828 Contact with and (suspected) exposure to other viral communicable diseases; Z99.81 Dependence on supplemental oxygen; Z79.01 Long term (current) use of anticoagulants; Z72.0 Tobacco use
CPT/HCPCS: 0241U; 36415; 71045; 80048; 80053; 85025; 85027; 94640; 94667; 94760; J0456; J0696; J2930; A9270-GY

== ENCOUNTER 2022-06-05 06:58 | Inpatient (IN) | payer OTHER ==
[2022-06-05] MEDS ORDERED: DUONEB 0.5-3 MG/3 ml Neb IH ONE ×4 (07:06→11:36)
[2022-06-05] MEDS ORDERED: solu-MEDROL 125 MG, Sterile H2O 10 ml 2 ML IV ONE ×2 (07:06)
[2022-06-05 07:08] LABS: A-aADO2 137; ABG POTASSIUM 4.6 (3.5-5.1); ARTERIAL BLD GAS O2 SATURATION 76.3 % (95-100); ARTERIAL BLOOD GAS BASE EXCESS 6.1 (-2.0-2.0); ARTERIAL BLOOD GAS FIO2 36 %; ARTERIAL BLOOD GAS PCO2 59 mmHg (35-45); ARTERIAL BLOOD GAS pH 7.36 (7.35-7.45); CARBOXYHEMOGLOBIN 3.2 % THgb (0.0-6.9); HCO3- 33.3 (22-28); HGB O2 SAT 73.5 g/dF (94-100); Methhemoglobin 0.5 % (1.4-1.5); paO2 pAO1 0.25
[2022-06-05 07:10] LABS: ABG SITE RIGHT RADIAL; ALLEN TEST OK? YES; ARTERIAL BLOOD GAS PO2 46 mmHg (75-100)
[2022-06-05] MEDS ORDERED: Lasix 40 MG/4 ML IV ONE (07:14)
[2022-06-05] MEDS ORDERED: Sterile H2O 10 ml IJ ONE (07:14)
[2022-06-05] MEDS ORDERED: solu-MEDROL ONE (07:14)
--- NOTE | 2022-06-05 07:20 | ERPHSYRPT ---
- History of Present Illness Time Seen by Provider: 06/05/22 07:19 Source: patient Exam Limitations: no limitations Physician History: Patient is a 56-year-old female with history of CHF and COPD requires home O2 4 L 24 hours/day presents to our ED for evaluation of a 2-day history of progressive shortness of breath. Patient called 911. Patient was found sitting in front of her home. Patient was tachypneic and diaphoretic. O2 sat upon arrival was 64%. Oxygen was increased to 6 L. Patient reports a productive cough over the past several days. Physical exam reveals patient to be in mild to moderate respiratory distress. Patient wheezing with crackles observed on physical examination. Patient states she has not taken her a.m. meds yet. No fever. No nausea vomiting. No diarrhea. No rash. Symptoms are progressive. Symptoms are moderate in intensity. No specific worsening or improving factors. Patient voices no other complaints or concerns at this time. Portions of this note were created with voice recognition technology. There may be grammatical, spelling, punctuation or sound alike errors Timing/Duration: today Activities at Onset: none Severity of Dyspnea-Max: moderate Severity of Dyspnea-Current: mild Possible Cause: frequent episodes Modifying Factors: Improves With: nothing Associated Symptoms: cough, wheezing Allergies/Adverse Reactions: bee venom protein (honey bee) Allergy (Severe, Verified 06/05/22 07:00) Difficulty Breathing Home Medications: Cyclobenzaprine HCl [Flexeril] 10 mg PO TID PRN PRN 07/07/16 [History] Hydrocodone Bit/Acetaminophen [[place] 5/325Mg] 1 each PO Q6H PRN PRN 07/07/16 [History] Atorvastatin Calcium [Lipitor 20MG Tablet] 20 mg PO DAILY 12/27/19 [History] Sertraline HCl 50 mg [Zoloft 50 mg Tablet] 100 mg PO DAILY 12/27/19 [History] Hydrochlorothiazide 25 mg [hydroDIURIL 25 MG] 12.5 mg PO DAILY 12/28/19 [History] Furosemide 40 mg [Lasix 40 MG] 40 mg PO DAILY 08/06/20 [History] Hydroxyzine HCl 25 mg [Atarax 25 mg] 25 mg PO DAILY PRN PRN 08/06/20 [History] Omeprazole 40 mg PO DAILY 08/06/20 [History] Potassium Chloride Tab* [Klor Con] 10 meq PO DAILY 08/06/20 [History] lisinopriL [Zestril] 5 mg PO DAILY 08/06/20 [History] Albuterol Sulfate [Albuterol Sulfate Hfa] 1 puff IH Q4H PRN PRN 12/24/20 [History] Albuterol/Ipratropium 3ml Neb* [DUONEB 0.5-3 MG/3 ml Neb] 3 ml IH QID PRN 02/07/21 [History] Budesonide/Formoterol Fumarate [Budesonide-Formoterol 160-4.5] 2 puffs IH BID 09/21/21 [History] Umeclidinium Brm/Vilanterol Tr [Anoro Ellipta 62.5-25 Mcg INH] 1 puff IH DAILY 05/16/22 [History] buPROPion HCL [Bupropion HCl Sr] 150 mg PO BID 05/16/22 [History] Hx Tetanus, Diphtheria Vaccination/Date Given: Yes Hx Influenza Vaccination/Date Given: No Hx Pneumococcal Vaccination/Date Given: Yes Travel Risk - Vaccine Status Have you recieved a Covid-19 vaccination: Yes 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 - Review of Systems Constitutional: No Symptoms, No Fever, No Chills Eyes: No Symptoms Ears, Nose, & Throat: No Symptoms Respiratory: No Symptoms, No Cough, No Dyspnea Cardiac: No Symptoms, No Chest Pain, No Edema, No Syncope Abdominal/Gastrointestinal: No Symptoms, No Abdominal Pain, No Nausea, No Vomiting, No Diarrhea Genitourinary Symptoms: No Symptoms, No Dysuria Musculoskeletal: No Symptoms, No Back Pain, No Neck Pain Skin: No Symptoms, No Rash Neurological: No Symptoms, No Dizziness, No Focal Weakness, No Sensory Changes Psychological: No Symptoms Endocrine: No Symptoms Hematologic/Lymphatic: No Symptoms Immunological/Allergic: No Symptoms All Other Systems: Reviewed and Negative - Past Medical History Pertinent Past Medical History: Yes Neurological History: No Pertinent History ENT History: No Pertinent History Cardiac History: Congestive Heart Failure, High Cholesterol, Hypertension Respiratory History: Asthma, Bronchitis, CHF, COPD, Pneumonia Endocrine Medical History: No Pertinent History Musculoskeletal History: Arthritis, Other GI Medical History: GERD History: No Pertinent History Psycho-Social History: Anxiety, Depression Female Reproductive Disorders: No Pertinent History Other Medical History: chronic back pain - Past Surgical History Past Surgical History: Yes Neuro Surgical History: No Pertinent History Cardiac: No Pertinent History Respiratory: No Pertinent History Gastrointestinal: No Pertinent History Genitourinary: No Pertinent History Musculoskeletal: Orthopedic Surgery Female Surgical History: No Pertinent History Other Surgical History: tonsils, back surgery, ingrown toenail repair - Social History Smoking Status: Current every day smoker How long have you smoked: 45 yrs Exposure to second hand smoke: Yes Drug Use: marijuana Patient Lives Alone: No Significant Family History: no pertinent family hx - Nursing Vital Signs Nursing Vital Signs: Initial Vital Signs Temperature 98.6 F 06/05/22 07:02 Pulse Rate 119 H 06/05/22 07:02 Respiratory Rate 30 H 06/05/22 07:02 Blood Pressure 131/74 06/05/22 07:02 O2 Sat by Pulse Oximetry 83 L 06/05/22 07:02 Pain Scale Pain Intensity 0 - Physical Exam General Appearance: no apparent distress, alert Eye Exam: PERRL/EOMI, eyes nml inspection, scleral icterus Neck Exam: normal inspection, supple, full range of motion Respiratory Exam: respiratory distress, crackles/rales, wheezing Cardiovascular/Chest Exam: normal heart sounds, regular rate/rhythm Abdominal/Gastrointestinal Exam: soft, No tenderness, No distention, No mass Extremity Exam: non-tender, normal range of motion, normal inspection, no calf tenderness, no pedal edema Neurologic Exam: alert, oriented x 3, cooperative, director of grants II-XII nml as tested, sensation nml, No motor deficits Skin Exam: normal color, warm, No dry SpO2 Interpretation: normal SpO2: 83 O2 Delivery: Nasal Cannula - Course Nursing assessment & vital signs reviewed: Yes EKG Interpreted by Me: RATE (120), Sinus Tach, NORMAL AXIS, NORMAL INTERVALS - Radiology Exams Chest X-ray Interpretation: Teleradiologist Report (Pulmonary edema bibasilar effusions borderline cardiomegaly favoring cardiac decompensation) Ordered Tests: Active Orders 24 hr Category Date Time Status Oracle Hrms Developer STAT Care 06/05/22 07:02 Active EKG-ER Only STAT Care 06/05/22 07:00 Active IV Insertion STAT Care 06/05/22 07:00 Active Pulse Oximetry (ED) STAT Care 06/05/22 07:00 Active CHEST 1 VIEW (PORTABLE) Stat Exams 06/05/22 07:02 Completed ABG [ARTERIAL BLOOD GASES] Stat Lab 06/05/22 07:08 Completed ABG [ARTERIAL BLOOD GASES] Stat Lab 06/05/22 09:59 Completed BLOOD CULTURE Stat Lab 06/05/22 07:33 Received CBC W DIFF Stat Lab 06/05/22 07:00 Completed CMP Stat Lab 06/05/22 07:22 Completed NT PRO BNPII Stat Lab 06/05/22 08:45 Completed TROPONIN Q4H Lab 06/05/22 07:22 Completed TROPONIN Q4H Lab 06/05/22 11:15 Ordered TROPONIN Q4H Lab 06/05/22 15:15 Ordered Medication Summary Discontinued Medications Generic Name Dose Route Start Last Admin Trade Name Freq PRN Reason Stop Dose Admin Albuterol/Ipratropium 3 ml 06/05/22 07:06 06/05/22 08:38 Ipratropium/Albuterol Sulfate 3 Ml Ampul.Neb IH 06/05/22 07:07 Not Given STAT ONE Albuterol/Ipratropium 3 ml 06/05/22 08:28 06/05/22 08:33 Ipratropium/Albuterol Sulfate 3 Ml Ampul.Neb IH 06/05/22 08:29 3 ml STAT ONE Administration Albuterol/Ipratropium Confirm 06/05/22 08:32 Ipratropium/Albuterol Sulfate 3 Ml Ampul.Neb Administered 06/05/22 08:33 Dose 3 ml IH .STK-MED ONE Methylprednisolone Sodium 0 mg 06/05/22 07:06 06/05/22 07:15 Succinate 125 mg/ Sterile IV 06/05/22 07:07 125 mg Water 2 ml STAT ONE Administration Furosemide 40 mg 06/05/22 07:14 06/05/22 07:35 Furosemide 40 Mg/4 Ml Vial IV 06/05/22 07:15 40 mg STAT ONE Administration Furosemide Confirm 06/05/22 07:21 Furosemide 40 Mg/4 Ml Vial Administered 06/05/22 07:22 Dose 40 mg .ROUTE .STK-MED ONE Ceftriaxone Sodium/Dextrose 2 g in 50 mls @ 100 mls/hr 06/05/22 08:31 06/05/22 09:24 Rocephin 2 Gm-D5w 50ml Bag IV 06/05/22 09:00 Infused STAT STA Infusion Azithromycin 500 mg in 250 mls @ 250 mls/hr 06/05/22 08:31 06/05/22 10:24 Zithromax 500 Mg/ 250 Ml Nacl Premix IV 06/05/22 09:30 Infused STAT STA Infusion Ceftriaxone Sodium/Dextrose Confirm 06/05/22 08:41 Rocephin 2 Gm-D5w 50ml Bag Administered 06/05/22 08:42 Dose 2 g in 50 mls @ ud IV .STK-MED ONE Azithromycin Confirm 06/05/22 09:17 Zithromax 500 Mg/ 250 Ml Nacl Premix Administered 06/05/22 09:18 Dose 500 mg in 250 mls @ ud IV .STK-MED ONE Methylprednisolone Sodium Succinate Confirm 06/05/22 07:14 Methylprednis Sod Succ 125 Mg/2 Ml Vial Administered 06/05/22 07:15 Dose 125 mg .ROUTE .STK-MED ONE Nitroglycerin 1 gm 06/05/22 09:43 06/05/22 09:52 Nitroglycerin 1 Gm Packet TOP 06/05/22 09:44 1 gm STAT ONE Administration Nitroglycerin Confirm 06/05/22 09:51 Nitroglycerin 1 Gm Packet Administered 06/05/22 09:52 Dose 1 gm .ROUTE .STK-MED ONE Sterile Water Confirm 06/05/22 07:14 Water For Injection,Sterile 10 Ml Vial Administered 06/05/22 07:15 Dose 10 ml IJ .STK-MED ONE Lab/Rad Data: Laboratory Result Diagrams 06/05/22 07:00 06/05/22 07:22 Laboratory Results 06/05/22 06/05/22 06/05/22 Range/Units 09:59 08:45 07:33 WBC (4.0-10.5) x10^3/uL RBC (4.1-5.4) x10^6/uL Hgb (12.0-16.0) g/dL Hct (35-47) % MCV (78-100) fL MCH (26-32) pg MCHC (32-36) g/dL RDW (11.5-14.0) % Plt Count (150-450) x10^3/uL MPV (7.5-11.0) fL Gran % (36.0-66.0) % Immature Gran % (Auto) (0.00-0.4) % Nucleat RBC Rel Count (0.00-0.1) % Eos # (Auto) (0-0.5) x10^3/uL Immature Gran # (Auto) (0.00-0.03) x10^3u/L Absolute Lymphs (auto) (1.0-4.6) x10^3/uL Absolute Monos (auto) (0.0-1.3) x10^3/uL Absolute Nucleated RBC (0.00-0.01) x10^3u/L Lymphocytes % (24.0-44.0) % Monocytes % (0.0-12.0) % Eosinophils % (0.00-5.0) % Basophils % (0.0-0.4) % Absolute Granulocytes (1.4-6.9) x10^3/uL Basophils # (0-0.4) x10^3/uL Puncture Site LEFT RADIAL pCO2 51 H (35-45) mmHg pO2 71 L (75-100) mmHg Base Excess 8.1 H (-2.0-2.0) O2 Saturation 92.2 L (94-100) g/dF ABG pH 7.43 (7.35-7.45) ABG HCO3 33.9 H* (22-28) ABG O2 Sat (Measured) 95.8 (95-100) % Regino Test YES A-a Gradient 279 a/A Ratio 0.20 Hemoglobin 12.8 Carboxyhemoglobin 3.2 (0.0-6.9) % THgb Methemoglobin 0.6 L (1.4-1.5) % Potassium 4.0 (3.5-5.1) Temperature 37.0 C POC O2 Flow Rate 58 % Sodium (137-145) mmol/L Chloride (98-107) mmol/L Carbon Dioxide (22-30) mmol/L Anion Gap (5-15) MEQ/L BUN (7-17) mg/dL Creatinine (0.52-1.04) mg/dL Estimated GFR ML/MIN Glucose (74-106) mg/dL Calcium (8.4-10.2) mg/dL Total Bilirubin (0.2-1.3) mg/dL AST (14-36) U/L ALT (0-35) U/L Alkaline Phosphatase (38-126) U/L Troponin I (0.000-0.034) ng/mL NT-Pro-B Natriuret Pep 2300 (<300) pg/mL Serum Total Protein (6.3-8.2) g/dL Albumin (3.5-5.0) g/dL Influenza Type A Ag NEGATIVE (NEGATIVE) Influenza Type B Ag NEGATIVE (NEGATIVE) RSV (PCR) NEGATIVE (NEGATIVE) SARS-CoV-2 (PCR) NEGATIVE (NEGATIVE) 06/05/22 06/05/22 06/05/22 Range/Units 07:22 07:22 07:08 WBC (4.0-10.5) x10^3/uL RBC (4.1-5.4) x10^6/uL Hgb (12.0-16.0) g/dL Hct (35-47) % MCV (78-100) fL MCH (26-32) pg MCHC (32-36) g/dL RDW (11.5-14.0) % Plt Count (150-450) x10^3/uL MPV (7.5-11.0) fL Gran % (36.0-66.0) % Immature Gran % (Auto) (0.00-0.4) % Nucleat RBC Rel Count (0.00-0.1) % Eos # (Auto) (0-0.5) x10^3/uL Immature Gran # (Auto) (0.00-0.03) x10^3u/L Absolute Lymphs (auto) (1.0-4.6) x10^3/uL Absolute Monos (auto) (0.0-1.3) x10^3/uL Absolute Nucleated RBC (0.00-0.01) x10^3u/L Lymphocytes % (24.0-44.0) % Monocytes % (0.0-12.0) % Eosinophils % (0.00-5.0) % Basophils % (0.0-0.4) % Absolute Granulocytes (1.4-6.9) x10^3/uL Basophils # (0-0.4) x10^3/uL Puncture Site RIGHT RADIAL pCO2 59 H (35-45) mmHg pO2 46 L* (75-100) mmHg Base Excess 6.1 H (-2.0-2.0) O2 Saturation 73.5 L (94-100) g/dF ABG pH 7.36 (7.35-7.45) ABG HCO3 33.3 H* (22-28) ABG O2 Sat (Measured) 76.3 L (95-100) % Regino Test YES A-a Gradient 137 a/A Ratio 0.25 Hemoglobin 13.0 Carboxyhemoglobin 3.2 (0.0-6.9) % THgb Methemoglobin 0.5 L (1.4-1.5) % Potassium 4.3 4.6 (3.5-5.1) Temperature 37.0 C POC O2 Flow Rate 36 % Sodium 142 (137-145) mmol/L Chloride 101 (98-107) mmol/L Carbon Dioxide 33 H (22-30) mmol/L Anion Gap 12.4 (5-15) MEQ/L BUN 13 (7-17) mg/dL Creatinine 0.52 (0.52-1.04) mg/dL Estimated GFR > 60.0 ML/MIN Glucose 105 (74-106) mg/dL Calcium 8.6 (8.4-10.2) mg/dL Total Bilirubin 0.80 (0.2-1.3) mg/dL AST 20 (14-36) U/L ALT 18 (0-35) U/L Alkaline Phosphatase 111 (38-126) U/L Troponin I 0.020 (0.000-0.034) ng/mL NT-Pro-B Natriuret Pep (<300) pg/mL Serum Total Protein 6.8 (6.3-8.2) g/dL Albumin 3.9 (3.5-5.0) g/dL Influenza Type A Ag (NEGATIVE) Influenza Type B Ag (NEGATIVE) RSV (PCR) (NEGATIVE) SARS-CoV-2 (PCR) (NEGATIVE) 06/05/22 Range/Units 07:00 WBC 12.3 H (4.0-10.5) x10^3/uL RBC 3.81 L (4.1-5.4) x10^6/uL Hgb 11.9 L (12.0-16.0) g/dL Hct 39.1 (35-47) % MCV 102.6 H (78-100) fL MCH 31.2 (26-32) pg MCHC 30.4 L (32-36) g/dL RDW 14.8 H (11.5-14.0) % Plt Count 203 (150-450) x10^3/uL MPV 9.7 (7.5-11.0) fL Gran % 87.8 H (36.0-66.0) % Immature Gran % (Auto) 0.5 H (0.00-0.4) % Nucleat RBC Rel Count 0.0 (0.00-0.1) % Eos # (Auto) 0.06 (0-0.5) x10^3/uL Immature Gran # (Auto) 0.06 H (0.00-0.03) x10^3u/L Absolute Lymphs (auto) 0.61 L (1.0-4.6) x10^3/uL Absolute Monos (auto) 0.74 (0.0-1.3) x10^3/uL Absolute Nucleated RBC 0.00 (0.00-0.01) x10^3u/L Lymphocytes % 5.0 L (24.0-44.0) % Monocytes % 6.0 (0.0-12.0) % Eosinophils % 0.5 (0.00-5.0) % Basophils % 0.2 (0.0-0.4) % Absolute Granulocytes 10.78 H (1.4-6.9) x10^3/uL Basophils # 0.02 (0-0.4) x10^3/uL Puncture Site pCO2 (35-45) mmHg pO2 (75-100) mmHg Base Excess (-2.0-2.0) O2 Saturation (94-100) g/dF ABG pH (7.35-7.45) ABG HCO3 (22-28) ABG O2 Sat (Measured) (95-100) % Regino Test A-a Gradient a/A Ratio Hemoglobin Carboxyhemoglobin (0.0-6.9) % THgb Methemoglobin (1.4-1.5) % Potassium (3.5-5.1) Temperature C POC O2 Flow Rate % Sodium (137-145) mmol/L Chloride (98-107) mmol/L Carbon Dioxide (22-30) mmol/L Anion Gap (5-15) MEQ/L BUN (7-17) mg/dL Creatinine (0.52-1.04) mg/dL Estimated GFR ML/MIN Glucose (74-106) mg/dL Calcium (8.4-10.2) mg/dL Total Bilirubin (0.2-1.3) mg/dL AST (14-36) U/L ALT (0-35) U/L Alkaline Phosphatase (38-126) U/L Troponin I (0.000-0.034) ng/mL NT-Pro-B Natriuret Pep (<300) pg/mL Serum Total Protein (6.3-8.2) g/dL Albumin (3.5-5.0) g/dL Influenza Type A Ag (NEGATIVE) Influenza Type B Ag (NEGATIVE) RSV (PCR) (NEGATIVE) SARS-CoV-2 (PCR) (NEGATIVE) - Progress Progress: improved Air Movement: good Progress Note: Patient is a 56-year-old female presents emergency department for evaluation of shortness of breath. Patient arrived via EMS in respiratory distress. Patient was hypoxic upon EMS arrival. Patient treated with DuoNeb Solu-Medrol. Patient significantly improved. Chest x-ray reveals pulmonary edema. Patient received Lasix. EKG shows no STEMI. EKG interpreted by Dr. Easton. Chest x-ray revealed pulmonary edema favoring cardiac decompensation. Arterial blood glass reveals hypoxemia as well as hyper apnea. Blood cultures obtained. CBC CMP completed. COVID-negative. High normal. Troponin negative. Patient received Solu-Medrol DuoNeb and Lasix for treatment. Patient feels much better however she is not ready for discharge. Case discussed with Dr. Dc who excepts admission to observation. Plan of care discussed with patient. She agrees to admission [facility] for further evaluation and treatment. Patient is significant past medical history of congestive heart failure and COPD. Patient requires oxygen 24 hours a day. Patient's presentation is acute. Physical exam reveals wheezing and crackles. Patient in mild respiratory distress. Complexity of problems addressed is high. Patient was profoundly hypoxic and required immediate intervention to prevent deterioration. Patient had severe exacerbation of her chronic conditions particularly COPD and CHF. No critical care time. Complexity of data reviewed and analyzed is moderate. Amatory testing ordered test reviewed and analyzed. EKG independently reviewed by Dr. Easton. EMS served as independent historian as patient condition did not allow complete HPI. Case discussed with Dr. Dc excepts admission to observation. Risk of complication and or risk of morbidity/mortality of patient management is high. Patient received topical nitroglycerin Lasix antibiotics and steroids. She received DuoNeb patient will be hospitalized for further evaluation and treatment. Plan of care discussed with patient. She agrees to admission [facility] for further evaluation and treatment. Vital stable. Repeat gas shows patient was still hypoxic. Patient started on BiPAP. Patient will require a repeat ABG to reassess progress. Portions of this note were created with voice recognition technology. There may be grammatical, spelling, punctuation or sound alike errors 06/05/22 10:26 Blood Culture(s) Obtained: Yes Antibiotics given: Yes Discussed with Dr.: Susanna Will see patient in: hospital (observation) Counseled pt/family regarding: lab results, diagnosis, rad results - Departure Departure Disposition: Observation Clinical Impression: CHF (congestive heart failure), COPD exacerbation, Hypoxia, Respiratory distress, Leukocytosis, Macrocytic anemia Condition: Stable Critical Care Time: No Referrals: EDGAR DC MD [Primary Care Provider] - Follow up/PCP as directed Instructions: Heart Failure, Chronic Obstructive Pulmonary Disease
[2022-06-05] MEDS ORDERED: Lasix 40 MG/4 ML ONE (07:21)
[2022-06-05 07:41] LABS: Absolute Neutrophil Ct (ANC) 10.78 x10^3/uL (1.4-6.9); BASOPHIL % 0.2 % (0.0-0.4); Basophil (Absolute #) 0.02 x10^3/uL (0-0.4); Eosinophil % 0.5 % (0.00-5.0); Eosinophil (Absolute #) 0.06 x10^3/uL (0-0.5); Hematocrit 39.1 % (35-47); Hemoglobin 11.9 g/dL (12.0-16.0); IMMATURE GRAN # 0.06 x10^3u/L (0.00-0.03); IMMATURE GRAN % 0.5 % (0.00-0.4); Lymphocyte (Absolute #) 0.61 x10^3/uL (1.0-4.6); Mean Cell Volume 102.6 fL (78-100); Mean Corpuscular Hemoglobin 31.2 pg (26-32); Mean Corpuscular Hgb Concent. 30.4 g/dL (32-36); Mean Platelet Volume 9.7 fL (7.5-11.0); Monocyte (Absolute #) 0.74 x10^3/uL (0.0-1.3); Neutrophil % 87.8 % (36.0-66.0); Platelet Count 203 x10^3/uL (150-450); Red Blood Count 3.81 x10^6/uL (4.1-5.4); Red Cell Distribution Width 14.8 % (11.5-14.0); White Blood Count 12.3 x10^3/uL (4.0-10.5)
[2022-06-05 08:13] LABS: ALBUMIN 3.9 g/dL (3.5-5.0); ALKALINE PHOSPHATASE 111 U/L (38-126); ANION GAP 12.4 MEQ/L (5-15); BLOOD UREA NITROGEN 13 mg/dL (7-17); CHLORIDE 101 mmol/L (98-107); Calcium 8.6 mg/dL (8.4-10.2); Carbon Dioxide 33 mmol/L (22-30); Creatinine 1 0.52 mg/dL (0.52-1.04); EST GLOMERULAR FILTRATION RATE > 60.0 ML/MIN; Glucose 105 mg/dL (74-106); Potassium 4.3 mmol/L (3.5-5.1); SGOT/AST 20 U/L (14-36); SGPT/ALT 18 U/L (0-35); SODIUM 142 mmol/L (137-145); Total Protein 6.8 g/dL (6.3-8.2)
[2022-06-05 08:23] LABS: INFLUENZA A NEGATIVE (NEGATIVE); INFLUENZA B NEGATIVE (NEGATIVE); RESPIRATORY SYNCTIAL VIRUS NEGATIVE (NEGATIVE); SARS-CoV-2 Xpert Express NEGATIVE (NEGATIVE)
[2022-06-05] MEDS ORDERED: Zithromax 500 MG/ 250 ML NaCl Premix 500 MG/250 ML IVPB IV STA (08:31)
[2022-06-05] MEDS ORDERED: ROCEPHIN 2 Gm-D5w 50ML BAG** 2 G/50 ML IVPB IV STA (08:31)
[2022-06-05] MEDS ORDERED: ROCEPHIN 2 Gm-D5w 50ML BAG** 2 G/50 ML IVPB IV ONE (08:41)
--- NOTE | 2022-06-05 08:58 | XRAY ---
Indication: Short of breath. Comparison: May 16, 2022 Portable chest demonstrates slight worsening diffuse pulmonary edema with grossly stable small bibasilar effusions and borderline cardiomegaly favoring cardiac decompensation/CHF. Superimposed pneumonia not completely excluded.
[2022-06-05] MEDS ORDERED: Zithromax 500 MG/ 250 ML NaCl Premix 500 MG/250 ML IVPB IV ONE (09:17)
[2022-06-05] MEDS ORDERED: NITRO-BID 2% UD PACKETS TOP ONE (09:43)
[2022-06-05] MEDS ORDERED: NITRO-BID 2% UD PACKETS ONE (09:51)
[2022-06-05 10:00] LABS: A-aADO2 279; ABG HEMOGLOBIN 12.8; ABG SITE LEFT RADIAL; ALLEN TEST OK? YES; ARTERIAL BLD GAS O2 SATURATION 95.8 % (95-100); ARTERIAL BLOOD GAS BASE EXCESS 8.1 (-2.0-2.0); ARTERIAL BLOOD GAS FIO2 58 %; ARTERIAL BLOOD GAS PCO2 51 mmHg (35-45); ARTERIAL BLOOD GAS PO2 71 mmHg (75-100); ARTERIAL BLOOD GAS pH 7.43 (7.35-7.45); CARBOXYHEMOGLOBIN 3.2 % THgb (0.0-6.9); HCO3- 33.9 (22-28); HGB O2 SAT 92.2 g/dF (94-100); Methhemoglobin 0.6 % (1.4-1.5)
[2022-06-05] MEDS ORDERED: VENTOLIN COMMON CANISTER IH PRN (11:56)
[2022-06-05] MEDS: DUONEB 0.5-3 MG/3 ml Neb IH SCH ×2 (12:01→15:47)
[2022-06-05] MEDS ORDERED: PROVENTIL 2.5 MG/3 ML NEB IH PRN (13:21)
[2022-06-05] MEDS: solu-MEDROL 60 MG, Sterile H2O 10 ml 2 ML IV SCH ×4 (15:36→21:19)
[2022-06-05] MEDS ORDERED: CYCLOBENZAPRINE HCL 5 MG PO PRN (15:57)
[2022-06-05] MEDS ORDERED: DUONEB 0.5-3 MG/3 ml Neb IH PRN (16:00)
[2022-06-05] MEDS: NORCO 5/325 MG PO PRN ×2 (16:05→21:20)
[2022-06-05] MEDS: Protonix 40MG Tablet PO SCH (17:18)
[2022-06-05] MEDS: ZOCOR 20MG PO SCH (17:18)
[2022-06-05] MEDS: Klor Con PO SCH (17:18)
[2022-06-05] MEDS: ZOLOFT 50 MG TABLET PO SCH (17:18)
[2022-06-05] MEDS: Toprol-Xl 25MG Tablets PO SCH (17:18)
[2022-06-05] MEDS: Zestril 5 MG PO SCH (17:19)
[2022-06-05] MEDS: hydroDIURIL 25 MG PO SCH (17:19)
[2022-06-05] MEDS: Lasix 40 MG/4 ML IV SCH (17:30)
[2022-06-05] MEDS ORDERED: Advair Hfa 115/21 Common canister IH SCH (19:00)
[2022-06-05] MEDS ORDERED: AFRIN NASAL SPRAY NS PRN (19:28)
[2022-06-05] MEDS: Advair Hfa 230/21 Mcg COMMON CANISTER IH SCH (19:32)
[2022-06-05] MEDS: ELIQUIS 2.5 MG TABLET PO SCH (21:20)
[2022-06-05] MEDS: Cyclobenzaprine 10 MG PO PRN (21:20)
[2022-06-05] MEDS: Wellbutrin SR 150 MG PO SCH (21:21)
[2022-06-05] MEDS ORDERED: NON-FORMULARY ITEM (Apixaban [Eliquis] 5 MG Tablet) PO SCH (22:00)
[2022-06-06] MEDS: DUONEB 0.5-3 MG/3 ml Neb IH SCH ×4 (04:30→18:46)
[2022-06-06] MEDS: Advair Hfa 230/21 Mcg COMMON CANISTER IH SCH ×2 (04:33→18:46)
[2022-06-06] MEDS ORDERED: solu-MEDROL ONE (04:37)
[2022-06-06] MEDS: solu-MEDROL 60 MG, Sterile H2O 10 ml 2 ML IV SCH ×10 (04:40→23:59)
[2022-06-06 05:22] LABS: Hematocrit 36.2 % (35-47); Hemoglobin 11.4 g/dL (12.0-16.0); Mean Cell Volume 100.3 fL (78-100); Mean Corpuscular Hemoglobin 31.6 pg (26-32); Mean Corpuscular Hgb Concent. 31.5 g/dL (32-36); Mean Platelet Volume 10.3 fL (7.5-11.0); Platelet Count 223 x10^3/uL (150-450); Red Blood Count 3.61 x10^6/uL (4.1-5.4); Red Cell Distribution Width 14.6 % (11.5-14.0); White Blood Count 9.2 x10^3/uL (4.0-10.5)
[2022-06-06 05:54] LABS: ALBUMIN 3.9 g/dL (3.5-5.0); ALKALINE PHOSPHATASE 90 U/L (38-126); ANION GAP 9.6 MEQ/L (5-15); BLOOD UREA NITROGEN 23 mg/dL (7-17); CHLORIDE 98 mmol/L (98-107); Calcium 8.9 mg/dL (8.4-10.2); Carbon Dioxide 36 mmol/L (22-30); Creatinine 1 0.54 mg/dL (0.52-1.04); EST GLOMERULAR FILTRATION RATE > 60.0 ML/MIN; Glucose 194 mg/dL (74-106); NT PRO BNPII 2580 pg/mL (<300); SGOT/AST 18 U/L (14-36); SGPT/ALT 19 U/L (0-35); SODIUM 139 mmol/L (137-145); Total Protein 7.1 g/dL (6.3-8.2)
--- NOTE | 2022-06-06 08:15 | PCM.HP ---
History of Present Illness - Chief Complaint Chief Complaint: CHF, COPD EXAC History of Present Illness: is a 56 year old female with advanced copd and chronic hypoxemic respiratory failure, she was recently admitted for copd exacerbation and subsequently developed some volume overload, it has improved with oral lasix but she became acutely more short of breath and hypoxic yesterday, came to ER. no chest pain, no significant cough, has some swelling in her feet but not severe. - Review of Systems Constitutional: No Fever, No Chills Respiratory: Short Of Breath Cardiac: Edema, No Chest Pain Abdominal/Gastrointestinal: No Abdominal Pain, No Nausea, No Vomiting, No Diarrhea Skin: No Rash All Other Systems: Reviewed and Negative Medications & Allergies Home Medications: Home Medication List Cyclobenzaprine HCl [Flexeril] 10 mg PO TID PRN PRN 07/07/16 [History Confirmed 06/05/22] Hydrocodone Bit/Acetaminophen [[place] 5/325Mg] 1 each PO Q6H PRN PRN 07/07/16 [History Confirmed 06/05/22] Atorvastatin Calcium [Lipitor 20MG Tablet] 20 mg PO DAILY 12/27/19 [History Confirmed 06/05/22] Sertraline HCl 50 mg [Zoloft 50 mg Tablet] 100 mg PO DAILY 12/27/19 [History Confirmed 06/05/22] Hydrochlorothiazide 25 mg [hydroDIURIL 25 MG] 12.5 mg PO DAILY 12/28/19 [History Confirmed 06/05/22] Metoprolol Succinate 25 mg Xl* [Toprol-Xl 25MG Tablets] 25 mg PO DAILY 30 Days #30 tab 12/31/19 [Rx Confirmed 06/05/22] Furosemide 40 mg [Lasix 40 MG] 40 mg PO DAILY 08/06/20 [History Confirmed 06/05/22] Hydroxyzine HCl 25 mg [Atarax 25 mg] 25 mg PO DAILY PRN PRN 08/06/20 [History Confirmed 06/05/22] Omeprazole 40 mg PO DAILY 08/06/20 [History Confirmed 06/05/22] Potassium Chloride Tab* [Klor Con] 10 meq PO DAILY 08/06/20 [History Confirmed 06/05/22] lisinopriL [Zestril] 5 mg PO DAILY 08/06/20 [History Confirmed 06/05/22] Albuterol Sulfate [Albuterol Sulfate Hfa] 1 puff IH Q4H PRN PRN 12/24/20 [History Confirmed 06/05/22] Apixaban [Eliquis] 5 mg PO BID #60 tablet 12/27/20 [Rx Confirmed 06/05/22] Albuterol/Ipratropium 3ml Neb* [DUONEB 0.5-3 MG/3 ml Neb] 3 ml IH QID PRN 02/07/21 [History Confirmed 06/05/22] Budesonide/Formoterol Fumarate [Budesonide-Formoterol 160-4.5] 2 puffs IH BID 09/21/21 [History Confirmed 06/05/22] buPROPion HCL [Bupropion HCl Sr] 150 mg PO BID 05/16/22 [History Confirmed 06/05/22] Allergies/Adverse Reactions: Allergies Allergy/AdvReac Type Severity Reaction Status Date / Time bee venom protein (honey bee) Allergy Severe Difficulty Verified 06/05/22 07:00 Breathing - Past Medical History Past Medical History: Yes Neurological History: No Pertinent History ENT History: No Pertinent History Cardiac History: Congestive Heart Failure, High Cholesterol, Hypertension Respiratory History: Asthma, Bronchitis, CHF, COPD, Pneumonia Endocrine Medical History: No Pertinent History Musculoskelatal History: Arthritis, Other GI Medical History: GERD History: No Pertinent History Pyscho-Social History: Anxiety, Depression Reproductive Disorders: No Pertinent History Comment: chronic back pain - Female History Are you now?: No - Past Surgical History Past Surgical History: Yes Neuro Surgical History: No Pertinent History Cardiac History: No Pertinent History Respiratory Surgery: No Pertinent History GI Surgical History: No Pertinent History Genitourinary Surgical Hx: No Pertinent History Musculskeletal Surgical Hx: Orthopedic Surgery Female Surgical History: No Pertinent History Other Surgical History: tonsils, back surgery, ingrown toenail repair - Social History Smoking Status: Current every day smoker How long have you smoked: 45 yrs Exposure to second hand smoke: Yes Alcohol: Occasionally Drug Use: marijuana Significant Family History: no pertinent family hx - Physical Exam Vital Signs: Vital Signs - 24 hr Temp Pulse Resp BP BP Pulse Ox 06/06/22 07:30 97.9 F 89 16 138/71 94 L 06/06/22 04:33 86 22 95 06/06/22 04:00 98.2 F 97 H 21 123/71 94 L 06/06/22 00:00 98.1 F 98 H 19 107/61 122/91 96 06/05/22 19:56 97.8 F 103 H 19 121/78 122/91 96 06/05/22 19:29 101 H 20 95 06/05/22 16:00 95.7 F 106 H 20 166/78 97 06/05/22 15:48 108 H 22 98 06/05/22 13:17 97.5 F 108 H 06/05/22 12:03 108 H 22 92 L 06/05/22 11:17 97.5 F 108 H 22 122/91 06/05/22 11:10 97.5 F 108 H 22 122/91 91 L 06/05/22 10:37 83 L 06/05/22 10:00 111 H 20 89/66 90 L 06/05/22 09:00 113 H 24 109/79 90 L 06/05/22 08:39 112 H 24 87 L General Appearance: obese Neurologic Exam: alert, oriented x 3, cooperative Respiratory Exam: crackles/rales, wheezing Cardiovascular Exam: regular rate/rhythm, normal heart sounds, normal peripheral pulses Gastrointestinal/Abdomen Exam: soft, normal bowel sounds, No tenderness, No mass Extremity Exam: pedal edema Skin Exam: normal color, warm, dry, No rash Results - Labs Lab/Micro Results: Lab Results-Last 24 Hours 06/05/22 06/05/22 06/05/22 Range/Units 07:22 07:22 07:33 WBC (4.0-10.5) x10^3/uL RBC (4.1-5.4) x10^6/uL Hgb (12.0-16.0) g/dL Hct (35-47) % MCV (78-100) fL MCH (26-32) pg MCHC (32-36) g/dL RDW (11.5-14.0) % Plt Count (150-450) x10^3/uL MPV (7.5-11.0) fL Puncture Site pCO2 (35-45) mmHg pO2 (75-100) mmHg Base Excess (-2.0-2.0) O2 Saturation (94-100) g/dF ABG pH (7.35-7.45) ABG HCO3 (22-28) ABG O2 Sat (Measured) (95-100) % Regino Test A-a Gradient a/A Ratio Hemoglobin Carboxyhemoglobin (0.0-6.9) % THgb Methemoglobin (1.4-1.5) % Temperature C POC O2 Flow Rate % Sodium 142 (137-145) mmol/L Potassium 4.3 (3.5-5.1) mmol/L Chloride 101 (98-107) mmol/L Carbon Dioxide 33 H (22-30) mmol/L Anion Gap 12.4 (5-15) MEQ/L BUN 13 (7-17) mg/dL Creatinine 0.52 (0.52-1.04) mg/dL Estimated GFR > 60.0 ML/MIN Glucose 105 (74-106) mg/dL Calcium 8.6 (8.4-10.2) mg/dL Total Bilirubin 0.80 (0.2-1.3) mg/dL AST 20 (14-36) U/L ALT 18 (0-35) U/L Alkaline Phosphatase 111 (38-126) U/L Troponin I 0.020 (0.000-0.034) ng/mL NT-Pro-B Natriuret Pep (<300) pg/mL Serum Total Protein 6.8 (6.3-8.2) g/dL Albumin 3.9 (3.5-5.0) g/dL Influenza Type A Ag NEGATIVE (NEGATIVE) Influenza Type B Ag NEGATIVE (NEGATIVE) RSV (PCR) NEGATIVE (NEGATIVE) SARS-CoV-2 (PCR) NEGATIVE (NEGATIVE) 06/05/22 06/05/22 06/05/22 Range/Units 08:45 09:59 11:30 WBC (4.0-10.5) x10^3/uL RBC (4.1-5.4) x10^6/uL Hgb (12.0-16.0) g/dL Hct (35-47) % MCV (78-100) fL MCH (26-32) pg MCHC (32-36) g/dL RDW (11.5-14.0) % Plt Count (150-450) x10^3/uL MPV (7.5-11.0) fL Puncture Site LEFT RADIAL pCO2 51 H (35-45) mmHg pO2 71 L (75-100) mmHg Base Excess 8.1 H (-2.0-2.0) O2 Saturation 92.2 L (94-100) g/dF ABG pH 7.43 (7.35-7.45) ABG HCO3 33.9 H* (22-28) ABG O2 Sat (Measured) 95.8 (95-100) % Regino Test YES A-a Gradient 279 a/A Ratio 0.20 Hemoglobin 12.8 Carboxyhemoglobin 3.2 (0.0-6.9) % THgb Methemoglobin 0.6 L (1.4-1.5) % Temperature 37.0 C POC O2 Flow Rate 58 % Sodium (137-145) mmol/L Potassium 4.0 (3.5-5.1) mmol/L Chloride (98-107) mmol/L Carbon Dioxide (22-30) mmol/L Anion Gap (5-15) MEQ/L BUN (7-17) mg/dL Creatinine (0.52-1.04) mg/dL Estimated GFR ML/MIN Glucose (74-106) mg/dL Calcium (8.4-10.2) mg/dL Total Bilirubin (0.2-1.3) mg/dL AST (14-36) U/L ALT (0-35) U/L Alkaline Phosphatase (38-126) U/L Troponin I 0.019 (0.000-0.034) ng/mL NT-Pro-B Natriuret Pep 2300 (<300) pg/mL Serum Total Protein (6.3-8.2) g/dL Albumin (3.5-5.0) g/dL Influenza Type A Ag (NEGATIVE) Influenza Type B Ag (NEGATIVE) RSV (PCR) (NEGATIVE) SARS-CoV-2 (PCR) (NEGATIVE) 06/05/22 06/06/22 06/06/22 Range/Units 15:20 04:25 04:25 WBC 9.2 (4.0-10.5) x10^3/uL RBC 3.61 L (4.1-5.4) x10^6/uL Hgb 11.4 L (12.0-16.0) g/dL Hct 36.2 (35-47) % MCV 100.3 H (78-100) fL MCH 31.6 (26-32) pg MCHC 31.5 L (32-36) g/dL RDW 14.6 H (11.5-14.0) % Plt Count 223 (150-450) x10^3/uL MPV 10.3 (7.5-11.0) fL Puncture Site pCO2 (35-45) mmHg pO2 (75-100) mmHg Base Excess (-2.0-2.0) O2 Saturation (94-100) g/dF ABG pH (7.35-7.45) ABG HCO3 (22-28) ABG O2 Sat (Measured) (95-100) % Regino Test A-a Gradient a/A Ratio Hemoglobin Carboxyhemoglobin (0.0-6.9) % THgb Methemoglobin (1.4-1.5) % Temperature C POC O2 Flow Rate % Sodium 139 (137-145) mmol/L Potassium 4.0 (3.5-5.1) mmol/L Chloride 98 (98-107) mmol/L Carbon Dioxide 36 H (22-30) mmol/L Anion Gap 9.6 (5-15) MEQ/L BUN 23 H (7-17) mg/dL Creatinine 0.54 (0.52-1.04) mg/dL Estimated GFR > 60.0 ML/MIN Glucose 194 H (74-106) mg/dL Calcium 8.9 (8.4-10.2) mg/dL Total Bilirubin 0.50 (0.2-1.3) mg/dL AST 18 (14-36) U/L ALT 19 (0-35) U/L Alkaline Phosphatase 90 (38-126) U/L Troponin I 0.017 (0.000-0.034) ng/mL NT-Pro-B Natriuret Pep 2580 (<300) pg/mL Serum Total Protein 7.1 (6.3-8.2) g/dL Albumin 3.9 (3.5-5.0) g/dL Influenza Type A Ag (NEGATIVE) Influenza Type B Ag (NEGATIVE) RSV (PCR) (NEGATIVE) SARS-CoV-2 (PCR) (NEGATIVE) 06/06/22 Range/Units 04:25 WBC (4.0-10.5) x10^3/uL RBC (4.1-5.4) x10^6/uL Hgb (12.0-16.0) g/dL Hct (35-47) % MCV (78-100) fL MCH (26-32) pg MCHC (32-36) g/dL RDW (11.5-14.0) % Plt Count (150-450) x10^3/uL MPV (7.5-11.0) fL Puncture Site pCO2 (35-45) mmHg pO2 (75-100) mmHg Base Excess (-2.0-2.0) O2 Saturation (94-100) g/dF ABG pH (7.35-7.45) ABG HCO3 (22-28) ABG O2 Sat (Measured) (95-100) % Regino Test A-a Gradient a/A Ratio Hemoglobin Carboxyhemoglobin (0.0-6.9) % THgb Methemoglobin (1.4-1.5) % Temperature C POC O2 Flow Rate % Sodium (137-145) mmol/L Potassium (3.5-5.1) mmol/L Chloride (98-107) mmol/L Carbon Dioxide (22-30) mmol/L Anion Gap (5-15) MEQ/L BUN (7-17) mg/dL Creatinine (0.52-1.04) mg/dL Estimated GFR ML/MIN Glucose (74-106) mg/dL Calcium (8.4-10.2) mg/dL Total Bilirubin (0.2-1.3) mg/dL AST (14-36) U/L ALT (0-35) U/L Alkaline Phosphatase (38-126) U/L Troponin I 0.014 (0.000-0.034) ng/mL NT-Pro-B Natriuret Pep (<300) pg/mL Serum Total Protein (6.3-8.2) g/dL Albumin (3.5-5.0) g/dL Influenza Type A Ag (NEGATIVE) Influenza Type B Ag (NEGATIVE) RSV (PCR) (NEGATIVE) SARS-CoV-2 (PCR) (NEGATIVE) - Radiology Impressions Radiology Exams & Impressions: Radiology Procedures Category Date Time Status CHEST 1 VIEW (PORTABLE) Stat Exams 06/05/22 07:02 Completed - Other Procedures and Tests Respiratory Therapy 06/05/22 11:57 Oxygen Oxymizer LPM 7 lpm Assessment/Plan (1) CHF exacerbation Current Visit: No Status: Resolved Qualifiers: Assessment & Plan: will diurese with IV lasix, Dalton often has significant volume overload which is difficult to ascertain on physical exam. in the past her EF has been preserved on echo, will consult [facility] cardiology (follows with Emily Suarez) Code(s): I50.9 - HEART FAILURE, UNSPECIFIED (2) COPD exacerbation Current Visit: Yes Status: Acute Assessment & Plan: minimal wheeze, continue steroids but appears to be more volume overload than copd exacerbation Code(s): J44.1 - CHRONIC OBSTRUCTIVE PULMONARY DISEASE W (ACUTE) EXACERBATION (3) Chronic hypoxemic respiratory failure Current Visit: No Status: Chronic (4) SALAVTORE (obstructive sleep apnea) Current Visit: No Status: Chronic Code(s): G47.33 - OBSTRUCTIVE SLEEP APNEA (ADULT) (PEDIATRIC) (5) Smoker Current Visit: No Status: Chronic Code(s): F17.200 - NICOTINE DEPENDENCE, UNSPECIFIED, UNCOMPLICATED
[2022-06-06] MEDS: Cyclobenzaprine 10 MG PO PRN ×2 (08:20→23:58)
[2022-06-06] MEDS ORDERED: NON-FORMULARY ITEM (Omeprazole [Omeprazole] 40 MG Capsule.Dr) PO SCH (10:00)
[2022-06-06] MEDS ORDERED: NON-FORMULARY ITEM (Atorvastatin Calcium 20 MG Tab) PO SCH (10:00)
[2022-06-06] MEDS ORDERED: NON-FORMULARY ITEM (Lisinopril [Zestril] 2.5 MG Tablet) PO SCH (10:00)
[2022-06-06] MEDS: ROCEPHIN 1 Gm-D5w 50 ml Bag** 1 G/50 ML IVPB IV SCH (10:25)
[2022-06-06] MEDS: Protonix 40MG Tablet PO SCH (10:26)
[2022-06-06] MEDS: NORCO 5/325 MG PO PRN ×3 (10:26→23:58)
[2022-06-06] MEDS: ELIQUIS 2.5 MG TABLET PO SCH ×2 (10:26→22:17)
[2022-06-06] MEDS: Klor Con PO SCH (10:26)
[2022-06-06] MEDS: Zithromax 500 MG/ 250 ML NaCl Premix 500 MG/250 ML IVPB IV SCH (10:26)
[2022-06-06] MEDS: Toprol-Xl 25MG Tablets PO SCH (10:27)
[2022-06-06] MEDS: hydroDIURIL 25 MG PO SCH (10:27)
[2022-06-06] MEDS: Zestril 5 MG PO SCH (10:27)
[2022-06-06] MEDS: ZOCOR 20MG PO SCH (10:28)
[2022-06-06] MEDS: Wellbutrin SR 150 MG PO SCH ×2 (10:28→22:17)
[2022-06-06] MEDS: ZOLOFT 50 MG TABLET PO SCH (10:28)
[2022-06-06] MEDS: Lasix 40 MG/4 ML IV SCH ×2 (10:28→17:09)
[2022-06-07] MEDS: Advair Hfa 230/21 Mcg COMMON CANISTER IH SCH ×2 (05:00→18:41)
[2022-06-07] MEDS: DUONEB 0.5-3 MG/3 ml Neb IH SCH ×4 (05:00→18:40)
[2022-06-07] MEDS ORDERED: Lopressor 25MG Tab PO ONE (05:07)
[2022-06-07] MEDS ORDERED: solu-MEDROL ONE ×2 (05:41→15:54)
[2022-06-07] MEDS: NORCO 5/325 MG PO PRN ×3 (05:59→21:19)
[2022-06-07] MEDS: solu-MEDROL 60 MG, Sterile H2O 10 ml 2 ML IV SCH ×6 (06:03→17:34)
[2022-06-07 06:33] LABS: Absolute Neutrophil Ct (ANC) 13.21 x10^3/uL (1.4-6.9); BASOPHIL % 0.1 % (0.0-0.4); Basophil (Absolute #) 0.01 x10^3/uL (0-0.4); Eosinophil (Absolute #) 0 x10^3/uL (0-0.5); Hematocrit 36.9 % (35-47); Hemoglobin 11.5 g/dL (12.0-16.0); IMMATURE GRAN # 0.07 x10^3u/L (0.00-0.03); IMMATURE GRAN % 0.5 % (0.00-0.4); Lymphocyte (Absolute #) 0.46 x10^3/uL (1.0-4.6); Lymphocytes % 3.3 % (24.0-44.0); Mean Cell Volume 102.5 fL (78-100); Mean Corpuscular Hemoglobin 31.9 pg (26-32); Mean Corpuscular Hgb Concent. 31.2 g/dL (32-36); Mean Platelet Volume 10.2 fL (7.5-11.0); Monocyte (Absolute #) 0.29 x10^3/uL (0.0-1.3); Monocytes % 2.1 % (0.0-12.0); Platelet Count 300 x10^3/uL (150-450); Red Cell Distribution Width 14.6 % (11.5-14.0)
[2022-06-07 06:59] LABS: ALBUMIN 3.9 g/dL (3.5-5.0); ALKALINE PHOSPHATASE 78 U/L (38-126); ANION GAP 10.1 MEQ/L (5-15); BLOOD UREA NITROGEN 34 mg/dL (7-17); CHLORIDE 96 mmol/L (98-107); Calcium 9.2 mg/dL (8.4-10.2); Carbon Dioxide 36 mmol/L (22-30); Creatinine 1 0.74 mg/dL (0.52-1.04); EST GLOMERULAR FILTRATION RATE > 60.0 ML/MIN; Glucose 186 mg/dL (74-106); Potassium 4.6 mmol/L (3.5-5.1); SGOT/AST 18 U/L (14-36); SGPT/ALT 20 U/L (0-35); SODIUM 137 mmol/L (137-145)
[2022-06-07] MEDS: CARDIZEM DRIP 100 MG/100 ML D5W 100 ML IV PRN ×2 (09:35→21:27)
[2022-06-07] MEDS: ROCEPHIN 1 Gm-D5w 50 ml Bag** 1 G/50 ML IVPB IV SCH (09:38)
[2022-06-07] MEDS: ZOLOFT 50 MG TABLET PO SCH (09:41)
[2022-06-07] MEDS: Cyclobenzaprine 10 MG PO PRN ×3 (09:41→21:19)
[2022-06-07] MEDS: Protonix 40MG Tablet PO SCH (09:42)
[2022-06-07] MEDS: hydroDIURIL 25 MG PO SCH (09:42)
[2022-06-07] MEDS: Wellbutrin SR 150 MG PO SCH ×2 (09:42→21:19)
[2022-06-07] MEDS: ZOCOR 20MG PO SCH (09:42)
[2022-06-07] MEDS: Zestril 5 MG PO SCH (09:42)
[2022-06-07] MEDS: Toprol-Xl 25MG Tablets PO SCH (09:42)
[2022-06-07] MEDS: Klor Con PO SCH (09:42)
[2022-06-07] MEDS: ELIQUIS 2.5 MG TABLET PO SCH ×2 (09:42→21:19)
[2022-06-07] MEDS: Lasix 40 MG/4 ML IV SCH (09:43)
[2022-06-07 10:15] LABS: Slide Review 1 YES
[2022-06-07] MEDS: Zithromax 500 MG/ 250 ML NaCl Premix 500 MG/250 ML IVPB IV SCH (10:18)
--- NOTE | 2022-06-07 15:08 | PCM.NOTE ---
Date and Time: 06/07/22 1506 Subjective Assessment: Patient in ICU bed on Cardiazem drip for heart rate 140 ,improving. OBJECTIVE DATA Vital Signs: Vital Signs - 24 hr Temp Pulse Resp BP BP BP BP 06/07/22 14:30 135 H 22 06/07/22 14:00 138 H 23 95/80 06/07/22 13:00 135 H 30 H 96/62 06/07/22 12:32 119 H 114/70 06/07/22 11:42 141 H 06/07/22 11:40 97.6 F 144 H 22 108/77 06/07/22 11:03 06/07/22 10:49 143 H 21 94/72 06/07/22 10:34 136 H 20 06/07/22 10:29 147 H 06/07/22 09:35 152 H 116/88 06/07/22 09:16 126 H 126/60 06/07/22 07:28 98.1 F 81 16 102/75 06/07/22 05:00 144 H 20 06/07/22 04:00 97.6 F 141 H 22 107/60 06/06/22 23:54 97.0 F 88 24 134/62 06/06/22 19:54 97.2 F 88 26 H 132/58 06/06/22 18:50 87 20 06/06/22 16:00 98.0 F 94 H 16 89/50 Pulse Ox 06/07/22 14:30 94 L 06/07/22 14:00 95 06/07/22 13:00 96 06/07/22 12:32 06/07/22 11:42 06/07/22 11:40 96 06/07/22 11:03 96 06/07/22 10:49 96 06/07/22 10:34 98 06/07/22 10:29 06/07/22 09:35 06/07/22 09:16 06/07/22 07:28 98 06/07/22 05:00 97 06/07/22 04:00 96 06/06/22 23:54 96 06/06/22 19:54 96 06/06/22 18:50 95 06/06/22 16:00 93 L Pain Assessment - Last Documented Pain Intensity 7 Pain Scale Used 0-10 Pain Scale Intake and Output: Intake & Output 06/05/22 06/06/22 06/07/22 06/08/22 11:59 11:59 11:59 11:59 Intake Total 2560 4540 Output Total 500 3650 Balance 2060 890 Weight 108 kg 138.1 kg Lab Results: Lab Results-Last 24 Hours 06/07/22 06/07/22 Range/Units 05:30 05:30 WBC 14.0 H (4.0-10.5) x10^3/uL RBC 3.60 L (4.1-5.4) x10^6/uL Hgb 11.5 L (12.0-16.0) g/dL Hct 36.9 (35-47) % MCV 102.5 H (78-100) fL MCH 31.9 (26-32) pg MCHC 31.2 L (32-36) g/dL RDW 14.6 H (11.5-14.0) % Plt Count 300 D (150-450) x10^3/uL MPV 10.2 (7.5-11.0) fL Gran % 94.0 H (36.0-66.0) % Immature Gran % (Auto) 0.5 H (0.00-0.4) % Nucleat RBC Rel Count 0.0 (0.00-0.1) % Eos # (Auto) 0 (0-0.5) x10^3/uL Immature Gran # (Auto) 0.07 H (0.00-0.03) x10^3u/L Absolute Lymphs (auto) 0.46 L (1.0-4.6) x10^3/uL Absolute Monos (auto) 0.29 (0.0-1.3) x10^3/uL Absolute Nucleated RBC 0.00 (0.00-0.01) x10^3u/L Lymphocytes % 3.3 L (24.0-44.0) % Monocytes % 2.1 (0.0-12.0) % Eosinophils % 0.0 (0.00-5.0) % Basophils % 0.1 (0.0-0.4) % Absolute Granulocytes 13.21 H (1.4-6.9) x10^3/uL Basophils # 0.01 (0-0.4) x10^3/uL Sodium 137 (137-145) mmol/L Potassium 4.6 (3.5-5.1) mmol/L Chloride 96 L (98-107) mmol/L Carbon Dioxide 36 H (22-30) mmol/L Anion Gap 10.1 (5-15) MEQ/L BUN 34 H (7-17) mg/dL Creatinine 0.74 (0.52-1.04) mg/dL Estimated GFR > 60.0 ML/MIN Glucose 186 H (74-106) mg/dL Calcium 9.2 (8.4-10.2) mg/dL Total Bilirubin 0.30 (0.2-1.3) mg/dL AST 18 (14-36) U/L ALT 20 (0-35) U/L Alkaline Phosphatase 78 (38-126) U/L Serum Total Protein 7.0 (6.3-8.2) g/dL Albumin 3.9 (3.5-5.0) g/dL Slides for Path Review YES
[2022-06-07] MEDS: Mucinex 600MG ER Tabs PO SCH ×2 (15:18→21:19)
[2022-06-07] MEDS: BUMEX 1 MG IV SCH (17:34)
[2022-06-08] MEDS: solu-MEDROL 60 MG, Sterile H2O 10 ml 2 ML IV SCH ×6 (00:31→11:54)
[2022-06-08] MEDS ORDERED: Cardizem IV 50 MG/10 ML IV ONE (03:36)
[2022-06-08] MEDS ORDERED: Sodium Chloride 0.9% 250 ML 0 ML IV ONE (03:36)
[2022-06-08] MEDS ORDERED: Sodium Chloride 0.9% 100 ML ONE (03:49)
[2022-06-08] MEDS: Advair Hfa 230/21 Mcg COMMON CANISTER IH SCH ×2 (06:16→19:11)
[2022-06-08] MEDS: DUONEB 0.5-3 MG/3 ml Neb IH SCH ×4 (06:16→18:59)
[2022-06-08] MEDS: CARDIZEM DRIP 100 MG/100 ML D5W 100 ML IV PRN (06:18)
[2022-06-08] MEDS: NORCO 5/325 MG PO PRN ×3 (06:19→23:24)
[2022-06-08] MEDS: Cyclobenzaprine 10 MG PO PRN ×3 (06:19→23:24)
[2022-06-08] MEDS ORDERED: Ativan 2 MG/1 ML VIAL IV PRN (08:13)
[2022-06-08] MEDS: Klor Con PO SCH (09:20)
[2022-06-08] MEDS: hydroDIURIL 25 MG PO SCH (09:21)
[2022-06-08] MEDS: Zestril 5 MG PO SCH (09:21)
[2022-06-08] MEDS: Wellbutrin SR 150 MG PO SCH ×2 (09:21→23:24)
[2022-06-08] MEDS: Toprol-Xl 25MG Tablets PO SCH (09:22)
[2022-06-08] MEDS: Mucinex 600MG ER Tabs PO SCH ×2 (09:22→23:24)
[2022-06-08] MEDS: Protonix 40MG Tablet PO SCH (09:22)
[2022-06-08] MEDS: BUMEX 1 MG IV SCH ×2 (09:22→16:45)
[2022-06-08] MEDS: Cardizem CD PO SCH (09:22)
[2022-06-08] MEDS: ZOCOR 20MG PO SCH (09:22)
[2022-06-08] MEDS: ROCEPHIN 1 Gm-D5w 50 ml Bag** 1 G/50 ML IVPB IV SCH (09:22)
[2022-06-08] MEDS: ZOLOFT 50 MG TABLET PO SCH (09:42)
[2022-06-08] MEDS: Zithromax 500 MG/ 250 ML NaCl Premix 500 MG/250 ML IVPB IV SCH (09:56)
[2022-06-08] MEDS: ELIQUIS 2.5 MG TABLET PO SCH ×2 (13:26→16:10)
[2022-06-08] MEDS ORDERED: solu-MEDROL ONE (14:13)
--- NOTE | 2022-06-08 14:45 | PCM.NOTE ---
Date and Time: 06/08/22 1440 Subjective Assessment: Patient was transitioned off Cardiazem drip this morning,started Cardiazem 180 CD and is doing well up in chair. C/O cough dark red clump . Eliquis was held last night and this morning . Last chest CT was June 2021, Will order contrasted Chest CT. OBJECTIVE DATA Vital Signs: Vital Signs - 24 hr Temp Pulse Resp BP BP BP Pulse Ox 06/08/22 14:24 108 H 22 98 06/08/22 14:00 118 H 06/08/22 12:00 142 H 06/08/22 11:42 97.8 F 128 H 22 125/76 96 06/08/22 10:39 99 H 20 95 06/08/22 10:00 109 H 17 102/80 96 06/08/22 09:00 123 H 20 127/91 97 06/08/22 07:29 97.0 F 106 H 16 106/72 97 06/08/22 07:28 129 H 06/08/22 07:00 132 H 17 106/72 96 06/08/22 06:18 116 H 20 127/91 97 06/08/22 06:00 111 H 16 127/91 96 06/08/22 05:00 104 H 16 105/88 96 06/08/22 03:57 98 F 95 H 16 124/74 97 06/08/22 02:59 121 H 22 122/77 97 06/08/22 02:00 109 H 20 132/101 06/08/22 01:00 98.5 F 96 H 22 148/110 06/08/22 00:00 98.5 F 96 H 22 129/88 06/07/22 23:00 96 H 22 06/07/22 22:27 120 H 125/82 06/07/22 22:00 98.5 F 136 H 22 129/88 06/07/22 21:27 136 H 129/88 06/07/22 21:00 22 129/88 06/07/22 20:00 130 H 06/07/22 19:30 98.5 F 130 H 22 112/70 97 06/07/22 18:50 122 H 19 110/56 99 06/07/22 18:40 130 H 18 95 06/07/22 18:00 127 H 19 99/68 95 06/07/22 17:00 150 H 20 96/72 96 06/07/22 16:00 97.0 F 125 H 21 109/89 94 L 06/07/22 15:00 134 H 24 106/68 96 Pain Assessment - Last Documented Pain Intensity 0 Pain Scale Used 0-10 Pain Scale Intake and Output: Intake & Output 06/06/22 06/07/22 06/08/22 06/09/22 11:59 11:59 11:59 11:59 Intake Total 2560 4540 1940 360 Output Total 500 3650 900 Balance 2060 890 1040 360 Weight 138.1 kg 139.3 kg 139.3 kg Radiology Exams: Radiology Procedures Category Date Time Status CHEST WITH CONTRAST [CT] Routine Exams 06/08/22 14:33 Ordered
[2022-06-08 15:58] LABS: Absolute Neutrophil Ct (ANC) 9.61 x10^3/uL (1.4-6.9); BASOPHIL % 0.1 % (0.0-0.4); Basophil (Absolute #) 0.01 x10^3/uL (0-0.4); Eosinophil (Absolute #) 0 x10^3/uL (0-0.5); Hematocrit 34.8 % (35-47); Hemoglobin 10.9 g/dL (12.0-16.0); IMMATURE GRAN # 0.03 x10^3u/L (0.00-0.03); IMMATURE GRAN % 0.3 % (0.00-0.4); Lymphocyte (Absolute #) 0.31 x10^3/uL (1.0-4.6); Mean Cell Volume 101.8 fL (78-100); Mean Corpuscular Hemoglobin 31.9 pg (26-32); Mean Corpuscular Hgb Concent. 31.3 g/dL (32-36); Mean Platelet Volume 9.9 fL (7.5-11.0); Monocyte (Absolute #) 0.32 x10^3/uL (0.0-1.3); Monocytes % 3.1 % (0.0-12.0); Neutrophil % 93.5 % (36.0-66.0); Platelet Count 274 x10^3/uL (150-450); Red Blood Count 3.42 x10^6/uL (4.1-5.4); Red Cell Distribution Width 14.6 % (11.5-14.0); White Blood Count 10.3 x10^3/uL (4.0-10.5)
[2022-06-08 16:12] LABS: ALKALINE PHOSPHATASE 70 U/L (38-126); ANION GAP 11.2 MEQ/L (5-15); BLOOD UREA NITROGEN 40 mg/dL (7-17); CHLORIDE 94 mmol/L (98-107); Calcium 8.9 mg/dL (8.4-10.2); Carbon Dioxide 35 mmol/L (22-30); Creatinine 1 0.81 mg/dL (0.52-1.04); EST GLOMERULAR FILTRATION RATE > 60.0 ML/MIN; Glucose 250 mg/dL (74-106); NT PRO BNPII 5730 pg/mL (<300); Potassium 4.5 mmol/L (3.5-5.1); SGOT/AST 18 U/L (14-36); SGPT/ALT 23 U/L (0-35); SODIUM 136 mmol/L (137-145); Total Protein 6.7 g/dL (6.3-8.2)
[2022-06-08 16:14] LABS: D-DIMER QUANTITATIVE 0.19 mg/L (0.0-0.50); PROTIME 10.9 SECONDS (9.4-12.5)
[2022-06-08] MEDS ORDERED: CARDIZEM DRIP 100 MG/100 ML D5W 100 ML IV PRN (19:37)
[2022-06-08] MEDS ORDERED: solu-MEDROL 40 MG, Sterile H2O 10 ml 2 ML IV SCH ×2 (22:00)
[2022-06-09] MEDS ORDERED: ELIQUIS 2.5 MG TABLET ONE (01:46)
[2022-06-09] MEDS: CARDIZEM DRIP 100 MG/100 ML D5W 100 ML IV PRN ×3 (02:19→16:49)
[2022-06-09] MEDS: DUONEB 0.5-3 MG/3 ml Neb IH SCH ×4 (06:51→19:00)
[2022-06-09] MEDS: Advair Hfa 230/21 Mcg COMMON CANISTER IH SCH ×2 (06:52→19:01)
[2022-06-09] MEDS: NORCO 5/325 MG PO PRN ×3 (08:06→21:36)
[2022-06-09] MEDS ORDERED: Toprol-Xl 25MG Tablets PO SCH (08:08)
--- NOTE | 2022-06-09 08:09 | PCM.NOTE ---
Date and Time: 06/09/22805 Subjective Assessment: patient is short of breath with getting up and moving around. her breathing is improved, currently on 3L nasal cannula, wears 2 at home chronically but turns it up as needed at times. no chest pain Objective Exam General Appearance: obese Neurologic Exam: alert, oriented x 3 Respiratory Exam: diminished breath sounds Cardiovascular Exam: tachycardia, irregular Gastrointestinal/Abdomen Exam: soft, No tenderness, No mass Extremity Exam: normal inspection, normal range of motion, pedal edema OBJECTIVE DATA Vital Signs: Vital Signs - 24 hr Temp Pulse Resp BP BP BP Pulse Ox 06/09/22 06:54 85 18 96 06/09/22 06:00 108 H 16 130/99 127/91 06/09/22 03:30 95 H 06/09/22 02:41 98.2 F 95 H 16 131/95 06/09/22 02:19 117 H 16 142/89 06/09/22 01:05 123 H 16 151/106 06/09/22 00:05 97.9 F 116 H 16 153/93 06/08/22 23:47 124 H 06/08/22 22:21 145 H 16 133/89 06/08/22 21:58 124 H 127/93 06/08/22 21:21 123 H 16 112/85 06/08/22 20:37 125 H 115/87 06/08/22 20:21 135 H 120/78 06/08/22 20:00 135 H 06/08/22 19:45 146 H 105/86 06/08/22 19:31 98.1 F 151 H 16 103/71 06/08/22 18:59 136 H 20 95 06/08/22 17:49 97.8 F 108 H 17 96/78 96 06/08/22 16:00 127 H 06/08/22 14:24 108 H 22 98 06/08/22 14:00 118 H 06/08/22 12:00 142 H 06/08/22 11:42 97.8 F 128 H 22 125/76 96 06/08/22 10:39 99 H 20 95 06/08/22 10:00 109 H 17 102/80 96 06/08/22 09:00 123 H 20 127/91 97 Pain Assessment - Last Documented Pain Intensity 3 Pain Scale Used Aceves-Yang Faces Intake and Output: Intake & Output 06/06/22 06/07/22 06/08/22 06/09/22 11:59 11:59 11:59 11:59 Intake Total 2560 4540 1940 1470 Output Total 500 3650 900 2400 Balance 2060 890 1040 -930 Weight 138.1 kg 139.3 kg 139.3 kg Lab Results: Lab Results-Last 24 Hours 06/08/22 06/08/22 06/08/22 Range/Units 15:45 15:45 15:45 WBC 10.3 (4.0-10.5) x10^3/uL RBC 3.42 L (4.1-5.4) x10^6/uL Hgb 10.9 L (12.0-16.0) g/dL Hct 34.8 L (35-47) % MCV 101.8 H (78-100) fL MCH 31.9 (26-32) pg MCHC 31.3 L (32-36) g/dL RDW 14.6 H (11.5-14.0) % Plt Count 274 (150-450) x10^3/uL MPV 9.9 (7.5-11.0) fL Gran % 93.5 H (36.0-66.0) % Immature Gran % (Auto) 0.3 (0.00-0.4) % Nucleat RBC Rel Count 0.0 (0.00-0.1) % Eos # (Auto) 0 (0-0.5) x10^3/uL Immature Gran # (Auto) 0.03 (0.00-0.03) x10^3u/L Absolute Lymphs (auto) 0.31 L (1.0-4.6) x10^3/uL Absolute Monos (auto) 0.32 (0.0-1.3) x10^3/uL Absolute Nucleated RBC 0.00 (0.00-0.01) x10^3u/L Lymphocytes % 3.0 L (24.0-44.0) % Monocytes % 3.1 (0.0-12.0) % Eosinophils % 0.0 (0.00-5.0) % Basophils % 0.1 (0.0-0.4) % Absolute Granulocytes 9.61 H (1.4-6.9) x10^3/uL Basophils # 0.01 (0-0.4) x10^3/uL PT 10.9 (9.4-12.5) SECONDS INR 1.00 (0.8-3.0) D-Dimer 0.19 (0.0-0.50) mg/L Sodium 136 L (137-145) mmol/L Potassium 4.5 (3.5-5.1) mmol/L Chloride 94 L (98-107) mmol/L Carbon Dioxide 35 H (22-30) mmol/L Anion Gap 11.2 (5-15) MEQ/L BUN 40 H (7-17) mg/dL Creatinine 0.81 (0.52-1.04) mg/dL Estimated GFR > 60.0 ML/MIN Glucose 250 H (74-106) mg/dL Calcium 8.9 (8.4-10.2) mg/dL Total Bilirubin 0.20 (0.2-1.3) mg/dL AST 18 (14-36) U/L ALT 23 (0-35) U/L Alkaline Phosphatase 70 (38-126) U/L NT-Pro-B Natriuret Pep 5730 (<300) pg/mL Serum Total Protein 6.7 (6.3-8.2) g/dL Albumin 4.0 (3.5-5.0) g/dL Radiology Exams: Radiology Procedures Category Date Time Status CHEST WITH CONTRAST [CT] Routine Exams 06/08/22 14:33 Taken Assessment/Plan (1) Atrial fibrillation with rapid ventricular response Current Visit: Yes Status: Acute Assessment & Plan: continue cardizem gtt, increase metoprolol from 25mg to 50mg daily, will check thyroid functions. will attempt to consult with [facility] cardiology Dr Jeffry Suarez again today Code(s): I48.91 - UNSPECIFIED ATRIAL FIBRILLATION (2) CHF exacerbation Current Visit: No Status: Resolved Qualifiers: Code(s): I50.9 - HEART FAILURE, UNSPECIFIED (3) COPD exacerbation Current Visit: Yes Status: Acute Code(s): J44.1 - CHRONIC OBSTRUCTIVE PULMONARY DISEASE W (ACUTE) EXACERBATION (4) Chronic hypoxemic respiratory failure Current Visit: No Status: Chronic (5) SALVATORE (obstructive sleep apnea) Current Visit: No Status: Chronic Code(s): G47.33 - OBSTRUCTIVE SLEEP APNEA (ADULT) (PEDIATRIC) (6) Smoker Current Visit: No Status: Chronic Code(s): F17.200 - NICOTINE DEPENDENCE, UNSPECIFIED, UNCOMPLICATED
--- NOTE | 2022-06-09 08:40 | XRAY ---
Indication: Hemoptysis. COPD and asthma. Multiple contiguous axial images obtained through the chest using 80 cc Isovue 370 contrast. Comparison: June 25, 2021 Lungs now demonstrates mild diffuse pulmonary edema with minimal bibasilar subsegmental atelectasis/scarring. No consolidation/large effusion. Heart is now enlarged again with mitral valve calcifications. Aorta is normal in course and caliber without aneurysm/dissection. Again prominent mediastinal lymph nodes again largest precarinal measuring 2.1 x 3.2 cm, previously 1.5 x 2.5 cm. Stable tiny subcarinal calcified node. Bony thorax intact again with mild degenerative changes throughout the spine. Limited upper abdomen again demonstrates fatty liver and 14.4 cm splenomegaly. Impression: 1. New cardiomegaly with pulmonary edema. Rule out mild or early cardiac decompensation/CHF. 2. Again nonspecific prominent mediastinal lymphadenopathy. 3. Chronic findings including mitral valve calcifications, chronic bony findings, fatty liver, splenomegaly, and old granulomatous disease. Comment: Preliminary interpretation made by C. No critical discrepancy.
[2022-06-09 08:51] LABS: Absolute Neutrophil Ct (ANC) 8.97 x10^3/uL (1.4-6.9); BASOPHIL % 0.1 % (0.0-0.4); Basophil (Absolute #) 0.01 x10^3/uL (0-0.4); Eosinophil % 0.1 % (0.00-5.0); Eosinophil (Absolute #) 0.01 x10^3/uL (0-0.5); Hematocrit 35.8 % (35-47); Hemoglobin 11.2 g/dL (12.0-16.0); IMMATURE GRAN # 0.12 x10^3u/L (0.00-0.03); IMMATURE GRAN % 1.2 % (0.00-0.4); Lymphocyte (Absolute #) 0.63 x10^3/uL (1.0-4.6); Lymphocytes % 6.2 % (24.0-44.0); Mean Cell Volume 101.4 fL (78-100); Mean Corpuscular Hemoglobin 31.7 pg (26-32); Mean Corpuscular Hgb Concent. 31.3 g/dL (32-36); Monocytes % 4.9 % (0.0-12.0); Neutrophil % 87.5 % (36.0-66.0); Platelet Count 285 x10^3/uL (150-450); Red Blood Count 3.53 x10^6/uL (4.1-5.4); Red Cell Distribution Width 14.6 % (11.5-14.0); White Blood Count 10.2 x10^3/uL (4.0-10.5)
[2022-06-09 09:41] LABS: ALKALINE PHOSPHATASE 71 U/L (38-126); ANION GAP 9.4 MEQ/L (5-15); BLOOD UREA NITROGEN 34 mg/dL (7-17); CHLORIDE 94 mmol/L (98-107); Carbon Dioxide 37 mmol/L (22-30); Creatinine 1 0.75 mg/dL (0.52-1.04); EST GLOMERULAR FILTRATION RATE > 60.0 ML/MIN; Glucose 166 mg/dL (74-106); Potassium 4.7 mmol/L (3.5-5.1); SGOT/AST 16 U/L (14-36); SGPT/ALT 21 U/L (0-35); SODIUM 136 mmol/L (137-145); TSH, 3RD Generation 0.532 mIU/L (0.47-4.68)
[2022-06-09] MEDS: Cardizem CD PO SCH (10:06)
[2022-06-09] MEDS: hydroDIURIL 25 MG PO SCH (10:06)
[2022-06-09] MEDS: solu-MEDROL 40 MG, Sterile H2O 10 ml 1 ML IV SCH ×4 (10:18→21:37)
[2022-06-09] MEDS: ZOLOFT 50 MG TABLET PO SCH (10:19)
[2022-06-09] MEDS: ZOCOR 20MG PO SCH (10:19)
[2022-06-09] MEDS: Wellbutrin SR 150 MG PO SCH ×2 (10:19→21:37)
[2022-06-09] MEDS: Toprol Xl 50 MG PO SCH (10:19)
[2022-06-09] MEDS: LASIX 20 MG PO SCH (10:19)
[2022-06-09] MEDS: Zestril 5 MG PO SCH (10:19)
[2022-06-09] MEDS: Mucinex 600MG ER Tabs PO SCH ×2 (10:19→21:37)
[2022-06-09] MEDS: Klor Con PO SCH (10:19)
[2022-06-09] MEDS: Protonix 40MG Tablet PO SCH (10:19)
[2022-06-09] MEDS: ROCEPHIN 1 Gm-D5w 50 ml Bag** 1 G/50 ML IVPB IV SCH (10:29)
[2022-06-09] MEDS: Zithromax 500 MG/ 250 ML NaCl Premix 500 MG/250 ML IVPB IV SCH (11:03)
[2022-06-09] MEDS ORDERED: Lanoxin 0.5 MG/2 ML INJECTION IV ONE ×2 (17:16→23:30)
[2022-06-09] MEDS: Cyclobenzaprine 10 MG PO PRN (21:36)
[2022-06-09] MEDS: ELIQUIS 2.5 MG TABLET PO SCH (21:37)
[2022-06-10] MEDS: CARDIZEM DRIP 100 MG/100 ML D5W 100 ML IV PRN ×2 (02:54→10:55)
[2022-06-10] MEDS: DUONEB 0.5-3 MG/3 ml Neb IH SCH ×4 (05:00→18:45)
[2022-06-10] MEDS: Advair Hfa 230/21 Mcg COMMON CANISTER IH SCH ×2 (05:08→18:43)
[2022-06-10 05:10] LABS: BASOPHIL % 0.4 % (0.0-0.4); Basophil (Absolute #) 0.04 x10^3/uL (0-0.4); Eosinophil (Absolute #) 0 x10^3/uL (0-0.5); Hematocrit 36.8 % (35-47); Hemoglobin 11.3 g/dL (12.0-16.0); IMMATURE GRAN # 0.23 x10^3u/L (0.00-0.03); IMMATURE GRAN % 2.1 % (0.00-0.4); Lymphocyte (Absolute #) 0.54 x10^3/uL (1.0-4.6); Mean Cell Volume 102.5 fL (78-100); Mean Corpuscular Hemoglobin 31.5 pg (26-32); Mean Corpuscular Hgb Concent. 30.7 g/dL (32-36); Mean Platelet Volume 11.1 fL (7.5-11.0); Monocyte (Absolute #) 0.47 x10^3/uL (0.0-1.3); Monocytes % 4.3 % (0.0-12.0); Neutrophil % 88.2 % (36.0-66.0); Platelet Count 259 x10^3/uL (150-450); Red Blood Count 3.59 x10^6/uL (4.1-5.4); Red Cell Distribution Width 14.8 % (11.5-14.0); White Blood Count 10.9 x10^3/uL (4.0-10.5)
[2022-06-10] MEDS: NORCO 5/325 MG PO PRN ×4 (05:12→21:56)
[2022-06-10] MEDS: Cyclobenzaprine 10 MG PO PRN (05:12)
[2022-06-10] MEDS ORDERED: Lanoxin 0.5 MG/2 ML INJECTION IV ONE (05:30)
[2022-06-10 05:41] LABS: ANION GAP 10.2 MEQ/L (5-15); BLOOD UREA NITROGEN 34 mg/dL (7-17); CHLORIDE 98 mmol/L (98-107); Calcium 8.8 mg/dL (8.4-10.2); Carbon Dioxide 33 mmol/L (22-30); EST GLOMERULAR FILTRATION RATE > 60.0 ML/MIN; Glucose 181 mg/dL (74-106); MAGNESIUM 2.4 mg/dL (1.6-2.3); SODIUM 137 mmol/L (137-145)
[2022-06-10 07:22] LABS: Slide Review 1 YES
--- NOTE | 2022-06-10 08:52 | PCM.NOTE ---
Date and Time: 06/10/22 0850 Subjective Assessment: patient notes some improvement in activity tolerance, digoxin was started by cardiology. cardizem gtt 15mg/hr and heart rate staying around 90-110's Objective Exam General Appearance: no apparent distress, obese Neurologic Exam: alert, oriented x 3 Respiratory Exam: diminished breath sounds, prolonged expirations Cardiovascular Exam: irregular Gastrointestinal/Abdomen Exam: soft, No tenderness, No mass Extremity Exam: normal inspection, normal range of motion OBJECTIVE DATA Vital Signs: Vital Signs - 24 hr Temp Pulse Resp BP BP BP Pulse Ox 06/10/22 08:44 98.2 F 112 H 16 98/77 06/10/22 07:48 105 H 06/10/22 05:09 98.2 F 105 H 16 130/94 06/10/22 05:00 106 H 19 97 06/10/22 04:00 104 H 06/10/22 02:27 109 H 16 138/86 06/10/22 02:16 117 H 16 150/102 06/10/22 02:00 98.1 F 117 H 16 150/102 06/10/22 00:00 105 H 06/09/22 22:00 105 H 19 137/83 96 06/09/22 19:00 114 H 22 95 06/09/22 18:00 118 H 24 114/79 94 L 06/09/22 17:19 118 H 17 83/67 06/09/22 16:23 123 H 20 105/63 06/09/22 16:00 103 H 06/09/22 15:41 118 H 25 H 91 L 06/09/22 14:41 96.8 F 106 H 14 107/62 127/91 96 06/09/22 12:00 97.6 F 96 H 21 111/79 97 06/09/22 11:29 99 H 19 96 06/09/22 10:00 97.5 F 99 H 22 149/77 100 06/09/22 09:42 126 H 20 103/71 Pain Assessment - Last Documented Pain Intensity 4 Pain Scale Used 0-10 Pain Scale Intake and Output: Intake & Output 06/07/22 06/08/22 06/09/22 06/10/22 11:59 11:59 11:59 11:59 Intake Total 4540 1940 1470 2060 Output Total 3650 900 2400 900 Balance 890 1040 -930 1160 Weight 139.3 kg 139.3 kg 141.2 kg Lab Results: Lab Results-Last 24 Hours 06/09/22 06/09/22 06/09/22 Range/Units 08:29 08:29 08:29 WBC 10.2 (4.0-10.5) x10^3/uL RBC 3.53 L (4.1-5.4) x10^6/uL Hgb 11.2 L (12.0-16.0) g/dL Hct 35.8 (35-47) % MCV 101.4 H (78-100) fL MCH 31.7 (26-32) pg MCHC 31.3 L (32-36) g/dL RDW 14.6 H (11.5-14.0) % Plt Count 285 (150-450) x10^3/uL MPV 10.0 (7.5-11.0) fL Gran % 87.5 H (36.0-66.0) % Immature Gran % (Auto) 1.2 H (0.00-0.4) % Nucleat RBC Rel Count 0.0 (0.00-0.1) % Eos # (Auto) 0.01 (0-0.5) x10^3/uL Immature Gran # (Auto) 0.12 H (0.00-0.03) x10^3u/L Absolute Lymphs (auto) 0.63 L (1.0-4.6) x10^3/uL Absolute Monos (auto) 0.50 (0.0-1.3) x10^3/uL Absolute Nucleated RBC 0.00 (0.00-0.01) x10^3u/L Lymphocytes % 6.2 L (24.0-44.0) % Monocytes % 4.9 (0.0-12.0) % Eosinophils % 0.1 (0.00-5.0) % Basophils % 0.1 (0.0-0.4) % Absolute Granulocytes 8.97 H (1.4-6.9) x10^3/uL Basophils # 0.01 (0-0.4) x10^3/uL Sodium 136 L (137-145) mmol/L Potassium 4.7 (3.5-5.1) mmol/L Chloride 94 L (98-107) mmol/L Carbon Dioxide 37 H (22-30) mmol/L Anion Gap 9.4 (5-15) MEQ/L BUN 34 H (7-17) mg/dL Creatinine 0.75 (0.52-1.04) mg/dL Estimated GFR > 60.0 ML/MIN Glucose 166 H (74-106) mg/dL Calcium 9.0 (8.4-10.2) mg/dL Magnesium 2.3 (1.6-2.3) mg/dL Total Bilirubin 0.30 (0.2-1.3) mg/dL AST 16 (14-36) U/L ALT 21 (0-35) U/L Alkaline Phosphatase 71 (38-126) U/L Serum Total Protein 7.0 (6.3-8.2) g/dL Albumin 4.0 (3.5-5.0) g/dL Free T4 (0.78-2.19) ng/dL TSH 3rd Generation 0.532 (0.47-4.68) mIU/L Slides for Path Review 06/09/22 06/10/22 06/10/22 Range/Units 08:29 05:13 05:13 WBC 10.9 H (4.0-10.5) x10^3/uL RBC 3.59 L (4.1-5.4) x10^6/uL Hgb 11.3 L (12.0-16.0) g/dL Hct 36.8 (35-47) % MCV 102.5 H (78-100) fL MCH 31.5 (26-32) pg MCHC 30.7 L (32-36) g/dL RDW 14.8 H (11.5-14.0) % Plt Count 259 (150-450) x10^3/uL MPV 11.1 H (7.5-11.0) fL Gran % 88.2 H (36.0-66.0) % Immature Gran % (Auto) 2.1 H (0.00-0.4) % Nucleat RBC Rel Count 0.0 (0.00-0.1) % Eos # (Auto) 0 (0-0.5) x10^3/uL Immature Gran # (Auto) 0.23 H (0.00-0.03) x10^3u/L Absolute Lymphs (auto) 0.54 L (1.0-4.6) x10^3/uL Absolute Monos (auto) 0.47 (0.0-1.3) x10^3/uL Absolute Nucleated RBC 0.00 (0.00-0.01) x10^3u/L Lymphocytes % 5.0 L (24.0-44.0) % Monocytes % 4.3 (0.0-12.0) % Eosinophils % 0.0 (0.00-5.0) % Basophils % 0.4 (0.0-0.4) % Absolute Granulocytes 9.60 H (1.4-6.9) x10^3/uL Basophils # 0.04 (0-0.4) x10^3/uL Sodium 137 (137-145) mmol/L Potassium 5.0 (3.5-5.1) mmol/L Chloride 98 (98-107) mmol/L Carbon Dioxide 33 H (22-30) mmol/L Anion Gap 10.2 (5-15) MEQ/L BUN 34 H (7-17) mg/dL Creatinine 0.60 (0.52-1.04) mg/dL Estimated GFR > 60.0 ML/MIN Glucose 181 H (74-106) mg/dL Calcium 8.8 (8.4-10.2) mg/dL Magnesium 2.4 H (1.6-2.3) mg/dL Total Bilirubin (0.2-1.3) mg/dL AST (14-36) U/L ALT (0-35) U/L Alkaline Phosphatase (38-126) U/L Serum Total Protein (6.3-8.2) g/dL Albumin (3.5-5.0) g/dL Free T4 0.77 L (0.78-2.19) ng/dL TSH 3rd Generation (0.47-4.68) mIU/L Slides for Path Review YES Radiology Exams: Radiology Procedures Category Date Time Status CHEST WITH CONTRAST [CT] Routine Exams 06/08/22 14:33 Completed Multi-Disciplinary Progress Notes: Multi-Disciplinary Progress Notes 06/09/22 12:17 Case Management Note by Elizabeth Conway S/W PATIENT- SHE CONTINUES TO DENY ANY NEW NEEDS AT TIME OF DC. SHE ALREADY HAS HOME OXYGEN AND REPORTS HER SISTER CAN ASSIST HER. Initialized on 06/09/22 12:17 - END OF NOTE Assessment/Plan (1) Atrial fibrillation with rapid ventricular response Current Visit: Yes Status: Acute Assessment & Plan: continue digoxin per cardiology, metoprolol was increased from 25mg to 50mg and will transition from cardizem gtt to po 360mg daily. eliquis was restarted, no active bleeding Code(s): I48.91 - UNSPECIFIED ATRIAL FIBRILLATION (2) CHF exacerbation Current Visit: No Status: Resolved Qualifiers: Assessment & Plan: appears euvolemic at this time Code(s): I50.9 - HEART FAILURE, UNSPECIFIED (3) COPD exacerbation Current Visit: Yes Status: Acute Code(s): J44.1 - CHRONIC OBSTRUCTIVE PULMONARY DISEASE W (ACUTE) EXACERBATION (4) Chronic hypoxemic respiratory failure Current Visit: No Status: Chronic (5) SALVATORE (obstructive sleep apnea) Current Visit: No Status: Chronic Code(s): G47.33 - OBSTRUCTIVE SLEEP APNEA (ADULT) (PEDIATRIC) (6) Smoker Current Visit: No Status: Chronic Code(s): F17.200 - NICOTINE DEPENDENCE, UNSPECIFIED, UNCOMPLICATED
[2022-06-10] MEDS: Toprol Xl 50 MG PO SCH (10:12)
[2022-06-10] MEDS: Lanoxin 0.125MG TABLET PO SCH (10:12)
[2022-06-10] MEDS: Mucinex 600MG ER Tabs PO SCH ×2 (10:12→21:44)
[2022-06-10] MEDS: Cardizem CD PO SCH (10:12)
[2022-06-10] MEDS: Wellbutrin SR 150 MG PO SCH ×2 (10:12→21:46)
[2022-06-10] MEDS: ZOLOFT 50 MG TABLET PO SCH (10:13)
[2022-06-10] MEDS: hydroDIURIL 25 MG PO SCH (10:13)
[2022-06-10] MEDS: Zestril 5 MG PO SCH (10:13)
[2022-06-10] MEDS: Protonix 40MG Tablet PO SCH (10:13)
[2022-06-10] MEDS: Klor Con PO SCH (10:13)
[2022-06-10] MEDS: ZOCOR 20MG PO SCH (10:14)
[2022-06-10] MEDS: ELIQUIS 2.5 MG TABLET PO SCH ×2 (10:14→21:44)
[2022-06-10] MEDS: LASIX 20 MG PO SCH (10:15)
[2022-06-10] MEDS: solu-MEDROL 40 MG, Sterile H2O 10 ml 1 ML IV SCH ×4 (10:15→21:47)
[2022-06-10] MEDS: ROCEPHIN 1 Gm-D5w 50 ml Bag** 1 G/50 ML IVPB IV SCH (10:32)
[2022-06-10] MEDS: Zithromax 500 MG/ 250 ML NaCl Premix 500 MG/250 ML IVPB IV SCH (10:32)
--- NOTE | 2022-06-10 12:01 | CONS ---
CONSULT DATE: 06/09/2022 REASON FOR CONSULT: Atrial fibrillation with rapid ventricular response. HISTORY: Dalton Molina is a 56-year-old woman with a history of chronic diastolic congestive heart failure, morbid obesity, dyslipidemia, hypertension, as well as chronic hypoxemic respiratory failure. She has a history of pulmonary embolism as well. She was admitted on 06/05/2022 with acute hypoxemic respiratory failure with a saturation of 64% after she presented to the emergency department after calling 911 due to two day history of progressive shortness of breath. She had most recently been treated for pneumonia per her report. She has been hospitalized since 06/05/2022 with atrial fibrillation with rapid ventricular response and actually developed some hemoptysis while on her chronic Eliquis therapy a few days ago. Eliquis has been held for approximately 36 hours. She is currently on a diltiazem drip at 16 mg/hour and her heart rate is ranging from 110 to 130 on monitor. Most recent systolic blood pressure while I was talking to her via video conferencing was in the 80's systolic but she denied any dizziness while sitting. She has reported some dizziness when trying to stand up earlier today. She denies any chest pain and has a stable amount of shortness of breath at this time and saturations are remaining above 90%. REVIEW OF SYSTEMS: Fourteen system review performed. Pertinent positives noted in the history of present illness otherwise negative. ALLERGIES: NKDA. BEE VENOM (ANAPHYLAXIS). MEDICATIONS: Current medications reviewed, see EMR for full details. PHYSICAL EXAMINATION: GENERAL: She is sitting in an ICU bed able to speak in full sentences. HEENT: Nasal cannula in place. Eyes are anicteric. Hearing grossly intact. SKIN: Appears well perfused and there are no rashes. LAB DATA AND TESTS: LABS: Laboratory data reviewed. Pertinent positives show creatinine of 0.54. Cardiac troponins are negative. NT-Pro-BNP was elevated. White blood cell count elevated at 14,000. Telemetry demonstrates atrial fibrillation with rapid ventricular response. RADIOLOGIC: Chest x-ray on 06/05/2022 demonstrated diffuse worsening of pulmonary edema with grossly stable bibasilar effusion. IMPRESSION: 1) Atrial fibrillation with rapid ventricular response which is exacerbated by acute hypoxemic respiratory failure. She has been aggressively diuresed and today her blood pressure has been lower on Cardizem drip. I suspect she is nearing euvolemic state. 2) Chronic diastolic congestive heart failure. 3) Acute on chronic hypoxemic respiratory failure. 4) History of pulmonary embolism on chronic Eliquis therapy. 5) Acute hemoptysis. RECOMMENDATIONS: I agree with transition back to oral diuretic based on her blood pressure trending downward and negative fluid balance. She is likely nearing euvolemia. I will load her with IV digoxin 0.25 mg IV now followed by 0.125 mg IV in 6 hours and a third dose of 0.125 mg IV 12 hours after the first dose. Will transition to oral digoxin 0.125 mg p.o. starting tomorrow morning. I will drop diltiazem drip down to 10 mg/hour now and plan to transition to oral diltiazem 24 hour formulation of morning and turn the drip off one hour later. If needed can also increase oral metoprolol. Would recommend resuming Eliquis as soon as possible once hemoptysis has resolved.
[2022-06-11] MEDS: NORCO 5/325 MG PO PRN ×4 (04:52→21:33)
[2022-06-11 05:10] LABS: Absolute Neutrophil Ct (ANC) 10.82 x10^3/uL (1.4-6.9); BASOPHIL % 0.2 % (0.0-0.4); Basophil (Absolute #) 0.03 x10^3/uL (0-0.4); Eosinophil (Absolute #) 0 x10^3/uL (0-0.5); Hematocrit 39.2 % (35-47); Hemoglobin 12.2 g/dL (12.0-16.0); IMMATURE GRAN % 2.5 % (0.00-0.4); Lymphocyte (Absolute #) 0.62 x10^3/uL (1.0-4.6); Lymphocytes % 5.1 % (24.0-44.0); Mean Cell Volume 100.8 fL (78-100); Mean Corpuscular Hemoglobin 31.4 pg (26-32); Mean Corpuscular Hgb Concent. 31.1 g/dL (32-36); Monocyte (Absolute #) 0.44 x10^3/uL (0.0-1.3); Monocytes % 3.6 % (0.0-12.0); Neutrophil % 88.6 % (36.0-66.0); Platelet Count 361 x10^3/uL (150-450); Red Blood Count 3.89 x10^6/uL (4.1-5.4); Red Cell Distribution Width 14.4 % (11.5-14.0); White Blood Count 12.2 x10^3/uL (4.0-10.5)
[2022-06-11 05:38] LABS: BLOOD UREA NITROGEN 33 mg/dL (7-17); CHLORIDE 91 mmol/L (98-107); Calcium 8.9 mg/dL (8.4-10.2); Creatinine 1 0.74 mg/dL (0.52-1.04); EST GLOMERULAR FILTRATION RATE > 60.0 ML/MIN; Glucose 215 mg/dL (74-106); MAGNESIUM 2.5 mg/dL (1.6-2.3); Potassium 4.8 mmol/L (3.5-5.1); SODIUM 138 mmol/L (137-145)
[2022-06-11 05:44] LABS: Carbon Dioxide 36 mmol/L (22-30)
[2022-06-11] MEDS: Advair Hfa 230/21 Mcg COMMON CANISTER IH SCH ×2 (06:19→18:32)
[2022-06-11] MEDS: DUONEB 0.5-3 MG/3 ml Neb IH SCH ×4 (06:19→18:32)
[2022-06-11 06:48] LABS: ANION GAP 15.8 MEQ/L (5-15)
--- NOTE | 2022-06-11 09:26 | PCM.NOTE ---
Date and Time: 06/11/22923 Subjective Assessment: patient has pulse rate in the low 100-110's but jumps to 130's when she walks to restroom. no chest pain, breathing seems stable Objective Exam General Appearance: no apparent distress, obese Respiratory Exam: diminished breath sounds, prolonged expirations Cardiovascular Exam: tachycardia, irregular Gastrointestinal/Abdomen Exam: soft, No tenderness, No mass Extremity Exam: normal inspection, normal range of motion OBJECTIVE DATA Vital Signs: Vital Signs - 24 hr Temp Pulse Resp BP BP BP Pulse Ox 06/11/22 07:34 96.0 F 105 H 28 H 128/74 95 06/11/22 06:22 109 H 22 96 06/11/22 04:00 97.7 F 112 H 20 99/75 99 06/11/22 00:00 98.2 F 122 H 22 136/66 97 06/10/22 20:23 97.5 F 101 H 20 107/73 96 06/10/22 19:00 98.6 F 118 H 22 118/83 96 06/10/22 18:40 114 H 18 98 06/10/22 16:52 98.1 F 103 H 15 100/83 98 06/10/22 16:00 105 H 06/10/22 14:29 94 H 22 97 06/10/22 12:00 114 H 06/10/22 11:52 98.0 F 109 H 16 133/52 95 06/10/22 10:55 77 18 114/60 06/10/22 10:19 94 H 18 96 06/10/22 10:12 102 H Pain Assessment - Last Documented Pain Intensity 3 Pain Scale Used 0-10 Pain Scale Intake and Output: Intake & Output 06/08/22 06/09/22 06/10/22 06/11/22 11:59 11:59 11:59 11:59 Intake Total 1940 1470 2540 3028 Output Total 900 2400 900 2450 Balance 1040 -930 1640 578 Weight 139.3 kg 141.2 kg 138 kg 138 kg Lab Results: Lab Results-Last 24 Hours 06/11/22 06/11/22 Range/Units 05:13 05:13 WBC 12.2 H (4.0-10.5) x10^3/uL RBC 3.89 L (4.1-5.4) x10^6/uL Hgb 12.2 (12.0-16.0) g/dL Hct 39.2 (35-47) % MCV 100.8 H (78-100) fL MCH 31.4 (26-32) pg MCHC 31.1 L (32-36) g/dL RDW 14.4 H (11.5-14.0) % Plt Count 361 D (150-450) x10^3/uL MPV 10.0 (7.5-11.0) fL Gran % 88.6 H (36.0-66.0) % Immature Gran % (Auto) 2.5 H (0.00-0.4) % Nucleat RBC Rel Count 0.0 (0.00-0.1) % Eos # (Auto) 0 (0-0.5) x10^3/uL Immature Gran # (Auto) 0.30 H (0.00-0.03) x10^3u/L Absolute Lymphs (auto) 0.62 L (1.0-4.6) x10^3/uL Absolute Monos (auto) 0.44 (0.0-1.3) x10^3/uL Absolute Nucleated RBC 0.00 (0.00-0.01) x10^3u/L Lymphocytes % 5.1 L (24.0-44.0) % Monocytes % 3.6 (0.0-12.0) % Eosinophils % 0.0 (0.00-5.0) % Basophils % 0.2 (0.0-0.4) % Absolute Granulocytes 10.82 H (1.4-6.9) x10^3/uL Basophils # 0.03 (0-0.4) x10^3/uL Sodium 138 (137-145) mmol/L Potassium 4.8 (3.5-5.1) mmol/L Chloride 91 L (98-107) mmol/L Carbon Dioxide 36 H (22-30) mmol/L Anion Gap 15.8 H (5-15) MEQ/L BUN 33 H (7-17) mg/dL Creatinine 0.74 (0.52-1.04) mg/dL Estimated GFR > 60.0 ML/MIN Glucose 215 H (74-106) mg/dL Calcium 8.9 (8.4-10.2) mg/dL Magnesium 2.5 H (1.6-2.3) mg/dL Multi-Disciplinary Progress Notes: Multi-Disciplinary Progress Notes 06/10/22 11:29 Case Management Note by Elizabeth Conway NO CHANGE IN DC PLANS AT THIS TIME- PATIENT TO RETURN HOME WITH HER SISTER TO H ER [facility] Initialized on 06/10/22 11:29 - END OF NOTE Assessment/Plan (1) Atrial fibrillation with rapid ventricular response Current Visit: Yes Status: Acute Assessment & Plan: currently receiving cardizem 360mg daily and metoprolol 50mg daily in addition to digoxin, will consult with Dr Teran again today for recommendations for rate control. ok to discharge once heart rate is under control Code(s): I48.91 - UNSPECIFIED ATRIAL FIBRILLATION (2) CHF exacerbation Current Visit: No Status: Resolved Qualifiers: Code(s): I50.9 - HEART FAILURE, UNSPECIFIED (3) COPD exacerbation Current Visit: Yes Status: Acute Code(s): J44.1 - CHRONIC OBSTRUCTIVE PULMONARY DISEASE W (ACUTE) EXACERBATION (4) Chronic hypoxemic respiratory failure Current Visit: No Status: Chronic (5) SALVATORE (obstructive sleep apnea) Current Visit: No Status: Chronic Code(s): G47.33 - OBSTRUCTIVE SLEEP APNEA (ADULT) (PEDIATRIC) (6) Smoker Current Visit: No Status: Chronic Code(s): F17.200 - NICOTINE DEPENDENCE, UNSPECIFIED, UNCOMPLICATED
[2022-06-11] MEDS: Cardizem CD PO SCH (10:19)
[2022-06-11] MEDS: ELIQUIS 2.5 MG TABLET PO SCH ×2 (10:19→21:33)
[2022-06-11] MEDS: hydroDIURIL 25 MG PO SCH (10:20)
[2022-06-11] MEDS: Lanoxin 0.125MG TABLET PO SCH (10:20)
[2022-06-11] MEDS: Klor Con PO SCH (10:21)
[2022-06-11] MEDS: ZOLOFT 50 MG TABLET PO SCH (10:21)
[2022-06-11] MEDS: Protonix 40MG Tablet PO SCH (10:21)
[2022-06-11] MEDS: LASIX 20 MG PO SCH (10:21)
[2022-06-11] MEDS: Toprol Xl 50 MG PO SCH (10:21)
[2022-06-11] MEDS: Zestril 5 MG PO SCH (10:21)
[2022-06-11] MEDS: ZOCOR 20MG PO SCH (10:21)
[2022-06-11] MEDS: Mucinex 600MG ER Tabs PO SCH ×2 (10:21→21:33)
[2022-06-11] MEDS: Cyclobenzaprine 10 MG PO PRN ×2 (10:21→21:33)
[2022-06-11] MEDS: ROCEPHIN 1 Gm-D5w 50 ml Bag** 1 G/50 ML IVPB IV SCH (10:22)
[2022-06-11] MEDS: Zithromax 500 MG/ 250 ML NaCl Premix 500 MG/250 ML IVPB IV SCH (10:22)
[2022-06-11] MEDS: Wellbutrin SR 150 MG PO SCH ×2 (10:29→21:33)
[2022-06-11] MEDS: solu-MEDROL 40 MG, Sterile H2O 10 ml 1 ML IV SCH ×4 (10:30→21:25)
[2022-06-11] MEDS ORDERED: Cordarone 150 MG/3 ML Injection*** 150 MG in D5w 100ML Mini Bag 100 ML 100 ML IV ONE (13:45)
[2022-06-11] MEDS: NEXTERONE 360 MG/200 ML BAG 360 MG/200 ML PLAST..BAG IV SCH ×2 (14:35→20:18)
[2022-06-12] MEDS: NORCO 5/325 MG PO PRN ×2 (05:49→10:14)
[2022-06-12] MEDS: NEXTERONE 360 MG/200 ML BAG 360 MG/200 ML PLAST..BAG IV SCH ×2 (07:02→07:08)
[2022-06-12] MEDS: DUONEB 0.5-3 MG/3 ml Neb IH SCH ×2 (07:21→11:11)
[2022-06-12] MEDS: Advair Hfa 230/21 Mcg COMMON CANISTER IH SCH (07:31)
--- NOTE | 2022-06-12 08:03 | PCM.NOTE ---
Date and Time: 06/12/22 08 Subjective Assessment: patient has been stable overnight on cordarone drip, heart rate is better controlled and she reports an improvement in ambulation tolerance, overall doing well Objective Exam General Appearance: no apparent distress, obese Neurologic Exam: alert, oriented x 3 Respiratory Exam: normal breath sounds, lungs clear, No respiratory distress Cardiovascular Exam: irregular Gastrointestinal/Abdomen Exam: soft, No tenderness, No mass Extremity Exam: normal inspection, normal range of motion OBJECTIVE DATA Vital Signs: Vital Signs - 24 hr Temp Pulse Resp BP Pulse Ox 06/12/22 07:22 99 H 25 H 97 06/12/22 07:08 97.1 F 99 H 21 97/73 97 06/12/22 04:00 97.7 F 93 H 21 123/85 96 06/11/22 23:56 92 H 06/11/22 23:53 94 H 20 104/84 96 06/11/22 20:00 98.2 F 101 H 20 139/67 06/11/22 18:36 107 H 17 97 06/11/22 16:00 100 H 06/11/22 15:51 94 H 18 111/79 94 L 06/11/22 14:44 95 H 20 95 06/11/22 12:00 121 H 06/11/22 11:49 96.8 F 110 H 24 110/66 96 06/11/22 11:05 122 H 22 98 06/11/22 10:20 120 H Pain Assessment - Last Documented Pain Intensity 6 Pain Scale Used 0-10 Pain Scale Intake and Output: Intake & Output 06/09/22 06/10/22 06/11/22 06/12/22 11:59 11:59 11:59 11:59 Intake Total 1470 2540 3388 1721 Output Total 2400 900 2450 1 Balance -930 4321 573 7385 Weight 141.2 kg 138 kg 139.3 kg Multi-Disciplinary Progress Notes: Multi-Disciplinary Progress Notes 06/11/22 11:07 Case Management Note by Elizabeth Conway S/W PATIENT ABOUT PLANS AT [place]. ENCOURAGED PATIENT TO ACCEPT [facility] HER HEART RATE HAS BEEN DIFFICULT TO CONTROL HERE AND PATIENT MAY DC HOME ON SEVERAL NEW MEDS. SHE DENIES NEED. SHE REPORTS HER SISTER CARES FOR HER AND SHE HAS A FRIEND THAT IS AN RN THAT SHE CAN CALL ANYTIME SHE HAS QUESTIONS Initialized on 06/11/22 11:07 - END OF NOTE Assessment/Plan (1) Atrial fibrillation with rapid ventricular response Current Visit: Yes Status: Acute Assessment & Plan: rate currently controlled on amiodarone drip, will continue with current management, consult with Dr Jeffry Suarez, transition to po meds and ok to discharge from my perspective if ok with him. Code(s): I48.91 - UNSPECIFIED ATRIAL FIBRILLATION (2) CHF exacerbation Current Visit: No Status: Resolved Qualifiers: Code(s): I50.9 - HEART FAILURE, UNSPECIFIED (3) COPD exacerbation Current Visit: Yes Status: Acute Code(s): J44.1 - CHRONIC OBSTRUCTIVE PULMONARY DISEASE W (ACUTE) EXACERBATION (4) Chronic hypoxemic respiratory failure Current Visit: No Status: Chronic (5) SALVATORE (obstructive sleep apnea) Current Visit: No Status: Chronic Code(s): G47.33 - OBSTRUCTIVE SLEEP APNEA (ADULT) (PEDIATRIC) (6) Smoker Current Visit: No Status: Chronic Code(s): F17.200 - NICOTINE DEPENDENCE, UNSPECIFIED, UNCOMPLICATED
[2022-06-12] MEDS: Zithromax 500 MG/ 250 ML NaCl Premix 500 MG/250 ML IVPB IV SCH (08:54)
[2022-06-12] MEDS: hydroDIURIL 25 MG PO SCH (08:55)
[2022-06-12] MEDS: ELIQUIS 2.5 MG TABLET PO SCH (08:55)
[2022-06-12] MEDS: Lanoxin 0.125MG TABLET PO SCH (08:55)
[2022-06-12] MEDS: ZOCOR 20MG PO SCH (08:56)
[2022-06-12] MEDS: Protonix 40MG Tablet PO SCH (08:56)
[2022-06-12] MEDS: Klor Con PO SCH (08:56)
[2022-06-12] MEDS: Toprol Xl 50 MG PO SCH (08:56)
[2022-06-12] MEDS: Mucinex 600MG ER Tabs PO SCH (08:56)
[2022-06-12] MEDS: LASIX 20 MG PO SCH (08:56)
[2022-06-12] MEDS: ZOLOFT 50 MG TABLET PO SCH (08:56)
[2022-06-12] MEDS: Cardizem CD PO SCH (08:56)
[2022-06-12] MEDS: Wellbutrin SR 150 MG PO SCH (08:56)
[2022-06-12] MEDS: Zestril 5 MG PO SCH (08:56)
[2022-06-12] MEDS: solu-MEDROL 40 MG, Sterile H2O 10 ml 1 ML IV SCH ×2 (08:57)
[2022-06-12] MEDS ORDERED: Cordarone 200 MG PO SCH (10:00)
[2022-06-12] MEDS: Cyclobenzaprine 10 MG PO PRN (10:14)
[2022-06-12 11:18] VITALS: O2SAT 96
--- NOTE | 2022-06-12 11:35 | PCM.DS ---
Discharge Summary Date of Admission: 06/07/22 10:00 Admitting Physician: EDGAR TRAN Consults: Consults on Case 06/06/22 08:15 Consult Cardiology ROUTINE 06/09/22 08:12 Consult Cardiology ROUTINE Primary Care Provider: EDGAR TRAN Allergies Allergies bee venom protein (honey bee) Allergy (Severe, Verified 06/05/22 07:00) Difficulty Breathing Hospital Summary - Hospital Course Hospital Course: patient admitted with chf and copd exacerbation, developed a fib with rvr. Dr Toure consulted, rate is currently controlled with amiodarone in addition to cardizem and metoprolol. she is back to her baseline respiratory status - Vitals & Intake/Output Vital Signs: Vital Signs Temperature 97.1 F 06/12/22 07:08 Pulse Rate 63 06/12/22 11:12 Respiratory Rate 16 06/12/22 11:12 Blood Pressure 97/73 06/12/22 07:08 O2 Sat by Pulse Oximetry 96 06/12/22 11:12 Intake & Output: Intake & Output 06/09/22 06/10/22 06/11/22 06/12/22 11:59 11:59 11:59 11:59 Intake Total 1470 2540 3388 2081 Output Total 2400 900 2450 1 Balance -930 3890 895 5403 Weight 141.2 kg 138 kg 139.3 kg - Lab Result Diagrams: 06/11/22 05:13 06/11/22 05:13 Micro Results-Entire Visit: Microbiology 06/05/22 07:33 Blood Culture Gram Stain - Final Blood Not Reportable Blood Culture - Final NO GROWTH 06/05/22 07:22 Blood Culture Gram Stain - Final Blood Not Reportable Blood Culture - Final NO GROWTH - Procedures and Test Procedures and Tests throughout Hospitalization: Therapy Orders & Screens 06/05/22 11:57 Oxygen Oxymizer LPM 7 lpm Comment: 06/05/22 13:45 RT Screen per Nursing Assess ONCE Comment: Protocol Order Physician Instructions: Greater than 3 points order RT Admission Screen Reason For Exam: Triggered on Admission Diagnosis: CHF, COPD EXAC Diagnosis: CHF, COPD EXAC Pneumonia: No Home O2: Yes Asthma: No CHF: Yes Home CPAP/BIPAP: No Home Nebs/MDI: Yes Total Points: 13 06/07/22 04:36 EKG ROUTINE Comment: Diagnosis: CHF, COPD EXAC 06/07/22 11:52 Flutter Therapy UD Comment: Diagnosis: CHF, COPD EXAC Discharge Exam General Appearance: no apparent distress, obese Respiratory Exam: diminished breath sounds, prolonged expirations Cardiovascular Exam: irregular Gastrointestinal/Abdomen Exam: soft, No tenderness, No mass Extremity Exam: normal inspection, normal range of motion Skin Exam: normal color, warm, dry Final Diagnosis/Problem List - Final Discharge Diagnosis/Problem (1) Atrial fibrillation with rapid ventricular response Current Visit: Yes Status: Acute Assessment & Plan: home on po amiodarone, cardizem and metoprolol for rate control, will f/u with Dr Emily Toure, continue anticoagulation with eliquis Code(s): I48.91 - UNSPECIFIED ATRIAL FIBRILLATION (2) CHF exacerbation Current Visit: No Status: Resolved Code(s): I50.9 - HEART FAILURE, UNSPECIFIED (3) COPD exacerbation Current Visit: Yes Status: Acute Code(s): J44.1 - CHRONIC OBSTRUCTIVE PULMONARY DISEASE W (ACUTE) EXACERBATION (4) Chronic hypoxemic respiratory failure Current Visit: No Status: Chronic (5) SALVATORE (obstructive sleep apnea) Current Visit: No Status: Chronic Code(s): G47.33 - OBSTRUCTIVE SLEEP APNEA (ADULT) (PEDIATRIC) (6) Smoker Current Visit: No Status: Chronic Code(s): F17.200 - NICOTINE DEPENDENCE, UNSPECIFIED, UNCOMPLICATED - Discharge Disposition: Home, Self-Care Condition: Stable Prescriptions: New dilTIAZem HCl [Cardizem Cd] 2 cap PO DAILY #60 cap Amiodarone HCl 200 mg [Cordarone 200 MG] 400 mg PO BID #60 tablet Metoprolol Succinate 50 mg [Toprol Xl 50 MG] 50 mg PO DAILY #30 tablet Continue Hydrocodone Bit/Acetaminophen [Telluride 5/325Mg] 1 each PO Q6H PRN PRN PRN Reason: Pain Cyclobenzaprine HCl [Flexeril] 10 mg PO TID PRN PRN PRN Reason: Muscle Spasms Sertraline HCl 50 mg [Zoloft 50 mg Tablet] 100 mg PO DAILY Atorvastatin Calcium [Lipitor 20MG Tablet] 20 mg PO DAILY Hydrochlorothiazide 25 mg [hydroDIURIL 25 MG] 12.5 mg PO DAILY Hydroxyzine HCl 25 mg [Atarax 25 mg] 25 mg PO DAILY PRN PRN PRN Reason: Anxiety lisinopriL [Zestril] 5 mg PO DAILY Potassium Chloride Tab* [Klor Con] 10 meq PO DAILY Furosemide 40 mg [Lasix 40 MG] 40 mg PO DAILY Omeprazole 40 mg PO DAILY Albuterol Sulfate [Albuterol Sulfate Hfa] 1 puff IH Q4H PRN PRN PRN Reason: SOB/Wheezing Apixaban [Eliquis] 5 mg PO BID #60 tablet Albuterol/Ipratropium 3ml Neb* [DUONEB 0.5-3 MG/3 ml Neb] 3 ml IH QID PRN Budesonide/Formoterol Fumarate [Budesonide-Formoterol 160-4.5] 2 puffs IH BID buPROPion HCL [Bupropion HCl Sr] 150 mg PO BID Discontinued Metoprolol Succinate 25 mg Xl* [Toprol-Xl 25MG Tablets] 25 mg PO DAILY 30 Days #30 tab Instructions: Atrial Fibrillation (DC), Preventing Falls in Older Adults, Amiodarone Additional Instructions: DR TOURE'S OFFICE WILL CALL YOU TO SCHEDULE AN APPOINTMENT FOR FOLLOW UP. Follow up with: EDGAR TRAN MD [Primary Care Provider] - 06/25/22 2:15 pm ROMAN TOURE MD [CONSULTING PHYSICIAN] - (apppimtment at [facility]. [place] office will call patient to schedule. )
[2022-06-12 12:03] VITALS: PULSE 77
[2022-06-12 12:04] VITALS: BP 107/81
== END 2022-06-12 12:45 | disposition home or self-care (01) | DRG 309 ==
LOC: ED 06:58 → MED SURG 11:04 → ED 06-07 06:58 → ICU 06-07 10:00 → OBSVTOIN 06-07 10:00 → MED SURG 06-07 11:04
PROVIDERS: ADMIT Family Medicine; ATTEND Family Medicine
DX: I48.20 Chronic atrial fibrillation, unspecified (principal); J44.1 Chronic obstructive pulmonary disease with (acute) exacerbation; J96.11 Chronic respiratory failure with hypoxia; I11.0 Hypertensive heart disease with heart failure; I50.9 Heart failure, unspecified; G47.33 Obstructive sleep apnea (adult) (pediatric); F17.200 Nicotine dependence, unspecified, uncomplicated; Z79.899 Other long term (current) drug therapy; Z20.828 Contact with and (suspected) exposure to other viral communicable diseases; Z79.01 Long term (current) use of anticoagulants; Z99.81 Dependence on supplemental oxygen
CPT/HCPCS: 0241U; 36000; 36415; 36600; 71045; 71260; 80048; 80053; 82375; 82803; 83735; 83880; 84439; 84443; 84484; 85025; 85027; 85379; 85610; 87040; 93005; 93041; 93268; 94640; 94667; 94760; 96365; 96367; 96374; 96375; 99285; J0282; J0456; J0696; J1160; J1940; J2920; J2930; Q3014; A9270-GY; G0378

== ENCOUNTER 2022-07-08 19:17 | Inpatient (IN) | payer OTHER ==
[2022-07-08 20:05] LABS: Absolute Neutrophil Ct (ANC) 7.61 x10^3/uL (1.4-6.9); BASOPHIL % 0.3 % (0.0-0.4); Basophil (Absolute #) 0.03 x10^3/uL (0-0.4); Eosinophil % 0.5 % (0.00-5.0); Eosinophil (Absolute #) 0.05 x10^3/uL (0-0.5); Hematocrit 33.9 % (35-47); Hemoglobin 10.6 g/dL (12.0-16.0); IMMATURE GRAN # 0.05 x10^3u/L (0.00-0.03); IMMATURE GRAN % 0.5 % (0.00-0.4); Lymphocyte (Absolute #) 1.62 x10^3/uL (1.0-4.6); Mean Cell Volume 99.1 fL (78-100); Mean Corpuscular Hgb Concent. 31.3 g/dL (32-36); Mean Platelet Volume 10.2 fL (7.5-11.0); Monocyte (Absolute #) 0.78 x10^3/uL (0.0-1.3); Monocytes % 7.7 % (0.0-12.0); Platelet Count 209 x10^3/uL (150-450); Red Blood Count 3.42 x10^6/uL (4.1-5.4); Red Cell Distribution Width 15.7 % (11.5-14.0); White Blood Count 10.1 x10^3/uL (4.0-10.5)
[2022-07-08 20:23] LABS: INR 1.16 (0.8-3.0); PROTIME 12.5 SECONDS (9.4-12.5); PTT 29.6 SECONDS (25.1-36.5)
[2022-07-08 20:36] LABS: ALBUMIN 3.4 g/dL (3.5-5.0); BILIRUBIN,TOTAL 0.6 mg/dL (0.2-1.3); Calcium 8.3 mg/dL (8.4-10.2); Creatinine 1 1.43 mg/dL (0.52-1.04); EST GLOMERULAR FILTRATION RATE 40.1 ML/MIN; MAGNESIUM 1.8 mg/dL (1.6-2.3); Potassium 5.8 mmol/L (3.5-5.1); Total Protein 5.9 g/dL (6.3-8.2)
[2022-07-08 20:41] LABS: INFLUENZA A NEGATIVE (NEGATIVE); INFLUENZA B NEGATIVE (NEGATIVE); RESPIRATORY SYNCTIAL VIRUS NEGATIVE (NEGATIVE); SARS-CoV-2 Xpert Express NEGATIVE (NEGATIVE)
--- NOTE | 2022-07-08 21:25 | ERPHSYRPT ---
- History of Present Illness Source: patient Exam Limitations: no limitations Patient Subjective Stated Complaint: pt states she has had a cough for the last week, some intermittent shortness of breath, and lower ext swelling for last several weeks. Triage Nursing Assessment: pt alert and oriented, answers questions approp. pt able to speak in complete sentences without diff. skin warm and dry. occasional cough noted. nonproductive at this time. lung sounds cta bilat. +2 edema to lower ext noted. Physician History: 56 yo WF w h/o COPD/CHF/morbid obesity/PE/3L O2 dependent at home presents w increasing dyspnea upon exertion x1 day. Pt has had a cough x 3 days which is nonproductive. She has nausea but denies chest pain/fever/abdominal pa in/melena/hematochezia. She smokes less than 1ppd. Timing/Duration: day(s) (1-3 days) Activities at Onset: rest Severity of Dyspnea-Max: moderate Severity of Dyspnea-Current: moderate Possible Cause: occasional episodes Modifying Factors: Improves With: activity, oxygen Associated Symptoms: denies symptoms, cough Allergies/Adverse Reactions: bee venom protein (honey bee) Allergy (Severe, Verified 06/05/22 07:00) Difficulty Breathing Home Medications: Cyclobenzaprine HCl [Flexeril] 10 mg PO TID PRN PRN 07/07/16 [History] Hydrocodone Bit/Acetaminophen [[place] 5/325Mg] 1 each PO Q6H PRN PRN 07/07/16 [History] Atorvastatin Calcium [Lipitor 20MG Tablet] 20 mg PO DAILY 12/27/19 [History] Sertraline HCl 50 mg [Zoloft 50 mg Tablet] 100 mg PO DAILY 12/27/19 [His tory] Hydrochlorothiazide 25 mg [hydroDIURIL 25 MG] 12.5 mg PO DAILY 12/28/19 [History] Furosemide 40 mg [Lasix 40 MG] 40 mg PO DAILY 08/06/20 [History] Hydroxyzine HCl 25 mg [Atarax 25 mg] 25 mg PO DAILY PRN PRN 08/06/20 [History] Omeprazole 40 mg PO DAILY 08/06/20 [History] Potassium Chloride Tab* [Klor Con] 10 meq PO DAILY 08/06/20 [History] lisinopriL [Zestril] 5 mg PO DAILY 08/06/20 [History] Albuterol Sulfate [Albuterol Sulfate Hfa] 1 puff IH Q4H PRN PRN 12/24/20 [History] Albuterol/Ipratropium 3ml Neb* [DUONEB 0.5-3 MG/3 ml Neb] 3 ml IH QID PRN 02/07/21 [History] Budesonide/Formoterol Fumarate [Budesonide-Formoterol 160-4.5] 2 puffs IH BID 09/21/21 [History] buPROPion HCL [Bupropion HCl Sr] 150 mg PO BID 05/16/22 [History] Hx Tetanus, Diphtheria Vaccination/Date Given: Yes Hx Influenza Vaccination/Date Given: Yes Hx Pneumococcal Vaccination/Date Given: Yes Immunizations Up to Date: Yes Travel Risk - International Travel Have you traveled outside of the country in past 3 weeks: No - Coronavirus Screening Are you exhibiting any of the following symptoms?: No Close contact with a COVID-19 positive Pt in past 14-21 Days: No - Vaccine Status Have you recieved a Covid-19 vaccination: Yes Defective Cigarette Slitter: Moderna - Vaccination Dates Date of 2cond Vaccination (if applicable): 07/27/20 - Review of Systems Constitutional: No Symptoms, Malaise Eyes: No Symptoms Ears, Nose, & Throat: No Symptoms Respiratory: Cough, Dyspnea Cardiac: No Symptoms Abdominal/Gastrointestinal: No Symptoms, Nausea Genitourinary Symptoms: No Symptoms Musculoskeletal: No Symptoms Skin: No Symptoms Neurological: No Symptoms Psychological: No Symptoms Endocrine: No Symptoms Hematologic/Lymphatic: No Symptoms Immunological/Allergic: No Symptoms - Past Medical History Pertinent Past Medical History: Yes Neurological History: No Pertinent History ENT History: No Pertinent History Cardiac History: Congestive Heart Failure, High Cholesterol, Hypertension Respiratory History: Asthma, Bronchitis, CHF, COPD, Pneumonia Endocrine Medical History: No Pertinent History Musculoskeletal History: Arthritis, Other GI Medical History: GERD History: No Pertinent History Psycho-Social History: Anxiety, Depression Female Reproductive Disorders: No Pertinent History Other Medical History: chronic back pain - Past Surgical History Past Surgical History: Yes Neuro Surgical History: No Pertinent History Cardiac: No Pertinent History Respiratory: No Pertinent History Gastrointestinal: No Pertinent History Genitourinary: No Pertinent History Musculoskeletal: Orthopedic Surgery Female Surgical History: No Pertinent History Other Surgical History: tonsils, back surgery, ingrown toenail repair - Social History Smoking Status: Current every day smoker How long have you smoked: 45 yrs Exposure to second hand smoke: Yes Drug Use: marijuana Patient Lives Alone: No Significant Family History: no pertinent family hx - Nursing Vital Signs Nursing Vital Signs: Initial Vital Signs Temperature 98.0 F 07/08/22 19:34 Pulse Rate 56 L 07/08/22 19:34 Respiratory Rate 18 07/08/22 19:34 Blood Pressure 102/73 07/08/22 19:34 O2 Sat by Pulse Oximetry 95 07/08/22 19:34 Pain Scale Pain Intensity 0 [place] - Physical Exam General Appearance: no apparent distress Eye Exam: PERRL/EOMI, eyes nml inspection Ears, Nose, Throat Exam: hearing grossly normal, normal ENT inspection, normal pharynx Neck Exam: normal inspection, non-tender, supple, full range of motion, No Brudzinski, No Kernig's, No meningismus, No carotid bruit Respiratory Exam: crackles/rales (Faint rales at bases B) Cardiovascular/Chest Exam: regular rate/rhythm, normal peripheral pulses, No murmur Abdominal/Gastrointestinal Exam: soft, normal bowel sounds, No tenderness Extremity Exam: non-tender, normal range of motion, normal inspection, no calf tenderness Peripheral Pulses Exam: carotid (R): 2+, carotid (L): 2+ Neurologic Exam: alert, oriented x 3, cooperative, 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-XII nml as tested, normal mood/affect, sensation nml Skin Exam: normal color, warm, dry Lymphatic Exam: No adenopathy SpO2 Interpretation: normal SpO2: 95 O2 Delivery: Nasal Cannula - Course Nursing assessment & vital signs reviewed: Yes EKG Interpreted by Me: RATE (Afib/[place]/Normal QT-QTc/[place]/No acute St segment changes) - Radiology Exams Chest X-ray Interpretation: Interpreted by me (Cardiomegaly w pulmonary vascular congestion) - CT Exams Chest CT Interpretation: Discussed w/radiologist (CT chest wo-cardiomegaly/mitral valv e calcifications, nothing acute) Ordered Tests: Active Orders 24 hr Category Date Time Status EKG-ER Only STAT Care 07/08/22 19:32 Active IV Insertion STAT Care 07/08/22 20:13 Active Oxygen-ED Only Nasal Cannula 3 lpm Care 07/08/22 20:18 Active CHEST 1 VIEW (PORTABLE) Stat Exams 07/08/22 19:33 Taken CHEST WITHOUT CONTRAST [CT] Stat Exams 07/08/22 21:34 Taken CBC W DIFF Stat Lab 07/08/22 19:55 Completed CMP Stat Lab 07/08/22 19:55 Completed Lactic Acid Stat Lab 07/08/22 19:50 Completed MAGNESIUM Stat Lab 07/08/22 19:55 Completed NT PRO BNPII Stat Lab 07/08/22 19:55 Completed PROTIME WITH INR Stat Lab 07/08/22 19:55 Completed PTT Stat Lab 07/08/22 19:55 Completed TROPONIN Q4H Lab 07/08/22 20:01 Completed TROPONIN Q4H Lab 07/09/22 01:30 Ordered TROPONIN Q4H Lab 07/09/22 05:30 Ordered UA W/RFX UR CULTURE Stat Lab 07/08/22 22:27 Ordered Respiratory Therapy Assessment DAILY RT 07/08/22 22:10 Active Medication Summary Discontinued Medications Generic Name Dose Route Start Last Admin Trade Name Freq PRN Reason Stop Dose Admin Albuterol Sulfate 2.5 mg 07/08/22 21:32 Albuterol Solution 2.5 Mg/0.5 Ml Ud Solution IH 07/08/22 21:33 STAT ONE Albuterol Sulfate Confirm 07/08/22 21:47 Albuterol Sulfate 2.5 Mg/3 Ml Neb Administered 07/08/22 21:48 Dose 2.5 mg IH .STK-MED ONE Albuterol Sulfate 2.5 mg 07/08/22 22:09 07/08/22 22:09 Albuterol Sulfate 2.5 Mg/3 Ml Neb IH 07/08/22 22:10 2.5 mg STAT ONE Administration Dextrose 50 ml 07/08/22 21:43 07/08/22 21:46 Dextrose 50%-Water 50 Ml Vial IV 07/08/22 21:44 50 ml STAT ONE Administration Furosemide 40 mg 07/08/22 21:35 07/08/22 21:40 Furosemide 40 Mg/4 Ml Vial IV 07/08/22 21:36 40 mg STAT ONE Administration Furosemide Confirm 07/08/22 21:39 Furosemide 40 Mg/4 Ml Vial Administered 07/08/22 21:40 Dose 40 mg .ROUTE .STK-MED ONE Insulin Human Regular 5 unit 07/08/22 21:43 07/08/22 21:46 Insulin Regular, Human 1 Unit IV 07/08/22 21:44 5 unit STAT ONE Administration Insulin Human Regular Confirm 07/08/22 21:45 Insulin Regular, Human 1 Unit Administered 07/08/22 21:46 Dose 5 unit .ROUTE .STK-MED ONE Sodium Bicarbonate 50 meq 07/08/22 21:31 07/08/22 21:40 Sodium Bicarbonate 1 Meq/Ml 50ml Syringe IV 07/08/22 21:32 50 meq STAT ONE Administration Sodium Bicarbonate Confirm 07/08/22 21:39 Sodium Bicarbonate 1 Meq/Ml 50ml Syringe Administered 07/08/22 21:40 Dose 50 meq IV .STK-MED ONE Lab/Rad Data: Laboratory Result Diagrams 07/08/22 19:55 07/08/22 19:55 Laboratory Results 07/08/22 07/08/22 07/08/22 Range/Units 20:01 19:55 19:55 WBC (4.0-10.5) x10^3/uL RBC (4.1-5.4) x10^6/uL Hgb (12.0-16.0) g/dL Hct (35-47) % MCV (78-100) fL MCH (26-32) pg MCHC (32-36) g/dL RDW (11.5-14.0) % Plt Count (150-450) x10^3/uL MPV (7.5-11.0) fL Gran % (36.0-66.0) % Immature Gran % (Auto) (0.00-0.4) % Nucleat RBC Rel Count (0.00-0.1) % Eos # (Auto) (0-0.5) x10^3/uL Immature Gran # (Auto) (0.00-0.03) x10^3u/L Absolute Lymphs (auto) (1.0-4.6) x10^3/uL Absolute Monos (auto) (0.0-1.3) x10^3/uL Absolute Nucleated RBC (0.00-0.01) x10^3u/L Lymphocytes % (24.0-44.0) % Monocytes % (0.0-12.0) % Eosinophils % (0.00-5.0) % Basophils % (0.0-0.4) % Absolute Granulocytes (1.4-6.9) x10^3/uL Basophils # (0-0.4) x10^3/uL PT (9.4-12.5) SECONDS INR (0.8-3.0) APTT (25.1-36.5) SECONDS Sodium (137-145) mmol/L Potassium (3.5-5.1) mmol/L Chloride (98-107) mmol/L Carbon Dioxide (22-30) mmol/L Anion Gap (5-15) MEQ/L BUN (7-17) mg/dL Creatinine (0.52-1.04) mg/dL Estimated GFR ML/MIN Glucose (74-106) mg/dL Lactic Acid (0.4-2.0) Calcium (8.4-10.2) mg/dL Magnesium (1.6-2.3) mg/dL Total Bilirubin (0.2-1.3) mg/dL AST (14-36) U/L ALT (0-35) U/L Alkaline Phosphatase (38-126) U/L Troponin I < 0.012 (0.000-0.034) ng/mL NT-Pro-B Natriuret Pep 5240 (<300) pg/mL Serum Total Protein (6.3-8.2) g/dL Albumin (3.5-5.0) g/dL Influenza Type A Ag NEGATIVE (NEGATIVE) Influenza Type B Ag NEGATIVE (NEGATIVE) RSV (PCR) NEGATIVE (NEGATIVE) SARS-CoV-2 (PCR) NEGATIVE (NEGATIVE) 07/08/22 07/08/22 07/08/22 Range/Units 19:55 19:55 19:55 WBC 10.1 (4.0-10.5) x10^3/uL RBC 3.42 L (4.1-5.4) x10^6/uL Hgb 10.6 L (12.0-16.0) g/dL Hct 33.9 L (35-47) % MCV 99.1 (78-100) fL MCH 31.0 (26-32) pg MCHC 31.3 L (32-36) g/dL RDW 15.7 H (11.5-14.0) % Plt Count 209 (150-450) x10^3/uL MPV 10.2 (7.5-11.0) fL Gran % 75.0 H (36.0-66.0) % Immature Gran % (Auto) 0.5 H (0.00-0.4) % Nucleat RBC Rel Count 0.0 (0.00-0.1) % Eos # (Auto) 0.05 (0-0.5) x10^3/uL Immature Gran # (Auto) 0.05 H (0.00-0.03) x10^3u/L Absolute Lymphs (auto) 1.62 (1.0-4.6) x10^3/uL Absolute Monos (auto) 0.78 (0.0-1.3) x10^3/uL Absolute Nucleated RBC 0.00 (0.00-0.01) x10^3u/L Lymphocytes % 16.0 L (24.0-44.0) % Monocytes % 7.7 (0.0-12.0) % Eosinophils % 0.5 (0.00-5.0) % Basophils % 0.3 (0.0-0.4) % Absolute Granulocytes 7.61 H (1.4-6.9) x10^3/uL Basophils # 0.03 (0-0.4) x10^3/uL PT 12.5 (9.4-12.5) SECONDS INR 1.16 (0.8-3.0) APTT 29.6 (25.1-36.5) SECONDS Sodium 137 (137-145) mmol/L Potassium 5.8 H (3.5-5.1) mmol/L Chloride 97 L (98-107) mmol/L Carbon Dioxide 31 H (22-30) mmol/L Anion Gap 15.0 (5-15) MEQ/L BUN 37 H (7-17) mg/dL Creatinine 1.43 H (0.52-1.04) mg/dL Estimated GFR 40.1 ML/MIN Glucose 158 H (74-106) mg/dL Lactic Acid (0.4-2.0) Calcium 8.3 L (8.4-10.2) mg/dL Magnesium 1.8 (1.6-2.3) mg/dL Total Bilirubin 0.60 (0.2-1.3) mg/dL AST 32 (14-36) U/L ALT 26 (0-35) U/L Alkaline Phosphatase 72 (38-126) U/L Troponin I (0.000-0.034) ng/mL NT-Pro-B Natriuret Pep (<300) pg/mL Serum Total Protein 5.9 L (6.3-8.2) g/dL Albumin 3.4 L (3.5-5.0) g/dL Influenza Type A Ag (NEGATIVE) Influenza Type B Ag (NEGATIVE) RSV (PCR) (NEGATIVE) SARS-CoV-2 (PCR) (NEGATIVE) 07/08/22 Range/Units 19:50 WBC (4.0-10.5) x10^3/uL RBC (4.1-5.4) x10^6/uL Hgb (12.0-16.0) g/dL Hct (35-47) % MCV (78-100) fL MCH (26-32) pg MCHC (32-36) g/dL RDW (11.5-14.0) % Plt Count (150-450) x10^3/uL MPV (7.5-11.0) fL Gran % (36.0-66.0) % Immature Gran % (Auto) (0.00-0.4) % Nucleat RBC Rel Count (0.00-0.1) % Eos # (Auto) (0-0.5) x10^3/uL Immature Gran # (Auto) (0.00-0.03) x10^3u/L Absolute Lymphs (auto) (1.0-4.6) x10^3/uL Absolute Monos (auto) (0.0-1.3) x10^3/uL Absolute Nucleated RBC (0.00-0.01) x10^3u/L Lymphocytes % (24.0-44.0) % Monocytes % (0.0-12.0) % Eosinophils % (0.00-5.0) % Basophils % (0.0-0.4) % Absolute Granulocytes (1.4-6.9) x10^3/uL Basophils # (0-0.4) x10^3/uL PT (9.4-12.5) SECONDS INR (0.8-3.0) APTT (25.1-36.5) SECONDS Sodium (137-145) mmol/L Potassium (3.5-5.1) mmol/L Chloride (98-107) mmol/L Carbon Dioxide (22-30) mmol/L Anion Gap (5-15) MEQ/L BUN (7-17) mg/dL Creatinine (0.52-1.04) mg/dL Estimated GFR ML/MIN Glucose (74-106) mg/dL Lactic Acid 1.4 (0.4-2.0) Calcium (8.4-10.2) mg/dL Magnesium (1.6-2.3) mg/dL Total Bilirubin (0.2-1.3) mg/dL AST (14-36) U/L ALT (0-35) U/L Alkaline Phosphatase (38-126) U/L Troponin I (0.000-0.034) ng/mL NT-Pro-B Natriuret Pep (<300) pg/mL Serum Total Protein (6.3-8.2) g/dL Albumin (3.5-5.0) g/dL Influenza Type A Ag (NEGATIVE) Influenza Type B Ag (NEGATIVE) RSV (PCR) (NEGATIVE) SARS-CoV-2 (PCR) (NEGATIVE) - Progress Air Movement: good Progress Note: 07/08/22 22:44 Nursing note and vital signs reviewed No food or housing insecurities noted 40mg IV lasix 1amp D50/5units Iv InsulinR/1amp NaHCO3/Albuterol neb Observation per Dr. Munoz Pt is a full code 07/08/22 22:47 Pt w obs admit due to hyperkalemia/CHF/Mild renal failure Counseled pt/family regarding: lab results, diagnosis, rad results Medical Desision Making - Independent Historian Additional History obtained from: Relative/friend - Discussion of managment Care discussed with:: hospitalist Reviewed:: Test results, Need for additional workup Agreed on:: Treatment plan, place in obs Will see patient: in hospital - Social Determinants of Health Pt's dx & treatment plan are significantly limited by SDOH: Unemployed - Diagnostic Testing Diagnostic test were ordered, analyzed, and reviewed by me: Yes Radiological Interpretation: Reviewed by me, Discussed w/ radiologist - Risk of complications The pt has a high risk of morbidity or mortality based on: Drug therapy requir ing intensive monitoring for toxicity - Departure Departure Disposition: Observation Clinical Impression: Hyperkalemia, CHF (congestive heart failure), Morbid obesity Condition: Stable Critical Care Time: Yes Critical Care Time(excluding separately billable procedures): Critical 30-74 mins Referrals: EDGAR TRAN MD [Primary Care Provider] - Follow up/PCP as directed Instructions: Heart Failure
[2022-07-08] MEDS ORDERED: SODIUM BICARBONATE 50 MEQ/50 ML ABBOJECT IV ONE ×2 (21:31→21:39)
[2022-07-08] MEDS ORDERED: PROVENTIL Solution 2.5 MG/0.5 ML IH ONE (21:32)
[2022-07-08] MEDS ORDERED: Lasix 40 MG/4 ML IV ONE (21:35)
[2022-07-08] MEDS ORDERED: Lasix 40 MG/4 ML ONE (21:39)
[2022-07-08] MEDS ORDERED: D50W 50ML Vial IV ONE (21:43)
[2022-07-08] MEDS ORDERED: HUMULIN R IV ONE (21:43)
[2022-07-08] MEDS ORDERED: HUMULIN R ONE (21:45)
[2022-07-08] MEDS ORDERED: PROVENTIL 2.5 MG/3 ML NEB IH ONE ×2 (21:47→22:09)
[2022-07-08 23:53] LABS: ADD URINE CULTURE? NO (NO); Appearance Clear (Clear); Bacteria None Seen /HPF (None Seen); Bilirubin Negative (Negative); Blood Negative (Negative); Epithelial Cells None Seen /HPF (None Seen); Glucose, Urine Negative (Negative); Hyaline Casts 0-2 /LPF (0-2); Ketones Negative (Negative); Leukocyte Esterase Negative (Negative); Nitrite Negative (Negative); Protein,Urine Dip Negative (Negative); RBC 0-2 /HPF (0-5); WBC 0-2 /HPF (0-5)
[2022-07-09] MEDS ORDERED: DUONEB 0.5-3 MG/3 ml Neb IH PRN (01:39)
--- NOTE | 2022-07-09 01:49 | PCM.HP ---
History of Present Illness - Chief Complaint Chief Complaint: chf Date: 07/09/22 History of Present Illness: is a 56 year old female wit h/o HFpEF, COPD, chronic hypoxemic respiratory failure on 2L oxygen, A-fib, and tobacco abuse, here with worsening leg edema and dyspnea on exertion. has been in the hospital multiple times, including most recently one week ago at an outside hospital, with recurrent episodes of dyspnea after a bout of pneumonia one month ago. At her most recent discharge she was sent home on torsemide 20 BID, although per patient she was taking the torsemide and her prior furosemide 40 daily. She is a heavy smoker who quit on the way to the hospital; smokes 2-3 packs per day, although down to 1/2 ppd recently. No other changes to her medications recently. States compliant with salt and fluid restriction. She states her legs are swollen worse again after discharging from the hospital. She denies orthopnea, PND, or early satiety. No chest pain, although had some nausea on her way to the hospital. - Review of Systems Constitutional: No Fever, No Chills Eyes: No Symptoms Ears, Nose, & Throat: No Symptoms Respiratory: Short Of Breath, Wheezing, No Cough Cardiac: Edema, No Chest Pain, No Syncope, No Orthopnea, No PND Abdominal/Gastrointestinal: Nausea, No Abdominal Pain, No Vomiting, No Diarrhea Genitourinary Symptoms: No Dysuria Musculoskeletal: No Back Pain, No Neck Pain Skin: No Rash Neurological: No Dizziness, No Focal Weakness, No Sensory Changes Psychological: No Symptoms Endocrine: No Symptoms Hematologic/Lymphatic: No Symptoms Immunological/Allergic: No Symptoms Medications & Allergies Home Medications: Home Medication List Cyclobenzaprine HCl [Flexeril] 10 mg PO TID PRN PRN 07/07/16 [History Confirmed 07/08/22] Hydrocodone Bit/Acetaminophen [Webb 5/325Mg] 1 each PO Q6H PRN PRN 07/07/16 [ History Confirmed 07/08/22] Atorvastatin Calcium [Lipitor 20MG Tablet] 20 mg PO DAILY 12/27/19 [History Confirmed 07/08/22] Sertraline HCl 50 mg [Zoloft 50 mg Tablet] 100 mg PO DAILY 12/27/19 [History Confirmed 07/08/22] Furosemide 40 mg [Lasix 40 MG] 40 mg PO DAILY 08/06/20 [History Confirmed 07/08/22] Hydroxyzine HCl 25 mg [Atarax 25 mg] 25 mg PO DAILY PRN PRN 08/06/20 [History Confirmed 07/08/22] Omeprazole 40 mg PO DAILY 08/06/20 [History Confirmed 07/08/22] lisinopriL [Zestril] 5 mg PO DAILY 08/06/20 [History Confirmed 07/08/22] Albuterol Sulfate [Albuterol Sulfate Hfa] 1 puff IH Q4H PRN PRN 12/24/20 [History Confirmed 07/08/22] Apixaban [Eliquis] 5 mg PO BID #60 tablet 12/27/20 [Rx Confirmed 07/08/22] Albuterol/Ipratropium 3ml Neb* [DUONEB 0.5-3 MG/3 ml Neb] 3 ml IH QID PRN 02/07/21 [History Confirmed 07/08/22] Budesonide/Formoterol Fumarate [Budesonide-Formoterol 160-4.5] 2 puffs IH BID 09/21/21 [History Confirmed 07/08/22] buPROPion HCL [Bupropion HCl Sr] 150 mg PO BID 05/16/22 [History Confirmed 07/08/22] Metoprolol Succinate 50 mg [Toprol Xl 50 MG] 50 mg PO DAILY #30 tablet 06/12/22 [Rx Confirmed 07/08/22] dilTIAZem HCl [Cardizem Cd] 2 cap PO DAILY #60 cap 06/12/22 [Rx Confirmed 07/08/22] Allergies/Adverse Reactions: Allergies Allergy/AdvReac Type Severity Reaction Status Date / Time bee venom protein (honey bee) Allergy Severe Difficulty Verified 06/05/22 07:00 Breathing - Past Medical History Past Medical History: Yes Neurological History: No Pertinent History ENT History: No Pertinent History Cardiac History: Congestive Heart Failure, High Cholesterol, Hypertension Respiratory History: Asthma, Bronchitis, CHF, COPD, Pneumonia Endocrine Medical History: No Pertinent History Musculoskelatal History: Arthritis, Other GI Medical History: GERD History: No Pertinent History Pyscho-Social History: Anxiety, Depression Reproductive Disorders: No Pertinent History Comment: chronic back pain - Past Surgical History Past Surgical History: Yes Neuro Surgical History: No Pertinent History Cardiac History: No Pertinent History Respiratory Surgery: No Pertinent History GI Surgical History: No Pertinent History Genitourinary Surgical Hx: No Pertinent History Musculskeletal Surgical Hx: Orthopedic Surgery Female Surgical History: No Pertinent History Other Surgical History: tonsils, back surgery, ingrown toenail repair - Social History Smoking Status: Current every day smoker How long have you smoked: 45 yrs Exposure to second hand smoke: Yes Alcohol: Occasionally Drug Use: marijuana Significant Family History: no pertinent family hx - Physical Exam Vital Signs: Vital Signs - 24 hr Temp Pulse Resp BP Pulse Ox 07/08/22 23:58 98.4 F 93 H 20 174/90 93 L 07/08/22 23:00 90 28 H 105/58 93 L 07/08/22 22:52 95 07/08/22 22:10 79 19 94 L 07/08/22 22:00 71 18 115/75 95 07/08/22 21:00 100 H 20 108/72 95 07/08/22 19:34 98.0 F 56 L 18 102/73 95 General Appearance: no apparent distress Neurologic Exam: alert, oriented x 3 Respiratory Exam: diminished breath sounds, wheezing (mild, at end of expirat ion), No respiratory distress, No accessory muscle use, No prolonged expirations, No crackles/rales Cardiovascular Exam: edema (pitting edema to shins bilaterally), other (irr egularly irregular, distant heart sounds) Gastrointestinal/Abdomen Exam: No tenderness Skin Exam: No rash Results - Labs Lab/Micro Results: Lab Results-Last 24 Hours 07/08/22 07/08/22 07/08/22 Range/Units 19:50 19:55 19:55 WBC 10.1 (4.0-10.5) x10^3/uL RBC 3.42 L (4.1-5.4) x10^6/uL Hgb 10.6 L (12.0-16.0) g/dL Hct 33.9 L (35-47) % MCV 99.1 (78-100) fL MCH 31.0 (26-32) pg MCHC 31.3 L (32-36) g/dL RDW 15.7 H (11.5-14.0) % Plt Count 209 (150-450) x10^3/uL MPV 10.2 (7.5-11.0) fL Gran % 75.0 H (36.0-66.0) % Immature Gran % (Auto) 0.5 H (0.00-0.4) % Nucleat RBC Rel Count 0.0 (0.00-0.1) % Eos # (Auto) 0.05 (0-0.5) x10^3/uL Immature Gran # (Auto) 0.05 H (0.00-0.03) x10^3u/L Absolute Lymphs (auto) 1.62 (1.0-4.6) x10^3/uL Absolute Monos (auto) 0.78 (0.0-1.3) x10^3/uL Absolute Nucleated RBC 0.00 (0.00-0.01) x10^3u/L Lymphocytes % 16.0 L (24.0-44.0) % Monocytes % 7.7 (0.0-12.0) % Eosinophils % 0.5 (0.00-5.0) % Basophils % 0.3 (0.0-0.4) % Absolute Granulocytes 7.61 H (1.4-6.9) x10^3/uL Basophils # 0.03 (0-0.4) x10^3/uL PT (9.4-12.5) SECONDS INR (0.8-3.0) APTT (25.1-36.5) SECONDS Sodium 137 (137-145) mmol/L Potassium 5.8 H (3.5-5.1) mmol/L Chloride 97 L (98-107) mmol/L Carbon Dioxide 31 H (22-30) mmol/L Anion Gap 15.0 (5-15) MEQ/L BUN 37 H (7-17) mg/dL Creatinine 1.43 H (0.52-1.04) mg/dL Estimated GFR 40.1 ML/MIN Glucose 158 H (74-106) mg/dL Lactic Acid 1.4 (0.4-2.0) Calcium 8.3 L (8.4-10.2) mg/dL Magnesium 1.8 (1.6-2.3) mg/dL Total Bilirubin 0.60 (0.2-1.3) mg/dL AST 32 (14-36) U/L ALT 26 (0-35) U/L Alkaline Phosphatase 72 (38-126) U/L Troponin I (0.000-0.034) ng/mL NT-Pro-B Natriuret Pep (<300) pg/mL Serum Total Protein 5.9 L (6.3-8.2) g/dL Albumin 3.4 L (3.5-5.0) g/dL Urine Color (Yellow) Urine Appearance (Clear) Urine pH (4.6-8.0) Ur Specific [place] (1.005-1.030) Urine Protein (Negative) Urine Glucose (UA) (Negative) mg/dL Urine Ketones (Negative) Urine Blood (Negative) Urine Nitrite (Negative) Urine Bilirubin (Negative) Urine Urobilinogen (0.2) mg/dL Ur Leukocyte Esterase (Negative) U Hyaline Cast (Auto) (0-2) /LPF Urine Microscopic RBC (0-5) /HPF Urine Microscopic WBC (0-5) /HPF Ur Epithelial Cells (None Seen) /HPF Urine Bacteria (None Seen) /HPF Urine Culture Reflexed (NO) Influenza Type A Ag (NEGATIVE) Influenza Type B Ag (NEGATIVE) RSV (PCR) (NEGATIVE) SARS-CoV-2 (PCR) (NEGATIVE) 07/08/22 07/08/22 07/08/22 Range/Units 19:55 19:55 19:55 WBC (4.0-10.5) x10^3/uL RBC (4.1-5.4) x10^6/uL Hgb (12.0-16.0) g/dL Hct (35-47) % MCV (78-100) fL MCH (26-32) pg MCHC (32-36) g/dL RDW (11.5-14.0) % Plt Count (150-450) x10^3/uL MPV (7.5-11.0) fL Gran % (36.0-66.0) % Immature Gran % (Auto) (0.00-0.4) % Nucleat RBC Rel Count (0.00-0.1) % Eos # (Auto) (0-0.5) x10^3/uL Immature Gran # (Auto) (0.00-0.03) x10^3u/L Absolute Lymphs (auto) (1.0-4.6) x10^3/uL Absolute Monos (auto) (0.0-1.3) x10^3/uL Absolute Nucleated RBC (0.00-0.01) x10^3u/L Lymphocytes % (24.0-44.0) % Monocytes % (0.0-12.0) % Eosinophils % (0.00-5.0) % Basophils % (0.0-0.4) % Absolute Granulocytes (1.4-6.9) x10^3/uL Basophils # (0-0.4) x10^3/uL PT 12.5 (9.4-12.5) SECONDS INR 1.16 (0.8-3.0) APTT 29.6 (25.1-36.5) SECONDS Sodium (137-145) mmol/L Potassium (3.5-5.1) mmol/L Chloride (98-107) mmol/L Carbon Dioxide (22-30) mmol/L Anion Gap (5-15) MEQ/L BUN (7-17) mg/dL Creatinine (0.52-1.04) mg/dL Estimated GFR ML/MIN Glucose (74-106) mg/dL Lactic Acid (0.4-2.0) Calcium (8.4-10.2) mg/dL Magnesium (1.6-2.3) mg/dL Total Bilirubin (0.2-1.3) mg/dL AST (14-36) U/L ALT (0-35) U/L Alkaline Phosphatase (38-126) U/L Troponin I (0.000-0.034) ng/mL NT-Pro-B Natriuret Pep 5240 (<300) pg/mL Serum Total Protein (6.3-8.2) g/dL Albumin (3.5-5.0) g/dL Urine Color (Yellow) Urine Appearance (Clear) Urine pH (4.6-8.0) Ur Specific [place] (1.005-1.030) Urine Protein (Negative) Urine Glucose (UA) (Negative) mg/dL Urine Ketones (Negative) Urine Blood (Negative) Urine Nitrite (Negative) Urine Bilirubin (Negative) Urine Urobilinogen (0.2) mg/dL Ur Leukocyte Esterase (Negative) U Hyaline Cast (Auto) (0-2) /LPF Urine Microscopic RBC (0-5) /HPF Urine Microscopic WBC (0-5) /HPF Ur Epithelial Cells (None Seen) /HPF Urine Bacteria (None Seen) /HPF Urine Culture Reflexed (NO) Influenza Type A Ag NEGATIVE (NEGATIVE) Influenza Type B Ag NEGATIVE (NEGATIVE) RSV (PCR) NEGATIVE (NEGATIVE) SARS-CoV-2 (PCR) NEGATIVE (NEGATIVE) 07/08/22 07/08/22 Range/Units 20:01 22:27 WBC (4.0-10.5) x10^3/uL RBC (4.1-5.4) x10^6/uL Hgb (12.0-16.0) g/dL Hct (35-47) % MCV (78-100) fL MCH (26-32) pg MCHC (32-36) g/dL RDW (11.5-14.0) % Plt Count (150-450) x10^3/uL MPV (7.5-11.0) fL Gran % (36.0-66.0) % Immature Gran % (Auto) (0.00-0.4) % Nucleat RBC Rel Count (0.00-0.1) % Eos # (Auto) (0-0.5) x10^3/uL Immature Gran # (Auto) (0.00-0.03) x10^3u/L Absolute Lymphs (auto) (1.0-4.6) x10^3/uL Absolute Monos (auto) (0.0-1.3) x10^3/uL Absolute Nucleated RBC (0.00-0.01) x10^3u/L Lymphocytes % (24.0-44.0) % Monocytes % (0.0-12.0) % Eosinophils % (0.00-5.0) % Basophils % (0.0-0.4) % Absolute Granulocytes (1.4-6.9) x10^3/uL Basophils # (0-0.4) x10^3/uL PT (9.4-12.5) SECONDS INR (0.8-3.0) APTT (25.1-36.5) SECONDS Sodium (137-145) mmol/L Potassium (3.5-5.1) mmol/L Chloride (98-107) mmol/L Carbon Dioxide (22-30) mmol/L Anion Gap (5-15) MEQ/L BUN (7-17) mg/dL Creatinine (0.52-1.04) mg/dL Estimated GFR ML/MIN Glucose (74-106) mg/dL Lactic Acid (0.4-2.0) Calcium (8.4-10.2) mg/dL Magnesium (1.6-2.3) mg/dL Total Bilirubin (0.2-1.3) mg/dL AST (14-36) U/L ALT (0-35) U/L Alkaline Phosphatase (38-126) U/L Troponin I < 0.012 (0.000-0.034) ng/mL NT-Pro-B Natriuret Pep (<300) pg/mL Serum Total Protein (6.3-8.2) g/dL Albumin (3.5-5.0) g/dL Urine Color Yellow (Yellow) Urine Appearance Clear (Clear) Urine pH 7.0 (4.6-8.0) Ur Specific [place] 1.010 (1.005-1.030) Urine Protein Negative (Negative) Urine Glucose (UA) Negative (Negative) mg/dL Urine Ketones Negative (Negative) Urine Blood Negative (Negative) Urine Nitrite Negative (Negative) Urine Bilirubin Negative (Negative) Urine Urobilinogen 1.0 A (0.2) mg/dL Ur Leukocyte Esterase Negative (Negative) U Hyaline Cast (Auto) 0-2 (0-2) /LPF Urine Microscopic RBC 0-2 (0-5) /HPF Urine Microscopic WBC 0-2 (0-5) /HPF Ur Epithelial Cells None Seen (None Seen) /HPF Urine Bacteria None Seen (None Seen) /HPF Urine Culture Reflexed NO (NO) Influenza Type A Ag (NEGATIVE) Influenza Type B Ag (NEGATIVE) RSV (PCR) (NEGATIVE) SARS-CoV-2 (PCR) (NEGATIVE) - Radiology Impressions Radiology Exams & Impressions: Radiology Procedures Category Date Time Status CHEST 1 VIEW (PORTABLE) Stat Exams 07/08/22 19:33 Taken CHEST WITHOUT CONTRAST [CT] Stat Exams 07/08/22 21:34 Taken ECHO W/2D AND DOPPLER [US] Routine Exams 07/08/22 22:50 Ordered - Other Procedures and Tests Respiratory Therapy 07/08/22 22:10 Respiratory Therapy Assessment DAILY 07/08/22 22:48 Oxygen NASAL CANNULA 2 lpm 07/09/22 01:35 Oxygen Oxymizer LPM 4 lpm Assessment/Plan (1) Acute on chronic diastolic heart failure Current Visit: Yes Status: Acute Assessment & Plan: H/o HFpEF per last echo in 2019. Frequent recent admissions, unclear of her medications, I suspect poorly compliant. Although some mild wheezing on exam, her dyspnea is more due to her volume status. - give Lasix 80 IV BID - monitor renal status - low sodium, 1.5L fluid restriction diet - consider starting patient on SGLT2 inhibitor; now has Class 1 indication for HFpEF benefit Code(s): I50.33 - ACUTE ON CHRONIC DIASTOLIC (CONGESTIVE) HEART FAILURE (2) Acute kidney injury Current Visit: Yes Status: Acute Assessment & Plan: Secondary to her CHF and renal venous congestion. - hold home lisinopril - monitor while on dialysis, but expect will actually improve Code(s): N17.9 - ACUTE KIDNEY FAILURE, UNSPECIFIED (3) Hyperkalemia Current Visit: Yes Status: Acute Assessment & Plan: Likely due to lisinopril in setting of VICTORINO. - give Insulin/D50, bicarb in ED, but those are only temporizing measures - give Kayexalate 30 g x1 - repeat BMP in AM Code(s): E87.5 - HYPERKALEMIA (4) Atrial fibrillation Current Visit: Yes Status: Acute Assessment & Plan: - continue home diltiazem, Eliquis Code(s): I48.91 - UNSPECIFIED ATRIAL FIBRILLATION Telemedicine Encounter - Telemedicine Encounter Telemedicine Encounter: The entirety of this encounter was performed via Telemedicine"
[2022-07-09] MEDS ORDERED: Kayexylate 15 GM/60 ML PO ONE (02:01)
[2022-07-09] MEDS: NORCO 5/325 MG PO PRN ×4 (04:17→23:16)
[2022-07-09 05:11] LABS: Hemoglobin 10.9 g/dL (12.0-16.0); Mean Cell Volume 99.1 fL (78-100); Mean Corpuscular Hemoglobin 31.8 pg (26-32); Mean Corpuscular Hgb Concent. 32.1 g/dL (32-36); Platelet Count 164 x10^3/uL (150-450); Red Blood Count 3.43 x10^6/uL (4.1-5.4); Red Cell Distribution Width 15.7 % (11.5-14.0); White Blood Count 7.1 x10^3/uL (4.0-10.5)
[2022-07-09 05:26] LABS: ANION GAP 12.6 MEQ/L (5-15); Creatinine 1 1.19 mg/dL (0.52-1.04); EST GLOMERULAR FILTRATION RATE 49.5 ML/MIN; Potassium 4.1 mmol/L (3.5-5.1)
[2022-07-09] MEDS: DUONEB 0.5-3 MG/3 ml Neb IH SCH ×4 (06:55→20:14)
[2022-07-09] MEDS ORDERED: PATIENT OWN MEDICATION IH PRN (07:15)
[2022-07-09] MEDS: Cardizem CD PO SCH (07:49)
[2022-07-09] MEDS: Toprol Xl 50 MG PO SCH (07:49)
[2022-07-09] MEDS: Wellbutrin SR 150 MG PO SCH ×2 (07:49→21:34)
[2022-07-09] MEDS: ZOLOFT 50 MG TABLET PO SCH (07:49)
[2022-07-09] MEDS: Zocor 10MG PO SCH (07:49)
[2022-07-09] MEDS: ELIQUIS 2.5 MG TABLET PO SCH ×2 (07:49→21:34)
[2022-07-09] MEDS: Protonix 40MG Tablet PO SCH (07:50)
[2022-07-09] MEDS: PATIENT OWN MEDICATION IH SCH (08:52)
--- NOTE | 2022-07-09 09:09 | PCM.NOTE ---
Date and Time: 07/09/22904 Subjective Assessment: patient here with recurrent chf exacerbation, she has swelling in the lower extremities and exertional dyspnea Objective Exam General Appearance: no apparent distress, obese Neurologic Exam: alert, oriented x 3 Respiratory Exam: crackles/rales Cardiovascular Exam: regular rate/rhythm, normal heart sounds Gastrointestinal/Abdomen Exam: soft, No tenderness, No mass Extremity Exam: pedal edema, swelling OBJECTIVE DATA Vital Signs: Vital Signs - 24 hr Temp Pulse Resp BP Pulse Ox 07/09/22 08:00 108/72 07/09/22 07:03 100 H 18 92 L 07/09/22 06:47 97.6 F 130 H 20 91 L 07/09/22 04:00 98.0 F 130 H 24 119/61 93 L 07/09/22 02:46 110 H 20 93 L 07/08/22 23:58 98.4 F 93 H 20 174/90 93 L 07/08/22 23:00 90 28 H 105/58 93 L 07/08/22 22:52 95 07/08/22 22:10 79 19 94 L 07/08/22 22:00 71 18 115/75 95 07/08/22 21:00 100 H 20 108/72 95 07/08/22 19:34 98.0 F 56 L 18 102/73 95 Pain Assessment - Last Documented Pain Intensity 8 Pain Scale Used FLACC Intake and Output: Intake & Output 07/06/22 07/07/22 07/08/22 07/09/22 11:59 11:59 11:59 11:59 Intake Total 480 Output Total 700 Balance -220 Weight 136.5 kg Lab Results: Lab Results-Last 24 Hours 07/08/22 07/08/22 07/08/22 Range/Units 19:50 19:55 19:55 WBC 10.1 (4.0-10.5) x10^3/uL RBC 3.42 L (4.1-5.4) x10^6/uL Hgb 10.6 L (12.0-16.0) g/dL Hct 33.9 L (35-47) % MCV 99.1 (78-100) fL MCH 31.0 (26-32) pg MCHC 31.3 L (32-36) g/dL RDW 15.7 H (11.5-14.0) % Plt Count 209 (150-450) x10^3/uL MPV 10.2 (7.5-11.0) fL Gran % 75.0 H (36.0-66.0) % Immature Gran % (Auto) 0.5 H (0.00-0.4) % Nucleat RBC Rel Count 0.0 (0.00-0.1) % Eos # (Auto) 0.05 (0-0.5) x10^3/uL Immature Gran # (Auto) 0.05 H (0.00-0.03) x10^3u/L Absolute Lymphs (auto) 1.62 (1.0-4.6) x10^3/uL Absolute Monos (auto) 0.78 (0.0-1.3) x10^3/uL Absolute Nucleated RBC 0.00 (0.00-0.01) x10^3u/L Lymphocytes % 16.0 L (24.0-44.0) % Monocytes % 7.7 (0.0-12.0) % Eosinophils % 0.5 (0.00-5.0) % Basophils % 0.3 (0.0-0.4) % Absolute Granulocytes 7.61 H (1.4-6.9) x10^3/uL Basophils # 0.03 (0-0.4) x10^3/uL PT (9.4-12.5) SECONDS INR (0.8-3.0) APTT (25.1-36.5) SECONDS Sodium 137 (137-145) mmol/L Potassium 5.8 H (3.5-5.1) mmol/L Chloride 97 L (98-107) mmol/L Carbon Dioxide 31 H (22-30) mmol/L Anion Gap 15.0 (5-15) MEQ/L BUN 37 H (7-17) mg/dL Creatinine 1.43 H (0.52-1.04) mg/dL Estimated GFR 40.1 ML/MIN Glucose 158 H (74-106) mg/dL Lactic Acid 1.4 (0.4-2.0) Calcium 8.3 L (8.4-10.2) mg/dL Magnesium 1.8 (1.6-2.3) mg/dL Total Bilirubin 0.60 (0.2-1.3) mg/dL AST 32 (14-36) U/L ALT 26 (0-35) U/L Alkaline Phosphatase 72 (38-126) U/L Troponin I (0.000-0.034) ng/mL NT-Pro-B Natriuret Pep (<300) pg/mL Serum Total Protein 5.9 L (6.3-8.2) g/dL Albumin 3.4 L (3.5-5.0) g/dL Urine Color (Yellow) Urine Appearance (Clear) Urine pH (4.6-8.0) Ur Specific [place] (1.005-1.030) Urine Protein (Negative) Urine Glucose (UA) (Negative) mg/dL Urine Ketones (Negative) Urine Blood (Negative) Urine Nitrite (Negative) Urine Bilirubin (Negative) Urine Urobilinogen (0.2) mg/dL Ur Leukocyte Esterase (Negative) U Hyaline Cast (Auto) (0-2) /LPF Urine Microscopic RBC (0-5) /HPF Urine Microscopic WBC (0-5) /HPF Ur Epithelial Cells (None Seen) /HPF Urine Bacteria (None Seen) /HPF Urine Culture Reflexed (NO) Influenza Type A Ag (NEGATIVE) Influenza Type B Ag (NEGATIVE) RSV (PCR) (NEGATIVE) SARS-CoV-2 (PCR) (NEGATIVE) 07/08/22 07/08/22 07/08/22 Range/Units 19:55 19:55 19:55 WBC (4.0-10.5) x10^3/uL RBC (4.1-5.4) x10^6/uL Hgb (12.0-16.0) g/dL Hct (35-47) % MCV (78-100) fL MCH (26-32) pg MCHC (32-36) g/dL RDW (11.5-14.0) % Plt Count (150-450) x10^3/uL MPV (7.5-11.0) fL Gran % (36.0-66.0) % Immature Gran % (Auto) (0.00-0.4) % Nucleat RBC Rel Count (0.00-0.1) % Eos # (Auto) (0-0.5) x10^3/uL Immature Gran # (Auto) (0.00-0.03) x10^3u/L Absolute Lymphs (auto) (1.0-4.6) x10^3/uL Absolute Monos (auto) (0.0-1.3) x10^3/uL Absolute Nucleated RBC (0.00-0.01) x10^3u/L Lymphocytes % (24.0-44.0) % Monocytes % (0.0-12.0) % Eosinophils % (0.00-5.0) % Basophils % (0.0-0.4) % Absolute Granulocytes (1.4-6.9) x10^3/uL Basophils # (0-0.4) x10^3/uL PT 12.5 (9.4-12.5) SECONDS INR 1.16 (0.8-3.0) APTT 29.6 (25.1-36.5) SECONDS Sodium (137-145) mmol/L Potassium (3.5-5.1) mmol/L Chloride (98-107) mmol/L Carbon Dioxide (22-30) mmol/L Anion Gap (5-15) MEQ/L BUN (7-17) mg/dL Creatinine (0.52-1.04) mg/dL Estimated GFR ML/MIN Glucose (74-106) mg/dL Lactic Acid (0.4-2.0) Calcium (8.4-10.2) mg/dL Magnesium (1.6-2.3) mg/dL Total Bilirubin (0.2-1.3) mg/dL AST (14-36) U/L ALT (0-35) U/L Alkaline Phosphatase (38-126) U/L Troponin I (0.000-0.034) ng/mL NT-Pro-B Natriuret Pep 5240 (<300) pg/mL Serum Total Protein (6.3-8.2) g/dL Albumin (3.5-5.0) g/dL Urine Color (Yellow) Urine Appearance (Clear) Urine pH (4.6-8.0) Ur Specific [place] (1.005-1.030) Urine Protein (Negative) Urine Glucose (UA) (Negative) mg/dL Urine Ketones (Negative) Urine Blood (Negative) Urine Nitrite (Negative) Urine Bilirubin (Negative) Urine Urobilinogen (0.2) mg/dL Ur Leukocyte Esterase (Negative) U Hyaline Cast (Auto) (0-2) /LPF Urine Microscopic RBC (0-5) /HPF Urine Microscopic WBC (0-5) /HPF Ur Epithelial Cells (None Seen) /HPF Urine Bacteria (None Seen) /HPF Urine Culture Reflexed (NO) Influenza Type A Ag NEGATIVE (NEGATIVE) Influenza Type B Ag NEGATIVE (NEGATIVE) RSV (PCR) NEGATIVE (NEGATIVE) SARS-CoV-2 (PCR) NEGATIVE (NEGATIVE) 07/08/22 07/08/22 07/09/22 Range/Units 20:01 22:27 02:37 WBC (4.0-10.5) x10^3/uL RBC (4.1-5.4) x10^6/uL Hgb (12.0-16.0) g/dL Hct (35-47) % MCV (78-100) fL MCH (26-32) pg MCHC (32-36) g/dL RDW (11.5-14.0) % Plt Count (150-450) x10^3/uL MPV (7.5-11.0) fL Gran % (36.0-66.0) % Immature Gran % (Auto) (0.00-0.4) % Nucleat RBC Rel Count (0.00-0.1) % Eos # (Auto) (0-0.5) x10^3/uL Immature Gran # (Auto) (0.00-0.03) x10^3u/L Absolute Lymphs (auto) (1.0-4.6) x10^3/uL Absolute Monos (auto) (0.0-1.3) x10^3/uL Absolute Nucleated RBC (0.00-0.01) x10^3u/L Lymphocytes % (24.0-44.0) % Monocytes % (0.0-12.0) % Eosinophils % (0.00-5.0) % Basophils % (0.0-0.4) % Absolute Granulocytes (1.4-6.9) x10^3/uL Basophils # (0-0.4) x10^3/uL PT (9.4-12.5) SECONDS INR (0.8-3.0) APTT (25.1-36.5) SECONDS Sodium (137-145) mmol/L Potassium (3.5-5.1) mmol/L Chloride (98-107) mmol/L Carbon Dioxide (22-30) mmol/L Anion Gap (5-15) MEQ/L BUN (7-17) mg/dL Creatinine (0.52-1.04) mg/dL Estimated GFR ML/MIN Glucose (74-106) mg/dL Lactic Acid (0.4-2.0) Calcium (8.4-10.2) mg/dL Magnesium (1.6-2.3) mg/dL Total Bilirubin (0.2-1.3) mg/dL AST (14-36) U/L ALT (0-35) U/L Alkaline Phosphatase (38-126) U/L Troponin I < 0.012 < 0.012 (0.000-0.034) ng/mL NT-Pro-B Natriuret Pep (<300) pg/mL Serum Total Protein (6.3-8.2) g/dL Albumin (3.5-5.0) g/dL Urine Color Yellow (Yellow) Urine Appearance Clear (Clear) Urine pH 7.0 (4.6-8.0) Ur Specific [place] 1.010 (1.005-1.030) Urine Protein Negative (Negative) Urine Glucose (UA) Negative (Negative) mg/dL Urine Ketones Negative (Negative) Urine Blood Negative (Negative) Urine Nitrite Negative (Negative) Urine Bilirubin Negative (Negative) Urine Urobilinogen 1.0 A (0.2) mg/dL Ur Leukocyte Esterase Negative (Negative) U Hyaline Cast (Auto) 0-2 (0-2) /LPF Urine Microscopic RBC 0-2 (0-5) /HPF Urine Microscopic WBC 0-2 (0-5) /HPF Ur Epithelial Cells None Seen (None Seen) /HPF Urine Bacteria None Seen (None Seen) /HPF Urine Culture Reflexed NO (NO) Influenza Type A Ag (NEGATIVE) Influenza Type B Ag (NEGATIVE) RSV (PCR) (NEGATIVE) SARS-CoV-2 (PCR) (NEGATIVE) 07/09/22 07/09/22 07/09/22 Range/Units 04:53 04:53 04:53 WBC 7.1 (4.0-10.5) x10^3/uL RBC 3.43 L (4.1-5.4) x10^6/uL Hgb 10.9 L (12.0-16.0) g/dL Hct 34.0 L (35-47) % MCV 99.1 (78-100) fL MCH 31.8 (26-32) pg MCHC 32.1 (32-36) g/dL RDW 15.7 H (11.5-14.0) % Plt Count 164 (150-450) x10^3/uL MPV 10.0 (7.5-11.0) fL Gran % (36.0-66.0) % Immature Gran % (Auto) (0.00-0.4) % Nucleat RBC Rel Count (0.00-0.1) % Eos # (Auto) (0-0.5) x10^3/uL Immature Gran # (Auto) (0.00-0.03) x10^3u/L Absolute Lymphs (auto) (1.0-4.6) x10^3/uL Absolute Monos (auto) (0.0-1.3) x10^3/uL Absolute Nucleated RBC (0.00-0.01) x10^3u/L Lymphocytes % (24.0-44.0) % Monocytes % (0.0-12.0) % Eosinophils % (0.00-5.0) % Basophils % (0.0-0.4) % Absolute Granulocytes (1.4-6.9) x10^3/uL Basophils # (0-0.4) x10^3/uL PT (9.4-12.5) SECONDS INR (0.8-3.0) APTT (25.1-36.5) SECONDS Sodium 138 (137-145) mmol/L Potassium 4.1 D (3.5-5.1) mmol/L Chloride 96 L (98-107) mmol/L Carbon Dioxide 33 H (22-30) mmol/L Anion Gap 12.6 (5-15) MEQ/L BUN 35 H (7-17) mg/dL Creatinine 1.19 H (0.52-1.04) mg/dL Estimated GFR 49.5 ML/MIN Glucose 176 H (74-106) mg/dL Lactic Acid (0.4-2.0) Calcium 8.0 L (8.4-10.2) mg/dL Magnesium (1.6-2.3) mg/dL Total Bilirubin (0.2-1.3) mg/dL AST (14-36) U/L ALT (0-35) U/L Alkaline Phosphatase (38-126) U/L Troponin I < 0.012 (0.000-0.034) ng/mL NT-Pro-B Natriuret Pep (<300) pg/mL Serum Total Protein (6.3-8.2) g/dL Albumin (3.5-5.0) g/dL Urine Color (Yellow) Urine Appearance (Clear) Urine pH (4.6-8.0) Ur Specific [place] (1.005-1.030) Urine Protein (Negative) Urine Glucose (UA) (Negative) mg/dL Urine Ketones (Negative) Urine Blood (Negative) Urine Nitrite (Negative) Urine Bilirubin (Negative) Urine Urobilinogen (0.2) mg/dL Ur Leukocyte Esterase (Negative) U Hyaline Cast (Auto) (0-2) /LPF Urine Microscopic RBC (0-5) /HPF Urine Microscopic WBC (0-5) /HPF Ur Epithelial Cells (None Seen) /HPF Urine Bacteria (None Seen) /HPF Urine Culture Reflexed (NO) Influenza Type A Ag (NEGATIVE) Influenza Type B Ag (NEGATIVE) RSV (PCR) (NEGATIVE) SARS-CoV-2 (PCR) (NEGATIVE) Radiology Exams: Radiology Procedures Category Date Time Status CHEST 1 VIEW (PORTABLE) Stat Exams 07/08/22 19:33 Taken CHEST WITHOUT CONTRAST [CT] Stat Exams 07/08/22 21:34 Taken ECHO W/2D AND DOPPLER [US] Routine Exams 07/09/22 02:11 Ordered Assessment/Plan (1) Congestive heart failure Current Visit: Yes Status: Acute Assessment & Plan: last echo in computer shows preserved EF with aortic and mitral valve stenosis, will check echo and consult Dr Jeffry Saurez, patient's half backer. continue to diurese with IV lasix Code(s): I50.9 - HEART FAILURE, UNSPECIFIED (2) Atrial fibrillation Current Visit: Yes Status: Acute Assessment & Plan: continue eliquis Code(s): I48.91 - UNSPECIFIED ATRIAL FIBRILLATION (3) Morbid obesity Current Visit: Yes Status: Acute Code(s): E66.01 - MORBID (SEVERE) OBESITY DUE TO EXCESS CALORIES (4) COPD (chronic obstructive pulmonary disease) Current Visit: No Status: Chronic Qualifiers: (5) Chronic hypoxemic respiratory failure Current Visit: No Status: Chronic
--- NOTE | 2022-07-09 09:10 | XRAY ---
Indication: Short of breath. Comparison: June 05, 2022 Portable apical lordotic chest demonstrates diminished pulmonary edema. No focal infiltrate, consolidation, or large effusion. Heart remains enlarged. Bony thorax intact again with mild degenerative changes.
--- NOTE | 2022-07-09 09:10 | XRAY ---
Indication: Short of breath. Abnormal chest radiograph. Multiple contiguous axial images obtained through the chest without contrast. Comparison: June 08, 2022 Lungs again demonstrates mild diffuse pulmonary edema without consolidation/effusion. There remains mild bibasilar subsegmental atelectasis/scarring. No suspicious pulmonary mass/nodule, infiltrate, or pneumothorax. Heart remains enlarged again with mitral valve calcifications. Aorta remains normal in course and caliber. Grossly stable prominent mediastinal lymph nodes with largest index node again precarinal measuring 2.1 x 3.0 cm. Bony thorax intact again with mild degenerative changes throughout the spine. Limited upper abdomen again demonstrates fatty liver and 13.6 cm splenomegaly. Impression: 1. Again cardiomegaly with pulmonary edema. Rule out mild or early cardiac decompensation/CHF. 2. Grossly stable nonspecific mediastinal lymphadenopathy. 3. Again chronic findings including mitral valve calcifications, chronic bony findings, fatty liver, and splenomegaly.
[2022-07-09] MEDS ORDERED: LIPITOR 40MG PO SCH (10:00)
[2022-07-09] MEDS ORDERED: Lasix 40 MG/4 ML IV SCH (10:00)
[2022-07-09] MEDS: Furosemide 100mg/10 ml Vial IV SCH ×2 (11:38→16:12)
[2022-07-09] MEDS: Cyclobenzaprine 10 MG PO PRN ×2 (12:51→23:16)
[2022-07-09] MEDS: ATARAX 25 MG PO PRN (16:35)
[2022-07-09] MEDS: JARDIANCE PO SCH (21:34)
[2022-07-10 05:02] LABS: Absolute Neutrophil Ct (ANC) 5.86 x10^3/uL (1.4-6.9); BASOPHIL % 0.3 % (0.0-0.4); Basophil (Absolute #) 0.02 x10^3/uL (0-0.4); Eosinophil % 0.5 % (0.00-5.0); Eosinophil (Absolute #) 0.04 x10^3/uL (0-0.5); Hematocrit 34.4 % (35-47); Hemoglobin 10.8 g/dL (12.0-16.0); IMMATURE GRAN # 0.04 x10^3u/L (0.00-0.03); IMMATURE GRAN % 0.5 % (0.00-0.4); Lymphocyte (Absolute #) 1.01 x10^3/uL (1.0-4.6); Lymphocytes % 13.4 % (24.0-44.0); Mean Cell Volume 99.7 fL (78-100); Mean Corpuscular Hemoglobin 31.3 pg (26-32); Mean Corpuscular Hgb Concent. 31.4 g/dL (32-36); Mean Platelet Volume 9.6 fL (7.5-11.0); Monocyte (Absolute #) 0.59 x10^3/uL (0.0-1.3); Monocytes % 7.8 % (0.0-12.0); Neutrophil % 77.5 % (36.0-66.0); Platelet Count 166 x10^3/uL (150-450); Red Blood Count 3.45 x10^6/uL (4.1-5.4); Red Cell Distribution Width 15.9 % (11.5-14.0); White Blood Count 7.6 x10^3/uL (4.0-10.5)
[2022-07-10 05:27] LABS: ANION GAP 9.3 MEQ/L (5-15); BLOOD UREA NITROGEN 32 mg/dL (7-17); CHLORIDE 96 mmol/L (98-107); Calcium 8.5 mg/dL (8.4-10.2); Carbon Dioxide 39 mmol/L (22-30); Creatinine 1 0.88 mg/dL (0.52-1.04); EST GLOMERULAR FILTRATION RATE > 60.0 ML/MIN; Glucose 157 mg/dL (74-106); NT PRO BNPII 4450 pg/mL (<300); Potassium 3.9 mmol/L (3.5-5.1); SODIUM 140 mmol/L (137-145)
[2022-07-10] MEDS: PATIENT OWN MEDICATION IH SCH (06:40)
[2022-07-10] MEDS: DUONEB 0.5-3 MG/3 ml Neb IH SCH ×4 (06:40→18:32)
[2022-07-10] MEDS: Cardizem CD PO SCH (07:24)
[2022-07-10] MEDS: Furosemide 100mg/10 ml Vial IV SCH ×2 (07:24→16:30)
[2022-07-10] MEDS: ATARAX 25 MG PO PRN (07:24)
[2022-07-10] MEDS: ELIQUIS 2.5 MG TABLET PO SCH ×2 (07:25→21:34)
[2022-07-10] MEDS: Zocor 10MG PO SCH (07:25)
[2022-07-10] MEDS: ZOLOFT 50 MG TABLET PO SCH (07:25)
[2022-07-10] MEDS: Protonix 40MG Tablet PO SCH (07:25)
[2022-07-10] MEDS: Toprol Xl 50 MG PO SCH (07:26)
[2022-07-10] MEDS: Wellbutrin SR 150 MG PO SCH ×2 (07:26→21:34)
[2022-07-10] MEDS: NORCO 5/325 MG PO PRN ×3 (07:26→21:34)
[2022-07-10] MEDS: JARDIANCE PO SCH (07:26)
[2022-07-10] MEDS: Cyclobenzaprine 10 MG PO PRN ×3 (07:26→21:34)
--- NOTE | 2022-07-10 07:59 | ECHO ---
Transthoracic echocardiographic examination and color Doppler was done on 07/09/2022. INDICATION: Congestive heart failure. The study was somewhat suboptimal with a limited acoustic window. IMPRESSION: 1) NO DEFINITE NO REGIONAL WALL MOTION ABNORMALITY. ESTIMATED GLOBAL LEFT VENTRICULAR EJECTION FRACTION OF AROUND 50%. 2) CALCIFIED MITRAL VALVE WHICH APPEARS TO BE STENOTIC. 3) MILD TRICUSPID REGURGITATION. RIGHT VENTRICULAR SYSTOLIC PRESSURE OF 40 MM OF MERCURY. 4) LEFT ATRIAL ENLARGEMENT. 5) LEFT VENTRICULAR HYPERTROPHY. 6) LEFT VENTRICLE DIASTOLIC DYSFUNCTION. The left ventricle is only partially visualized with an estimated global left ventricular ejection fraction around 50%. There is mild left ventricular hypertrophy. The mitral valve is heavily calcified and has limited opening. There is mild mitral regurgitation. Left atrium is enlarged. The aortic valve is sclerotic. The peak gradient across the aortic valve is 12 mm of Mercury. The right side chambers appear to be normal. There is mild tricuspid regurgitation. The right ventricular systolic pressure of 20 mm of Mercury. Tissue Doppler study of the lateral mitral annulus suggestive of left ventricle diastolic dysfunction. Additional interrogation of the mitral valve is necessary to determine the hemodynamic significance of mitral stenosis.
--- NOTE | 2022-07-10 09:12 | PCM.NOTE ---
Date and Time: 07/10/22909 Subjective Assessment: good urine output noted, no new complaints. Objective Exam General Appearance: no apparent distress, obese Neurologic Exam: alert, oriented x 3 Respiratory Exam: crackles/rales Cardiovascular Exam: irregular Gastrointestinal/Abdomen Exam: soft, No tenderness, No mass Extremity Exam: swelling OBJECTIVE DATA Vital Signs: Vital Signs - 24 hr Temp Pulse Resp BP Pulse Ox 07/10/22 07:24 98.1 F 88 20 188/80 94 L 07/10/22 06:44 88 94 L 07/10/22 03:32 97.9 F 100 H 22 92/63 92 L 07/10/22 00:00 97.9 F 119 H 20 147/67 90 L 07/09/22 23:21 126 H 24 86 L 07/09/22 20:14 110 H 20 94 L 07/09/22 19:34 96.9 F 120 H 20 110/76 92 L 07/09/22 16:26 110/76 07/09/22 16:22 96.9 F 120 H 20 92 L 07/09/22 15:57 111 H 22 90 L 07/09/22 14:00 112/70 07/09/22 12:13 96.9 F 129 H 20 91 L 07/09/22 11:25 84 18 91 L 07/09/22 09:45 98/74 Pain Assessment - Last Documented Pain Intensity 8 Pain Scale Used 0-10 Pain Scale Intake and Output: Intake & Output 07/07/22 07/08/22 07/09/22 07/10/22 11:59 11:59 11:59 11:59 Intake Total 960 1080 Output Total 700 1400 Balance 260 -320 Weight 136.5 kg Lab Results: Lab Results-Last 24 Hours 07/10/22 07/10/22 Range/Units 04:49 04:49 WBC 7.6 (4.0-10.5) x10^3/uL RBC 3.45 L (4.1-5.4) x10^6/uL Hgb 10.8 L (12.0-16.0) g/dL Hct 34.4 L (35-47) % MCV 99.7 (78-100) fL MCH 31.3 (26-32) pg MCHC 31.4 L (32-36) g/dL RDW 15.9 H (11.5-14.0) % Plt Count 166 (150-450) x10^3/uL MPV 9.6 (7.5-11.0) fL Gran % 77.5 H (36.0-66.0) % Immature Gran % (Auto) 0.5 H (0.00-0.4) % Nucleat RBC Rel Count 0.0 (0.00-0.1) % Eos # (Auto) 0.04 (0-0.5) x10^3/uL Immature Gran # (Auto) 0.04 H (0.00-0.03) x10^3u/L Absolute Lymphs (auto) 1.01 (1.0-4.6) x10^3/uL Absolute Monos (auto) 0.59 (0.0-1.3) x10^3/uL Absolute Nucleated RBC 0.00 (0.00-0.01) x10^3u/L Lymphocytes % 13.4 L (24.0-44.0) % Monocytes % 7.8 (0.0-12.0) % Eosinophils % 0.5 (0.00-5.0) % Basophils % 0.3 (0.0-0.4) % Absolute Granulocytes 5.86 (1.4-6.9) x10^3/uL Basophils # 0.02 (0-0.4) x10^3/uL Sodium 140 (137-145) mmol/L Potassium 3.9 (3.5-5.1) mmol/L Chloride 96 L (98-107) mmol/L Carbon Dioxide 39 H (22-30) mmol/L Anion Gap 9.3 (5-15) MEQ/L BUN 32 H (7-17) mg/dL Creatinine 0.88 (0.52-1.04) mg/dL Estimated GFR > 60.0 ML/MIN Glucose 157 H (74-106) mg/dL Calcium 8.5 (8.4-10.2) mg/dL Magnesium 2.0 (1.6-2.3) mg/dL NT-Pro-B Natriuret Pep 4450 (<300) pg/mL Radiology Exams: Radiology Procedures Category Date Time Status CHEST 1 VIEW (PORTABLE) Stat Exams 07/08/22 19:33 Completed CHEST WITHOUT CONTRAST [CT] Stat Exams 07/08/22 21:34 Completed ECHO W/2D AND DOPPLER [US] Routine Exams 07/09/22 02:11 Draft Assessment/Plan (1) Congestive heart failure Current Visit: Yes Status: Acute Assessment & Plan: continue IV lasix 80mg bid, good output noted. cardiology consult completed Code(s): I50.9 - HEART FAILURE, UNSPECIFIED (2) Atrial fibrillation Current Visit: Yes Status: Acute Assessment & Plan: on eliquis, rate is controlled Code(s): I48.91 - UNSPECIFIED ATRIAL FIBRILLATION (3) Morbid obesity Current Visit: Yes Status: Acute Code(s): E66.01 - MORBID (SEVERE) OBESITY DUE TO EXCESS CALORIES (4) COPD (chronic obstructive pulmonary disease) Current Visit: No Status: Chronic Qualifiers: (5) Chronic hypoxemic respiratory failure Current Visit: No Status: Chronic
--- NOTE | 2022-07-10 09:50 | CONS ---
TELE-CARDIOLOGY CONSULT DATE: 07/09/2022 REASON FOR CONSULT: Congestive heart failure and leg swelling. HISTORY: Dalton Molina is well-known to me. She has a history of chronic diastolic congestive heart failure, morbid obesity, hypertension, history of pulmonary embolism on anticoagulation as well as an active smoker with obstructive sleep apnea on CPAP at night. She was recently hospitalized with heart failure, pneumonia and was doing quite well. I saw her last week and her leg edema had nearly resolved. She still felt somewhat weak and was wanting to start cardiac rehab. However over the past couple of days, she has developed rapid weight gain as well as lower extremity edema and progressive shortness of breath and was found to be in decompensated heart failure with NT Pro-BNP around 5,000. She had been initiated on IV Lasix and having a good response. She is in atrial fibrillation and heart rate is in the 100 to 120 range. She currently denies any chest pain and is on continuous supplemental O2 for chronic hypoxemic respiratory failure. She still has leg swelling but it has improved since being initiated on IV Lasix. REVIEW OF SYSTEMS: Fourteen system review performed. Pertinent positives noted in the history of present illness otherwise negative. PAST MEDICAL HISTORY: Chronic diastolic congestive heart failure, chronic hypoxemic respiratory failure, dyslipidemia, history of pulmonary embolism, hypertension, morbid obesity, obstructive sleep apnea on CPAP, active smoker, venous insufficiency. SOCIAL HISTORY: Smoking approximately 5 to 9 cigarettes a day. She states she is quitting after this hospitalization. ALLERGIES: NKDA. MEDICATIONS: Current medications reviewed, see EMR for full details. PHYSICAL EXAMINATION: This is a tele-cardiology consultation observation through video conference she appears to be in No acute distress. She is wearing nasal cannula. She is able to speak in full sentences. She is morbidly obese. She does have leg swelling which she showed me on the screen. LAB DATA AND TESTS: LABORATORY: Laboratory data reviewed. White blood cell count 7.1, hemoglobin 10.9, PLT count 164,000. Creatinine 1.19, BUN 35, potassium 4.1. Troponins negative. UA unremarkable. INR 1.16. NT Pro-BNP 5,240. RADIOLOGIC: EKG demonstrates atrial fibrillation with heart rate around 100. Chest x-ray demonstrates cardiomegaly, pulmonary edema. IMPRESSION: 1) Acute on chronic diastolic congestive heart failure. 2) Chronic hypoxemic respiratory failure. 3) Atrial fibrillation. 4) History of pulmonary embolism on anticoagulation. RECOMMENDATIONS: Will continue IV Lasix while monitoring renal function and electrolytes daily, continue aggressive diuresis. Add empagliflozin 10 mg p.o. daily for treatment of diastolic congestive heart failure. Would also follow up on echocardiogram report reportedly obtained today. I will try to have the images uploaded to the cloud so I can personally review. Based on her recurrent admissions for heart failure, I do feel that she will be a good candidate for an outpatient right heart catheterization to insure she is euvolemic as her body habitus makes clinical exam somewhat challenging. In addition, she would be a good candidate for implantation of CardioMEMS pulmonary artery pressure monitoring device as this can help to monitor volume status in real time and act upon any worsening decompensation prior to significant clinical worsening in an attempt to reduce future heart failure exacerbations and hospitalizations.
[2022-07-11] MEDS: NORCO 5/325 MG PO PRN ×3 (06:14→17:47)
[2022-07-11] MEDS: DUONEB 0.5-3 MG/3 ml Neb IH SCH ×4 (06:17→18:38)
[2022-07-11] MEDS: PATIENT OWN MEDICATION IH SCH (06:20)
--- NOTE | 2022-07-11 08:46 | PCM.NOTE ---
Date and Time: 07/11/22 0844 Subjective Assessment: still short of breath with exertion but her swelling is improving her legs. her oxygen sats remains borderline. heart rate elevated but states she just had a "coughing fit" Objective Exam General Appearance: no apparent distress, obese Respiratory Exam: crackles/rales Cardiovascular Exam: tachycardia, irregular Gastrointestinal/Abdomen Exam: soft, No tenderness, No mass Extremity Exam: pedal edema, swelling OBJECTIVE DATA Vital Signs: Vital Signs - 24 hr Temp Pulse Resp BP Pulse Ox 07/11/22 06:47 98.1 F 140 H 16 117/70 88 L 07/11/22 06:21 140 H 16 91 L 07/11/22 06:19 91 L 07/11/22 04:00 99.1 F 130 H 22 91 L 07/10/22 19:46 98.1 F 129 H 20 101/55 89 L 07/10/22 18:32 122 H 18 91 L 07/10/22 16:00 98.0 F 115 H 15 122/76 93 L 07/10/22 14:34 97 H 20 91 L 07/10/22 11:48 97.7 F 118 H 16 89/62 92 L 07/10/22 10:43 118 H 22 92 L Pain Assessment - Last Documented Pain Intensity 0 Pain Scale Used 0-10 Pain Scale Intake and Output: Intake & Output 07/08/22 07/09/22 07/10/22 07/11/22 11:59 11:59 11:59 11:59 Intake Total 960 1080 2420 Output Total 700 3500 2050 Balance 260 -2420 370 Weight 136.5 kg 137.4 kg Multi-Disciplinary Progress Notes: Multi-Disciplinary Progress Notes 07/10/22 14:57 Case Management Note by Elizabeth Conway NO CHANGE IN DC PLANS AT THIS TIME Initialized on 07/10/22 14:57 - END OF NOTE Assessment/Plan (1) Congestive heart failure Current Visit: Yes Status: Acute Assessment & Plan: continue IV lasix, likely home in the next day or two as she is diuresing well. plans to f/u with Dr Jeffry Suarez regarding a remote monitoring system. when discharged plan is to discontinue torsemide and send home on lasix 40mg po bid prior to her f/u with cardiology Code(s): I50.9 - HEART FAILURE, UNSPECIFIED (2) Atrial fibrillation Current Visit: Yes Status: Acute Code(s): I48.91 - UNSPECIFIED ATRIAL FIBRILLATION (3) Morbid obesity Current Visit: Yes Status: Acute Code(s): E66.01 - MORBID (SEVERE) OBESITY DUE TO EXCESS CALORIES (4) COPD (chronic obstructive pulmonary disease) Current Visit: No Status: Chronic Qualifiers: (5) Chronic hypoxemic respiratory failure Current Visit: No Status: Chronic
[2022-07-11] MEDS: ATARAX 25 MG PO PRN (08:47)
[2022-07-11] MEDS: ELIQUIS 2.5 MG TABLET PO SCH ×2 (08:47→22:17)
[2022-07-11] MEDS: Cardizem CD PO SCH (08:47)
[2022-07-11] MEDS: Toprol Xl 50 MG PO SCH (08:48)
[2022-07-11] MEDS: Cyclobenzaprine 10 MG PO PRN ×2 (08:48→17:47)
[2022-07-11] MEDS: ZOLOFT 50 MG TABLET PO SCH (08:48)
[2022-07-11] MEDS: Zocor 10MG PO SCH (08:48)
[2022-07-11] MEDS: Protonix 40MG Tablet PO SCH (08:48)
[2022-07-11] MEDS: Wellbutrin SR 150 MG PO SCH ×2 (08:48→22:17)
[2022-07-11] MEDS: Furosemide 100mg/10 ml Vial IV SCH ×2 (08:49→17:17)
[2022-07-11] MEDS: NYSTOP POWDER 15 GM TP SCH ×2 (08:50→22:22)
[2022-07-11] MEDS: JARDIANCE PO SCH (08:50)
[2022-07-11 10:14] LABS: ANION GAP 12.2 MEQ/L (5-15); BLOOD UREA NITROGEN 25 mg/dL (7-17); CHLORIDE 92 mmol/L (98-107); Calcium 8.6 mg/dL (8.4-10.2); Carbon Dioxide 38 mmol/L (22-30); Creatinine 1 0.87 mg/dL (0.52-1.04); EST GLOMERULAR FILTRATION RATE > 60.0 ML/MIN; Glucose 264 mg/dL (74-106); Potassium 3.8 mmol/L (3.5-5.1); SODIUM 138 mmol/L (137-145)
[2022-07-12] MEDS: DUONEB 0.5-3 MG/3 ml Neb IH SCH ×5 (00:55→18:55)
[2022-07-12] MEDS: NORCO 5/325 MG PO PRN ×3 (01:15→16:55)
[2022-07-12 06:16] LABS: Absolute Neutrophil Ct (ANC) 6.08 x10^3/uL (1.4-6.9); BASOPHIL % 0.3 % (0.0-0.4); Basophil (Absolute #) 0.02 x10^3/uL (0-0.4); Eosinophil % 0.8 % (0.00-5.0); Eosinophil (Absolute #) 0.06 x10^3/uL (0-0.5); Hematocrit 30.5 % (35-47); Hemoglobin 9.7 g/dL (12.0-16.0); IMMATURE GRAN # 0.02 x10^3u/L (0.00-0.03); IMMATURE GRAN % 0.3 % (0.00-0.4); Lymphocyte (Absolute #) 0.92 x10^3/uL (1.0-4.6); Lymphocytes % 12.3 % (24.0-44.0); Mean Cell Volume 98.7 fL (78-100); Mean Corpuscular Hemoglobin 31.4 pg (26-32); Mean Corpuscular Hgb Concent. 31.8 g/dL (32-36); Mean Platelet Volume 10.1 fL (7.5-11.0); Monocyte (Absolute #) 0.41 x10^3/uL (0.0-1.3); Monocytes % 5.5 % (0.0-12.0); Neutrophil % 80.8 % (36.0-66.0); Platelet Count 211 x10^3/uL (150-450); Red Blood Count 3.09 x10^6/uL (4.1-5.4); Red Cell Distribution Width 16.1 % (11.5-14.0); White Blood Count 7.5 x10^3/uL (4.0-10.5)
[2022-07-12 06:48] LABS: BLOOD UREA NITROGEN 26 mg/dL (7-17); CHLORIDE 91 mmol/L (98-107); Calcium 8.4 mg/dL (8.4-10.2); Creatinine 1 0.81 mg/dL (0.52-1.04); EST GLOMERULAR FILTRATION RATE > 60.0 ML/MIN; Glucose 184 mg/dL (74-106); NT PRO BNPII 3150 pg/mL (<300); Potassium 3.5 mmol/L (3.5-5.1); SODIUM 138 mmol/L (137-145)
[2022-07-12 06:55] LABS: Carbon Dioxide 36 mmol/L (22-30)
[2022-07-12 07:02] LABS: ANION GAP 14.5 MEQ/L (5-15)
[2022-07-12] MEDS: PATIENT OWN MEDICATION IH SCH (07:23)
[2022-07-12] MEDS: Furosemide 100mg/10 ml Vial IV SCH ×2 (11:05→16:54)
[2022-07-12] MEDS: Protonix 40MG Tablet PO SCH (11:05)
[2022-07-12] MEDS: ELIQUIS 2.5 MG TABLET PO SCH ×2 (11:05→21:07)
[2022-07-12] MEDS: Cyclobenzaprine 10 MG PO PRN (11:05)
[2022-07-12] MEDS: Cardizem CD PO SCH (11:05)
[2022-07-12] MEDS: ATARAX 25 MG PO PRN (11:05)
[2022-07-12] MEDS: Toprol Xl 50 MG PO SCH (11:06)
[2022-07-12] MEDS: NYSTOP POWDER 15 GM TP SCH ×2 (11:06→21:06)
[2022-07-12] MEDS: Zocor 10MG PO SCH (11:06)
[2022-07-12] MEDS: ZOLOFT 50 MG TABLET PO SCH (11:06)
[2022-07-12] MEDS: JARDIANCE PO SCH (11:07)
[2022-07-12] MEDS: Wellbutrin SR 150 MG PO SCH ×2 (11:18→21:07)
[2022-07-13] MEDS ORDERED: PROVENTIL 2.5 MG/3 ML NEB IH ONE (00:05)
[2022-07-13] MEDS: PROVENTIL 2.5 MG/3 ML NEB IH PRN ×3 (00:05→23:15)
[2022-07-13] MEDS: NORCO 5/325 MG PO PRN ×4 (00:19→21:09)
[2022-07-13 04:33] LABS: A-aADO2 186; ABG HEMOGLOBIN 14.8; ABG POTASSIUM 3.5 (3.5-5.1); ABG SITE RIGHT RADIAL; ARTERIAL BLD GAS O2 SATURATION 85.3 % (95-100); ARTERIAL BLOOD GAS BASE EXCESS 9.5 (-2.0-2.0); ARTERIAL BLOOD GAS FIO2 45 %; ARTERIAL BLOOD GAS PCO2 65 mmHg (35-45); ARTERIAL BLOOD GAS PO2 54 mmHg (75-100); ARTERIAL BLOOD GAS pH 7.37 (7.35-7.45); CARBOXYHEMOGLOBIN 1.7 % THgb (0.0-6.9); HCO3- 37.6 (22-28); HGB O2 SAT 83.6 g/dF (94-100); Methhemoglobin 0.2 % (1.4-1.5); paO2 pAO1 0.23
[2022-07-13 04:34] LABS: ALLEN TEST OK? YES
[2022-07-13] MEDS ORDERED: solu-MEDROL 125 MG, Sterile H2O 10 ml 2 ML IV ONE ×2 (05:01)
[2022-07-13] MEDS ORDERED: Sterile H2O 10 ml IJ ONE (05:06)
[2022-07-13] MEDS ORDERED: solu-MEDROL ONE (05:06)
[2022-07-13] MEDS: ATARAX 25 MG PO PRN ×2 (05:19→19:02)
[2022-07-13 05:47] LABS: Hematocrit 31.9 % (35-47); Hemoglobin 9.9 g/dL (12.0-16.0); Mean Cell Volume 100.3 fL (78-100); Mean Corpuscular Hemoglobin 31.1 pg (26-32); Mean Platelet Volume 9.8 fL (7.5-11.0); Platelet Count 237 x10^3/uL (150-450); Red Blood Count 3.18 x10^6/uL (4.1-5.4); Red Cell Distribution Width 15.9 % (11.5-14.0); White Blood Count 8.1 x10^3/uL (4.0-10.5)
[2022-07-13 06:15] LABS: BLOOD UREA NITROGEN 23 mg/dL (7-17); CHLORIDE 91 mmol/L (98-107); Calcium 8.3 mg/dL (8.4-10.2); Creatinine 1 0.69 mg/dL (0.52-1.04); EST GLOMERULAR FILTRATION RATE > 60.0 ML/MIN; Glucose 171 mg/dL (74-106); Potassium 3.5 mmol/L (3.5-5.1); SODIUM 137 mmol/L (137-145)
[2022-07-13 06:22] LABS: Carbon Dioxide 35 mmol/L (22-30)
[2022-07-13 06:23] LABS: ANION GAP 14.5 MEQ/L (5-15)
[2022-07-13] MEDS: DUONEB 0.5-3 MG/3 ml Neb IH SCH ×3 (07:45→18:35)
[2022-07-13] MEDS: Cyclobenzaprine 10 MG PO PRN ×2 (07:49→14:01)
[2022-07-13] MEDS: PATIENT OWN MEDICATION IH SCH (07:52)
[2022-07-13] MEDS: ZOLOFT 50 MG TABLET PO SCH (09:22)
[2022-07-13] MEDS: Furosemide 100mg/10 ml Vial IV SCH ×2 (09:22→16:18)
[2022-07-13] MEDS: Cardizem CD PO SCH (09:22)
[2022-07-13] MEDS: Toprol Xl 50 MG PO SCH (09:22)
[2022-07-13] MEDS: ELIQUIS 2.5 MG TABLET PO SCH ×2 (09:22→21:05)
[2022-07-13] MEDS: Wellbutrin SR 150 MG PO SCH ×2 (09:22→21:05)
[2022-07-13] MEDS: Zocor 10MG PO SCH (09:23)
[2022-07-13] MEDS: JARDIANCE PO SCH (09:23)
[2022-07-13] MEDS: Protonix 40MG Tablet PO SCH (09:23)
[2022-07-13] MEDS: NYSTOP POWDER 15 GM TP SCH ×2 (09:23→23:11)
[2022-07-13] MEDS ORDERED: Toprol Xl 50 MG PO ONE (09:40)
[2022-07-13] MEDS ORDERED: Lasix 20 MG/2 ML IV SCH (10:00)
[2022-07-13 10:02] LABS: A-aADO2 231; ABG HEMOGLOBIN 10.6; ARTERIAL BLD GAS O2 SATURATION 97.9 % (95-100); ARTERIAL BLOOD GAS BASE EXCESS 10.6 (-2.0-2.0); ARTERIAL BLOOD GAS FIO2 55 %; ARTERIAL BLOOD GAS PO2 86 mmHg (75-100); CARBOXYHEMOGLOBIN 1.8 % THgb (0.0-6.9); HCO3- 37.2 (22-28); HGB O2 SAT 95.7 g/dF (94-100); Methhemoglobin 0.4 % (1.4-1.5); paO2 pAO1 0.27
[2022-07-13 10:03] LABS: ALLEN TEST OK? yes; ARTERIAL BLOOD GAS PCO2 60 mmHg (35-45)
[2022-07-13] MEDS: Klor Con PO SCH (11:06)
[2022-07-13] MEDS: ROCEPHIN 1 Gm-D5w 50 ml Bag** 1 G/50 ML IVPB IV SCH (11:07)
[2022-07-13] MEDS: solu-MEDROL 60 MG, Sterile H2O 10 ml 2 ML IV SCH ×6 (12:02→23:20)
[2022-07-13] MEDS: HUMALOG SQ PRN ×3 (12:02→21:05)
[2022-07-13] MEDS: Zithromax 500 MG/ 250 ML NaCl Premix 500 MG/250 ML IVPB IV SCH (12:19)
[2022-07-14] MEDS: solu-MEDROL 60 MG, Sterile H2O 10 ml 2 ML IV SCH ×8 (05:05→23:27)
[2022-07-14] MEDS: NORCO 5/325 MG PO PRN ×4 (05:27→23:52)
[2022-07-14] MEDS: DUONEB 0.5-3 MG/3 ml Neb IH SCH ×6 (06:59→21:55)
[2022-07-14] MEDS: PATIENT OWN MEDICATION IH SCH (06:59)
--- NOTE | 2022-07-14 08:22 | PCM.NOTE ---
Date and Time: 07/14/22819 Subjective Assessment: patient has an increase in oxygen requirment over the weekend, currently on 7L oxymizer. symptoms are better and she is feeling better but still gets fairly short of breath with much exertion. Objective Exam General Appearance: no apparent distress, obese Neurologic Exam: alert, nml station & gait Respiratory Exam: diminished breath sounds, prolonged expirations Cardiovascular Exam: tachycardia, irregular Gastrointestinal/Abdomen Exam: soft, No tenderness, No mass Extremity Exam: normal inspection, normal range of motion OBJECTIVE DATA Vital Signs: Vital Signs - 24 hr Temp Pulse Resp BP Pulse Ox 07/14/22 07:11 97.0 F 139 H 22 126/91 90 L 07/14/22 07:03 102 H 22 90 L 07/14/22 04:00 97.1 F 122 H 18 142/86 93 L 07/13/22 23:42 97.1 F 102 H 24 131/84 98 07/13/22 23:15 91 H 20 98 07/13/22 19:02 97.8 F 114 H 26 H 128/72 94 L 07/13/22 18:35 117 H 22 94 L 07/13/22 16:04 138/74 07/13/22 15:16 103 H 93 L 07/13/22 14:20 118 H 07/13/22 11:41 96.8 F 130 H 20 121/83 94 L 07/13/22 11:19 84 L Pain Assessment - Last Documented Pain Intensity 0 Pain Scale Used 0-10 Pain Scale Intake and Output: Intake & Output 07/11/22 07/12/22 07/13/22 07/14/22 11:59 11:59 11:59 11:59 Intake Total 3100 3180 3120 2460 Output Total 2050 2600 3100 4900 Balance 1050 580 20 -2440 Weight 136.5 kg 136.8 kg Lab Results: Lab Results-Last 24 Hours 07/13/22 07/13/22 07/13/22 Range/Units 05:30 10:00 11:18 Puncture Site left rad pCO2 60 H* (35-45) mmHg pO2 86 (75-100) mmHg Base Excess 10.6 H (-2.0-2.0) O2 Saturation 95.7 (94-100) g/dF ABG pH 7.40 (7.35-7.45) ABG HCO3 37.2 H* (22-28) ABG O2 Sat (Measured) 97.9 (95-100) % Regino Test yes A-a Gradient 231 a/A Ratio 0.27 Hemoglobin 10.6 Carboxyhemoglobin 1.8 (0.0-6.9) % THgb Methemoglobin 0.4 L (1.4-1.5) % Potassium 4.0 (3.5-5.1) Temperature 37.0 C POC O2 Flow Rate 55 % POC Glucometer 385 H (74 to 106) mg/dL Hemoglobin A1c 7.28 H (4.5-6.0) % 07/13/22 07/13/22 07/14/22 Range/Units 15:37 20:27 07:02 Puncture Site pCO2 (35-45) mmHg pO2 (75-100) mmHg Base Excess (-2.0-2.0) O2 Saturation (94-100) g/dF ABG pH (7.35-7.45) ABG HCO3 (22-28) ABG O2 Sat (Measured) (95-100) % Regino Test A-a Gradient a/A Ratio Hemoglobin Carboxyhemoglobin (0.0-6.9) % THgb Methemoglobin (1.4-1.5) % Potassium (3.5-5.1) Temperature C POC O2 Flow Rate % POC Glucometer 256 H 330 H 233 H (74 to 106) mg/dL Hemoglobin A1c (4.5-6.0) % Assessment/Plan (1) Congestive heart failure Current Visit: Yes Status: Acute Assessment & Plan: diuresed well, appears euvolemic at this time. Code(s): I50.9 - HEART FAILURE, UNSPECIFIED (2) Atrial fibrillation Current Visit: Yes Status: Acute Assessment & Plan: toprol was increased from 50mg to 100mg today to try to help in rate control Code(s): I48.91 - UNSPECIFIED ATRIAL FIBRILLATION (3) Morbid obesity Current Visit: Yes Status: Acute Code(s): E66.01 - MORBID (SEVERE) OBESITY DUE TO EXCESS CALORIES (4) COPD (chronic obstructive pulmonary disease) Current Visit: No Status: Chronic Qualifiers: Assessment & Plan: on nebs and steroids, no active wheezing. need to attempt to wean oxygen requirement today if tolerated, hoping she can be discharged tomorrow (5) Chronic hypoxemic respiratory failure Current Visit: No Status: Chronic
[2022-07-14] MEDS: ROCEPHIN 1 Gm-D5w 50 ml Bag** 1 G/50 ML IVPB IV SCH (09:47)
[2022-07-14] MEDS: Cardizem CD PO SCH (09:51)
[2022-07-14] MEDS: Klor Con PO SCH (09:52)
[2022-07-14] MEDS: Toprol Xl 100 MG PO SCH (09:52)
[2022-07-14] MEDS: Lasix 40 MG PO SCH (09:52)
[2022-07-14] MEDS: Zocor 10MG PO SCH (09:52)
[2022-07-14] MEDS: Protonix 40MG Tablet PO SCH (09:52)
[2022-07-14] MEDS: ZOLOFT 50 MG TABLET PO SCH (09:53)
[2022-07-14] MEDS: Zithromax 500 MG/ 250 ML NaCl Premix 500 MG/250 ML IVPB IV SCH (09:53)
[2022-07-14] MEDS: ELIQUIS 2.5 MG TABLET PO SCH ×2 (09:53→21:38)
[2022-07-14] MEDS: JARDIANCE PO SCH (09:53)
[2022-07-14] MEDS: NYSTOP POWDER 15 GM TP SCH ×2 (09:54→21:53)
[2022-07-14] MEDS: Wellbutrin SR 150 MG PO SCH ×2 (10:04→21:38)
[2022-07-14] MEDS: HUMALOG SQ PRN ×2 (11:45→21:38)
[2022-07-14] MEDS: ATARAX 25 MG PO PRN (11:47)
[2022-07-14] MEDS: Cyclobenzaprine 10 MG PO PRN (11:53)
[2022-07-14] MEDS ORDERED: DUONEB 0.5-3 MG/3 ml Neb IH ONE (21:54)
[2022-07-15] MEDS: solu-MEDROL 60 MG, Sterile H2O 10 ml 2 ML IV SCH ×2 (05:14)
[2022-07-15 05:34] LABS: Absolute Neutrophil Ct (ANC) 9.15 x10^3/uL (1.4-6.9); BASOPHIL % 0.1 % (0.0-0.4); Basophil (Absolute #) 0.01 x10^3/uL (0-0.4); Eosinophil (Absolute #) 0 x10^3/uL (0-0.5); Hematocrit 30.7 % (35-47); Hemoglobin 9.5 g/dL (12.0-16.0); IMMATURE GRAN # 0.09 x10^3u/L (0.00-0.03); IMMATURE GRAN % 0.9 % (0.00-0.4); Lymphocyte (Absolute #) 0.53 x10^3/uL (1.0-4.6); Lymphocytes % 5.3 % (24.0-44.0); Mean Cell Volume 101.7 fL (78-100); Mean Corpuscular Hemoglobin 31.5 pg (26-32); Mean Corpuscular Hgb Concent. 30.9 g/dL (32-36); Mean Platelet Volume 10.3 fL (7.5-11.0); Monocyte (Absolute #) 0.27 x10^3/uL (0.0-1.3); Monocytes % 2.7 % (0.0-12.0); NUCLEATED RBC # 0.02 x10^3u/L (0.00-0.01); NUCLEATED RBC % 0.2 % (0.00-0.1); Platelet Count 344 x10^3/uL (150-450); Red Blood Count 3.02 x10^6/uL (4.1-5.4); Red Cell Distribution Width 15.7 % (11.5-14.0); White Blood Count 10.1 x10^3/uL (4.0-10.5)
[2022-07-15 05:54] LABS: ALBUMIN 3.7 g/dL (3.5-5.0); ALKALINE PHOSPHATASE 70 U/L (38-126); ANION GAP 10.3 MEQ/L (5-15); BLOOD UREA NITROGEN 40 mg/dL (7-17); CHLORIDE 92 mmol/L (98-107); Calcium 9.4 mg/dL (8.4-10.2); Carbon Dioxide 38 mmol/L (22-30); Creatinine 1 0.83 mg/dL (0.52-1.04); EST GLOMERULAR FILTRATION RATE > 60.0 ML/MIN; Glucose 315 mg/dL (74-106); MAGNESIUM 2.5 mg/dL (1.6-2.3); NT PRO BNPII 5010 pg/mL (<300); Potassium 4.3 mmol/L (3.5-5.1); SGOT/AST 20 U/L (14-36); SGPT/ALT 24 U/L (0-35); SODIUM 136 mmol/L (137-145); Total Protein 6.8 g/dL (6.3-8.2)
[2022-07-15 06:12] LABS: Slide Review 1 YES
[2022-07-15] MEDS: NORCO 5/325 MG PO PRN ×3 (06:14→18:37)
[2022-07-15] MEDS: DUONEB 0.5-3 MG/3 ml Neb IH SCH ×4 (06:57→19:03)
[2022-07-15] MEDS: PATIENT OWN MEDICATION IH SCH (06:59)
[2022-07-15] MEDS: Cardizem CD PO SCH (08:55)
[2022-07-15] MEDS: ELIQUIS 2.5 MG TABLET PO SCH ×2 (08:56→21:33)
[2022-07-15] MEDS: Wellbutrin SR 150 MG PO SCH ×2 (08:56→21:33)
[2022-07-15] MEDS: Klor Con PO SCH (08:56)
[2022-07-15] MEDS: Protonix 40MG Tablet PO SCH (08:56)
[2022-07-15] MEDS: Zocor 10MG PO SCH (08:57)
[2022-07-15] MEDS: ZOLOFT 50 MG TABLET PO SCH (08:57)
[2022-07-15] MEDS: Toprol Xl 100 MG PO SCH (08:57)
[2022-07-15] MEDS: Lasix 40 MG PO SCH (08:57)
[2022-07-15] MEDS: Zithromax 500 MG/ 250 ML NaCl Premix 500 MG/250 ML IVPB IV SCH ×2 (08:58→11:11)
[2022-07-15] MEDS: ROCEPHIN 1 Gm-D5w 50 ml Bag** 1 G/50 ML IVPB IV SCH (08:58)
[2022-07-15] MEDS: JARDIANCE PO SCH (09:00)
[2022-07-15] MEDS: NYSTOP POWDER 15 GM TP SCH ×2 (09:01→21:36)
[2022-07-15] MEDS ORDERED: BUMEX 1 MG IV STA (09:09)
[2022-07-15] MEDS ORDERED: solu-MEDROL 40 MG, Sterile H2O 10 ml 2 ML IV SCH ×2 (09:12)
--- NOTE | 2022-07-15 09:13 | PCM.NOTE ---
Date and Time: 07/15/22909 Subjective Assessment: patient remains short of breath with any exertion, she is requiring 5-6L oxygen and has been on and off bipap at times according to nursing. she reports she is feeling some better but notes increased swelling in her left leg today Objective Exam General Appearance: no apparent distress, obese Neurologic Exam: alert, oriented x 3 Respiratory Exam: crackles/rales Cardiovascular Exam: regular rate/rhythm, normal heart sounds Gastrointestinal/Abdomen Exam: soft, No tenderness, No mass Extremity Exam: pedal edema, swelling OBJECTIVE DATA Vital Signs: Vital Signs - 24 hr Temp Pulse Resp BP Pulse Ox 07/15/22 07:43 97.1 F 141 H 19 153/95 93 L 07/15/22 06:59 72 22 92 L 07/15/22 03:58 97.2 F 93 H 24 136/80 92 L 07/14/22 23:33 97.7 F 108 H 20 119/72 97 07/14/22 20:00 97.6 F 102 H 24 140/80 91 L 07/14/22 18:21 106 H 22 89 L 07/14/22 16:00 98.1 F 116 H 16 127/77 92 L 07/14/22 12:00 97.1 F 114 H 20 108/74 91 L 07/14/22 10:59 117 H 20 94 L Pain Assessment - Last Documented Pain Intensity 4 Pain Scale Used 0-10 Pain Scale Intake and Output: Intake & Output 07/12/22 07/13/22 07/14/22 07/15/22 11:59 11:59 11:59 11:59 Intake Total 3180 3120 2940 5193 Output Total 2600 3100 4900 4300 Balance 580 20 -1960 893 Weight 136.8 kg 138.4 kg 136.8 kg Lab Results: Lab Results-Last 24 Hours 07/14/22 07/14/22 07/14/22 Range/Units 11:38 16:30 20:45 WBC (4.0-10.5) x10^3/uL RBC (4.1-5.4) x10^6/uL Hgb (12.0-16.0) g/dL Hct (35-47) % MCV (78-100) fL MCH (26-32) pg MCHC (32-36) g/dL RDW (11.5-14.0) % Plt Count (150-450) x10^3/uL MPV (7.5-11.0) fL Gran % (36.0-66.0) % Immature Gran % (Auto) (0.00-0.4) % Nucleat RBC Rel Count (0.00-0.1) % Eos # (Auto) (0-0.5) x10^3/uL Immature Gran # (Auto) (0.00-0.03) x10^3u/L Absolute Lymphs (auto) (1.0-4.6) x10^3/uL Absolute Monos (auto) (0.0-1.3) x10^3/uL Absolute Nucleated RBC (0.00-0.01) x10^3u/L Lymphocytes % (24.0-44.0) % Monocytes % (0.0-12.0) % Eosinophils % (0.00-5.0) % Basophils % (0.0-0.4) % Absolute Granulocytes (1.4-6.9) x10^3/uL Basophils # (0-0.4) x10^3/uL Sodium (137-145) mmol/L Potassium (3.5-5.1) mmol/L Chloride (98-107) mmol/L Carbon Dioxide (22-30) mmol/L Anion Gap (5-15) MEQ/L BUN (7-17) mg/dL Creatinine (0.52-1.04) mg/dL Estimated GFR ML/MIN Glucose (74-106) mg/dL POC Glucometer 318 H 184 H 354 H (74 to 106) mg/dL Calcium (8.4-10.2) mg/dL Magnesium (1.6-2.3) mg/dL Total Bilirubin (0.2-1.3) mg/dL AST (14-36) U/L ALT (0-35) U/L Alkaline Phosphatase (38-126) U/L NT-Pro-B Natriuret Pep (<300) pg/mL Serum Total Protein (6.3-8.2) g/dL Albumin (3.5-5.0) g/dL Slides for Path Review 07/15/22 07/15/22 07/15/22 Range/Units 04:52 04:52 07:23 WBC 10.1 (4.0-10.5) x10^3/uL RBC 3.02 L (4.1-5.4) x10^6/uL Hgb 9.5 L (12.0-16.0) g/dL Hct 30.7 L (35-47) % MCV 101.7 H (78-100) fL MCH 31.5 (26-32) pg MCHC 30.9 L (32-36) g/dL RDW 15.7 H (11.5-14.0) % Plt Count 344 D (150-450) x10^3/uL MPV 10.3 (7.5-11.0) fL Gran % 91.0 H (36.0-66.0) % Immature Gran % (Auto) 0.9 H (0.00-0.4) % Nucleat RBC Rel Count 0.2 H (0.00-0.1) % Eos # (Auto) 0 (0-0.5) x10^3/uL Immature Gran # (Auto) 0.09 H (0.00-0.03) x10^3u/L Absolute Lymphs (auto) 0.53 L (1.0-4.6) x10^3/uL Absolute Monos (auto) 0.27 (0.0-1.3) x10^3/uL Absolute Nucleated RBC 0.02 H (0.00-0.01) x10^3u/L Lymphocytes % 5.3 L (24.0-44.0) % Monocytes % 2.7 (0.0-12.0) % Eosinophils % 0.0 (0.00-5.0) % Basophils % 0.1 (0.0-0.4) % Absolute Granulocytes 9.15 H (1.4-6.9) x10^3/uL Basophils # 0.01 (0-0.4) x10^3/uL Sodium 136 L (137-145) mmol/L Potassium 4.3 D (3.5-5.1) mmol/L Chloride 92 L (98-107) mmol/L Carbon Dioxide 38 H (22-30) mmol/L Anion Gap 10.3 (5-15) MEQ/L BUN 40 H (7-17) mg/dL Creatinine 0.83 (0.52-1.04) mg/dL Estimated GFR > 60.0 ML/MIN Glucose 315 H (74-106) mg/dL POC Glucometer 307 H (74 to 106) mg/dL Calcium 9.4 (8.4-10.2) mg/dL Magnesium 2.5 H (1.6-2.3) mg/dL Total Bilirubin 0.40 (0.2-1.3) mg/dL AST 20 (14-36) U/L ALT 24 (0-35) U/L Alkaline Phosphatase 70 (38-126) U/L NT-Pro-B Natriuret Pep 5010 (<300) pg/mL Serum Total Protein 6.8 (6.3-8.2) g/dL Albumin 3.7 (3.5-5.0) g/dL Slides for Path Review YES Multi-Disciplinary Progress Notes: Multi-Disciplinary Progress Notes 07/14/22 10:30 Case Management Note by Shira Denise S/W PATIENT. SHE CONTINUES TO DENY ANY NEW NEEDS AT TIME OF DC. ALREADY HAS O2 AND NEBS AT HOME. PLANS TO RETURN HOME AT [facility] WITH SISTER. STATES SISTER WILL ASSIST WITH ALL NEEDS. WANT CARDIO/PULMONARY REHAB SET UP IN FUTURE BUT NOT NOW. Initialized on 07/14/22 10:30 - END OF NOTE Assessment/Plan (1) Congestive heart failure Current Visit: Yes Status: Acute Assessment & Plan: will give additional dose of IV bumex today with po lasix, likely discharge tomorrow. she will need a new oxygen concentrator capable of increasing her flow rate above 5Lpm Code(s): I50.9 - HEART FAILURE, UNSPECIFIED (2) Atrial fibrillation Current Visit: Yes Status: Acute Code(s): I48.91 - UNSPECIFIED ATRIAL FIBRILLATION (3) Morbid obesity Current Visit: Yes Status: Acute Code(s): E66.01 - MORBID (SEVERE) OBESITY DUE TO EXCESS CALORIES (4) COPD (chronic obstructive pulmonary disease) Current Visit: No Status: Chronic Qualifiers: Assessment & Plan: reduce steroids, no wheezing noted today. (5) Chronic hypoxemic respiratory failure Current Visit: No Status: Chronic
[2022-07-15] MEDS: HUMALOG SQ PRN ×3 (11:10→21:42)
[2022-07-15] MEDS: solu-MEDROL 40 MG, Sterile H2O 10 ml 2 ML IV SCH ×6 (11:15→23:57)
[2022-07-15] MEDS: Cyclobenzaprine 10 MG PO PRN (12:53)
[2022-07-15] MEDS: ATARAX 25 MG PO PRN ×2 (17:12→22:08)
[2022-07-16] MEDS: NORCO 5/325 MG PO PRN ×2 (03:33→09:58)
[2022-07-16] MEDS: PROVENTIL 2.5 MG/3 ML NEB IH PRN (03:56)
[2022-07-16] MEDS: ATARAX 25 MG PO PRN (04:34)
[2022-07-16] MEDS: solu-MEDROL 40 MG, Sterile H2O 10 ml 2 ML IV SCH ×4 (05:00→13:00)
[2022-07-16 05:35] LABS: Absolute Neutrophil Ct (ANC) 8.55 x10^3/uL (1.4-6.9); BASOPHIL % 0.3 % (0.0-0.4); Basophil (Absolute #) 0.03 x10^3/uL (0-0.4); Eosinophil (Absolute #) 0 x10^3/uL (0-0.5); Hematocrit 31.4 % (35-47); Hemoglobin 9.7 g/dL (12.0-16.0); IMMATURE GRAN # 0.24 x10^3u/L (0.00-0.03); IMMATURE GRAN % 2.4 % (0.00-0.4); Lymphocyte (Absolute #) 0.77 x10^3/uL (1.0-4.6); Lymphocytes % 7.7 % (24.0-44.0); Mean Cell Volume 99.1 fL (78-100); Mean Corpuscular Hemoglobin 30.6 pg (26-32); Mean Corpuscular Hgb Concent. 30.9 g/dL (32-36); Monocyte (Absolute #) 0.38 x10^3/uL (0.0-1.3); Monocytes % 3.8 % (0.0-12.0); NUCLEATED RBC # 0.03 x10^3u/L (0.00-0.01); NUCLEATED RBC % 0.3 % (0.00-0.1); Neutrophil % 85.8 % (36.0-66.0); Platelet Count 374 x10^3/uL (150-450); Red Blood Count 3.17 x10^6/uL (4.1-5.4); Red Cell Distribution Width 15.8 % (11.5-14.0)
[2022-07-16] MEDS: DUONEB 0.5-3 MG/3 ml Neb IH SCH ×2 (06:33→10:24)
[2022-07-16] MEDS: PATIENT OWN MEDICATION IH SCH (06:33)
[2022-07-16 06:57] LABS: ANION GAP 14.7 MEQ/L (5-15); BLOOD UREA NITROGEN 43 mg/dL (7-17); CHLORIDE 94 mmol/L (98-107); Calcium 9.1 mg/dL (8.4-10.2); Carbon Dioxide 34 mmol/L (22-30); Creatinine 1 0.97 mg/dL (0.52-1.04); EST GLOMERULAR FILTRATION RATE > 60.0 ML/MIN; Glucose 264 mg/dL (74-106); MAGNESIUM 2.5 mg/dL (1.6-2.3); Potassium 4.6 mmol/L (3.5-5.1); SODIUM 137 mmol/L (137-145)
[2022-07-16] MEDS: HUMALOG SQ PRN ×2 (07:57→11:43)
[2022-07-16] MEDS ORDERED: Lasix 40 MG/4 ML IV ONE (10:30)
--- NOTE | 2022-07-16 10:36 | PCM.DS ---
Discharge Summary Date of Admission: 07/09/22 09:05 Admitting Physician: DUNIA NAYAK MD Consults: Consults on Case 07/09/22 09:04 Consult Cardiology ROUTINE Primary Care Provider: EDGAR TRAN ARA Allergies Allergies bee venom protein (honey bee) Allergy (Severe, Verified 06/05/22 07:00) Difficulty Breathing Hospital Summary - Hospital Course Hospital Course: patient c/o increased swelling in her lower feet and legs, she remains stable on 6L oxygen. she has been treated for chf and copd exacerbation - Vitals & Intake/Output Vital Signs: Vital Signs Temperature 97.1 F 07/16/22 07:55 Pulse Rate 116 H 07/16/22 10:26 Respiratory Rate 20 07/16/22 10:26 Blood Pressure 144/79 07/16/22 07:55 O2 Sat by Pulse Oximetry 97 07/16/22 10:26 Intake & Output: Intake & Output 07/13/22 07/14/22 07/15/22 07/16/22 11:59 11:59 11:59 11:59 Intake Total 3120 2940 5193 2910 Output Total 3100 4900 4300 3900 Balance 20 -1960 893 -990 Weight 136.8 kg 138.4 kg 276.8 kg 125.5 kg - Lab Result Diagrams: 07/16/22 04:38 07/16/22 04:38 Lab Results-Last 24 Hrs: Lab Results-Last 24 Hours 07/15/22 07/15/22 07/15/22 Range/Units 11:24 17:02 21:34 WBC (4.0-10.5) x10^3/uL RBC (4.1-5.4) x10^6/uL Hgb (12.0-16.0) g/dL Hct (35-47) % MCV (78-100) fL MCH (26-32) pg MCHC (32-36) g/dL RDW (11.5-14.0) % Plt Count (150-450) x10^3/uL MPV (7.5-11.0) fL Gran % (36.0-66.0) % Immature Gran % (Auto) (0.00-0.4) % Nucleat RBC Rel Count (0.00-0.1) % Eos # (Auto) (0-0.5) x10^3/uL Immature Gran # (Auto) (0.00-0.03) x10^3u/L Absolute Lymphs (auto) (1.0-4.6) x10^3/uL Absolute Monos (auto) (0.0-1.3) x10^3/uL Absolute Nucleated RBC (0.00-0.01) x10^3u/L Lymphocytes % (24.0-44.0) % Monocytes % (0.0-12.0) % Eosinophils % (0.00-5.0) % Basophils % (0.0-0.4) % Absolute Granulocytes (1.4-6.9) x10^3/uL Basophils # (0-0.4) x10^3/uL Sodium (137-145) mmol/L Potassium (3.5-5.1) mmol/L Chloride (98-107) mmol/L Carbon Dioxide (22-30) mmol/L Anion Gap (5-15) MEQ/L BUN (7-17) mg/dL Creatinine (0.52-1.04) mg/dL Estimated GFR ML/MIN Glucose (74-106) mg/dL POC Glucometer 291 H 319 H 330 H (74 to 106) mg/dL Calcium (8.4-10.2) mg/dL Magnesium (1.6-2.3) mg/dL 07/16/22 07/16/22 07/16/22 Range/Units 04:38 04:38 07:14 WBC 10.0 (4.0-10.5) x10^3/uL RBC 3.17 L (4.1-5.4) x10^6/uL Hgb 9.7 L (12.0-16.0) g/dL Hct 31.4 L (35-47) % MCV 99.1 (78-100) fL MCH 30.6 (26-32) pg MCHC 30.9 L (32-36) g/dL RDW 15.8 H (11.5-14.0) % Plt Count 374 (150-450) x10^3/uL MPV 10.0 (7.5-11.0) fL Gran % 85.8 H (36.0-66.0) % Immature Gran % (Auto) 2.4 H (0.00-0.4) % Nucleat RBC Rel Count 0.3 H (0.00-0.1) % Eos # (Auto) 0 (0-0.5) x10^3/uL Immature Gran # (Auto) 0.24 H (0.00-0.03) x10^3u/L Absolute Lymphs (auto) 0.77 L (1.0-4.6) x10^3/uL Absolute Monos (auto) 0.38 (0.0-1.3) x10^3/uL Absolute Nucleated RBC 0.03 H (0.00-0.01) x10^3u/L Lymphocytes % 7.7 L (24.0-44.0) % Monocytes % 3.8 (0.0-12.0) % Eosinophils % 0.0 (0.00-5.0) % Basophils % 0.3 (0.0-0.4) % Absolute Granulocytes 8.55 H (1.4-6.9) x10^3/uL Basophils # 0.03 (0-0.4) x10^3/uL Sodium 137 (137-145) mmol/L Potassium 4.6 (3.5-5.1) mmol/L Chloride 94 L (98-107) mmol/L Carbon Dioxide 34 H (22-30) mmol/L Anion Gap 14.7 (5-15) MEQ/L BUN 43 H (7-17) mg/dL Creatinine 0.97 (0.52-1.04) mg/dL Estimated GFR > 60.0 ML/MIN Glucose 264 H (74-106) mg/dL POC Glucometer 223 H (74 to 106) mg/dL Calcium 9.1 (8.4-10.2) mg/dL Magnesium 2.5 H (1.6-2.3) mg/dL Micro Results-Entire Visit: Accuchecks Date 07/16/22 Date 07/15/22 Date 07/15/22 Date 07/15/22 Time 07:55 Time 17:08 Time 11:46 - Procedures and Test Procedures and Tests throughout Hospitalization: Therapy Orders & Screens 07/08/22 22:10 Respiratory Therapy Assessment DAILY Comment: 07/08/22 22:48 Oxygen NASAL CANNULA 2 lpm Comment: Diagnosis: CHF 07/09/22 01:35 Oxygen Oxymizer LPM 4 lpm Comment: at night Diagnosis: chf 07/12/22 00:18 Respiratory MDI BID Comment: Diagnosis: EXAC CHF 07/13/22 05:25 BiPap/CPAP ROUTINE Comment: Diagnosis: EXAC CHF Discharge Exam General Appearance: obese Neurologic Exam: alert, oriented x 3 Respiratory Exam: diminished breath sounds, prolonged expirations Cardiovascular Exam: regular rate/rhythm, normal heart sounds Gastrointestinal/Abdomen Exam: soft, No tenderness, No mass Extremity Exam: swelling Final Diagnosis/Problem List - Final Discharge Diagnosis/Problem (1) Congestive heart failure Current Visit: Yes Status: Acute Assessment & Plan: will f/u with Dr Emily Suarez regarding CHF, appears euvolemic currently Code(s): I50.9 - HEART FAILURE, UNSPECIFIED (2) Atrial fibrillation Current Visit: Yes Status: Acute Code(s): I48.91 - UNSPECIFIED ATRIAL FIBRILLATION (3) Morbid obesity Current Visit: Yes Status: Acute Code(s): E66.01 - MORBID (SEVERE) OBESITY DUE TO EXCESS CALORIES (4) COPD (chronic obstructive pulmonary disease) Current Visit: No Status: Chronic Assessment & Plan: f/u with Dr Tam (5) Chronic hypoxemic respiratory failure Current Visit: No Status: Chronic Assessment & Plan: qualified for 6L oxygen (6) Diabetes Current Visit: Yes Status: Acute Assessment & Plan: started on jardiance, check blood sugar daily Code(s): E11.9 - TYPE 2 DIABETES MELLITUS WITHOUT COMPLICATIONS - Discharge Disposition: Home, Self-Care Condition: Stable Prescriptions: New Prednisone 20 mg [Deltasone 20 mg] 20 mg PO UD #18 tablet Empagliflozin [Jardiance] 10 mg PO DAILY #30 tablet Levofloxacin [Levofloxacin 500 MG Tablet] 500 mg PO DAILY #5 tablet Continue Hydrocodone Bit/Acetaminophen [[place] 5/325Mg] 1 each PO Q6H PRN PRN PRN Reason: Pain Cyclobenzaprine HCl [Flexeril] 10 mg PO TID PRN PRN PRN Reason: Muscle Spasms Sertraline HCl 50 mg [Zoloft 50 mg Tablet] 100 mg PO DAILY Atorvastatin Calcium [Lipitor 20MG Tablet] 20 mg PO DAILY Hydroxyzine HCl 25 mg [Atarax 25 mg] 25 mg PO DAILY PRN PRN PRN Reason: Anxiety lisinopriL [Zestril] 5 mg PO DAILY Furosemide 40 mg [Lasix 40 MG] 40 mg PO DAILY Omeprazole 40 mg PO DAILY Albuterol Sulfate [Albuterol Sulfate Hfa] 1 puff IH Q4H PRN PRN PRN Reason: SOB/Wheezing Apixaban [Eliquis] 5 mg PO BID #60 tablet Albuterol/Ipratropium 3ml Neb* [DUONEB 0.5-3 MG/3 ml Neb] 3 ml IH QID PRN Budesonide/Formoterol Fumarate [Budesonide-Formoterol 160-4.5] 2 puffs IH BID buPROPion HCL [Bupropion HCl Sr] 150 mg PO BID dilTIAZem HCl [Cardizem Cd] 2 cap PO DAILY #60 cap Metoprolol Succinate 50 mg [Toprol Xl 50 MG] 50 mg PO DAILY #30 tablet Additional Instructions: WEAR 6L/NC DURING THE DAY AND 6L OXYMIZER WHEN SLEEPING NOW CALL [facility] AT [phone] WHEN YOU GET READY TO LEAVE [facility] SO THEY CAN MEET YOU AT HOME TO DELIVER YOUR NEW CONCENTRATOR Follow up with: EDGAR TRAN MD [Primary Care Provider] - 07/23/22 10:30 am ROMAN SUAREZ MD [CONSULTING PHYSICIAN] - 09/02/22 10:30 am ([facility] ) MELI TAM [CONSULTING PHYSICIAN] - Call for Appointment
[2022-07-16] MEDS ORDERED: Furosemide 100mg/10 ml Vial ONE (10:41)
[2022-07-16] MEDS: Zocor 10MG PO SCH (10:44)
[2022-07-16] MEDS: Toprol Xl 100 MG PO SCH (10:44)
[2022-07-16] MEDS: Protonix 40MG Tablet PO SCH (10:44)
[2022-07-16] MEDS: Cardizem CD PO SCH (10:44)
[2022-07-16] MEDS: ELIQUIS 2.5 MG TABLET PO SCH (10:44)
[2022-07-16] MEDS: ZOLOFT 50 MG TABLET PO SCH (10:44)
[2022-07-16] MEDS: Cyclobenzaprine 10 MG PO PRN (10:44)
[2022-07-16] MEDS: Wellbutrin SR 150 MG PO SCH (10:44)
[2022-07-16] MEDS: Klor Con PO SCH (10:45)
[2022-07-16] MEDS: NYSTOP POWDER 15 GM TP SCH (10:45)
[2022-07-16] MEDS: JARDIANCE PO SCH (10:45)
[2022-07-16] MEDS: ROCEPHIN 1 Gm-D5w 50 ml Bag** 1 G/50 ML IVPB IV SCH (10:45)
[2022-07-16] MEDS: Lasix 40 MG PO SCH (10:50)
[2022-07-16 11:48] VITALS: BP 143/85; PULSE 115; O2SAT 95
== END 2022-07-16 13:13 | disposition home or self-care (01) | DRG 292 ==
LOC: ED 19:17 → MED SURG 23:13 → OBSVTOIN 07-09 09:05
PROVIDERS: ADMIT Internal Medicine; ATTEND Family Medicine
DX: I13.0 Hypertensive heart and chronic kidney disease with heart failure and stage 1 through stage 4 chronic kidney disease, or unspecified chronic kidney disease (principal); J96.11 Chronic respiratory failure with hypoxia; N18.9 Chronic kidney disease, unspecified; I50.9 Heart failure, unspecified; I48.91 Unspecified atrial fibrillation; E66.01 Morbid (severe) obesity due to excess calories; J44.9 Chronic obstructive pulmonary disease, unspecified; E11.9 Type 2 diabetes mellitus without complications; E87.5 Hyperkalemia; R60.9 Edema, unspecified; Z99.81 Dependence on supplemental oxygen; Z79.899 Other long term (current) drug therapy; Z20.828 Contact with and (suspected) exposure to other viral communicable diseases; Z72.0 Tobacco use; Z79.01 Long term (current) use of anticoagulants
CPT/HCPCS: 0241U; 36000; 36415; 36600; 71045; 71250; 80048; 80053; 81001; 82375; 82803; 82947; 83036; 83605; 83735; 83880; 84484; 85025; 85027; 85610; 85730; 93005; 93268; 93306; 94002; 94003; 94640; 94760; 94762; 96374; 96375; 99285; 99291; J0456; J0696; J1815; J1817; J1940; J2920; J2930; J7609; Q3014; A9270-GY; G0378

== ENCOUNTER 2022-08-01 02:02 | Emergency (ER) | payer OTHER ==
--- NOTE | 2022-08-01 02:44 | XRAY ---
CLINICAL HISTORY:left sided weakness, slurred speech COMPARISON:None; TECHNIQUES:Multiple, contiguous, non-enhanced CT scan of the brain in the axial plane with multiplanar reconstructions in bony and soft tissue windows; FINDINGS: Normal CT attenuation of both cerebral hemispheres with no areas of abnormal attenuation values. No suspicious space-occupying lesions. No intra or extra-axial collections of fresh blood density. Normal size and shape of the ventricles, basal cisterns, and cortical sulci. The basal ganglia, thalamus, and internal capsule appear normal. Brainstem and dilan appear normal. No shift of midline structures. Unremarkable posterior fossa. Largely preserved cranial calvarial bones. Small interhemispheric lipomas are seen. Visualized paranasal sinuses appear clear. IMPRESSION: 1-No acute intracranial abnormality. 2-No acute hemorrhagic pathology. [facility] ER was called at at 1:40 AM RELOCATION SPECIALIST, 08/01/2022 and results were verbally communicated to Merlyn. Electronically Signed by: Mari Sun MD. (08/01/2022 01:42:00 RELOCATION SPECIALIST)
[2022-08-01] MEDS ORDERED: Sodium Chloride 0.9% 1000 ML 1,000 ML IV STA ×2 (02:51→05:31)
[2022-08-01] MEDS ORDERED: Sodium Chloride 0.9% 1000 ML 1,000 ML ONE ×2 (03:14→05:20)
[2022-08-01 03:15] LABS: Absolute Neutrophil Ct (ANC) 6.93 x10^3/uL (1.4-6.9); BASOPHIL % 0.4 % (0.0-0.4); Basophil (Absolute #) 0.04 x10^3/uL (0-0.4); Eosinophil % 0.4 % (0.00-5.0); Eosinophil (Absolute #) 0.04 x10^3/uL (0-0.5); Hematocrit 38.4 % (35-47); Hemoglobin 11.8 g/dL (12.0-16.0); IMMATURE GRAN # 0.04 x10^3u/L (0.00-0.03); IMMATURE GRAN % 0.4 % (0.00-0.4); Lymphocyte (Absolute #) 2.19 x10^3/uL (1.0-4.6); Lymphocytes % 22.2 % (24.0-44.0); Mean Cell Volume 99.5 fL (78-100); Mean Corpuscular Hemoglobin 30.6 pg (26-32); Mean Corpuscular Hgb Concent. 30.7 g/dL (32-36); Mean Platelet Volume 9.9 fL (7.5-11.0); Monocyte (Absolute #) 0.64 x10^3/uL (0.0-1.3); Monocytes % 6.5 % (0.0-12.0); Neutrophil % 70.1 % (36.0-66.0); Platelet Count 256 x10^3/uL (150-450); Red Blood Count 3.86 x10^6/uL (4.1-5.4); Red Cell Distribution Width 15.8 % (11.5-14.0); White Blood Count 9.9 x10^3/uL (4.0-10.5)
[2022-08-01 03:23] LABS: ALBUMIN 3.9 g/dL (3.5-5.0); ALKALINE PHOSPHATASE 45 U/L (38-126); ANION GAP 13.6 MEQ/L (5-15); BLOOD UREA NITROGEN 38 mg/dL (7-17); CHLORIDE 95 mmol/L (98-107); Calcium 8.4 mg/dL (8.4-10.2); Carbon Dioxide 36 mmol/L (22-30); Creatinine 1 0.91 mg/dL (0.52-1.04); EST GLOMERULAR FILTRATION RATE > 60.0 ML/MIN; Glucose 138 mg/dL (74-106); Potassium 4.6 mmol/L (3.5-5.1); SGOT/AST 42 U/L (14-36); SGPT/ALT 21 U/L (0-35); SODIUM 139 mmol/L (137-145); Total Protein 7.1 g/dL (6.3-8.2)
[2022-08-01 03:58] LABS: Appearance Clear (Clear); Bacteria None Seen /HPF (None Seen); Bilirubin Negative (Negative); Blood Negative (Negative); Epithelial Cells None Seen /HPF (None Seen); Glucose, Urine Negative (Negative); Hyaline Casts NONE SEEN /LPF (0-2); Ketones Negative (Negative); Leukocyte Esterase Negative (Negative); Nitrite Negative (Negative); Ph 5.5 (4.6-8.0); Protein,Urine Dip Negative (Negative); RBC 0-2 /HPF (0-5); Specific Gravity 1.025 (1.005-1.030); Urobilinogen 0.2 mg/dL (0.2); WBC 0-2 /HPF (0-5)
[2022-08-01 04:00] LABS: ADD URINE CULTURE? NO (NO)
[2022-08-01] MEDS ORDERED: NEXTERONE 360 MG/200 ML BAG 360 MG/200 ML PLAST..BAG IV SCH (05:00)
[2022-08-01] MEDS ORDERED: NEXTERONE 360 MG/200 ML BAG 360 MG/200 ML PLAST..BAG IV ONE (05:01)
--- NOTE | 2022-08-01 05:04 | ERPHSYRPT ---
- History of Present Illness Time Seen by Provider: 08/01/22 02:31 Source: patient, EMS Exam Limitations: clinical condition Patient Subjective Stated Complaint: EMT states pt got up around 0030 to eat pudding. 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; left arm drop minimal effort against gravity; left foot drop after 1 second; minimal effort against gravity to left arm; decrease in rt visual field; edema present in BLE greater in left; moist cough present; no respiratory distress present; pt on 6L via NC all the time; vitals wnl Physician History: 56 years old female with multiple medical problems including atrial fibrillation on Eliquis, hypertension, hyperlipidemia, diabetes mellitus, anxiety/depression, congestive heart failure, COPD on 6 L oxygen went to bed normal around midnight, woke up after an hour or so with weakness on the left upper and lower extremities, some slurring of speech which is much improved on presentation in the ER. Patient still not able to move left upper or lower extremities. Also having some left facial numbness and weakness. She is in A-fib with RVR but denies any chest pain or palpitations, has shortness of breath at her baseline and is on 6 L oxygen and is not any worse than usual. Timing/Duration: hour(s) (3), sudden Severity: moderate Character of Deficits: new weakness, LLE, LUE Deficits: decrease ability to stand, decrease ability to walk, unable to stand Baseline/Normal Cognition: alert oriented x 3 Current Cognition: alert oriented x 3 Associated Symptoms: slurred speech, trouble walking, vision changes Allergies/Adverse Reactions: bee venom protein (honey bee) Allergy (Severe, Verified 08/01/22 02:20) Difficulty Breathing Home Medications: Cyclobenzaprine HCl [Flexeril] 10 mg PO TID PRN PRN 07/07/16 [History] Hydrocodone Bit/Acetaminophen [[place] 5/325Mg] 1 each PO Q6H PRN PRN 07/07/16 [History] Atorvastatin Calcium [Lipitor 20MG Tablet] 20 mg PO HS 12/27/19 [History] Sertraline HCl 50 mg [Zoloft 50 mg Tablet] 100 mg PO DAILY 12/27/19 [History] Hydroxyzine HCl 25 mg [Atarax 25 mg] 25 mg PO DAILY PRN PRN 08/06/20 [History] Omeprazole 40 mg PO DAILY 08/06/20 [History] lisinopriL [Zestril] 2.5 mg PO BID 08/06/20 [History] Albuterol Sulfate [Albuterol Sulfate Hfa] 1 puff IH Q4H PRN PRN 12/24/20 [History] Albuterol/Ipratropium 3ml Neb* [DUONEB 0.5-3 MG/3 ml Neb] 3 ml IH QID PRN 02/07/21 [History] Budesonide/Formoterol Fumarate [Budesonide-Formoterol 160-4.5] 2 puffs IH BID 09/21/21 [History] buPROPion HCL [Bupropion HCl Sr] 150 mg PO BID 05/16/22 [History] Metoprolol Succinate 50 mg [Toprol Xl 50 MG] 100 mg PO BID 08/01/22 [History] Potassium Chloride [K-Tab ER] 10 meq PO DAILY 08/01/22 [History] Semaglutide [Ozempic] 0.25 mg SQ WEEKLY 08/01/22 [History] Tiotropium Accord [Spiriva Respimat] 2.5 mcg IH DAILY 08/01/22 [History] Torsemide 20 mg [Demadex 20 mg] 40 mg PO BID 08/01/22 [History] hydroCHLOROthiazide [Hydrochlorothiazide] 12.5 mg PO DAILY 08/01/22 [History] Hx Tetanus, Diphtheria Vaccination/Date Given: Yes Hx Influenza Vaccination/Date Given: Yes Hx Pneumococcal Vaccination/Date Given: Yes Travel Risk - International Travel Have you traveled outside of the country in past 3 weeks: No - Coronavirus Screening Are you exhibiting any of the following symptoms?: No Close contact with a COVID-19 positive Pt in past 14-21 Days: No - Vaccine Status Have you recieved a Covid-19 vaccination: Yes Member Services Representative: Moderna - Vaccination Dates Date of 2cond Vaccination (if applicable): 07/27/20 - Review of Systems Constitutional: No Symptoms Eyes: No Symptoms Ears, Nose, & Throat: No Symptoms Respiratory: Dyspnea, Dyspnea on Exertion (LUIS) Cardiac: No Symptoms Abdominal/Gastrointestinal: No Symptoms Genitourinary Symptoms: No Symptoms Musculoskeletal: Arthralgias Skin: No Symptoms Neurological: Focal Weakness Psychological: No Symptoms Hematologic/Lymphatic: Easy Bleeding Immunological/Allergic: No Symptoms - Past Medical History Pertinent Past Medical History: Yes Neurological History: No Pertinent History ENT History: No Pertinent History Cardiac History: Congestive Heart Failure, High Cholesterol, Hypertension Respiratory History: Asthma, Bronchitis, CHF, COPD, Pneumonia Endocrine Medical History: No Pertinent History Musculoskeletal History: Arthritis, Other GI Medical History: GERD History: No Pertinent History Psycho-Social History: Anxiety, Depression Female Reproductive Disorders: No Pertinent History Other Medical History: chronic back pain - Past Surgical History Past Surgical History: Yes Neuro Surgical History: No Pertinent History Cardiac: No Pertinent History Respiratory: No Pertinent History Gastrointestinal: No Pertinent History Genitourinary: No Pertinent History Musculoskeletal: Orthopedic Surgery Female Surgical History: No Pertinent History Other Surgical History: tonsils, back surgery, ingrown toenail repair - Social History Smoking Status: Current every day smoker How long have you smoked: 45 yrs Exposure to second hand smoke: Yes Drug Use: marijuana Patient Lives Alone: No Significant Family History: no pertinent family hx - Nursing Vital Signs Nursing Vital Signs: Initial Vital Signs Temperature 95.8 F 08/01/22 02:03 Pulse Rate 87 08/01/22 02:03 Respiratory Rate 26 H 08/01/22 02:03 Blood Pressure 111/61 08/01/22 02:03 O2 Sat by Pulse Oximetry 95 08/01/22 02:03 Pain Scale Pain Intensity 0 - Jose J Coma Scale Best Eye Response (Jose J): (4) open spontaneously Best Verbal Response ([place]): (5) oriented Best Motor Response (Jose J): (6) obeys commands [place] Total: 15 - Physical Exam General Appearance: no apparent distress, alert, anxiety Eye Exam: right eye: other (right v field deficit), bilateral eye: normal inspection, PERRL, EOMI Ears, Nose, Throat Exam: normal ENT inspection, TMs normal, pharynx normal, moist mucous membranes Neck Exam: normal inspection, non-tender, supple, full range of motion Respiratory: normal breath sounds, lungs clear Cardiovascular: tachycardia, irregular Gastrointestinal: soft, normal bowel sounds Extremity Exam: normal inspection, pelvis stable Mental Status: alert, oriented x 3, 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 Exam: normal hearing, normal speech, PERRL, facial paresthesias, facial weakness (Left) Coordination/Gait: normal finger to nose (Right) Motor/Sensory: negative Babinski's sign (Right), positive Babinski's sign (Left), weak motor strength LUE, weak motor strength LLE DTR: bicep (R): 2+, bicep (L): 3+, knee (R): 2+, knee (L): 3+ Skin Exam: normal color SpO2 Interpretation: O2 applied SpO2: 97 O2 Delivery: Nasal Cannula (6 L) - Course EKG Interpreted by Me: RATE (128), A-fib, Left Fitz[place]ugh Deviation, prolonged QT interval, Non-specific ST Changes Ordered Tests: Active Orders 24 hr Category Date Time Status Assistant Director Of Security STAT Care 08/01/22 02:52 Active EKG-ER Only STAT Care 08/01/22 02:51 Active IV Insertion STAT Care 08/01/22 02:51 Active IV Insertion-2nd Peripheral STAT Care 08/01/22 02:51 Active NPO (ED) STAT Care 08/01/22 02:52 Active POCT Glucose Check STAT Care 08/01/22 02:51 Active CHEST 1 VIEW (PORTABLE) Stat Exams 08/01/22 02:[address] ANGIOGRAPHY NECK [CT] Stat Exams 08/01/22 02:58 Completed CTA HEAD W AND/OR WO CONTRAST [CT] Stat Exams 08/01/22 02:57 Completed HEAD WITHOUT CONTRAST [CT] Stat Exams 08/01/22 02:16 Completed BNPII [NT PRO BNPII] Stat Lab 08/01/22 03:10 Completed CBC W DIFF Stat Lab 08/01/22 03:10 Completed CMP Stat Lab 08/01/22 03:10 Completed MAG [MAGNESIUM] Stat Lab 08/01/22 03:10 Completed TROPONIN Q3H Lab 08/01/22 03:10 Completed TROPONIN Q3H Lab 08/01/22 06:25 Received TROPONIN Q3H Lab 08/01/22 09:00 Ordered UA W/RFX UR CULTURE Stat Lab 08/01/22 03:46 Completed Medication Summary Generic Name Dose Route Start Last Admin Trade Name Freq PRN Reason Stop Dose Admin Amiodarone HCl/Dextrose 360 mg in 200 mls @ 33 mls/hr 08/01/22 05:00 08/01/22 05:27 Nexterone 360 Mg/200 Ml Bag IV 08/31/22 04:59 Infused .Q6H4M ALESSANDRA Titration Protocol Azithromycin 500 mg in 250 mls @ 250 mls/hr 08/01/22 06:28 08/01/22 06:31 Zithromax 500 Mg/ 250 Ml Nacl Premix IV 08/01/22 07:27 250 mls/hr STAT STA 250 mls/hr Administration Ceftriaxone Sodium/Dextrose 2 g in 50 mls @ 100 mls/hr 08/01/22 06:28 08/01/22 06:31 Rocephin 2 Gm-D5w 50ml Bag IV 08/01/22 06:57 100 mls/hr STAT STA 100 mls/hr Administration Discontinued Medications Generic Name Dose Route Start Last Admin Trade Name Freq PRN Reason Stop Dose Admin Aspirin 324 mg 08/01/22 06:14 08/01/22 06:18 Aspirin 81 Mg Tab.Chew PO 08/01/22 06:15 324 mg STAT ONE Administration Atorvastatin Calcium 80 mg 08/01/22 06:14 08/01/22 06:18 Atorvastatin Calcium 40 Mg Tablet PO 08/01/22 06:15 80 mg STAT STA Administration Atorvastatin Calcium Confirm 08/01/22 06:17 Atorvastatin Calcium 40 Mg Tablet Administered 08/01/22 06:18 Dose 80 mg .ROUTE .STK-MED ONE Sodium Chloride 1,000 mls @ 999 mls/hr 08/01/22 02:51 08/01/22 04:32 Sodium Chloride 0.9% 1000 Ml IV 08/01/22 03:51 Infused .Q1H1M STA Infusion Sodium Chloride Confirm 08/01/22 03:14 Sodium Chloride 0.9% 1000 Ml Administered 08/01/22 03:15 Dose 1,000 mls @ ud .ROUTE .STK-MED ONE Sodium Chloride Confirm 08/01/22 05:20 Sodium Chloride 0.9% 1000 Ml Administered 08/01/22 05:21 Dose 1,000 mls @ ud .ROUTE .STK-MED ONE Sodium Chloride 1,000 mls @ 999 mls/hr 08/01/22 05:31 08/01/22 05:34 Sodium Chloride 0.9% 1000 Ml IV 08/01/22 06:31 999 mls/hr .Q1H1M STA Administration Azithromycin Confirm 08/01/22 06:30 Zithromax 500 Mg/ 250 Ml Nacl Premix Administered 08/01/22 06:31 Dose 500 mg in 250 mls @ ud IV .STK-MED ONE Ceftriaxone Sodium/Dextrose Confirm 08/01/22 06:31 Rocephin 2 Gm-D5w 50ml Bag Administered 08/01/22 06:32 Dose 2 g in 50 mls @ ud IV .STK-MED ONE Lab/Rad Data: Laboratory Result Diagrams 08/01/22 03:10 08/01/22 03:10 Laboratory Results 08/01/22 08/01/22 08/01/22 Range/Units 03:46 03:10 03:10 WBC (4.0-10.5) x10^3/uL RBC (4.1-5.4) x10^6/uL Hgb (12.0-16.0) g/dL Hct (35-47) % MCV (78-100) fL MCH (26-32) pg MCHC (32-36) g/dL RDW (11.5-14.0) % Plt Count (150-450) x10^3/uL MPV (7.5-11.0) fL Gran % (36.0-66.0) % Immature Gran % (Auto) (0.00-0.4) % Nucleat RBC Rel Count (0.00-0.1) % Eos # (Auto) (0-0.5) x10^3/uL Immature Gran # (Auto) (0.00-0.03) x10^3u/L Absolute Lymphs (auto) (1.0-4.6) x10^3/uL Absolute Monos (auto) (0.0-1.3) x10^3/uL Absolute Nucleated RBC (0.00-0.01) x10^3u/L Lymphocytes % (24.0-44.0) % Monocytes % (0.0-12.0) % Eosinophils % (0.00-5.0) % Basophils % (0.0-0.4) % Absolute Granulocytes (1.4-6.9) x10^3/uL Basophils # (0-0.4) x10^3/uL Sodium (137-145) mmol/L Potassium (3.5-5.1) mmol/L Chloride (98-107) mmol/L Carbon Dioxide (22-30) mmol/L Anion Gap (5-15) MEQ/L BUN (7-17) mg/dL Creatinine (0.52-1.04) mg/dL Estimated GFR ML/MIN Glucose (74-106) mg/dL Calcium (8.4-10.2) mg/dL Magnesium (1.6-2.3) mg/dL Total Bilirubin (0.2-1.3) mg/dL AST (14-36) U/L ALT (0-35) U/L Alkaline Phosphatase (38-126) U/L Troponin I < 0.012 (0.000-0.034) ng/mL NT-Pro-B Natriuret Pep 4820 (<300) pg/mL Serum Total Protein (6.3-8.2) g/dL Albumin (3.5-5.0) g/dL Urine Color Yellow (Yellow) Urine Appearance Clear (Clear) Urine pH 5.5 (4.6-8.0) Ur Specific [place] 1.025 (1.005-1.030) Urine Protein Negative (Negative) Urine Glucose (UA) Negative (Negative) mg/dL Urine Ketones Negative (Negative) Urine Blood Negative (Negative) Urine Nitrite Negative (Negative) Urine Bilirubin Negative (Negative) Urine Urobilinogen 0.2 (0.2) mg/dL Ur Leukocyte Esterase Negative (Negative) U Hyaline Cast (Auto) NONE SEEN (0-2) /LPF Urine Microscopic RBC 0-2 (0-5) /HPF Urine Microscopic WBC 0-2 (0-5) /HPF Ur Epithelial Cells None Seen (None Seen) /HPF Urine Bacteria None Seen (None Seen) /HPF Urine Culture Reflexed NO (NO) 08/01/22 08/01/22 08/01/22 Range/Units 03:10 03:10 03:10 WBC 9.9 (4.0-10.5) x10^3/uL RBC 3.86 L (4.1-5.4) x10^6/uL Hgb 11.8 L (12.0-16.0) g/dL Hct 38.4 (35-47) % MCV 99.5 (78-100) fL MCH 30.6 (26-32) pg MCHC 30.7 L (32-36) g/dL RDW 15.8 H (11.5-14.0) % Plt Count 256 (150-450) x10^3/uL MPV 9.9 (7.5-11.0) fL Gran % 70.1 H (36.0-66.0) % Immature Gran % (Auto) 0.4 (0.00-0.4) % Nucleat RBC Rel Count 0.0 (0.00-0.1) % Eos # (Auto) 0.04 (0-0.5) x10^3/uL Immature Gran # (Auto) 0.04 H (0.00-0.03) x10^3u/L Absolute Lymphs (auto) 2.19 (1.0-4.6) x10^3/uL Absolute Monos (auto) 0.64 (0.0-1.3) x10^3/uL Absolute Nucleated RBC 0.00 (0.00-0.01) x10^3u/L Lymphocytes % 22.2 L (24.0-44.0) % Monocytes % 6.5 (0.0-12.0) % Eosinophils % 0.4 (0.00-5.0) % Basophils % 0.4 (0.0-0.4) % Absolute Granulocytes 6.93 H (1.4-6.9) x10^3/uL Basophils # 0.04 (0-0.4) x10^3/uL Sodium 139 (137-145) mmol/L Potassium 4.6 (3.5-5.1) mmol/L Chloride 95 L (98-107) mmol/L Carbon Dioxide 36 H (22-30) mmol/L Anion Gap 13.6 (5-15) MEQ/L BUN 38 H (7-17) mg/dL Creatinine 0.91 (0.52-1.04) mg/dL Estimated GFR > 60.0 ML/MIN Glucose 138 H (74-106) mg/dL Calcium 8.4 (8.4-10.2) mg/dL Magnesium 2.2 (1.6-2.3) mg/dL Total Bilirubin 0.80 (0.2-1.3) mg/dL AST 42 H (14-36) U/L ALT 21 (0-35) U/L Alkaline Phosphatase 45 (38-126) U/L Troponin I (0.000-0.034) ng/mL NT-Pro-B Natriuret Pep (<300) pg/mL Serum Total Protein 7.1 (6.3-8.2) g/dL Albumin 3.9 (3.5-5.0) g/dL Urine Color (Yellow) Urine Appearance (Clear) Urine pH (4.6-8.0) Ur Specific [place] (1.005-1.030) Urine Protein (Negative) Urine Glucose (UA) (Negative) mg/dL Urine Ketones (Negative) Urine Blood (Negative) Urine Nitrite (Negative) Urine Bilirubin (Negative) Urine Urobilinogen (0.2) mg/dL Ur Leukocyte Esterase (Negative) U Hyaline Cast (Auto) (0-2) /LPF Urine Microscopic RBC (0-5) /HPF Urine Microscopic WBC (0-5) /HPF Ur Epithelial Cells (None Seen) /HPF Urine Bacteria (None Seen) /HPF Urine Culture Reflexed (NO) - Progress Progress: re-examined Progress Note: 08/01/22 05:15 56 years old with multiple medical problems including COPD with chronic respiratory failure on 6 L oxygen, CHF, hypertension, hyperlipidemia, diabetes mellitus, atrial fibrillation on Eliquis is evaluated for sudden onset left hemiplegia and slurring of speech. Last well-known is around midnight, patient had some right visual field deficit on presentation which is improved. Speech difficulty is much improved on presentation in the ER. Patient has an NIH SS of 9 on presentation. Patient was in the window for tPA, prompt CT head is obtained which is negative tele neuro consult obtained who recommended CTAs as patient is not a candidate for tPA because of being on DOACs but qualify for possible intervention neuro interventional list. Telemetry neuro thinks patient probably have some M1 occlusion, I have discussed with Dr. Lomeli neurology at and Dr. Davis interventionalists who has reviewed films and both do not see any obvious occlusion that needs intervention. Patient has A-fib with RVR and started on amnio drip. Do not have any ICU bed available here at this hospital. I discussed with Dr. Gay hospitalist at who do not think patient needs to be direct admit and recommended transfer to emergency room. Transfer center is going to call us back. 08/01/22 05:34 Patient is started on amiodarone and her blood pressure dropped to 68 systolic, it is stopped. We will give fluid bolus to bring up blood pressure and have perfusion especially after stroke. I have spoken with Dr. Aguilar, I U regional merchandising manager, reviewed history, work-up and current management, agreed with transfer. Recommended keeping MAP above 65 and if needed patient will be started on pressors. Blood pressure improved in the 80s on recheck with MAP of 68. We will continue to monitor it. Chest x-ray reviewed by me revealed some congestion and bilateral airspace opacities, patient will be started on Rocephin and Zithromax. 08/01/22 06:12 Blood pressure is improved in 112s systolic. Heart rate low 100s with patient being in A-fib. We will continue to monitor. I do not think her A-fib is causing her hemodynamic instability, is a chronic issue, at this point perfusion is more important and we will hold off on medications to decrease the rate as they will have some effect on blood pressure. 08/01/22 06:53 Patient is excepted for transfer at ICU, Discussed with Dr.: Other Counseled pt/family regarding: lab results, diagnosis, need for follow-up, rhonda rbuy Medical Desision Making - Independent Historian Additional History obtained from: Family, EMS - External Record(s) Reviewed Records reviewed as a part of evaluation & management: Clinic - Discussion of managment Care discussed with:: specialist (Tele neurologist, neurologist, ICU intervention neurology, hospitalist, ICU regional merchandising manager) Reviewed:: Test results, Need for additional workup Agreed on:: Treatment plan, decision to admit Will see patient: in hospital - Diagnostic Testing Diagnostic test were ordered, analyzed, and reviewed by me: Yes Radiological Interpretation: Interpreted by me, Reviewed by me, Teleradiologist Report - Risk of complications The pt has a high risk of morbidity or mortality based on: Drug therapy requiring intensive monitoring for toxicity, Decision regarding hospitilization or escalation of hosp level of care - Departure Departure Disposition: Transfer Clinical Impression: Stroke, Atrial fibrillation with RVR Condition: Serious Critical Care Time: Yes Critical Care Time(excluding separately billable procedures): Critical 75-104 mins Referrals: EDGAR TRAN MD [Primary Care Provider] - Follow up/PCP as directed
--- NOTE | 2022-08-01 05:09 | XRAY ---
CLINICAL HISTORY:stroke COMPARISON:None; TECHNIQUES:CT of the neck angiography was performed with contrast in the arterial phase. Sagittal and coronal reconstructions were obtained. CDTI: 46.16mGy, DLP: 695.17 mGy*cm; FINDINGS: Aorta is seen opacifying with contras and its main arterial branches in the neck. Mild atherosclerotic changes were noted in both common carotid arteries predominantly in its bulb at the site of bifurcation, however, it is causing less than 25% of its luminal narrowing. Focal soft tissue plaque is identified In the left common carotid artery just after its origin Which is causing approximately 50 to 60% luminal narrowing however distal opacification with contrast was identified. A hypoplastic right vertebral artery with attenuated its caliber just after its origin. The left vertebral artery and basal artery appear unremarkable. No evidence of high-grade stenosis in visualized posterior circulation of the brain. No sizable cervical lymph nodes at any of the noted lymph node stations. Normal CT appearance of the nasopharynx and glottic region. The thyroid gland shows no definite abnormality. The visualized structures of the posterior fossa show no definite abnormality. Moderate degenerative changes in the visualized cervical spine. IMPRESSION: 1-No evidence of aortic dissection or aneurysm. 2-Mild atherosclerotic changes in both common carotid arteries predominantly in its bulb at the site of bifurcation however, it is causing less than 25% of its luminal narrowing. 3-Focal soft tissue plaque is identified In the left common carotid artery just after its origin which is causing approximately 50 to 60% luminal narrowing however distal opacification with contrast was identified. 4-Hypoplastic right vertebral artery. No evidence of high-grade stenosis in visualized posterior cerebral circulation. Electronically Signed by: Mari Sun MD. (08/01/2022 04:04:19 ELECTROTYPER)
--- NOTE | 2022-08-01 05:18 | XRAY ---
CLINICAL HISTORY:Stroke; COMPARISON:None; TECHNIQUES:Axial sections of CT angiogram head examination were acquired after administration of intravenous contrast. Reformatted coronal and sagittal images were also obtained. 3D reconstructions were also acquired; FINDINGS: Mild calcific atherosclerotic change in the petrous portion of bilateral internal carotid arteries and cavernous portion of the left internal carotid artery, resulting in approximately 25% luminal narrowing. Mild beaded appearance of the left middle cerebral artery secondary to atherosclerotic changes. Dominant left vertebral artery. The posterior cerebral circulation is patent. No occlusion is identified. No evidence of aneurysmal dilatation or dissection. IMPRESSION: No occlusion is identified. No evidence of aneurysmal dilatation or dissection. Mild calcific atherosclerotic change in the petrous portion of bilateral internal carotid arteries and cavernous portion of the left internal carotid artery, resulting in approximately 25% luminal narrowing. Mild beaded appearance of the left middle cerebral artery secondary to atherosclerotic changes. Electronically Signed by: Mari Sun MD. (08/01/2022 03:35:09 SPD TECH)
[2022-08-01] MEDS ORDERED: BABY ASPIRIN 81 MG CHEW PO ONE (06:14)
[2022-08-01] MEDS ORDERED: LIPITOR 40MG PO STA (06:14)
[2022-08-01] MEDS ORDERED: LIPITOR 40MG ONE (06:17)
[2022-08-01] MEDS ORDERED: ROCEPHIN 2 Gm-D5w 50ML BAG** 2 G/50 ML IVPB IV STA (06:28)
[2022-08-01] MEDS ORDERED: Zithromax 500 MG/ 250 ML NaCl Premix 500 MG/250 ML IVPB IV STA (06:28)
[2022-08-01] MEDS ORDERED: Zithromax 500 MG/ 250 ML NaCl Premix 500 MG/250 ML IVPB IV ONE (06:30)
[2022-08-01] MEDS ORDERED: ROCEPHIN 2 Gm-D5w 50ML BAG** 2 G/50 ML IVPB IV ONE (06:31)
[2022-08-01] MEDS ORDERED: DUONEB 0.5-3 MG/3 ml Neb IH ONE ×2 (06:49→06:50)
[2022-08-01 07:10] VITALS: BP 124/99; PULSE 114; O2SAT 99
--- NOTE | 2022-08-01 08:55 | XRAY ---
Indication: Left-sided weakness and slurred speech. Stroke. Comparison: July 29, 2022 Portable chest again demonstrates cardiomegaly with new diffuse pulmonary edema and new small left effusion favoring cardiac decompensation/CHF. Superimposed pneumonia not completely excluded.
== END 2022-08-01 07:26 | disposition short-term general hospital (02) ==
LOC: ED 02:02
DX: I63.89 Other cerebral infarction (principal); I48.20 Chronic atrial fibrillation, unspecified; I11.0 Hypertensive heart disease with heart failure; I50.9 Heart failure, unspecified; J44.9 Chronic obstructive pulmonary disease, unspecified; E11.9 Type 2 diabetes mellitus without complications; E78.5 Hyperlipidemia, unspecified; Z72.0 Tobacco use; Z79.01 Long term (current) use of anticoagulants; Z79.899 Other long term (current) drug therapy; Z99.81 Dependence on supplemental oxygen; Z20.828 Contact with and (suspected) exposure to other viral communicable diseases
CPT/HCPCS: 36000; 36415; 51702; 70450; 70496; 70498; 71045; 80053; 81001; 83735; 83880; 84484; 85025; 93005; 93041; 94640; 96360; 96361; 96365; 96368; 99285; 99291; 99292; J0456; J0696; A9270-GY

== ENCOUNTER 2023-09-14 12:09 | Emergency (ER) | payer OTHER ==
[2023-09-14 12:18] VITALS: TEMP 97
[2023-09-14 12:46] LABS: Absolute Neutrophil Ct (ANC) 6.86 x10^3/uL (1.56-6.13); BASOPHIL % 0.4 % (0.1-1.2); Basophil (Absolute #) 0.04 x10^3/uL (0.01-0.08); Eosinophil % 1.2 % (0.7-5.8); Eosinophil (Absolute #) 0.11 x10^3/uL (0.04-0.36); Hematocrit 46.2 % (34.1-44.9); Hemoglobin 15.8 g/dL (11.2-15.7); IMMATURE GRAN # 0.03 x10^3u/L (0.001-0.031); IMMATURE GRAN % 0.3 % (0.001-0.429); Lymphocyte (Absolute #) 1.52 x10^3/uL (1.18-3.74); Lymphocytes % 16.5 % (19.3-51.7); Mean Cell Volume 92.6 fL (79.4-94.8); Mean Corpuscular Hemoglobin 31.7 pg (25.6-32.2); Mean Corpuscular Hgb Concent. 34.2 g/dL (32.2-35.5); Mean Platelet Volume 9.8 fL (9.4-12.3); Monocyte (Absolute #) 0.65 x10^3/uL (0.24-0.86); Monocytes % 7.1 % (4.7-12.5); Neutrophil % 74.5 % (34.0-71.1); Platelet Count 222 x10^3/uL (182-369); Red Blood Count 4.99 x10^6/uL (3.93-5.22); Red Cell Distribution Width 14.1 % (11.7-14.4); White Blood Count 9.2 x10^3/uL (3.98-10.04)
--- NOTE | 2023-09-14 13:06 | XRAY ---
Indication: Chest pain. Comparison: August 31, 2023 Portable apical lordotic chest again hyperinflated and is now clear. Remaining heart and lungs unremarkable again with incidental mitral valve calcifications. No new/acute abnormalities.
--- NOTE | 2023-09-14 13:10 | ERPHSYRPT ---
- History of Present Illness Historian: patient Exam Limitations: no limitations Patient Subjective Stated Complaint: pt here for pain to chest when coughs, no fever, she was seen carole last week for samething last week, and labs and ekg where okay Triage Nursing Assessment: pt alert, resp easy, skin warm, sweaty, and dry, skin w/d/p.slight edema not lower legs, abd soft Physician History: 57-year-old female with left-sided chest pain since 5 AM this morning. The pain does not radiate and is rated 3 out of 10 on scale at present. She has been dyspneic and diaphoretic without nausea or vomiting. Nothing makes the pain better or worse. Patient has history of A-fib and is on Coumadin and also has a history of diabetes mellitus, hypertension, 1 pack a day tobacco abuse, and hyperlipidemia. PR and coronary artery disease are denied at this time. Timing/Duration: other ( 5 AM today) Activities at Onset: rest Quality: aching Location: other ( left anterior thorax) Chest Pain Radiation: no radiation Severity of Pain-Max: mild Severity of Pain-Current: mild Modifying Factors: Improves With: nothing Associated Symptoms: shortness of breath, diaphoresis, No nausea, No vomiting Nitro Today/Relief: no nitro taken today Aspirin Treatment Today: no aspirin today Allergies/Adverse Reactions: bee venom protein (honey bee) Allergy (Severe, Verified 09/14/23 12:27) Difficulty Breathing Home Medications: Cyclobenzaprine HCl [Flexeril] 10 mg PO Q8HPRN PRN 07/07/16 [History] Hydrocodone Bit/Acetaminophen [[place] 5/325Mg] 1 each PO Q6H PRN PRN 07/07/16 [History] Atorvastatin Calcium [Lipitor 20MG Tablet] 80 mg PO HS 12/27/19 [History] Sertraline HCl 50 mg [Zoloft 50 mg Tablet] 100 mg PO DAILY 12/27/19 [History] Hydroxyzine HCl 25 mg [Atarax 25 mg] 25 mg PO DAILY PRN PRN 08/06/20 [ History] Omeprazole 40 mg PO DAILY 08/06/20 [History] Albuterol Sulfate [Albuterol Sulfate Hfa] 1 puff IH Q4H PRN PRN 12/24/20 [History] Albuterol/Ipratropium 3ml Neb* [DUONEB 0.5-3 MG/3 ml Neb] 3 ml IH QID 02/07/21 [History] Potassium Chloride [K-Tab ER] 20 meq PO DAILY 08/01/22 [History] Tiotropium [place] [Spiriva Respimat] 2.5 mcg IH DAILY 08/01/22 [History] Torsemide 20 mg [Demadex 20 mg] 40 mg PO DAILY 08/01/22 [History] Acetaminophen 650 mg PO Q4HPRN PRN 08/25/22 [History] Aspirin [Aspirin EC] 81 mg PO DAILY 08/25/22 [History] Digoxin 250 mcg PO DAILY 08/25/22 [History] Empagliflozin [Jardiance] 25 mg PO DAILY 08/25/22 [History] Metoprolol Tartrate 25 mg [Lopressor 25MG Tab] 25 mg PO BID 08/25/22 [History] Warfarin Sodium 5 mg [Coumadin] 5 mg PO HS 08/25/22 [History] Hx Tetanus, Diphtheria Vaccination/Date Given: Yes Hx Influenza Vaccination/Date Given: No Hx Pneumococcal Vaccination/Date Given: Yes Immunizations Up to Date: Yes Travel Risk - International Travel Have you traveled outside of the country in past 3 weeks: No - Emerging Infectious Disease Are you exhibiting symptoms associated with any current EIDs: No - Review of Systems Constitutional: No Symptoms Eyes: No Symptoms Ears, Nose, & Throat: No Symptoms Respiratory: Dyspnea Cardiac: Chest Pain Abdominal/Gastrointestinal: No Symptoms Genitourinary Symptoms: No Symptoms Musculoskeletal: No Symptoms Skin: No Symptoms Neurological: No Symptoms Psychological: No Symptoms Endocrine: No Symptoms Hematologic/Lymphatic: No Symptoms Immunological/Allergic: No Symptoms - Past Medical History Pertinent Past Medical History: Yes Neurological History: Stroke ENT History: No Pertinent History Cardiac History: Arrhythmia, Congestive Heart Failure, High Cholesterol, Hypertension Respiratory History: Asthma, Bronchitis, CHF, COPD, Pneumonia Endocrine Medical History: No Pertinent History Musculoskeletal History: Arthritis, Other GI Medical History: GERD History: No Pertinent History Psycho-Social History: Anxiety, Depression Female Reproductive Disorders: No Pertinent History Other Medical History: chronic back pain - Past Surgical History Past Surgical History: Yes Neuro Surgical History: No Pertinent History Cardiac: No Pertinent History Respiratory: No Pertinent History Gastrointestinal: No Pertinent History Genitourinary: No Pertinent History Musculoskeletal: Orthopedic Surgery Female Surgical History: No Pertinent History Other Surgical History: tonsils, back surgery, ingrown toenail repair Significant Family History: no pertinent family hx - Social History Smoking Status: Current every day smoker How long have you smoked: 45 yrs Exposure to second hand smoke: Yes Drug Use: marijuana Patient Lives Alone: No - Social Determinants of Health Will the patient participate in the screening: Yes Do you worry about a steady place to live?: No Do you have any problems with any of the following?: No known problems In the past 12 months,have you had to go without utilities?: No Transportation Issues: No Has anyone in your support network made you feel unsafe?: No Have you or anyone in your house had to go without enough: No - Nursing Vital Signs Nursing Vital Signs: Initial Vital Signs Temperature 97.0 F 09/14/23 12:16 Pulse Rate 86 09/14/23 12:16 Respiratory Rate 18 09/14/23 12:16 Blood Pressure 140/109 09/14/23 12:16 O2 Sat by Pulse Oximetry 97 09/14/23 12:16 Pain Scale Pain Intensity 4 hypertensive - Physical Exam General Appearance: no apparent distress, anxiety Eye Exam: PERRL/EOMI, eyes nml inspection Ears, Nose, Throat Exam: normal ENT inspection, TMs normal, pharynx normal, moist mucous membranes Neck Exam: normal inspection, non-tender, supple, full range of motion, No meningismus, No mass, No Brudzinski, No Kernig's, No carotid bruit Respiratory Exam: crackles/rales (Faint rales at the bases bilaterally but overall clear) Cardiovascular Exam: other ( irregularly irregular) Gastrointestinal/Abdomen Exam: soft, normal bowel sounds Back Exam: normal inspection, normal range of motion Extremity Exam: normal inspection, normal range of motion Neurologic Exam: alert, oriented x 3, cooperative, 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 Cancino) Ordered Tests: Active Orders 24 hr Category Date Time Status EKG-ER Only STAT Care 09/14/23 12:36 Completed CHEST 1 VIEW (PORTABLE) Stat Exams 09/14/23 12:36 Completed CBC W DIFF Stat Lab 09/14/23 12:45 Completed CMP Stat Lab 09/14/23 12:36 Completed D-DIMER QUANTITATIVE Stat Lab 09/14/23 14:00 Completed MAGNESIUM Stat Lab 09/14/23 12:36 Completed NT PRO BNPII Stat Lab 09/14/23 12:36 Completed POCT GLUCOSE Stat Lab 09/14/23 12:38 Completed PROTIME WITH INR Stat Lab 09/14/23 12:36 Completed PTT Stat Lab 09/14/23 12:36 Completed TROPONIN Q4H Lab 09/14/23 12:45 Completed TROPONIN Q4H Lab 09/14/23 15:05 Completed Medication Summary Discontinued Medications Generic Name Dose Route Start Last Admin Trade Name Freq PRN Reason Stop Dose Admin Diltiazem HCl 5 mg 09/14/23 15:49 09/14/23 16:02 Diltiazem Hcl Iv 5 Mg/Ml Vial IV 09/14/23 15:50 5 mg STAT ONE Administration Diltiazem HCl Confirm 09/14/23 15:58 Diltiazem Hcl Iv 5 Mg/Ml Vial Administered 09/14/23 15:59 Dose 50 mg IV .STK-MED ONE Furosemide 40 mg 09/14/23 14:34 09/14/23 15:01 Furosemide 40 Mg/4 Ml Vial IV 09/14/23 14:35 40 mg STAT ONE Administration Furosemide Confirm 09/14/23 14:58 Furosemide 40 Mg/4 Ml Vial Administered 09/14/23 14:59 Dose 40 mg .ROUTE .STK-MED ONE Lab/Rad Data: Laboratory Result Diagrams 09/14/23 12:45 09/14/23 12:36 Laboratory Results 09/14/23 09/14/23 09/14/23 Range/Units Unknown 15:05 14:00 WBC (3.98-10.04) x10^3/uL RBC (3.93-5.22) x10^6/uL Hgb (11.2-15.7) g/dL Hct (34.1-44.9) % MCV (79.4-94.8) fL MCH (25.6-32.2) pg MCHC (32.2-35.5) g/dL RDW (11.7-14.4) % Plt Count (182-369) x10^3/uL MPV (9.4-12.3) fL Gran % (34.0-71.1) % Immature Gran % (Auto) (0.001-0.429) % Nucleat RBC Rel Count (0.00-0.2) % Eos # (Auto) (0.04-0.36) x10^3/uL Immature Gran # (Auto) (0.001-0.031) x10^3u/L Absolute Lymphs (auto) (1.18-3.74) x10^3/uL Absolute Monos (auto) (0.24-0.86) x10^3/uL Absolute Nucleated RBC (0.00-0.012) x10^3u/L Lymphocytes % (19.3-51.7) % Monocytes % (4.7-12.5) % Eosinophils % (0.7-5.8) % Basophils % (0.1-1.2) % Absolute Granulocytes (1.56-6.13) x10^3/uL Basophils # (0.01-0.08) x10^3/uL PT (9.4-12.5) SECONDS INR (0.8-3.0) APTT (25.1-36.5) SECONDS D-Dimer 0.36 (0.0-0.50) mg/L Sodium (135-145) mmol/L Potassium (3.5-5.1) mmol/L Chloride (98-107) mmol/L Carbon Dioxide (22-30) mmol/L Anion Gap (5-15) MEQ/L BUN (7-17) mg/dL Creatinine (0.52-1.04) mg/dL Estimated GFR ML/MIN Glucose (74-106) mg/dL POC Glucometer (74 to 106) mg/dL Calcium (8.4-10.2) mg/dL Magnesium (1.6-2.3) mg/dL Total Bilirubin (0.2-1.3) mg/dL AST (14-36) U/L ALT (0-35) U/L Alkaline Phosphatase (38-126) U/L Troponin I < 0.012 (0.000-0.033) ng/mL NT-Pro-B Natriuret Pep (<300) pg/mL Serum Total Protein (6.3-8.2) g/dL Albumin (3.5-5.0) g/dL Digoxin 1.1 (0.8-1.9) ng/mL 09/14/23 09/14/23 09/14/23 Range/Units 12:45 12:45 12:38 WBC 9.2 (3.98-10.04) x10^3/uL RBC 4.99 (3.93-5.22) x10^6/uL Hgb 15.8 H (11.2-15.7) g/dL Hct 46.2 H (34.1-44.9) % MCV 92.6 (79.4-94.8) fL MCH 31.7 (25.6-32.2) pg MCHC 34.2 (32.2-35.5) g/dL RDW 14.1 (11.7-14.4) % Plt Count 222 (182-369) x10^3/uL MPV 9.8 (9.4-12.3) fL Gran % 74.5 H (34.0-71.1) % Immature Gran % (Auto) 0.3 (0.001-0.429) % Nucleat RBC Rel Count 0.0 (0.00-0.2) % Eos # (Auto) 0.11 (0.04-0.36) x10^3/uL Immature Gran # (Auto) 0.03 (0.001-0.031) x10^3u/L Absolute Lymphs (auto) 1.52 (1.18-3.74) x10^3/uL Absolute Monos (auto) 0.65 (0.24-0.86) x10^3/uL Absolute Nucleated RBC 0.00 (0.00-0.012) x10^3u/L Lymphocytes % 16.5 L (19.3-51.7) % Monocytes % 7.1 (4.7-12.5) % Eosinophils % 1.2 (0.7-5.8) % Basophils % 0.4 (0.1-1.2) % Absolute Granulocytes 6.86 H (1.56-6.13) x10^3/uL Basophils # 0.04 (0.01-0.08) x10^3/uL PT (9.4-12.5) SECONDS INR (0.8-3.0) APTT (25.1-36.5) SECONDS D-Dimer (0.0-0.50) mg/L Sodium (135-145) mmol/L Potassium (3.5-5.1) mmol/L Chloride (98-107) mmol/L Carbon Dioxide (22-30) mmol/L Anion Gap (5-15) MEQ/L BUN (7-17) mg/dL Creatinine (0.52-1.04) mg/dL Estimated GFR ML/MIN Glucose (74-106) mg/dL POC Glucometer 139 H (74 to 106) mg/dL Calcium (8.4-10.2) mg/dL Magnesium (1.6-2.3) mg/dL Total Bilirubin (0.2-1.3) mg/dL AST (14-36) U/L ALT (0-35) U/L Alkaline Phosphatase (38-126) U/L Troponin I < 0.012 (0.000-0.033) ng/mL NT-Pro-B Natriuret Pep (<300) pg/mL Serum Total Protein (6.3-8.2) g/dL Albumin (3.5-5.0) g/dL Digoxin (0.8-1.9) ng/mL 09/14/23 09/14/23 Range/Units 12:36 12:36 WBC (3.98-10.04) x10^3/uL RBC (3.93-5.22) x10^6/uL Hgb (11.2-15.7) g/dL Hct (34.1-44.9) % MCV (79.4-94.8) fL MCH (25.6-32.2) pg MCHC (32.2-35.5) g/dL RDW (11.7-14.4) % Plt Count (182-369) x10^3/uL MPV (9.4-12.3) fL Gran % (34.0-71.1) % Immature Gran % (Auto) (0.001-0.429) % Nucleat RBC Rel Count (0.00-0.2) % Eos # (Auto) (0.04-0.36) x10^3/uL Immature Gran # (Auto) (0.001-0.031) x10^3u/L Absolute Lymphs (auto) (1.18-3.74) x10^3/uL Absolute Monos (auto) (0.24-0.86) x10^3/uL Absolute Nucleated RBC (0.00-0.012) x10^3u/L Lymphocytes % (19.3-51.7) % Monocytes % (4.7-12.5) % Eosinophils % (0.7-5.8) % Basophils % (0.1-1.2) % Absolute Granulocytes (1.56-6.13) x10^3/uL Basophils # (0.01-0.08) x10^3/uL PT 22.1 H (9.4-12.5) SECONDS INR 2.13 (0.8-3.0) APTT 35.7 (25.1-36.5) SECONDS D-Dimer (0.0-0.50) mg/L Sodium 141 (135-145) mmol/L Potassium 4.1 (3.5-5.1) mmol/L Chloride 103 (98-107) mmol/L Carbon Dioxide 31 H (22-30) mmol/L Anion Gap 11.2 (5-15) MEQ/L BUN 17 (7-17) mg/dL Creatinine 0.60 (0.52-1.04) mg/dL Estimated GFR 103.3 ML/MIN Glucose 125 H (74-106) mg/dL POC Glucometer (74 to 106) mg/dL Calcium 9.7 (8.4-10.2) mg/dL Magnesium 2.0 (1.6-2.3) mg/dL Total Bilirubin 0.60 (0.2-1.3) mg/dL AST 22 (14-36) U/L ALT 14 (0-35) U/L Alkaline Phosphatase 105 (38-126) U/L Troponin I (0.000-0.033) ng/mL NT-Pro-B Natriuret Pep 2910 (<300) pg/mL Serum Total Protein 7.1 (6.3-8.2) g/dL Albumin 4.1 (3.5-5.0) g/dL Digoxin (0.8-1.9) ng/mL all reviewed - Progress Progress: improved Progress Note: 09/14/23 23:05 Nursing note and vital signs reviewed. No food or housing insecurity noted All lab results thoroughly reviewed and shared with patient. Chest x-ray result thoroughly reviewed and shared with patient. 09/14/23 23:06 It appears patient has atrial fibrillation with mild rapid ventricular response and also mild congestive heart failure. there is no evidence of acute myocardial infarction in the heart failure is very mild and chronic. Patient was given 5 g IV Cardizem with decrease in her heart rate to acceptable level and also 40 g IV Lasix. She had good oxygen saturation and nonlabored respirations throughout her stay. Discharged in stable condition with instructions to follow-up with her PCP and/or digital x ray service engineer and return to the ER for any chest pain, increasing shortness of breath, or temperature greater 100.5. Patient resting comfortably before discharge with good oxygen saturation on room air. Digoxin level was within normal limits and anticoagulation was adequate. Discharged in stable condition. 09/14/23 23:08 Counseled pt/family regarding: lab results, diagnosis, need for follow-up, rad results Medical Desision Making - Independent Historian Additional History obtained from: Family - Diagnostic Testing Diagnostic test were ordered, analyzed, and reviewed by me: Yes Radiological Interpretation: Reviewed by me - Risk of complications The pt has a mod risk of morbidity or mortality based on: Need for prescription drug management - Departure Departure Disposition: Home Clinical Impression: Chest pain, CHF (congestive heart failure) Condition: Stable Critical Care Time: No Referrals: [facility] [Primary Care Provider] - Follow up/PCP as directed Instructions: Heart Failure, Heart Failure, Adult (DC), Chest Pain (DC) Additional Instructions: Follow-up with your family MD or digital x ray service engineer soon as possible Take an extra 20 mg dose of torsemide and early afternoon Return to ER for increasing chest pain or increasing shortness of breath.
[2023-09-14 13:33] LABS: INR 2.13 (0.8-3.0); PROTIME 22.1 SECONDS (9.4-12.5); PTT 35.7 SECONDS (25.1-36.5)
[2023-09-14 13:43] LABS: ALBUMIN 4.1 g/dL (3.5-5.0); ANION GAP 11.2 MEQ/L (5-15); BILIRUBIN,TOTAL 0.6 mg/dL (0.2-1.3); Calcium 9.7 mg/dL (8.4-10.2); Creatinine 1 0.6 mg/dL (0.52-1.04); EST GLOMERULAR FILTRATION RATE 103.3 ML/MIN; Potassium 4.1 mmol/L (3.5-5.1); Total Protein 7.1 g/dL (6.3-8.2)
[2023-09-14] MEDS ORDERED: Lasix 40 MG/4 ML ONE (14:58)
[2023-09-14 14:59] VITALS: BP 122/69; PULSE 103; RESP 11
[2023-09-14] MEDS: Lasix 40 MG/4 ML IV ONE (15:01)
[2023-09-14] MEDS ORDERED: Cardizem IV 50 MG/10 ML IV ONE (15:58)
[2023-09-14] MEDS: Cardizem IV 50 MG/10 ML IV ONE (16:02)
[2023-09-14 16:21] VITALS: O2SAT 94
== END 2023-09-14 16:34 | disposition home or self-care (01) ==
LOC: ED 12:09
DX: R07.9 Chest pain, unspecified (principal); I11.0 Hypertensive heart disease with heart failure; I50.9 Heart failure, unspecified; R06.00 Dyspnea, unspecified; E11.9 Type 2 diabetes mellitus without complications; E78.5 Hyperlipidemia, unspecified; Z79.01 Long term (current) use of anticoagulants; Z79.84 Long term (current) use of oral hypoglycemic drugs; Z79.891 Long term (current) use of opiate analgesic; Z79.899 Other long term (current) drug therapy; Z72.0 Tobacco use
CPT/HCPCS: 36415; 71045; 80053; 80162; 82947; 83735; 83880; 84484; 85025; 85379; 85610; 85730; 93005; 96374; 96375; 99284; J1940

== ENCOUNTER 2024-07-25 09:39 | Day surgery (SDC) | payer OTHER ==
--- NOTE | 2024-07-24 23:30 | HP ---
HISTORY OF PRESENT ILLNESS: A 2-month history of right upper quadrant pain, some nausea, some diarrhea. Ultrasound showed cholelithiasis. PAST MEDICAL HISTORY: Hypertension, COPD, gastroesophageal reflux disease, type 2 diabetes, history of stroke, depression, hyperlipidemia. HOME MEDICATIONS: Spiriva Respimat, Tiadylt, torsemide, sertraline, potassium chloride, warfarin, omeprazole, metoprolol, lisinopril, Jardiance, hydroxyzine, hydrocodone, diltiazem, digoxin, cyclobenzaprine, calcium citrate, atorvastatin, albuterol sulfate. ALLERGIES: No known drug allergies. PAST SURGICAL HISTORY: Tonsillectomy, ankle surgery in the past, cardiac catheterization in the past. SOCIAL HISTORY: A 2 pack-a-day smoker. Occasional alcohol use. Does use marijuana at times. FAMILY HISTORY: Diabetes, heart disease, and prostate cancer. REVIEW OF SYSTEMS: Twelve systems reviewed. Negative or noncontributory as above and per preadmission questionnaire. PHYSICAL EXAMINATION: GENERAL: Height 5 feet 7 inches. BMI 28.8. No acute distress. HEENT: Sclerae anicteric. Extraocular movements intact. NECK: No JVD. CARDIOVASCULAR: Regular rate and rhythm. RESPIRATORY: Equal excursion. Decrease breath sounds consistent with her chronic lung disease. ABDOMEN: Soft. Mild right upper quadrant tenderness. SKIN: Dry. EXTREMITIES: No cyanosis or edema. NEUROLOGIC: Alert and oriented. Moving all extremities symmetrically. PSYCHIATRIC: Appropriate mood and affect. IMPRESSION: Right upper quadrant pain, nausea, gallstones, acute exacerbation of chronic cholecystitis, cholelithiasis. Recommend cholecystectomy. Shown the gallbladder pamphlet. Risk sheet explained in detail including bleeding; infection; risk of trocar injury or hernia; risk of bile leak, bile duct injury, retained stone or sludge possibly requiring ERCP or open procedure; risk of anesthesia, DVT, PE, pneumonia; risk of aches, pains, bloating, constipation, and/or loose stools possibly chronic in nature; possible no improvement in symptoms, possible requiring further workup or studies or endoscopy or referrals. Recommend holding blood thinners preop. Otherwise, continue medication for COPD, reflux, hypertension, diabetes, depression, hyperlipidemia. PLAN: Schedule outpatient under general anesthesia laparoscopic cholecystectomy, possible open.
[2024-07-25] MEDS: TYLENOL EXTRA STRENGTH 500 MG PO ONE (09:12)
[2024-07-25] MEDS: CEFOXITIN 2 GM/100 ML NACL IVPB 2 GM/100 ML IVPB IV ONE (09:12)
[2024-07-25] MEDS: Sodium Chloride 0.9% 1000 ML 1,000 ML IV SCH (09:12)
[2024-07-25] MEDS: celeBREX 100 MG PO ONE (09:13)
[2024-07-25] MEDS: Decadron 4 MG PO ONE (09:13)
[2024-07-25] MEDS: NEURONTIN PO ONE (09:13)
[~2024-07-25 09:39] MED LIST: CEFOXITIN 2 GM/100 ML NACL IVPB 2 GM/100 ML IVPB IV ONE; Decadron 4 MG ONE; Lactated Ringers 1,000 ML IV ONE; NEURONTIN ONE; Sensorcaine 0.25% 10 ML ONE; Sodium Chloride 0.9% 1000 ML 1,000 ML ONE; TYLENOL EXTRA STRENGTH 500 MG ONE; celeBREX 100 MG ONE
[2024-07-25] MEDS ORDERED: propofoL IV ONE (11:21)
[2024-07-25] MEDS ORDERED: Zofran 4 MG/2 ML VIAL ONE (11:21)
[2024-07-25] MEDS ORDERED: ROCURONIUM BROMIDE IV ONE ×2 (11:21→11:56)
[2024-07-25] MEDS ORDERED: PHENYLEPHRINE HCL ONE (11:55)
[2024-07-25] MEDS ORDERED: SUBLIMAZE 100 MCG/2 ML ONE ×2 (12:13→13:11)
[2024-07-25] MEDS ORDERED: BRIDION 200MG/2ML IV ONE (12:22)
[2024-07-25 13:05] VITALS: RESP 20
[2024-07-25] MEDS: Sodium Chloride 3 ML UD NEBULES IH ONE (13:07)
[2024-07-25] MEDS: Xopenex 1.25 MG/0.5 ML UD NEBULE IH ONE (13:07)
[2024-07-25 13:52] VITALS: BP 111/83; PULSE 69; TEMP 98; O2SAT 96
--- NOTE | 2024-07-27 08:17 | OP ---
SURGERY DATE/TIME: 07/25/2024 [id number] PREOPERATIVE DIAGNOSIS: Acute exacerbation of chronic cholecystectomy, symptomatic cholelithiasis. POSTOPERATIVE DIAGNOSIS: Acute exacerbation of chronic cholecystectomy, symptomatic cholelithiasis. PROCEDURE: Laparoscopic cholecystectomy. SURGEON: Mateo Gaytan MD ANESTHESIA: General. ESTIMATED BLOOD LOSS: Minimal. INDICATIONS: Consent was obtained. DESCRIPTION OF PROCEDURE AND FINDINGS: The patient was taken to the operating room. General anesthesia was induced. Abdomen was prepped and draped in usual sterile fashion. After official time-out, no disagreement in planned procedure, a transverse incision was made at supraumbilical area. Fascia grasped and pulled upward. Veress needle inserted. Tested with saline. Pneumoperitoneum accomplished with opening pressure of 0-15. A 5 mm bladeless port and camera inserted without difficulty, followed by two 5 mm right upper quadrant ports and an 11 mm epigastric port. Gallbladder was grasped, retracted to the edge of the liver in line with Calot triangle, had some chronic inflammation, dissected posterolateral to anterior fashion. Slowly and carefully the cystic duct/infundibular area slowly and carefully skeletonized until the critical view was obtained both anteriorly and posteriorly. Once this was accomplished, the cystic duct and cystic artery clipped x3 and divided in usual fashion. The gallbladder was slowly and carefully dissected free from its dense attachments to the liver bed, staying directly on the gallbladder wall. Just prior to releasing the final attachments to the anterior edge of the liver, liver and artery inspected. Clips noted to be in place to cystic duct and cystic artery stumps. No signs of any active bleeding or bile leakage. It was felt there was no benefit in drain placement. Gallbladder was released from its final attachments to the anterior edge of the liver, placed in the provided sack, pulled up into the epigastric wound where it was enlarged slightly with a clamp, and then the gallbladder and bag pulled free and passed off. This fascial defect was closed with puncture closure of #1 Vicryl. Copious amount of irrigation lateral to the liver and subhepatic space irrigated clear. Liver was reinspected and clips noted to be in place to cystic duct and cystic artery stumps. No signs of any active bleeding or bile leakage. It was felt there was no benefit in drain placement. Pneumoperitoneum decompressed. Wounds irrigated out. Skin incisions closed with 4-0 Vicryl; 0.25% Marcaine local injected along each skin incision and fascial defect. Patient tolerated the procedure well. There were no immediate complications.
== END 2024-07-25 14:02 | disposition home or self-care (01) ==
LOC: SDC 09:39
PROVIDERS: ATTEND Surgery
DX: K80.10 Calculus of gallbladder with chronic cholecystitis without obstruction (principal); E11.9 Type 2 diabetes mellitus without complications
CPT/HCPCS: 82947; 93005; 94640; J0694; J2371; J2405; J2704; J3010; A9270-GY